=== PATIENT | male | born 1970 | race Caucasian/White ===

== ENCOUNTER 2016-08-02 11:28 | Emergency (ER) | payer BC ==
--- NOTE | 2016-08-02 15:34 | ED ---
Alcohol HPI - General Chief Complaint: Alcohol Stated Complaint: ETOH Time Seen by Provider: 08/02/16 12:30 Source: EMS Mode of arrival: EMS Limitations: altered mental status - History of Present Illness Initial Comments: This 46-year-old white male presents with a complaint of having a problem with alcoholism. He states that he would like to stop drinking. He barely drinks a fifth of alcohol per day. He states that he drank a fifth of bourbon today. He denies any injuries. He denies any medical complaints whatsoever. There is no suicidal ideations. He seems somewhat anxious at times. - Related Data Home Medications Medication Instructions Recorded Confirmed No Known Home Medications [No 08/02/16 08/02/16 Known Home Medications] Allergies Allergy/AdvReac Type Severity Reaction Status Date / Time No Known Allergies Allergy Verified 08/02/16 13:19 Review of Systems ROS Statement: Those systems with pertinent positive or pertinent negative responses have been documented in the HPI. ROS Other: All systems not noted in ROS Statement are negative. Past Medical History Past Medical History: No Reported History Additional Past Medical History / Comment(s): ETOH abuse History of Any Multi-Drug Resistant Organisms: None Reported Past Surgical History: Unable to Obtain Additional Past Surgical History / Comment(s): skin graft on Left AC. Broken clavical Past Anesthesia/Blood Transfusion Reactions: No Reported Reaction Past Psychological History: Anxiety Smoking Status: Current every day smoker Past Alcohol Use History: Daily, Heavy Past Drug Use History: None Reported Additional Drug Use History / Comment(s): Drinks 2 5ths per week General Exam - General Exam Comments Initial Comments: GENERAL: The patient is well nourished and well hydrated. VITAL SIGNS: Heart rate, blood pressure, respiratory rate reviewed as recorded in nurse's notes. EYES: Pupils are round and reactive. Extraocular movements are intact. No conjunctival / lid redness or swelling. ENT: No external evidence of injury, swelling, or ecchymosis. Airway is patent. Throat is clear. NECK: Nontender. No swelling or evidence of injury. No subcutaneous emphysema. Trachea is midline. No thyroid mass. HEART: Regular rate and rhythm. Good peripheral pulses. LUNGS/CHEST: Breath sounds clear and equal bilaterally. No rales, rhonchi, or wheezes. No ecchymosis, subcutaneous emphysema, or tenderness. ABDOMEN: Abdomen soft without tenderness. No palpable masses or organomegaly. No peritoneal signs. No abdominal wall swelling or ecchymosis. EXTREMITIES: No extremity tenderness. Normal muscle tone and function. No thoracolumbar tenderness. NEUROLOGIC: Sensation is grossly intact. Cranial nerve exam reveals face is symmetrical, tongue is midline, speech is clear. SKIN: No abrasions or ecchymosis is noted. No induration or masses noted. PSYCHIATRIC: Alert and oriented. Patient is quite verbose and mildly agitated initially. Limitations: altered mental status Course Vital Signs 08/02/16 08/02/16 08/02/16 12:03 14:55 16:44 Temperature 96.5 F L 97.2 F L Pulse Rate 121 H 101 H 122 H Respiratory 15 14 20 Rate Blood Pressure 129/87 113/75 124/80 O2 Sat by Pulse 96 96 97 Oximetry 08/02/16 18:50 Temperature 98.6 F Pulse Rate 106 H Respiratory 16 Rate Blood Pressure 129/79 O2 Sat by Pulse 98 Oximetry Medical Decision Making - Medical Decision Making The patient was seen and examined. His alcohol was drawn and found to be 253. It is felt as though he would require further sobering. He was watched here for many hours. On reexamination, he appears sober. It is felt as though he would require help call rehabilitation and he states that he is scheduled for this on August 11. He was quite anxious at one point in his stay and receives 2 mg of Ativan orally. He is sleeping on recheck. It is felt as though he is stable for discharge. He was counseled regarding alcohol abuse and leaves in no identifiable distress. No signs of depression or suicidal ideations are noted. The patient does not appear to be going through any significant withdrawals at this time. - Lab Data Lab Results 08/02/16 Range/Units 14:45 Serum Alcohol 253 mg/dL Disposition Clinical Impression: Alcoholic intoxication, Alcohol abuse Disposition: HOME SELF-CARE Condition: Fair Instructions: Alcohol Intoxication (ED), Abuse of Alcohol (ED) Additional Instructions: Please follow-up with the alcohol rehabilitation has planned. Referrals: Gertrudis Howe MD [Primary Care Provider] - 1-2 days Time of Disposition: 20:33
[2016-08-02] MEDS ORDERED: LORazepam 1 MG TAB PO STA (16:52)
[2016-08-02 18:52] VITALS: TEMP 98.6
[2016-08-02 20:42] VITALS: BP 143/66; PULSE 102; RESP 20
== END 2016-08-02 20:41 | disposition home or self-care (01) ==
LOC: EC 11:28
DX: F10.129 Alcohol abuse with intoxication, unspecified (principal); F17.200 Nicotine dependence, unspecified, uncomplicated
CPT/HCPCS: 36415; 80320; 99284

== ENCOUNTER → 2017-08-23 | Outpatient (CLI) | payer BC ==
--- NOTE | 2017-08-23 13:31 | XR ---
Right shoulder HISTORY: Right shoulder pain 3 views of the right shoulder Comparison plain film 11/09/2015 There is no interval change. Bone mineralization, joint spaces and alignment are stable. Apical pleur al thickening at the right lung apex is stable. Hypertrophic change again noted at the acromioclavicu lar joint. IMPRESSION: Correlate for impingement, shoulder MRI may be of benefit.
== END | disposition home or self-care (01) ==
LOC: RADXRYALE 10:01
PROVIDERS: ATTEND Physician Assistant Medical
DX: M25.511 Pain in right shoulder (principal)

== ENCOUNTER → 2017-10-16 | Outpatient (CLI) | payer BC ==
--- NOTE | 2017-10-16 22:55 | MR ---
EXAMINATION TYPE: MR shoulder RT wo con DATE OF EXAM: 10/16/2017 COMPARISON: Radiographs 08/23/2017 HISTORY: 47-year-old male with right shoulder pain/limited ROM x 2 years, no trauma TECHNIQUE: Multiplanar, multisequence imaging of the right shoulder is performed without contrast. FINDINGS: Unable to clearly visualize the intracapsular portion of the long head biceps tendon which may be tor n. Moderate degenerative joint space narrowing and marginal spurring at the acromioclavicular joint. Pro minent inferior spurring encroaches on the subacromial space. There is a massive rotator cuff tear involving the entire supraspinatus and infraspinatus tendon and the majority of the subscapularis tendon. The tendon stump is retracted back to the glenoid biopsy 6.0 to 6.5 cm. There is superior subluxation of the humeral head compatible with subsequent instability. There is moderate atrophy of the subscapularis, supraspinatus, and infraspinatus muscle bellies. Evaluation of the glenohumeral joint shows marginal spurring and moderate irregular cartilage loss al tonny the inferior femoral head. There is a tear of the superior labrum extending back to the superior aspect of the posterior labrum. No significant glenohumeral joint effusion. No Hill-Sachs deformity or os acromiale. Mild patchy red marrow hyperplasia is present. IMPRESSION: 1. Massive rotator cuff tear involving the entire supraspinatus and infraspinatus tendons. The majori ty of the subscapularis tendon is also torn. Stump retracted to the glenoid by 6.0 to 6.5 cm. 2. Moderate fatty atrophy of all 3 of these muscle bellies. 3. Secondary glenohumeral joint instability and early rotator cuff arthropathy. 4. Moderate AC joint OA with a large inferior spur encroaching on the subacromial space. 5. Unable to clearly visualize the intracapsular long head biceps tendon which may be torn. 6. SLAP tear.
== END | disposition home or self-care (01) ==
LOC: RADMRIMAIN 17:08
PROVIDERS: ATTEND Physician Assistant Medical
DX: M75.101 Unspecified rotator cuff tear or rupture of right shoulder, not specified as traumatic (principal); M62.511 Muscle wasting and atrophy, not elsewhere classified, right shoulder; M19.011 Primary osteoarthritis, right shoulder; S43.491A Other sprain of right shoulder joint, initial encounter; M67.813 Other specified disorders of tendon, right shoulder

== ENCOUNTER 2019-05-03 22:35 | Inpatient (IN) | payer BC, OTHER ==
[~2019-05-03 22:35] MED LIST: THIAMINE 100 MG TAB PO SCH
[2019-05-03] MEDS ORDERED: MIDAZOLAM 1 MG/ML 5 ML VIAL IM STA (23:02)
--- NOTE | 2019-05-03 23:07 | ED ---
General Adult HPI - General Chief complaint: Psychiatric Symptoms Stated complaint: petition Time Seen by Provider: 05/03/19 22:44 Source: patient, family, police Mode of arrival: ambulatory Limitations: no limitations - History of Present Illness Initial comments: Dictation was produced using [employer] dictation software. please excuse any grammatical, word or spelling errors. Chief Complaint: 48-year-old male presents with suicidal ideation. History of Present Illness: 48-year-old male he is brought in by law enforcemen bogdan. Patient was allegedly on the phone with 911 when he told the dispatcher that he was acutely suicidal. He admitted to the dispatch individual saying that he wanted to hang himself. Enforcement was called to the scene. Patient also endorse that he was feeling suicidal. Patient unable to provide history at this time. He was jerking alcohol today. Patient is a daily EtOH drinker. Patient is uncooperative and unwilling to provide a history. Patient is petitioned by law enforcement. Patient endorses no complaint at this time. The ROS documented in this emergency department record has been reviewed and confirmed by me. Those systems with pertinent positive or negative responses have been documented in the HPI. All other systems are other negative and/or noncontributory. PHYSICAL EXAM: General Impression: Alert and oriented x3, not in acute distress, smells of EtOH HEENT: Normocephalic atraumatic, extra-ocular movements intact, pupils equal and reactive to light bilaterally, mucous membranes moist. Cardiovascular: Heart regular rate and rhythm, S1&S2 audible, no murmurs, rubs or gallops Chest: Lungs clear to auscultation bilaterally, no rhonchi, no wheeze, no rales Abdomen: Bowel sounds present, abdomen soft, non-tender, non-distended, no organomegaly Musculoskeletal: Pulses present and equal in all extremities, no peripheral edema Motor: no focal deficits noted Neurological: CN II-XII grossly intact, no focal motor or sensory deficits noted Skin: Intact with no visualized rashes Psych: Normal affect and mood ED course: 48-year-old uncooperative male presents for suicidal ideation. Patient clinically intoxicated. As upon arrival are within acceptable limits. Attempt was made for verbal de-escalation however he was continued to be uncooperative. Patient given IM Versed and placed in 4 point restraints. Patient was petitioned by law enforcement.Laboratory evaluation obtained. CBC unremarkable. Metabolic panel shows anion gap acidosis. Serum alcohol level is 328. Patient's acidosis likely secondary to alcoholic ketoacidosis. Patient given intravenous fluids. Patient resting comfortably at bedside after Versed administration. Pending urine studies. EKGs benign. Given patient's degree of alcohol intoxication with metabolic acidosis we will admit patient for clinical sobriety. Psychiatric staff is on consult for suicidal ideation. EKG interpretation: Ventricular rate 90, normal sinus rhythm, MS interval 190, QS 134, QTC 499. No MS prolongation, no QTC prolongation, no ST or T-wave changes noted. EKG compared to 04/11/2014 showing no changes. Overall, this EKG is unremarkable - Related Data Home Medications Medication Instructions Recorded Confirmed Disulfiram [Antabuse] 250 mg PO DAILY 05/03/19 05/03/19 QUEtiapine [SEROquel] 25 mg PO HS 05/03/19 05/03/19 Allergies Allergy/AdvReac Type Severity Reaction Status Date / Time No Known Allergies Allergy Verified 05/03/19 23:20 Review of Systems ROS Statement: Those systems with pertinent positive or pertinent negative responses have been documented in the HPI. ROS Other: All systems not noted in ROS Statement are negative. Past Medical History Past Medical History: No Reported History Additional Past Medical History / Comment(s): ETOH abuse History of Any Multi-Drug Resistant Organisms: None Reported Past Surgical History: Unable to Obtain Additional Past Surgical History / Comment(s): skin graft on Left AC. Broken clavical Past Anesthesia/Blood Transfusion Reactions: No Reported Reaction Past Psychological History: Anxiety, Depression Smoking Status: Current every day smoker Past Alcohol Use History: Abuse, Daily, Heavy Past Drug Use History: Marijuana General Exam Limitations: no limitations Course Vital Signs 05/03/19 22:36 Temperature 96 F L Pulse Rate 54 L Respiratory 20 Rate Blood Pressure 155/75 O2 Sat by Pulse 97 Oximetry Medical Decision Making - Lab Data Result diagrams: 05/03/19 23:23 05/03/19 23:23 Lab Results 05/03/19 05/03/19 Range/Units 23:23 23:23 WBC 9.4 (3.8-10.6) k/uL RBC 5.49 (4.30-5.90) m/uL Hgb 17.0 (13.0-17.5) gm/dL Hct 50.4 (39.0-53.0) % MCV 91.8 (80.0-100.0) fL MCH 31.0 (25.0-35.0) pg MCHC 33.8 (31.0-37.0) g/dL RDW 14.2 (11.5-15.5) % Plt Count 416 (150-450) k/uL Neutrophils % 50 % Lymphocytes % 37 % Monocytes % 7 % Eosinophils % 2 % Basophils % 1 % Neutrophils # 4.6 (1.3-7.7) k/uL Lymphocytes # 3.5 (1.0-4.8) k/uL Monocytes # 0.6 (0-1.0) k/uL Eosinophils # 0.2 (0-0.7) k/uL Basophils # 0.1 (0-0.2) k/uL Sodium 147 H (137-145) mmol/L Potassium 4.0 (3.5-5.1) mmol/L Chloride 109 H (98-107) mmol/L Carbon Dioxide 21 L (22-30) mmol/L Anion Gap 17 mmol/L BUN 10 (9-20) mg/dL Creatinine 0.79 (0.66-1.25) mg/dL Est GFR (CKD-EPI)AfAm >90 (>60 ml/min/1.73 sqM) Est GFR (CKD-EPI)NonAf >90 (>60 ml/min/1.73 sqM) Glucose 97 (74-99) mg/dL Calcium 9.7 (8.4-10.2) mg/dL Magnesium 2.0 (1.6-2.3) mg/dL Serum Alcohol 328 H* mg/dL Disposition Clinical Impression: Suicidal ideation, Alcohol intoxication, Alcoholic ketoacidosis Disposition: ADMITTED IP TO THIS HOSP Condition: Fair Referrals: None,Stated [Primary Care Provider] - 1-2 days Decision Time: 00:26
[2019-05-03 23:29] LABS: Basophils # (A) 0.1 k/uL (0-0.2); Basophils % (A) 1 %; Eosinophils # (A) 0.2 k/uL (0-0.7); Eosinophils % (A) 2 %; HCT 50.4 % (39.0-53.0); Lymphocytes # (A) 3.5 k/uL (1.0-4.8); Lymphocytes % (A) 37 %; MCHC 33.8 g/dL (31.0-37.0); MCV 91.8 fL (80.0-100.0); Mean Platelet Volume 5.6; Monocytes # (A) 0.6 k/uL (0-1.0); Monocytes % (A) 7 %; Neutrophils # (A) 4.6 k/uL (1.3-7.7); Neutrophils % (A) 50 %; Platelet Count 416 k/uL (150-450); RBC 5.49 m/uL (4.30-5.90); RDW 14.2 % (11.5-15.5); WBC 9.4 k/uL (3.8-10.6)
[2019-05-03 23:39] LABS: African American GFR (CKD) >90 (>60 ml/min/1.73 sqM); Anion Gap 17 mmol/L; Blood Urea Nitrogen 10 mg/dL (9-20); Calcium 9.7 mg/dL (8.4-10.2); Carbon Dioxide 21 mmol/L (22-30); Chloride 109 mmol/L (98-107); Glucose 97 mg/dL (74-99); Non-African American GFR(CKD) >90 (>60 ml/min/1.73 sqM); Sodium 147 mmol/L (137-145)
[2019-05-03 23:50] LABS: Alcohol 328 mg/dL
[2019-05-03] MEDS ORDERED: SODIUM CHLORIDE 0.9% 1,000 ML IV STA (23:53)
[2019-05-03] MEDS ORDERED: THIAMINE 100 MG/ML 2 ML VIAL IM STA (23:57)
[2019-05-04] MEDS ORDERED: NALOXONE 0.4 MG/ML 1 ML VIAL IV PRN (00:27)
[2019-05-04 02:02] LABS: Appearance,Urine Clear (Clear); Bilirubin,Urine Negative (Negative); Blood,Urine Trace (Negative); Color,Urine Yellow; Glucose,Urine (UA) Negative (Negative); Ketones,Urine Negative (Negative); Leukocyte Esterase,Urine Negative (Negative); Mucus,Urine Rare /hpf; Nitrite,Urine Negative (Negative); PH, Urine 5.5 (5.0-8.0); Protein,Urine 1+ (Negative); RBC,Urine <1 /hpf (0-5); Specific Gravity,Urine 1.016 (1.001-1.035); Urobilinogen,Urine <2.0 mg/dL (<2.0); WBC,Urine 1 /hpf (0-5)
[2019-05-04 02:03] LABS: Amphetamine Screen,Urine Not Detected (NotDetected); Barbiturate Screen,Urine Not Detected (NotDetected); Benzodiazepines Screen,Urine Not Detected (NotDetected); Cocaine Screen,Urine Not Detected (NotDetected); Methadone Screen, Urine Not Detected (NotDetected); Opiate Screen,Urine Not Detected (NotDetected); Oxycodone Screen, Urine Not Detected (NotDetected); Phencyclidine Screen,Urine Not Detected (NotDetected); Tricyclic Antidepressant,Urine Not Detected (NotDetected); Urn Cannabinoid Scrn Not Detected (NotDetected)
[2019-05-04] MEDS: LORazepam 2 MG/ML INJ IV PRN ×7 (02:28→21:16)
[2019-05-04] MEDS: SODIUM CHLORIDE 0.9% 1,000 ML IV SCH ×3 (03:13→16:36)
[2019-05-04] MEDS: THIAMINE 100 MG TAB PO SCH ×2 (07:51→17:02)
[2019-05-04 10:04] VITALS: BMI 24.4
[2019-05-04 11:52] LABS: Glucose,Whole Blood 81 mg/dL (75-99)
[2019-05-05] MEDS: HEPARIN SODIUM,PORCINE 5,000 UNIT/ML 1 ML VIAL SQ SCH ×3 (01:14→15:24)
[2019-05-05] MEDS: LORazepam 2 MG/ML INJ IV PRN ×8 (01:14→20:03)
[2019-05-05] MEDS: SODIUM CHLORIDE 0.9% 1,000 ML IV SCH ×3 (02:31→18:34)
[2019-05-05 07:15] LABS: Basophils % (A) 0 %; Eosinophils # (A) 0.2 k/uL (0-0.7); Eosinophils % (A) 3 %; HCT 46.7 % (39.0-53.0); HGB 15.6 gm/dL (13.0-17.5); Lymphocytes # (A) 1.5 k/uL (1.0-4.8); Lymphocytes % (A) 23 %; MCH 30.6 pg (25.0-35.0); MCHC 33.4 g/dL (31.0-37.0); MCV 91.8 fL (80.0-100.0); Mean Platelet Volume 5.7; Monocytes # (A) 0.4 k/uL (0-1.0); Monocytes % (A) 6 %; Neutrophils # (A) 4.4 k/uL (1.3-7.7); Neutrophils % (A) 67 %; Platelet Count 294 k/uL (150-450); RBC 5.09 m/uL (4.30-5.90); WBC 6.6 k/uL (3.8-10.6)
[2019-05-05 07:31] LABS: African American GFR (CKD) >90 (>60 ml/min/1.73 sqM); Anion Gap 8 mmol/L; Blood Urea Nitrogen 17 mg/dL (9-20); Calcium 9.6 mg/dL (8.4-10.2); Carbon Dioxide 27 mmol/L (22-30); Chloride 103 mmol/L (98-107); Glucose 83 mg/dL (74-99); Non-African American GFR(CKD) >90 (>60 ml/min/1.73 sqM); Potassium 4.1 mmol/L (3.5-5.1); Sodium 138 mmol/L (137-145)
[2019-05-05] MEDS: THIAMINE 100 MG TAB PO SCH ×2 (09:16→16:49)
--- NOTE | 2019-05-05 11:25 | P.HPIM ---
History of Present Illness H&P Date: 05/04/19 Chief Complaint: Acute alcohol intoxication Patient is a 48-year-old male with a known history of anxiety/depression, nicotine addiction, heavy alcohol abuse was brought to to the hospital by police. Aberrantly patient called 911 and told the dispatcher that he was acutely suicidal. He has been drinking a lot recently. He admitted to the dispatch individual saying that he wanted to hang himself. Enforcement was called to the scene. Patient also endorse that he was feeling suicidal. Patient unable to provide history at this time. Patient is a daily EtOH drinker. Patient is uncooperative and unwilling to provide a history. Patient is petitioned by law enforcement. Patient endorses no complaint at this time. UDS negative. Serum alcohol level 328 Sodium 147 EKG showed normal sinus rhythm. Review of Systems Constitutional: Patient denies any fever or chills . Abdomen: Patient denied nausea vomiting and diarrhea and abdominal pain. Cardiovascular: Patient denies any chest pain or short of breath no palpitat ions. Respiratory: patient denied any cough is from production. No shortness of breath Neurologic: Patient denied any numbness or tingling headache. Complete review of systems could not be obtained from the patient. Past Medical History Past Medical History: No Reported History Additional Past Medical History / Comment(s): ETOH abuse History of Any Multi-Drug Resistant Organisms: None Reported Past Surgical History: Unable to Obtain Additional Past Surgical History / Comment(s): skin graft on Left AC. Broken clavical Past Anesthesia/Blood Transfusion Reactions: No Reported Reaction Past Psychological History: Anxiety, Depression Smoking Status: Current every day smoker Past Alcohol Use History: Abuse, Daily, Heavy Past Drug Use History: Marijuana Additional Drug Use History / Comment(s): Drinks 2 5ths per week Medications and Allergies Home Medications Medication Instructions Recorded Confirmed Type Disulfiram [Antabuse] 250 mg PO DAILY 05/03/19 05/03/19 History QUEtiapine [SEROquel] 25 mg PO HS 05/03/19 05/03/19 History Allergies Allergy/AdvReac Type Severity Reaction Status Date / Time No Known Allergies Allergy Verified 05/03/19 23:20 Physical Exam Vitals: Vital Signs Temp Pulse Pulse Resp BP BP Pulse Ox 05/04/19 20:00 18 05/04/19 19:52 97.8 F 101 H 19 138/77 100 05/04/19 14:34 98.5 F 99 16 125/80 100 05/04/19 08:00 16 05/04/19 07:00 97.9 F 90 16 124/78 97 05/04/19 04:32 16 05/04/19 02:02 98.1 F 104 H 19 136/87 96 05/04/19 01:20 90 20 110/74 97 05/04/19 01:00 87 18 111/74 97 05/04/19 00:50 86 22 104/72 97 05/04/19 00:40 87 21 103/72 96 05/04/19 00:30 88 22 102/66 95 05/04/19 00:26 87 25 H 102/66 96 05/04/19 00:20 89 23 105/74 95 05/04/19 00:04 91 24 102/71 91 L Intake and Output 05/04/19 05/04/19 05/05/19 14:59 22:59 06:59 Intake Total 920 Balance 920 Intake: Oral 920 Other: Voiding Method Toilet Toilet # Voids 0 2 PHYSICAL EXAMINATION: Patient is lying in the bed comfortably, no acute distress, awake alert but confused and lethargic.. HEENT: Normocephalic. Neck is supple. Pupils reactive. Nostrils clear. Oral cavity is moist. Ears reveal no drainage. Neck reveals no JVD, carotid bruits, or thyromegaly. CHEST EXAMINATION: Trachea is central. Symmetrical expansion. Bibasilar diminished air entry. Lung ortez clear to auscultation and percussion. CARDIAC: Normal S1, S2 with no gallops. No murmurs ABDOMEN: Soft. Bowel sounds normal. No organomegaly. No abdominal bruits. Extremities: reveal no edema. No clubbing or cyanosis Neurologically awake, alert, oriented x3 with well-coordinated movements. No focal deficits noted Skin: No rash or skin lesions. Psychiatric: Coperative. Would not bases a completely Musculoskeletal: No joint swelling or deformity. Normal range of motion. Results CBC & Chem 7: 05/05/19 06:43 05/05/19 06:43 Labs: Abnormal Lab Results - Last 24 Hours (Table) 05/03/19 05/04/19 Range/Units 23:23 01:39 Sodium 147 H (137-145) mmol/L Chloride 109 H (98-107) mmol/L Carbon Dioxide 21 L (22-30) mmol/L Urine Protein 1+ H (Negative) Urine Blood Trace H (Negative) Urine Mucus Rare H (None) /hpf Serum Alcohol 328 H* mg/dL Thrombosis Risk Factor Assmnt - DVT/VTE Prophylaxis DVT/VTE Prophylaxis: Pharmacologic Prophylaxis ordered Assessment and Plan Assessment: Acute suicidal ideation with a plan. Acute alcohol INTOXICATION Severe alcohol abuse Ongoing nicotine addiction and marijuana use DVT prophylaxis Anxiety/depression history Plan: Patient will be continued on IV hydration. Continue with thiamine and multivitamins. Monitor for withdrawal symptoms and suicide precautions. Psychiatry was consulted for evaluation. Continue to follow closely and further recommendations based on the clinical course. Time with Patient: Greater than 30
[2019-05-05 12:31] LABS: Glucose,Whole Blood 95 mg/dL (75-99)
--- NOTE | 2019-05-05 16:06 | P.CN ---
Psychiatric Consult - . 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 HISTORY OF PRESENT ILLNESS: The patient he was brought to the hospital by police after patient called 911 claiming that he was actively suicidal with plan to hang himself. Patient also presented with a blood alcohol level of 328 and was admitted for alcohol detox. Psychiatry was consulted for suicidal ideations with a plan. Patient claims that he feels "embarrassed" that is not hospital and was rather guarded/evasive about the events that took place. Patient was very vague about the details and claimed that he had a verbal argument with his and also kids too. He states that the arguments have mainly been related to the [employer] layoff and how it is affecting the company that he works for an affecting his job. He also spoke was stressors of paying for the bills. He states that he called several people than 9 and even called the fire department before calling 911. When asked what he asked the fire department, patient replied "I asked him how to stop drinking". Patient states that he has long history of drinking alcohol for over 30 years has been to rehab twice and AA meetings once. He states that he does not know how to quit alcohol and claims that he was being prescribed Antabuse however was not taking it. Patient also talked about feeling depressed and suicidal. He denied any anxiety at this time. He states that his sleep has been poor and appetite poor. At this time patient denies any suicidal or homical ideations, intent or plan. Patient denies any auditory, visual hallucinations and denies any paranoia or delusions. Patient denied using any other recreational drugs however did show to have a positive UDS for cannabis. Patient admitted to smoking cigarettes daily. PAST PSYCHIATRIC HISTORY: Patient claims that been diagnosed with depression. Patient does not have any outpatient follow-up. He denies any previous admissions to mental health units. Patient denies any previous suicide attempts. PAST MEDICAL HISTORY: denies. ALLERGIES: as per EMR. CHEMICAL DEPENDENCY HISTORY: as per HPI. FAMILY PSYCHIATRIC/SUBSTANCE USE HISTORY: denies SOCIAL HISTORY: He states that he is born and raised in [place]. He claims that he completed up until the 10th grade. He states that he is has 3 step kids lives in a house. 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 MENTAL STATUS EXAM: General Appearance: Patient appears to be older than stated age is alert, directable, however is guarded/evasive patient has poor eye contact and poor hygiene and grooming. Behavior: Patient is calmly lying in bed without any agitated behavior. Speech: Patient's speech is fluent and nonpressured. Soft tone Mood/Affect: Patient reports their mood is "fine", affect is incongruent Suicidality/Homicidality: Patient denies having any suicidal or homicidal ideation intent or plan. Perceptions: Patient denies any auditory or visual hallucinations. Though content/process: There is no evidence of any delusional thought content and thought process is linear and goal-directed. Patient is preoccupied with discharge and minimizing his problemzs. Memory and concentration: AOX3, grossly intact for the purposes of this session. Can spell "WORLD" backwards Judgment and insight: Poor/superficial. IMPRESSIONS: Depressive disorder unspecified Alcohol use disorder, moderate-severe, currently in withdrawal. PLAN: -At this time patient does meet criteria for inpatient psychiatric admission. Patient has poor insight into his condition and is guarded/evasive. Patient cannot care for himself was suicidal prior to coming into the hospital with a plan to hang himself. -Would recommend the following medication changes/additions: Patient is agreeable to start Lexapro 5 mg daily for moodanxiety with 1 dose now. We'll hold off on restarting Seroquel at this time. -Thiamine, folate, multivitamin for supplementation. -1:1 sitter for safety until patient is transferred to the psych unit. -Patient is currently undergoing alcohol withdrawal, continue CIWA with Ativan when necessary and monitoring vitals. -Cannot leave AMA at this time. Patient will need a petition and certification if attempting to leave AMA. -When medically stable, patient is eligible for transfer to a psych bed when available. -Psychiatry will sign off at this point
[2019-05-05 16:41] LABS: Glucose,Whole Blood 107 mg/dL (75-99)
[2019-05-05] MEDS: ESCITALOPRAM 5 MG TAB PO SCH (16:49)
[2019-05-06 00:35] LABS: Glucose,Whole Blood 92 mg/dL (75-99)
[2019-05-06] MEDS: HEPARIN SODIUM,PORCINE 5,000 UNIT/ML 1 ML VIAL SQ SCH ×4 (00:45→22:56)
[2019-05-06] MEDS: SODIUM CHLORIDE 0.9% 1,000 ML IV SCH ×2 (02:28→22:58)
[2019-05-06 06:34] LABS: Glucose,Whole Blood 99 mg/dL (75-99)
[2019-05-06 07:38] LABS: Glucose,Whole Blood 87 mg/dL (75-99)
[2019-05-06] MEDS: THIAMINE 100 MG TAB PO SCH ×2 (08:51→17:44)
[2019-05-06] MEDS: ESCITALOPRAM 5 MG TAB PO SCH (08:51)
--- NOTE | 2019-05-06 11:20 | P.PN ---
Subjective Progress Note Date: 05/05/19 Principal diagnosis: Acute Alcohol withdrawal symptoms Suicidal ideation with a plan Patient is a 48-year-old male with a known history of anxiety/depression, nicotine addiction, heavy alcohol abuse was brought to to the hospital by police. Aberrantly patient called 911 and told the dispatcher that he was acutely suicidal. He has been drinking a lot recently. He admitted to the dispatch individual saying that he wanted to hang himself. Enforcement was called to the scene. Patient also endorse that he was feeling suicidal. Patient unable to provide history at this time. Patient is a daily EtOH drinker. Patient is uncooperative and unwilling to provide a history. Patient is petitioned by law enforcement. Patient endorses no complaint at this time. UDS negative. Serum alcohol level 328 Sodium 147 EKG showed normal sinus rhythm. 05/05/2019 Patient is currently able to sit on the bed. Still very shaky and disoriented. No complains of chest pain or shortness of breath. No fever no chills. No nausea vomiting or abdominal pain. Tolerating oral diet. Patient will be seen by psychiatriy Currently being continued on alcohol withdrawal protocol. Current medications reviewed. Objective - Vital Signs Vital signs: Vital Signs Temp 97.7 F 05/05/19 19:49 Pulse 93 05/05/19 19:49 Resp 16 05/05/19 19:49 BP 133/90 05/05/19 19:49 Pulse Ox 100 05/05/19 19:49 Intake & Output 05/05/19 05/05/19 05/06/19 06:59 18:59 06:59 Intake Total 660 Balance 660 Intake: Oral 660 Other: Voiding Method Toilet # Voids 0 1 - Exam PHYSICAL EXAMINATION: Patient is lying in the bed comfortably, no acute distress, awake alert and oriented perfusion and shaky.. HEENT: Normocephalic. Neck is supple. Pupils reactive. Nostrils clear. Oral cavity is moist. Ears reveal no drainage. Neck reveals no JVD, carotid bruits, or thyromegaly. CHEST EXAMINATION: Trachea is central. Symmetrical expansion. Lung ortez clear to auscultation and percussion. CARDIAC: Normal S1, S2 with no gallops. No murmurs ABDOMEN: Soft. Bowel sounds normal. No organomegaly. No abdominal bruits. Extremities: reveal no edema. No clubbing or cyanosis Neurologically awake, alert, oriented x3 with well-coordinated movements. No f ocal deficits noted Skin: No rash or skin lesions. Psychiatric: Coperative. Denied any suicidal ideation currently Musculoskeletal: No joint swelling or deformity. Normal range of motion. - Labs CBC & Chem 7: 05/05/19 06:43 05/05/19 06:43 Labs: Abnormal Lab Results - Last 24 Hours (Table) 05/05/19 Range/Units 16:40 POC Glucose (mg/dL) 107 H (75-99) mg/dL Assessment and Plan Assessment: Acute suicidal ideation with a plan. Acute alcohol INTOXICATION Severe alcohol abuse Ongoing nicotine addiction and marijuana use DVT prophylaxis Anxiety/depression history Plan: Patient will be continued on IV hydration. Continue with thiamine and multivitamins. Continue with alcohol withdrawal symptoms protocol. suicide precautions. Psychiatry was consulted for evaluation. Continue to follow closely and further recommendations based on the clinical course. Time with Patient: Greater than 30
[2019-05-06 12:22] LABS: Glucose,Whole Blood 90 mg/dL (75-99)
[2019-05-06 17:02] LABS: Glucose,Whole Blood 111 mg/dL (75-99)
[2019-05-06] MEDS: LORazepam 2 MG/ML INJ IV PRN (17:52)
[2019-05-07 07:18] LABS: Glucose,Whole Blood 89 mg/dL (75-99)
[2019-05-07] MEDS: THIAMINE 100 MG TAB PO SCH ×2 (09:27→15:55)
[2019-05-07] MEDS: HEPARIN SODIUM,PORCINE 5,000 UNIT/ML 1 ML VIAL SQ SCH ×2 (09:27→15:54)
[2019-05-07] MEDS: ESCITALOPRAM 5 MG TAB PO SCH (12:18)
[2019-05-07] MEDS: SODIUM CHLORIDE 0.9% 1,000 ML IV SCH ×3 (12:19→22:11)
[2019-05-07] MEDS: LORazepam 1 MG TAB PO PRN (13:31)
[2019-05-07] MEDS: NICOTINE 14MG/24HR PATCH TRANSDERM SCH (15:55)
--- NOTE | 2019-05-07 16:11 | P.PN ---
Subjective Progress Note Date: 05/06/19 Principal diagnosis: Acute Alcohol withdrawal symptoms Suicidal ideation with a plan Patient is a 48-year-old male with a known history of anxiety/depression, nicotine addiction, heavy alcohol abuse was brought to to the hospital by police. Aberrantly patient called 911 and told the dispatcher that he was acutely suicidal. He has been drinking a lot recently. He admitted to the dispatch individual saying that he wanted to hang himself. Enforcement was called to the scene. Patient also endorse that he was feeling suicidal. Patient unable to provide history at this time. Patient is a daily EtOH drinker. Patient is uncooperative and unwilling to provide a history. Patient is petitioned by law enforcement. Patient endorses no complaint at this time. UDS negative. Serum alcohol level 328 Sodium 147 EKG showed normal sinus rhythm. 05/05/2019 Patient is currently able to sit on the bed. Still very shaky and disoriented. No complains of chest pain or shortness of breath. No fever no chills. No nausea vomiting or abdominal pain. Tolerating oral diet. Patient will be seen by psychiatriy Currently being continued on alcohol withdrawal protocol. 05/06/2019 Patient is currently sitting in the bed comfortably. Still requiring Librium by mouth for withdrawal symptoms. Psychiatry recommends inpatient psychiatric unit transfer. Patient wants to be discharged home and seems lacks insight. No complaint of chest pain or shortness of breath. No nausea vomiting or abdominal pain. No headache or dizziness or lightheadedness. Patient is medically stable to be discharged to psychiatric unit. Current medications reviewed. Objective - Vital Signs Vital signs: Vital Signs Temp 98.0 F 05/06/19 07:07 Pulse 69 05/06/19 07:07 Resp 16 05/06/19 07:07 BP 125/75 05/06/19 07:07 Pulse Ox 97 05/06/19 07:07 Intake & Output 05/05/19 05/06/19 05/06/19 18:59 06:59 18:59 Intake Total 660 660 180 Balance 660 660 180 Intake: Oral 660 660 180 Other: # Voids 1 1 - Exam PHYSICAL EXAMINATION: Patient is lying in the bed comfortably, no acute distress, awake alert and oriented. confused and shaky.. HEENT: Normocephalic. Neck is supple. Pupils reactive. Nostrils clear. Oral cavity is moist. Ears reveal no drainage. Neck reveals no JVD, carotid bruits, or thyromegaly. CHEST EXAMINATION: Trachea is central. Symmetrical expansion. Lung ortez clear to auscultation and percussion. CARDIAC: Normal S1, S2 with no gallops. No murmurs ABDOMEN: Soft. Bowel sounds normal. No organomegaly. No abdominal bruits. Extremities: reveal no edema. No clubbing or cyanosis Neurologically awake, alert, oriented x3 with well-coordinated movements. No focal deficits noted Skin: No rash or skin lesions. Psychiatric: Coperative. Denied any suicidal ideation currently Musculoskeletal: No joint swelling or deformity. Normal range of motion. - Labs CBC & Chem 7: 05/05/19 06:43 05/05/19 06:43 Labs: Abnormal Lab Results - Last 24 Hours (Table) 05/05/19 Range/Units 16:40 POC Glucose (mg/dL) 107 H (75-99) mg/dL Assessment and Plan Assessment: Acute suicidal ideation with a plan. Acute alcohol INTOXICATION Severe alcohol abuse Ongoing nicotine addiction and marijuana use DVT prophylaxis Anxiety/depression history Plan: Patient will be continued on IV hydration. Continue with thiamine and multivitamins. Continue with alcohol withdrawal symptoms protocol. suicide precautions. Psychiatry was consulted for evaluation. Recommends inpatient psych transfer. Continue to follow closely and further recommendations based on the clinical course. Time with Patient: Greater than 30
--- NOTE | 2019-05-07 22:06 | P.PN ---
Subjective Progress Note Date: 05/07/19 Principal diagnosis: Acute Alcohol withdrawal symptoms Suicidal ideation with a plan Patient is a 48-year-old male with a known history of anxiety/depression, nicotine addiction, heavy alcohol abuse was brought to to the hospital by police. Aberrantly patient called 911 and told the dispatcher that he was acutely suicidal. He has been drinking a lot recently. He admitted to the dispatch individual saying that he wanted to hang himself. Enforcement was called to the scene. Patient also endorse that he was feeling suicidal. Patient unable to provide history at this time. Patient is a daily EtOH drinker. Patient is uncooperative and unwilling to provide a history. Patient is petitioned by law enforcement. Patient endorses no complaint at this time. UDS negative. Serum alcohol level 328 Sodium 147 EKG showed normal sinus rhythm. 05/05/2019 Patient is currently able to sit on the bed. Still very shaky and disoriented. No complains of chest pain or shortness of breath. No fever no chills. No nausea vomiting or abdominal pain. Tolerating oral diet. Patient will be seen by psychiatriy Currently being continued on alcohol withdrawal protocol. 05/06/2019 Patient is currently sitting in the bed comfortably. Still requiring Librium by mouth for withdrawal symptoms. Psychiatry recommends inpatient psychiatric unit transfer. Patient wants to be discharged home and seems lacks insight. No complaint of chest pain or shortness of breath. No nausea vomiting or abdominal pain. No headache or dizziness or lightheadedness. Patient is medically stable to be discharged to psychiatric unit. 05 07 2019 Patient denied any complaints of chest pain or shortness of breath. Patient is anxious and still requiring Librium by mouth. Psychiatric recommends inpatient transfer for further management. Awaiting bed availability at this time. Patient has been afebrile. No nausea vomiting or diarrhea. Patient is medically stable to be discharged to inpatient psychiatric unit. Current medications reviewed. Objective - Vital Signs Vital signs: Vital Signs Temp 98.4 F 05/07/19 18:57 Pulse 97 05/07/19 18:57 Resp 18 05/07/19 18:57 BP 111/74 05/07/19 18:57 Pulse Ox 96 05/07/19 18:57 Intake & Output 05/07/19 05/07/19 05/08/19 06:59 18:59 06:59 Intake Total 240 Balance 240 Intake: Oral 240 Other: Voiding Method Toilet # Voids 0 2 - Exam PHYSICAL EXAMINATION: Patient is lying in the bed comfortably, no acute distress, awake alert and oriented. confused and shaky.. HEENT: Normocephalic. Neck is supple. Pupils reactive. Nostrils clear. Oral cavity is moist. Ears reveal no drainage. Neck reveals no JVD, carotid bruits, or thyromegaly. CHEST EXAMINATION: Trachea is central. Symmetrical expansion. Lung ortez clear to auscultation and percussion. CARDIAC: Normal S1, S2 with no gallops. No murmurs ABDOMEN: Soft. Bowel sounds normal. No organomegaly. No abdominal bruits. Extremities: reveal no edema. No clubbing or cyanosis Neurologically awake, alert, oriented x3 with well-coordinated movements. No focal deficits noted Skin: No rash or skin lesions. Psychiatric: Coperative. Denied any suicidal ideation currently Musculoskeletal: No joint swelling or deformity. Normal range of motion. - Labs CBC & Chem 7: 05/05/19 06:43 05/05/19 06:43 Assessment and Plan Assessment: Acute suicidal ideation with a plan. Acute alcohol INTOXICATION Severe alcohol abuse Ongoing nicotine addiction and marijuana use DVT prophylaxis Anxiety/depression history Plan: Patient will be continued on IV hydration. Continue with thiamine and multivitamins. Continue with alcohol withdrawal symptoms protocol. suicide precautions. Psychiatry recommends inpatient psych transfer. Continue to follow closely and further recommendations based on the clinical course. Time with Patient: Greater than 30
[2019-05-08] MEDS: LORazepam 1 MG TAB PO PRN (00:18)
[2019-05-08] MEDS: HEPARIN SODIUM,PORCINE 5,000 UNIT/ML 1 ML VIAL SQ SCH ×2 (00:18→07:32)
[2019-05-08] MEDS: SODIUM CHLORIDE 0.9% 1,000 ML IV SCH ×2 (06:11→07:32)
[2019-05-08] MEDS: NICOTINE 14MG/24HR PATCH TRANSDERM SCH (07:30)
[2019-05-08] MEDS: THIAMINE 100 MG TAB PO SCH (07:30)
[2019-05-08] MEDS: ESCITALOPRAM 5 MG TAB PO SCH (07:31)
[2019-05-08 07:37] VITALS: BP 127/80; PULSE 81; RESP 16; TEMP 97.8
--- NOTE | 2019-05-19 00:58 | P.DS ---
Providers Date of admission: 05/04/19 11:31 Expected date of discharge: 05/08/19 Attending physician: Toni Wolf Consults: 05/03/19 23:58 Consult Physician Routine Consulting Provider: Teo Cortez Consult Reason/Comments: suicidal ideation Do you want consulting provider notified?: Already Contacted Primary care physician: Stated None Hospital Course: Discharge diagnosis Acute suicidal ideation with a plan. Acute alcohol INTOXICATION Acute alcohol withdrawal symptoms Severe alcohol abuse Ongoing nicotine addiction and marijuana use DVT prophylaxis Anxiety/depression history Hospital course Patient is a 48-year-old male with a known history of anxiety/depression, nicotine addiction, heavy alcohol abuse was brought to to the hospital by police. Aberrantly patient called 911 and told the dispatcher that he was acutely suicidal. He has been drinking a lot recently. He admitted to the dispatch individual saying that he wanted to hang himself. Enforcement was ca lled to the scene. Patient also endorse that he was feeling suicidal. Patient unable to provide history at this time. Patient is a daily EtOH drinker. Patient is uncooperative and unwilling to provide a history. Patient is petitioned by law enforcement. Patient endorses no complaint at this time. UDS negative. Serum alcohol level 328 Sodium 147 EKG showed normal sinus rhythm. 05/05/2019 Patient is currently able to sit on the bed. Still very shaky and disoriented. No complains of chest pain or shortness of breath. No fever no chills. No nausea vomiting or abdominal pain. Tolerating oral diet. Patient will be seen by psychiatriy Currently being continued on alcohol withdrawal protocol. 05/06/2019 Patient is currently sitting in the bed comfortably. Still requiring Librium by mouth for withdrawal symptoms. Psychiatry recommends inpatient psychiatric unit transfer. Patient wants to be discharged home and seems lacks insight. No complaint of chest pain or shortness of breath. No nausea vomiting or abdominal pain. No headache or dizziness or lightheadedness. Patient is medically stable to be discharged to psychiatric unit. 05 07 2019 Patient denied any complaints of chest pain or shortness of breath. Patient is anxious and still requiring Librium by mouth. Psychiatric recommends inpatient transfer for further management. Awaiting bed availability at this time. Patient has been afebrile. No nausea vomiting or diarrhea. Patient is medically stable to be discharged to inpatient psychiatric unit. 05/08/2019 Patient is more awake and oriented. Still requiring Librium. Patient was transferred to inpatient psychiatric unit for further management. Patient is medically stable otherwise. PHYSICAL EXAMINATION: Patient is lying in the bed comfortably, no acute distress, awake alert and oriented.. HEENT: Normocephalic. Neck is supple. Pupils reactive. Nostrils clear. Oral cavity is moist. Ears reveal no drainage. Neck reveals no JVD, carotid bruits, or thyromegaly. CHEST EXAMINATION: Trachea is central. Symmetrical expansion. Lung ortez clear to auscultation and percussion. CARDIAC: Normal S1, S2 with no gallops. No murmurs ABDOMEN: Soft. Bowel sounds normal. No organomegaly. No abdominal bruits. Extremities: reveal no edema. No clubbing or cyanosis Neurologically awake, alert, oriented x3 with well-coordinated movements. No focal deficits noted Skin: No rash or skin lesions. Psychiatric: Coperative. Nonsuicidal Musculoskeletal: No joint swelling or deformity. Normal range of motion. Discharge vitals reviewed. Patient Condition at Discharge: Fair Plan - Discharge Summary Discharge Rx Participant: Yes New Discharge Prescriptions: No Action Folic Acid 1 mg PO DAILY tab Nicotine 21Mg/24Hr Patch [Habitrol] 1 patch TRANSDERM DAILY 14 Days patch Escitalopram [Lexapro] 10 mg PO DAILY 28 Days tab Melatonin 5 mg PO HS tablet Multivitamins, Thera [Multivitamin (formulary)] 1 each PO DAILY tab Naltrexone HCl [Revia] 50 mg PO DAILY 28 Days tab Thiamine [Vitamin B-1] 100 mg PO BID-W/MEALS tab Discharge Medication List Escitalopram [Lexapro] 10 mg PO DAILY 28 Days tab 05/12/19 [Rx] Folic Acid 1 mg PO DAILY tab 05/12/19 [Rx] Melatonin 5 mg PO HS tablet 05/12/19 [Rx] Multivitamins, Thera [Multivitamin (formulary)] 1 each PO DAILY tab 05/12/19 [Rx] Naltrexone HCl [Revia] 50 mg PO DAILY 28 Days tab 05/12/19 [Rx] Nicotine 21Mg/24Hr Patch [Habitrol] 1 patch TRANSDERM DAILY 14 Days patch 05/12/19 [Rx] Thiamine [Vitamin B-1] 100 mg PO BID-W/MEALS tab 05/12/19 [Rx] Follow up Appointment(s)/Referral(s): None,Stated [Primary Care Provider] - 1-2 days Activity/Diet/Wound Care/Special Instructions: Will need indigent funds if any new prescriptions. [facility] #[phone] Discharge Disposition: TRANSFER TO PSYCH HOSP/UNIT
== END 2019-05-08 12:04 | DRG 897 ==
LOC: EC 22:35 → 4SSUR 05-04 00:27 → OBSVTOIN 05-04 11:31
PROVIDERS: ADMIT Hospitalist; ATTEND Hospitalist
DX: F10.229 Alcohol dependence with intoxication, unspecified (principal); E87.2 Acidosis; R45.851 Suicidal ideations; F10.239 Alcohol dependence with withdrawal, unspecified; Z78.1 Physical restraint status; F12.90 Cannabis use, unspecified, uncomplicated; Y90.8 Blood alcohol level of 240 mg/100 ml or more; F32.9 Major depressive disorder, single episode, unspecified; F41.9 Anxiety disorder, unspecified; F17.210 Nicotine dependence, cigarettes, uncomplicated; Z79.899 Other long term (current) drug therapy; Z75.1 Person awaiting admission to adequate facility elsewhere; Z87.81 Personal history of (healed) traumatic fracture; Z94.5 Skin transplant status
CPT/HCPCS: 36415; 80048; 80306; 80320; 81001; 82075; 83735; 85025; 93005; 96360; 96372; 99285

== ENCOUNTER 2019-05-08 12:10 | Inpatient (IN) | payer MEDICAID, OTHER ==
[2019-05-08] MEDS ORDERED: MAGNESIUM HYDROXIDE 2,400 MG/10 ML CUP PO PRN (12:47)
[2019-05-08] MEDS ORDERED: ACETAMINOPHEN TAB 325 MG TAB PO PRN (12:47)
[2019-05-08] MEDS ORDERED: ZIPRASIDONE 20 MG VIAL IM PRN (12:47)
[2019-05-08 13:05] VITALS: BMI 22.2
[2019-05-08] MEDS: LORazepam 1 MG TAB PO PRN ×2 (15:04→21:58)
[2019-05-08] MEDS: THIAMINE 100 MG TAB PO SCH (18:34)
[2019-05-09] MEDS ORDERED: ESCITALOPRAM 5 MG TAB PO SCH (09:00)
[2019-05-09] MEDS: NICOTINE 21MG/24HR PATCH TRANSDERM SCH (09:23)
[2019-05-09] MEDS: THIAMINE 100 MG TAB PO SCH ×2 (09:24→17:08)
[2019-05-09] MEDS: ESCITALOPRAM 10 MG TAB PO SCH (09:26)
[2019-05-09 11:26] LABS: ALT 40 U/L (21-72); AST 46 U/L (17-59); African American GFR (CKD) >90 (>60 ml/min/1.73 sqM); Albumin 4.4 g/dL (3.5-5.0); Alkaline Phosphatase 61 U/L (38-126); Anion Gap 8 mmol/L; Blood Urea Nitrogen 20 mg/dL (9-20); Calcium 9.8 mg/dL (8.4-10.2); Carbon Dioxide 29 mmol/L (22-30); Chloride 100 mmol/L (98-107); Glucose 58 mg/dL (74-99); Potassium 4.7 mmol/L (3.5-5.1); Sodium 137 mmol/L (137-145); Total Bilirubin 0.6 mg/dL (0.2-1.3); Total Protein 7.7 g/dL (6.3-8.2)
--- NOTE | 2019-05-09 11:56 | P.HP ---
Psychiatric H&P - . H&P Date: 05/09/19 History & Physical: Allergies Allergy/AdvReac Type Severity Reaction Status Date / Time No Known Allergies Allergy Verified 05/08/19 13:59 Vital Signs Temp 97.7 F 05/09/19 06:03 Pulse 80 05/09/19 06:03 Resp 14 05/09/19 06:03 BP 105/68 05/09/19 06:03 Pulse Ox Intake & Output 05/08/19 05/09/19 05/09/19 18:59 06:59 18:59 Weight 72.348 kg Laboratory Last Values Sodium 137 mmol/L (137-145) 05/09/19 10:24 Potassium 4.7 mmol/L (3.5-5.1) 05/09/19 10:24 Chloride 100 mmol/L (98-107) 05/09/19 10:24 Carbon Dioxide 29 mmol/L (22-30) 05/09/19 10:24 Anion Gap 8 mmol/L 05/09/19 10:24 BUN 20 mg/dL (9-20) 05/09/19 10:24 Creatinine 0.92 mg/dL (0.66-1.25) 05/09/19 10:24 Est GFR (CKD-EPI)AfAm >90 (>60 ml/min/1.73 sqM) 05/09/19 10:24 Est GFR (CKD-EPI)NonAf >90 (>60 ml/min/1.73 sqM) 05/09/19 10:24 Glucose 58 mg/dL (74-99) L 05/09/19 10:24 Calcium 9.8 mg/dL (8.4-10.2) 05/09/19 10:24 Total Bilirubin 0.6 mg/dL (0.2-1.3) 05/09/19 10:24 AST 46 U/L (17-59) 05/09/19 10:24 ALT 40 U/L (21-72) 05/09/19 10:24 Alkaline Phosphatase 61 U/L (38-126) 05/09/19 10:24 Total Protein 7.7 g/dL (6.3-8.2) 05/09/19 10:24 Albumin 4.4 g/dL (3.5-5.0) 05/09/19 10:24 05/09/19 11:55 IDENTIFYING DATA: Mr. 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 HISTORY OF PRESENT ILLNESS: Patient was initially brought to the hospital by police after patient called 911 claiming that he was actively suicidal with plan to hang himself. Patient also presented with a blood alcohol level of 328 and was admitted for alcohol detox. Psychiatry consult liaison was consulted for suicidal ideations with a plan. Patient at that time claimed that he feels "embarrassed" that is not hospital and was rather guarded/evasive about the events that took place. Patient was very vague about the details and claimed that he had a verbal argument with his and also kids too. He states that the arguments have mainly been related to the [employer] layoff and how it is affecting the company that he works for an affecting his job. He also spoke was stressors of paying for the bills. He stated that he called several people and even called the fire department before calling 911. Patient told pelletizer operator that he wanted to hang himself and was tearful and crying over the phone. Patient states that he has long history of drinking alcohol for over 30 years has been to rehab twice and AA meetings once. He stated that he does not know how to quit alcohol and claims that he was being prescribed Antabuse however was not taking it. Patient also spoke about feeling depressed and suicidal. He denied any anxiety. He states that his sleep has been poor and appetite poor. Patient claims that he's been taking the Lexapro 5 mg since being on the medical floors and claims that his mood has been gradually improving and also claims that he is "finished with the withdrawals". Patient at this time claimed that he is optimistic about the future and wants to stay sober so he can help pay for his bills and work and care for his family. At this time patient denies any suicidal or homical ideations, intent or plan. Patient denies any auditory, visual hallucinations and denies any paranoia or delusions. Patient denied using any other recreational drugs however did show to have a positive UDS for cannabis. Patient admitted to smoking cigarettes daily. PAST PSYCHIATRIC HISTORY: Patient claims that been diagnosed with depression. Patient does not have any outpatient follow-up. He denies any previous admissions to mental health units. Patient denies any previous suicide attempts. PAST MEDICAL HISTORY: denies. ALLERGIES: as per EMR. CHEMICAL DEPENDENCY HISTORY: as per HPI. FAMILY PSYCHIATRIC/SUBSTANCE USE HISTORY: denies SOCIAL HISTORY: He states that he is born and raised in [place]. He claims that he completed up until the 10th grade. He states that he is has 3 step kids lives in a house. 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 MENTAL STATUS EXAM: General Appearance: Patient appears to be older than stated age is alert, directable, has poor eye contact and poor hygiene and grooming. Behavior: Patient is calmly sitting in chair without any agitated behavior. Speech: Patient's speech is fluent and nonpressured. Soft tone Mood/Affect: Patient reports their mood is "a bit better", affect is congruent and constricted. Suicidality/Homicidality: Patient denies having any suicidal or homicidal ideation intent or plan. Perceptions: Patient denies any auditory or visual hallucinations. Though content/process: There is no evidence of any delusional thought content and thought process is linear and goal-directed. Memory and concentration: AOX3, grossly intact for the purposes of this session. Can spell "WORLD" backwards Judgment and insight: Poor/superficial, improving mildly. Strengths/weaknesses: Patient's strength is that he has good family support, weakness is that patient has long history of alcohol use and depression. Intellect: Average IMPRESSIONS: Major depressive disorder, moderate-severe without psychotic features. Alcohol use disorder, moderate-severe PLAN: -Patient is admitted under voluntary status to MHU for stabilization of psychiatric symptoms and safety. Patient signed adult voluntary form and medication consent and is placed in patient's chart. -Medications : Will start patient on 10 mg Lexapro daily for mood with plan to titrate up as tolerated. Will also start melatonin daily at bedtime for sleep. -Patient was agreeable to potentially start naltrexone by mouth after liver functions come back. -Ativan PRN for agitation/aggression -Started thiamine, MVM for etoh use -Patient was counselled on substance abuse and desired to cut back on use -Patient was informed of the risks, benefits and side effects of the medication and patient verbally consented to taking the medications. Patient signed med consent form and was placed in chart. -NRT - nicotine patch -SW on board for discharge planning
[2019-05-09] MEDS: LORazepam 1 MG TAB PO PRN ×2 (13:18→21:43)
--- NOTE | 2019-05-09 15:47 | P.CONS ---
History of Present Illness - Reason for Consult Consult date: 05/09/19 Medical management - Chief Complaint Suicidal ideation - History of Present Illness Patient was initially brought to the hospital by police after patient called 911 claiming that he was actively suicidal with plan to hang himself. Patient also presented with a blood alcohol level of 328 and was admitted for alcohol detox. At the time of my exam patient reports that he is somewhat ashamed and impair is started due to putting his family through AND putting extra burden for his Review of Systems Constitutional: Denies chills, Denies fever Eyes: denies blurred vision Ears, nose, mouth and throat: Denies headache Cardiovascular: Denies chest pain Respiratory: Denies cough with sputum Gastrointestinal: Denies nausea, Denies vomiting Genitourinary: Denies dysuria, Denies hematuria Integumentary: Denies change in hair/nails, Denies darkening of skin Neurological: Denies ataxia, Denies confusion Psychiatric: Reports depression, Reports suicidal ideation Endocrine: Denies cold intolerance, Denies heat intolerance Past Medical History Past Medical History: Musculoskeletal Disorder Additional Past Medical History / Comment(s): ETOH abuse History of Any Multi-Drug Resistant Organisms: None Reported Past Surgical History: Orthopedic Surgery Additional Past Surgical History / Comment(s): skin graft on Left AC. Broken clavical Past Anesthesia/Blood Transfusion Reactions: No Reported Reaction Smoking Status: Current every day smoker - Past Family History Father History Unknown: Yes Family Medical History: Unable to Obtain Mother History Unknown: Yes Family Medical History: Unable to Obtain Medications and Allergies Home Medications Medication Instructions Recorded Confirmed Type QUEtiapine [SEROquel] 25 mg PO HS 05/03/19 05/08/19 History Allergies Allergy/AdvReac Type Severity Reaction Status Date / Time No Known Allergies Allergy Verified 05/08/19 13:59 Physical Exam Vitals: Vital Signs Temp Pulse Resp BP 05/09/19 06:03 97.7 F 80 14 105/68 - Constitutional General appearance: Present: average body habitus, cooperative, no acute distress - EENT Eyes: Present: anicteric sclerae, EOMI, PERRLA, normal appearance ENT: Present: hearing grossly normal, normal oropharynx Ears: bilateral: normal - Neck Neck: Present: normal ROM. Absent: lymphadenopathy, rigidity, thyromegaly Carotids: negative: bruit present Thyroid: bilateral: normal size, negative: enlarged, nodule - Respiratory Respiratory: bilateral: CTA, negative: rales, rhonchi, wheezing - Cardiovascular Rhythm: regular Heart sounds: normal: S1, S2 Abnormal Heart Sounds: Absent: systolic murmur, diastolic murmur - Gastrointestinal General gastrointestinal: Present: normal bowel sounds, soft. Absent: distended, organomegaly, tenderness - Genitourinary Genitourinary Comment(s): deferred - Integumentary Integumentary: Present: normal turgor. Absent: jaundiced, rash, ulcer - Neurologic Neurologic: Present: CNII-XII intact. Absent: focal deficits - Musculoskeletal Musculoskeletal: Present: gait normal, strength equal bilaterally - Psychiatric Psychiatric: Present: A&O x's 3, appropriate affect, intact judgment & insight Results CBC & Chem 7: 05/09/19 10:24 Labs: Abnormal Lab Results - Last 24 Hours (Table) 05/09/19 Range/Units 10:24 Glucose 58 L (74-99) mg/dL Assessment and Plan Assessment: 1. Suicidal ideation 2. Major depression 3. EtOH intoxication/withdrawal 4. Chronic alcohol use 5. Chronic tobacco use 6. DVT prophylaxis; early ambulation CODE STATUS; full code Plan; Patient is voluntarily admitted to mental health unit; remains on Lexapro 10 mg daily along with Ativan when necessary for agitation and aggression; patient is started on thiamine and multivitamins for chronic EtOH use; counseling done on substance abuse Time with Patient: Greater than 30
[2019-05-09] MEDS: MELATONIN 5 MG TABLET PO SCH (21:43)
[2019-05-09] MEDS: MAG HYDROX/AL HYDROX/SIMETH 30 ML CUP PO PRN (22:31)
[2019-05-10] MEDS: NICOTINE 21MG/24HR PATCH TRANSDERM SCH (08:45)
[2019-05-10] MEDS: MULTIVITAMINS, THERA 1 EACH TAB PO SCH (08:45)
[2019-05-10] MEDS: THIAMINE 100 MG TAB PO SCH ×2 (08:45→16:54)
[2019-05-10] MEDS: FOLIC ACID 1 MG TAB PO SCH (08:45)
[2019-05-10] MEDS: ESCITALOPRAM 10 MG TAB PO SCH (08:45)
[2019-05-10] MEDS: LORazepam 1 MG TAB PO PRN ×2 (08:46→21:02)
--- NOTE | 2019-05-10 11:38 | P.PN ---
Progress Note - Text Progress Note Date: 05/10/19 Interval History: Patient was seen wandering the hallways and was agreeable to be brighter. Mayuri sousa claims that he is feeling much better today and states that his anxiety and mood are improving. He states that he has been going to groups and attend and participate. He states that the medication dose of Lexapro and also melatonin has been helping him. He states that he likes the natural effect of melatonin for sleep and was able to sleep tonight. Patient continues to be cooperative and has improving insight towards his substance use/alcohol use. Patient is agreeable to start naltrexone today. He claims good appetite and good energy. At this time patient denies any suicidal or homical ideations, intent or plan. Patient denies any auditory, visual hallucinations and denies any paranoia or delusions. Patient denies any side effects from the medications and has been compliant with meds. Mental Status Exam: General Appearance: Patient appears to be stated age is alert, pleasant, and cooperative. Patient appears to have improved hygiene and grooming. Behavior: Patient is calmly seated without any agitated behavior. Speech: Patient's speech is fluent and nonpressured. Soft tone. Mood/Affect: Mood is improving, affect is congruent Suicidality/Homicidality: Patient denies having any suicidal or homicidal ideation intent or plan. Perceptions: Patient denies any auditory or visual hallucinations. Though content/process: There is no evidence of any delusional thought content and thought process is linear and goal-directed. Patient is optimistic and positive about the future and quitting alcohol use. Memory and concentration: AOX3, grossly intact for the purposes of this session Judgment and insight: fair, improving. Assessment Major depressive disorder, moderate-severe without psychotic features. Alcohol use disorder, moderate-severe Plan: -Patient continues to meet criteria for inpatient psychiatric admission for symptom stabilization and safety. Patient has signed adult voluntary form and medication consent and was placed in patient's chart. -Medications: We'll continue Lexapro 10 mg daily for mood/anxiety. We'll also continue melatonin nightly for sleep. We'll start naltrexone today 50 mg by mouth daily for alcohol cravings. -Ativan PRN for agitation/aggression -thiamine, MVM for etoh use -When necessary Ativan for agitation/aggression. -NRT - nicotine patch -SW on board for discharge planning. Patient is looking forward to AA meetings and outpatient rehab upon discharge. Discharge likely Sunday.
[2019-05-10] MEDS: NALTREXONE HCL 50 MG TAB PO SCH (11:49)
[2019-05-10] MEDS: MELATONIN 5 MG TABLET PO SCH (21:02)
[2019-05-10] MEDS: MAG HYDROX/AL HYDROX/SIMETH 30 ML CUP PO PRN (23:02)
[2019-05-11 06:48] VITALS: RESP 16; TEMP 97.9
[2019-05-11] MEDS: NICOTINE 21MG/24HR PATCH TRANSDERM SCH (07:57)
[2019-05-11] MEDS: FOLIC ACID 1 MG TAB PO SCH (07:58)
[2019-05-11] MEDS: ESCITALOPRAM 10 MG TAB PO SCH (07:58)
[2019-05-11] MEDS: MULTIVITAMINS, THERA 1 EACH TAB PO SCH (07:58)
[2019-05-11] MEDS: THIAMINE 100 MG TAB PO SCH ×2 (07:58→14:57)
[2019-05-11] MEDS: NALTREXONE HCL 50 MG TAB PO SCH (07:58)
[2019-05-11] MEDS: LORazepam 1 MG TAB PO PRN (07:59)
--- NOTE | 2019-05-11 12:14 | P.PN ---
Progress Note - Text Progress Note Date: 05/11/19 Interval History: Patient was seen wandering the hallways and was agreeable to be brighter after attending group. Patient states that he is getting a lot from his time on the unit and being able to interact with others and share his story. He states that his girlfriend will be ready to pick him up tomorrow and he is anxious about going home. Patient claims that he is committed to staying sober and staying on the medications to help him stay away from alcohol and with his cravings. Patient claims that he is feeling much better today and states that his anxiety and mood are improving. He states that the medication dose of Lexapro and also melatonin has been helping him. He states that he likes the natural effect of melatonin for sleep and was able to sleep tonight. At this time patient denies any suicidal or homical ideations, intent or plan. Patient denies any auditory, visual hallucinations and denies any paranoia or delusions. Patient denies any side effects from the medications and has been compliant with meds. Mental Status Exam: General Appearance: Patient appears to be stated age is alert, pleasant, and cooperative. Patient appears to have improved hygiene and grooming. Behavior: Patient is calmly seated without any agitated behavior. Speech: Patient's speech is fluent and nonpressured. Mood/Affect: Mood is improving, affect is congruent Suicidality/Homicidality: Patient denies having any suicidal or homicidal ideation intent or plan. Perceptions: Patient denies any auditory or visual hallucinations. Though content/process: There is no evidence of any delusional thought content and thought process is linear and goal-directed. Patient is optimistic and positive about the future and quitting alcohol use. Memory and concentration: AOX3, grossly intact for the purposes of this session Judgment and insight: fair, improving. Assessment Major depressive disorder, moderate-severe without psychotic features. Alcohol use disorder, moderate-severe Plan: -Patient continues to meet criteria for inpatient psychiatric admission for symptom stabilization and safety. Patient has signed adult voluntary form and medication consent and was placed in patient's chart. -Medications: We'll continue Lexapro 10 mg daily for mood/anxiety. We'll also continue melatonin nightly for sleep. We'll continue with naltrexone today 50 mg by mouth daily for alcohol cravings. -Ativan PRN for agitation/aggression -thiamine, MVM for etoh use -When necessary Ativan for agitation/aggression. -NRT - nicotine patch -SW on board for discharge planning. Patient is looking forward to AA meetings and outpatient rehab upon discharge. Discharge likely Sunday.
[2019-05-11] MEDS: LORazepam 0.5 MG TAB PO PRN ×2 (14:56→23:05)
[2019-05-11] MEDS: MELATONIN 5 MG TABLET PO SCH (21:59)
[2019-05-12 06:45] VITALS: BP 115/73; PULSE 84
--- NOTE | 2019-05-12 08:01 | P.DS ---
Providers Date of admission: 05/08/19 12:10 Expected date of discharge: 05/12/19 Attending physician: Teo Cortez MD Consults: 05/08/19 12:47 Consult Physician Routine Consulting Provider: Toni Wolf Consult Reason/Comments: history and physical Do you want consulting provider notified?: Yes Primary care physician: Stated None - Discharge Diagnosis(es) (1) Major depressive disorder without psychotic features Current Visit: Yes Status: Acute Priority: High (2) Alcohol use disorder, severe, dependence Current Visit: Yes Status: Acute Priority: Medium Hospital Course: Admission HPI: Mr. 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 Patient was initially brought to the hospital by police after patient called 911 claiming that he was actively suicidal with plan to hang himself. Patient also presented with a blood alcohol level of 328 and was admitted for alcohol detox. Psychiatry consult liaison was consulted for suicidal ideations with a plan. Patient at that time claimed that he feels "embarrassed" that is not hospital and was rather guarded/evasive about the events that took place. Patient was very vague about the details and claimed that he had a verbal argument with his and also kids too. He states that the arguments have mainly been related to the [employer] layoff and how it is affecting the company that he works for an affecting his job. He also spoke was stressors of paying for the bills. He stated that he called several people and even called the fire department before calling 911. Patient told fire engine operator that he wanted to hang himself and was tearful and crying over the phone. Patient states that he has long history of drinking alcohol for over 30 years has been to rehab twice and AA meetings once. He stated that he does not know how to quit alcohol and claims that he was being prescribed Antabuse however was not taking it. Patient also spoke about feeling depressed and suicidal. He denied any anxiety. He states that his sleep has been poor and appetite poor. Patient claims that he's been taking the Lexapro 5 mg since being on the medical floors and claims that his mood has been gradually improving and also claims that he is "finished with the withdrawals". Patient at this time claimed that he is optimistic about the future and wants to stay sober so he can help pay for his bills and work and care for his family. At this time patient denies any suicidal or homical ideations, intent or plan. Patient denies any auditory, visual hallucinations and denies any paranoia or delusions. Patient denied using any other recreational drugs however did show to have a positive UDS for cannabis. Patient admitted to smoking cigarettes daily. Hospital course: Upon admission to the unit patient was initially depressed, anxious and isolative. Patient was however directable and agreeable to commence treatment. Patient got along well with other patients on the unit and followed unit protocol. Patient was compliant with the medications and denied any side effects throughout hospital course. Patient was started on Lexapro and titrated up to 10 mg daily for mood/anxiety. Patient was also started on naltrexone 50 mg daily for alcohol cravings. Patient was also started on melatonin 5 mg daily at bedtime for sleep. Patient spoke of his stressors and engaged in therapy both group and individual. Patient was also seen by medical team for history and physical exam. Throughout the course of the hospitalization patient gradually improved with regards to mood, anxiety, sleep and became future oriented with improved insight and judgment. On the day of discharge patient denied any suic idal or homicidal ideations intent or plan denied any auditory or visual hallucinations. Patient endorsed wanting to live for his health and family. The patient denied any access to guns or weapons. Patient denied any paranoia and did not endorse any delusions. Patient does have a significant history of substance abuse and was counseled on abstaining from all substances including alcohol and marijuana. Patient elected not to go to rehab and wanted to do outpatient substance use treatment along with medication treatment for his alcohol use. Patient was also counseled on the medications and need for regular compliance and was encouraged to follow-up with their outpatient appointment for mental health and also for primary care. Prior to discharge a family meeting will be arranged by social science analyst to answer any questions and ensure safety upon discharge. Mental status exam: General Appearance: Patient appears to be stated age is alert, pleasant, and cooperative. Patient is in no acute distress and has fair hygiene and grooming Behavior: Patient is calmly seated without any agitated behavior. Speech: Patient's speech is fluent and nonpressured. Mood/Affect: Patient reports their mood is "better", affect is congruent and euthymic. Suicidality/Homicidality: Patient denies having any suicidal or homicidal ideation intent or plan. Perceptions: Patient denies any auditory or visual hallucinations. Though content/process: There is no evidence of any delusional thought content and thought process is linear and goal-directed. Memory and concentration: AOX3, grossly intact for the purposes of this session. Can spell "WORLD" backwards correctly. Judgment and insight: fair, improved Impression: Major depressive disorder, without psychotic features Alcohol use disorder, severe dependence Plan: -Continue with discharge today as patient has improved and stabilized psychiatrically and is not currently an imminent threat to himself and/or others. -Continue medications: Can continue Lexapro 10 mg daily for mood/anxiety, melatonin 5 mg daily at bedtime for sleep, naltrexone 50 mg daily for alcohol cravings. -Patient was counseled on the need for medication compliance and appropriate follow-up at mental health and also primary care for medical issues. Patient verbalized understanding and agreed. -Social work to arrange for and conduct family meeting to ensure safety upon discharge and answer any questions/concerns. Social work also to arrange for patients follow up appointments with [facility] along with follow up with primary care provider. -Patient counseled on abstaining from recreational drugs and marijuana and alcohol. Was informed/educated on the adverse effects on their physical and mental health. Patient elected not to go to rehab and wanted to do outpatient substance use treatment along with medication treatment for his alcohol use. -Patient was instructed to return to the hospital or seek immediate medical care if their psychiatric or medical systems do worsen or reoccur. Allergies Allergy/AdvReac Type Severity Reaction Status Date / Time No Known Allergies Allergy Verified 05/08/19 13:59 Laboratory Results Sodium 137 mmol/L (137-145) 05/09/19 10:24 Potassium 4.7 mmol/L (3.5-5.1) 05/09/19 10:24 Chloride 100 mmol/L (98-107) 05/09/19 10:24 Carbon Dioxide 29 mmol/L (22-30) 05/09/19 10:24 Anion Gap 8 mmol/L 05/09/19 10:24 BUN 20 mg/dL (9-20) 05/09/19 10:24 Creatinine 0.92 mg/dL (0.66-1.25) 05/09/19 10:24 Est GFR (CKD-EPI)AfAm >90 (>60 ml/min/1.73 sqM) 05/09/19 10:24 Est GFR (CKD-EPI)NonAf >90 (>60 ml/min/1.73 sqM) 05/09/19 10:24 Glucose 58 mg/dL (74-99) L 05/09/19 10:24 Calcium 9.8 mg/dL (8.4-10.2) 05/09/19 10:24 Total Bilirubin 0.6 mg/dL (0.2-1.3) 05/09/19 10:24 AST 46 U/L (17-59) 05/09/19 10:24 ALT 40 U/L (21-72) 05/09/19 10:24 Alkaline Phosphatase 61 U/L (38-126) 05/09/19 10:24 Total Protein 7.7 g/dL (6.3-8.2) 05/09/19 10:24 Albumin 4.4 g/dL (3.5-5.0) 05/09/19 10:24 Vital Signs Temp 97.9 F 05/12/19 06:41 Pulse 84 05/12/19 06:41 Resp 16 05/12/19 06:41 BP 115/73 05/12/19 06:41 Pulse Ox Intake & Output 05/11/19 05/12/19 05/12/19 18:59 06:59 18:59 Weight 73.9 kg Patient Condition at Discharge: Stable Plan - Discharge Summary New Discharge Prescriptions: New Folic Acid 1 mg PO DAILY tab Nicotine 21Mg/24Hr Patch [Habitrol] 1 patch TRANSDERM DAILY 14 Days patch Escitalopram [Lexapro] 10 mg PO DAILY 28 Days tab Melatonin 5 mg PO HS tablet Multivitamins, Thera [Multivitamin (formulary)] 1 each PO DAILY tab Naltrexone HCl [Revia] 50 mg PO DAILY 28 Days tab Thiamine [Vitamin B-1] 100 mg PO BID-W/MEALS tab Discontinued QUEtiapine [SEROquel] 25 mg PO HS Discharge Medication List Escitalopram [Lexapro] 10 mg PO DAILY 28 Days tab 05/12/19 [Rx] Folic Acid 1 mg PO DAILY tab 05/12/19 [Rx] Melatonin 5 mg PO HS tablet 05/12/19 [Rx] Multivitamins, Thera [Multivitamin (formulary)] 1 each PO DAILY tab 05/12/19 [Rx] Naltrexone HCl [Revia] 50 mg PO DAILY 28 Days tab 05/12/19 [Rx] Nicotine 21Mg/24Hr Patch [Habitrol] 1 patch TRANSDERM DAILY 14 Days patch 05/12/19 [Rx] Thiamine [Vitamin B-1] 100 mg PO BID-W/MEALS tab 05/12/19 [Rx] Discharge Disposition: HOME SELF-CARE
[2019-05-12] MEDS: NICOTINE 21MG/24HR PATCH TRANSDERM SCH (08:43)
[2019-05-12] MEDS: MULTIVITAMINS, THERA 1 EACH TAB PO SCH (08:44)
[2019-05-12] MEDS: FOLIC ACID 1 MG TAB PO SCH (08:44)
[2019-05-12] MEDS: NALTREXONE HCL 50 MG TAB PO SCH (08:44)
[2019-05-12] MEDS: THIAMINE 100 MG TAB PO SCH (08:44)
[2019-05-12] MEDS: ESCITALOPRAM 10 MG TAB PO SCH (08:44)
[2019-05-12] MEDS: LORazepam 0.5 MG TAB PO PRN (08:45)
== END 2019-05-12 09:23 | disposition home or self-care (01) | DRG 885 ==
LOC: 3MHU 12:10
PROVIDERS: ADMIT Psychiatry & Neurology Psychiatry; ATTEND Psychiatry & Neurology Psychiatry
PROC: HZ2ZZZZ Detoxification Services for Substance Abuse Treatment (ICD-10-PCS; principal; 2019-05-08)
DX: F32.1 Major depressive disorder, single episode, moderate (principal); R45.851 Suicidal ideations; F17.210 Nicotine dependence, cigarettes, uncomplicated; F41.9 Anxiety disorder, unspecified; F10.20 Alcohol dependence, uncomplicated; Z79.899 Other long term (current) drug therapy; Z71.41 Alcohol abuse counseling and surveillance of alcoholic; Z71.6 Tobacco abuse counseling
CPT/HCPCS: 80053

== ENCOUNTER 2019-07-17 17:08 | Emergency (ER) | payer OTHER ==
--- NOTE | 2019-07-17 17:22 | ED ---
Psych HPI - General Source: RN notes reviewed, old records reviewed Limitations: no limitations - History of Present Illness MD Complaint: suicidal ideation, feels depressed, other (patient is intoxicatted) -: unknown Associated Psychiatric Symptoms: depression, suicidal ideation History of same: Yes Quality: intermittent, getting worse Improves With: none Worsens With: alcohol Context: recent alcohol abuse Associated Symptoms: denies other symptoms Treatments Prior to Arrival: placed on mental health hold If Self Harm: admits thoughts of self harm <Paco Elias - Last Filed: 07/17/19 21:05> <Azra Robertson - Last Filed: 07/18/19 04:00> - General Stated Complaint: Mental health Time Seen by Provider: 07/17/19 17:11 - History of Present Illness Initial Comments: This is a 49-year-old male here for evaluation patient yesterday for evaluation regards to psychiatric no suicidal patient. Patient has no established or sick contacts. Patient is psychiatric, suicidal. Patient is a motel contacts initially states he wants to hang himself. Patient is very belligerent participating history taking (Paco Elias) - Related Data Previous Rx's Medication Instructions Recorded Escitalopram [Lexapro] 10 mg PO DAILY 28 Days tab 05/12/19 Folic Acid 1 mg PO DAILY tab 05/12/19 Melatonin 5 mg PO HS tablet 05/12/19 Multivitamins, Thera [Multivitamin 1 each PO DAILY tab 05/12/19 (formulary)] Naltrexone HCl [Revia] 50 mg PO DAILY 28 Days tab 05/12/19 Nicotine 21Mg/24Hr Patch [Habitrol] 1 patch TRANSDERM DAILY 14 Days 05/12/19 patch Thiamine [Vitamin B-1] 100 mg PO BID-W/MEALS tab 05/12/19 Allergies Allergy/AdvReac Type Severity Reaction Status Date / Time No Known Allergies Allergy Verified 05/08/19 13:59 Review of Systems ROS Other: All systems not noted in ROS Statement are negative. <Paco Elias - Last Filed: 07/17/19 21:05> ROS Other: All systems not noted in ROS Statement are negative. <Azra Robertson - Last Filed: 07/18/19 04:00> ROS Statement: Those systems with pertinent positive or pertinent negative responses have been documented in the HPI. Past Medical History Past Medical History: Musculoskeletal Disorder Additional Past Medical History / Comment(s): ETOH abuse History of Any Multi-Drug Resistant Organisms: None Reported Past Surgical History: Orthopedic Surgery Additional Past Surgical History / Comment(s): skin graft on Left AC. Broken clavical Past Anesthesia/Blood Transfusion Reactions: No Reported Reaction Smoking Status: Current every day smoker - Past Family History Father History Unknown: Yes Family Medical History: Unable to Obtain Mother History Unknown: Yes Family Medical History: Unable to Obtain <Paco Elias - Last Filed: 07/17/19 21:05> General Exam General appearance: alert, in no apparent distress, anxious Head exam: Present: atraumatic, normocephalic, normal inspection Eye exam: Present: normal appearance, PERRL, EOMI. Absent: scleral icterus, conjunctival injection, periorbital swelling ENT exam: Present: normal exam, mucous membranes moist Neck exam: Present: normal inspection. Absent: tenderness, meningismus, lymphad enopathy Respiratory exam: Present: normal lung sounds bilaterally. Absent: respiratory distress, wheezes, rales, rhonchi, stridor Cardiovascular Exam: Present: regular rate, normal rhythm, normal heart sounds. Absent: systolic murmur, diastolic murmur, rubs, gallop, clicks GI/Abdominal exam: Present: soft, normal bowel sounds. Absent: distended, tenderness, guarding, rebound, rigid Extremities exam: Present: normal inspection, full ROM, normal capillary refill. Absent: tenderness, pedal edema, joint swelling, calf tenderness Back exam: Present: normal inspection Neurological exam: Present: alert, oriented X3, CN II-XII intact Psychiatric exam: Present: normal affect, normal mood Skin exam: Present: warm, dry, intact, normal color. Absent: rash <Paco Elias - Last Filed: 07/17/19 21:05> Course <Paco Elias - Last Filed: 07/17/19 21:05> Vital Signs 07/18/19 00:13 Pulse Rate 68 Respiratory 16 Rate Blood Pressure 113/64 O2 Sat by Pulse 97 Oximetry - Reevaluation(s) Reevaluation #1: 07/17/19 21:05 Record is reviewed (Paco Elias) Reevaluation #2: 07/17/19 21:05 pt is medically clear for psychiatric evaluation 0200 (Paco Elias) Medical Decision Making - Lab Data Result diagrams: 07/17/19 20:15 07/17/19 20:15 <Paco Elias - Last Filed: 07/17/19 21:05> - Lab Data Result diagrams: 07/17/19 20:15 07/17/19 20:15 <Azra Robertson - Last Filed: 07/18/19 04:00> - Medical Decision Making She was signed out to me at shift change. Upon sobriety patient was evaluated by EPS. Patient was very apologetic [place] tearful stating that he is not suicidal does not want hurt himself. Patient states he wants to go home to be with his . willing to come pick him up. Patient contracted for safety area and patient comfortable plan for discharge home. (Azra Robertson) - Lab Data Lab Results 07/17/19 07/17/19 Range/Units 20:15 20:15 WBC 10.1 (3.8-10.6) k/uL RBC 4.86 (4.30-5.90) m/uL Hgb 15.2 (13.0-17.5) gm/dL Hct 43.7 (39.0-53.0) % MCV 90.0 (80.0-100.0) fL MCH 31.3 (25.0-35.0) pg MCHC 34.7 (31.0-37.0) g/dL RDW 14.7 (11.5-15.5) % Plt Count 229 (150-450) k/uL Neutrophils % 61 % Lymphocytes % 31 % Monocytes % 3 % Eosinophils % 3 % Basophils % 1 % Neutrophils # 6.1 (1.3-7.7) k/uL Lymphocytes # 3.1 (1.0-4.8) k/uL Monocytes # 0.3 (0-1.0) k/uL Eosinophils # 0.3 (0-0.7) k/uL Basophils # 0.1 (0-0.2) k/uL Sodium 143 (137-145) mmol/L Potassium 4.3 (3.5-5.1) mmol/L Chloride 111 H (98-107) mmol/L Carbon Dioxide 23 (22-30) mmol/L Anion Gap 9 mmol/L BUN 8 L (9-20) mg/dL Creatinine 0.72 (0.66-1.25) mg/dL Est GFR (CKD-EPI)AfAm >90 (>60 ml/min/1.73 sqM) Est GFR (CKD-EPI)NonAf >90 (>60 ml/min/1.73 sqM) Glucose 112 H (74-99) mg/dL Calcium 9.0 (8.4-10.2) mg/dL Phosphorus 3.9 (2.5-4.5) mg/dL Magnesium 2.0 (1.6-2.3) mg/dL Total Bilirubin 0.4 (0.2-1.3) mg/dL AST 36 (17-59) U/L ALT 21 (4-49) U/L Alkaline Phosphatase 80 (38-126) U/L Total Protein 6.8 (6.3-8.2) g/dL Albumin 3.9 (3.5-5.0) g/dL Lipase 50 (23-300) U/L Serum Alcohol 190 mg/dL Disposition <Paco Elias B - Last Filed: 07/17/19 21:05> Is patient prescribed a controlled substance at d/c from ED?: No <Azra Robertson P - Last Filed: 07/18/19 04:00> Clinical Impression: Alcoholic intoxication Disposition: HOME SELF-CARE Condition: Stable Instructions (If sedation given, give patient instructions): Alcohol Intoxication (ED) Referrals: None,Stated [Primary Care Provider] - 1-2 days
[2019-07-17] MEDS ORDERED: SODIUM CHLORIDE 0.9% 1,000 ML IV STA (18:46)
[2019-07-17] MEDS ORDERED: diphenhydrAMINE 50 MG/ML 1 ML VIAL IM STA (18:46)
[2019-07-17] MEDS ORDERED: LORazepam 2 MG/ML INJ IM STA (18:46)
--- NOTE | 2019-07-17 19:11 | XR ---
EXAMINATION TYPE: XR chest 2V DATE OF EXAM: 07/17/2019 COMPARISON: NONE HISTORY: Rib pain TECHNIQUE: 2 views FINDINGS: Heart is normal. Lungs are clear of infiltrate. There is no pleural effusion. Bony thorax i s intact. IMPRESSION: No active cardiopulmonary disease. Normal heart.
[2019-07-17 20:27] LABS: Basophils # (A) 0.1 k/uL (0-0.2); Basophils % (A) 1 %; Eosinophils # (A) 0.3 k/uL (0-0.7); Eosinophils % (A) 3 %; HCT 43.7 % (39.0-53.0); HGB 15.2 gm/dL (13.0-17.5); Lymphocytes # (A) 3.1 k/uL (1.0-4.8); Lymphocytes % (A) 31 %; MCH 31.3 pg (25.0-35.0); MCHC 34.7 g/dL (31.0-37.0); Mean Platelet Volume 7.1; Monocytes # (A) 0.3 k/uL (0-1.0); Monocytes % (A) 3 %; Neutrophils # (A) 6.1 k/uL (1.3-7.7); Neutrophils % (A) 61 %; Platelet Count 229 k/uL (150-450); RBC 4.86 m/uL (4.30-5.90); RDW 14.7 % (11.5-15.5); WBC 10.1 k/uL (3.8-10.6)
[2019-07-17 20:37] LABS: ALT 21 U/L (4-49); AST 36 U/L (17-59); African American GFR (CKD) >90 (>60 ml/min/1.73 sqM); Albumin 3.9 g/dL (3.5-5.0); Alkaline Phosphatase 80 U/L (38-126); Anion Gap 9 mmol/L; Blood Urea Nitrogen 8 mg/dL (9-20); Carbon Dioxide 23 mmol/L (22-30); Chloride 111 mmol/L (98-107); Glucose 112 mg/dL (74-99); Non-African American GFR(CKD) >90 (>60 ml/min/1.73 sqM); Phosphorus 3.9 mg/dL (2.5-4.5); Potassium 4.3 mmol/L (3.5-5.1); Sodium 143 mmol/L (137-145); Total Bilirubin 0.4 mg/dL (0.2-1.3); Total Protein 6.8 g/dL (6.3-8.2)
[2019-07-17 20:46] LABS: Alcohol 190 mg/dL
[2019-07-18 04:21] VITALS: BP 161/72; PULSE 94; RESP 18
== END 2019-07-18 04:19 | disposition home or self-care (01) ==
LOC: EC 17:08
DX: F10.129 Alcohol abuse with intoxication, unspecified (principal); R45.83 Excessive crying of child, adolescent or adult; F32.9 Major depressive disorder, single episode, unspecified; F17.200 Nicotine dependence, unspecified, uncomplicated; Y90.6 Blood alcohol level of 120-199 mg/100 ml
CPT/HCPCS: 36415; 80053; 83690; 83735; 84100; 85025; 71046; 99285; 96360; 96361 ×2; 96372 ×2; G0480; J2060; J1200; 80320

== ENCOUNTER 2019-10-04 15:26 | Inpatient (IN) | payer OTHER ==
--- NOTE | 2019-10-04 15:49 | ED ---
General Adult HPI - General Stated complaint: Mental Health Time Seen by Provider: 10/04/19 15:26 Source: RN notes reviewed, old records reviewed - History of Present Illness Initial comments: This is a 49-year-old male who presents emergency Department complaining of wanting to kill self. Patient states he tried to hang himself and then when I asked him a question again later on he said he is going to jump off of a silo. Patient was extremely uncooperative and combative patient would not get into a gown patient was calling staff names. Patient was eventually restrained and needed to be put in leather restraints. Patient at that point would not cooperate at all and would not answer any questions about alcohol or drugs. - Related Data Previous Rx's Medication Instructions Recorded Escitalopram [Lexapro] 10 mg PO DAILY 28 Days tab 05/12/19 Folic Acid 1 mg PO DAILY tab 05/12/19 Melatonin 5 mg PO HS tablet 05/12/19 Multivitamins, Thera [Multivitamin 1 each PO DAILY tab 05/12/19 (formulary)] Naltrexone HCl [Revia] 50 mg PO DAILY 28 Days tab 05/12/19 Thiamine [Vitamin B-1] 100 mg PO BID-W/MEALS tab 05/12/19 Allergies Allergy/AdvReac Type Severity Reaction Status Date / Time No Known Allergies Allergy Verified 10/04/19 16:31 Review of Systems ROS Statement: Those systems with pertinent positive or pertinent negative responses have been documented in the HPI. ROS Other: All systems not noted in ROS Statement are negative. Past Medical History Past Medical History: Musculoskeletal Disorder Additional Past Medical History / Comment(s): ETOH abuse History of Any Multi-Drug Resistant Organisms: None Reported Past Surgical History: Orthopedic Surgery Additional Past Surgical History / Comment(s): skin graft on Left AC. Broken clavical Past Anesthesia/Blood Transfusion Reactions: No Reported Reaction Smoking Status: Current every day smoker - Past Family History Father History Unknown: Yes Family Medical History: Unable to Obtain Mother History Unknown: Yes Family Medical History: Unable to Obtain General Exam - General Exam Comments Initial Comments: GENERAL: Patient is well-developed and well-nourished. Patient is nontoxic and well- hydrated and is in distress. ENT: Neck is soft and supple. No significant lymphadenopathy is noted. Oropharynx is clear. Moist mucous membranes. Neck has full range of motion without eliciting any pain. EYES: The sclera were anicteric and conjunctiva were pink and moist. Extraocular move ments were intact and pupils were equal round and reactive to light. Eyelids were unremarkable. PULMONARY: Unlabored respirations. Good breath sounds bilaterally. No audible rales rhonchi or wheezing was noted. CARDIOVASCULAR: There is a regular rate and rhythm without any murmurs gallops or rubs. ABDOMEN: Soft and nontender with normal bowel sounds. No palpable organomegaly was noted. There is no palpable pulsatile mass. SKIN: Skin is clear with no lesions or rashes and otherwise unremarkable. NEUROLOGIC: Patient is alert and oriented x3. Cranial nerves II through XII are grossly intact. Motor and sensory are also intact. Normal speech, volume and content. Symmetrical smile. MUSCULOSKELETAL: Normal extremities with adequate strength and full range of motion. LYMPHATICS: No significant lymphadenopathy is noted PSYCHIATRIC: Patient is very combative and did state he was trying to kill himself initially by hanging and then later he said by jumping off of a silo Course Vital Signs 10/04/19 15:30 Temperature 98.4 F Pulse Rate 104 H Respiratory 16 Rate Blood Pressure 138/89 O2 Sat by Pulse 97 Oximetry Procedures - Restraint - Face to Face Restraint Occurrence 1 Patient's Immediate Situation: Endangers self safety, Endangers others' safety Patient's Reaction to the Intervention: Uncooperative, Hostile, Belligerent, Aggressive, Combative Patient's Medical & Behavioral Condition: Awake, Alert Need to Continue or Terminate Restraint or Seclusion: Continue Face to Face Eval of Restraint Date: 10/04/19 Face to Face Eval of Restraint Time: 15:31 Medical Decision Making - Lab Data Lab Results 10/04/19 Range/Units 15:47 Serum Alcohol 267 H* mg/dL Disposition Clinical Impression: Alcoholic intoxication, Suicidal ideation Disposition: ADMITTED IP TO THIS HOSP Referrals: None,Stated [Primary Care Provider] - 1-2 days Time of Disposition: 16:40
[2019-10-04] MEDS ORDERED: LORazepam 2 MG/ML INJ IV PRN (16:40)
[2019-10-04] MEDS ORDERED: THIAMINE 100 MG/ML 2 ML VIAL IM STA (16:40)
[2019-10-04] MEDS ORDERED: SODIUM CHLORIDE 0.9% 1,000 ML IV ONE (16:43)
[2019-10-04] MEDS: SODIUM CHLORIDE 0.9% 1,000 ML IV ONE ×2 (17:02→18:21)
[2019-10-04] MEDS ORDERED: LORazepam 2 MG/ML INJ IV STA (17:04)
[2019-10-04] MEDS ORDERED: HALOPERIDOL LACTATE 5 MG/ML 1 ML VIAL IM PRN (18:07)
[2019-10-04] MEDS ORDERED: HALOPERIDOL LACTATE 5 MG/ML 1 ML VIAL IM ONE (18:08)
[2019-10-04] MEDS: LORazepam 2 MG/ML INJ IV PRN ×2 (18:15→21:27)
[2019-10-04 18:20] LABS: Basophils # (A) 0.1 k/uL (0-0.2); Basophils % (A) 1 %; Eosinophils # (A) 0.2 k/uL (0-0.7); Eosinophils % (A) 2 %; HCT 52.3 % (39.0-53.0); HGB 17.2 gm/dL (13.0-17.5); Lymphocytes # (A) 4.2 k/uL (1.0-4.8); Lymphocytes % (A) 42 %; MCH 30.7 pg (25.0-35.0); Mean Platelet Volume 7.4; Monocytes # (A) 0.5 k/uL (0-1.0); Monocytes % (A) 5 %; Neutrophils # (A) 4.7 k/uL (1.3-7.7); Neutrophils % (A) 47 %; Platelet Count 331 k/uL (150-450); RBC 5.63 m/uL (4.30-5.90); RDW 15.2 % (11.5-15.5); WBC 9.8 k/uL (3.8-10.6)
[2019-10-04] MEDS ORDERED: HYDROcodone/APAP 5-325MG 1 EACH TAB PO PRN (18:27)
[2019-10-04] MEDS ORDERED: TEMAZEPAM 15 MG CAP PO PRN (18:27)
[2019-10-04] MEDS ORDERED: cloNIDine HCL 0.1 MG TAB PO PRN (18:27)
[2019-10-04] MEDS ORDERED: ACETAMINOPHEN TAB 500 MG TAB PO PRN (18:27)
[2019-10-04 18:28] LABS: ALT 28 U/L (4-49); AST 50 U/L (17-59); African American GFR (CKD) >90 (>60 ml/min/1.73 sqM); Albumin 4.6 g/dL (3.5-5.0); Alkaline Phosphatase 91 U/L (38-126); Anion Gap 14 mmol/L; Blood Urea Nitrogen 12 mg/dL (9-20); Calcium 9.6 mg/dL (8.4-10.2); Carbon Dioxide 22 mmol/L (22-30); Chloride 107 mmol/L (98-107); Glucose 90 mg/dL (74-99); Non-African American GFR(CKD) >90 (>60 ml/min/1.73 sqM); Potassium 4.4 mmol/L (3.5-5.1); Sodium 143 mmol/L (137-145); Total Bilirubin 0.2 mg/dL (0.2-1.3); Total Protein 7.8 g/dL (6.3-8.2)
--- NOTE | 2019-10-04 19:16 | XR ---
EXAMINATION TYPE: XR chest 1V portable DATE OF EXAM: 10/04/2019 COMPARISON: 11/15/2018 HISTORY: Cough TECHNIQUE: Single frontal view of the chest is obtained. FINDINGS: Chronic interstitial prominence. New left perihilar peribronchial cuffing. There is no foc al air space opacity, pleural effusion, or pneumothorax seen. The cardiac silhouette size is within normal limits. The osseous structures are intact. IMPRESSION: New left perihilar peribronchial cuffing. Correlate for bronchitis.
[2019-10-04] MEDS: cloNIDine HCL 0.1 MG TAB PO SCH ×2 (19:33→21:23)
[2019-10-04] MEDS: MELATONIN 5 MG TABLET PO SCH (21:23)
[2019-10-04] MEDS: HEPARIN SODIUM,PORCINE 5,000 UNIT/ML 1 ML VIAL SQ SCH (21:24)
--- NOTE | 2019-10-04 21:46 | HP ---
HISTORY AND PHYSICAL CHIEF COMPLAINT: Alcohol intoxication and suicidal ideations. HISTORY OF PRESENT ILLNESS: This 49-year-old gentleman with a past medical history of ETOH abuse, history of DJD, anxiety, depression, not being followed by any primary physician in the outpatient setting, apparently came to the emergency room after drinking a pint of alcohol this morning. The patient also had some suicidal ideations. The patient apparently had wanted to kill himself and the patient will jump off silo. The patient was combative and restless. The patient was restrained in the ER. The patient was sent to [facility], floor subsequent. Alcohol level was found to be 267. Currently the patient is slightly more cooperative. There is no history of fever, rigors. No history of headache, loss of consciousness. The patient is complaining of significant tremors and early delirium tremens and withdrawal symptoms. PAST MEDICAL HISTORY: History of ETOH, history of DJD, anxiety, depression, nicotine dependence. MEDICATIONS: 1. Vitamin B1 (thiamine) 100 mg p.o. b.i.d. 2. Naltrexone 50 mg p.o. daily. 3. Multivitamins 1 p.o. daily. 4. Melatonin 5 mg q.h.s. 5. Folic acid 1 mg. 6. Lexapro 10 mg daily. ALLERGIES: None. FAMILY HISTORY: No history of heart disease or strokes in the family. SOCIAL HISTORY: History of smoking. History of alcohol. REVIEW OF SYSTEMS: ENT: No diminished vision. No diminished hearing. Cardiovascular system: No angina or palpitations. Respiration as mentioned earlier. GI no nausea or vomiting. no dysuria or hematuria. Nervous system: No numbness or weakness. Allergy/Immunology: No asthma or hayfever. Musculoskeletal as mentioned earlier. HEMATOLOGY/Oncology: No history of anemia. Endocrine no history of diabetes or hypothyroidism. CONSTITUTIONAL: As mentioned earlier. DERMATOLOGY: Negative. RHEUMATOLOGY: Negative. PSYCHIATRIC: As mentioned earlier. PHYSICAL EXAMINATION: Alert and oriented x2. Pulse 104, blood pressure 130/88. Respiratory rate 16, temperature 98.4, pulse ox 97 percent on room air. HEENT: Conjunctivae normal. NECK: No JVD. CARDIOVASCULAR: S1, S2 muffled. RESPIRATORY SYSTEM: Breath sounds diminished at the bases. No rhonchi. No crackles. ABDOMEN: Soft, nontender. No mass palpable. LEGS are no edema. No swelling. CENTRAL NERVOUS SYSTEM: Higher functions as mentioned earlier. Otherwise moves all 4 limbs. Diffuse tremors present. No weakness. No focal weakness. LYMPHATICS: No lymph nodes palpable in the neck, axillae or groin. SKIN: No ulcers. No rashes and no bleeding. JOINTS: No active deforming arthropathy. LABS: Alcohol 206. Other labs are noted. ASSESSMENT: 1. Acute alcohol intoxication as well as change in mental status, metabolic encephalopathy secondary to alcohol. 2. Acute delirium tremens. 3. Depression with suicidal ideations. 4. History of anxiety. 5. History of nicotine dependence. 6. History of degenerative joint disease. RECOMMENDATIONS AND DISCUSSION: In this 49-year-old gentleman who presented with multiple complex medical issues, we will monitor the patient closely, continue the current medications, management and symptomatic treatment. Recommend CIWA protocol. Vanessa p.r.n. Psychiatric evaluations. Suicidal precaution, one-to-one watch and DVT prophylaxis. Otherwise, resume the home medications. Vitamin supplementation. Prognosis guarded because of multiple complex medical issues. Further recommendations to follow. MMODL / IJN: [id number] / MTDD
[2019-10-05] MEDS: LORazepam 2 MG/ML INJ IV PRN ×4 (02:43→12:33)
[2019-10-05 05:06] LABS: Amphetamine Screen,Urine Not Detected (NotDetected); Barbiturate Screen,Urine Not Detected (NotDetected); Benzodiazepines Screen,Urine Detected (NotDetected); Cocaine Screen,Urine Not Detected (NotDetected); Methadone Screen, Urine Not Detected (NotDetected); Opiate Screen,Urine Not Detected (NotDetected); Oxycodone Screen, Urine Not Detected (NotDetected); Phencyclidine Screen,Urine Not Detected (NotDetected); Tricyclic Antidepressant,Urine Not Detected (NotDetected); Urn Cannabinoid Scrn Not Detected (NotDetected)
[2019-10-05 07:18] LABS: African American GFR (CKD) >90 (>60 ml/min/1.73 sqM); Anion Gap 6 mmol/L; Blood Urea Nitrogen 14 mg/dL (9-20); Calcium 8.6 mg/dL (8.4-10.2); Carbon Dioxide 22 mmol/L (22-30); Chloride 110 mmol/L (98-107); Glucose 78 mg/dL (74-99); Non-African American GFR(CKD) >90 (>60 ml/min/1.73 sqM); Potassium 4.2 mmol/L (3.5-5.1); Sodium 138 mmol/L (137-145)
[2019-10-05 08:05] LABS: Basophils % (A) 0 %; Eosinophils % (A) 1 %; HCT 45.9 % (39.0-53.0); HGB 15.1 gm/dL (13.0-17.5); Lymphocytes % (A) 19 %; MCH 30.3 pg (25.0-35.0); MCHC 32.8 g/dL (31.0-37.0); MCV 92.4 fL (80.0-100.0); Mean Platelet Volume 7.3; Monocytes % (A) 5 %; Neutrophils % (A) 73 %; Platelet Count 263 k/uL (150-450); RBC 4.97 m/uL (4.30-5.90); RDW 15.2 % (11.5-15.5); WBC 10.3 k/uL (3.8-10.6)
[2019-10-05 08:06] LABS: Eosinophils # (A) 0.1 k/uL (0-0.7); Lymphocytes # (A) 1.9 k/uL (1.0-4.8); Monocytes # (A) 0.5 k/uL (0-1.0); Neutrophils # (A) 7.5 k/uL (1.3-7.7)
[2019-10-05] MEDS: THIAMINE 100 MG TAB PO SCH ×2 (08:08→16:40)
[2019-10-05] MEDS: cloNIDine HCL 0.1 MG TAB PO SCH ×3 (08:08→21:10)
[2019-10-05] MEDS: HEPARIN SODIUM,PORCINE 5,000 UNIT/ML 1 ML VIAL SQ SCH ×2 (08:09→21:11)
[2019-10-05] MEDS: FOLIC ACID 1 MG TAB PO SCH (08:09)
[2019-10-05] MEDS: PANTOPRAZOLE 40 MG TABLET PO SCH (08:09)
[2019-10-05] MEDS: MULTIVITAMINS, THERA 1 EACH TAB PO SCH (08:09)
[2019-10-05] MEDS: NICOTINE 14MG/24HR PATCH TRANSDERM SCH (08:09)
[2019-10-05] MEDS ORDERED: THIAMINE 100 MG TAB PO SCH (12:00)
--- NOTE | 2019-10-05 12:44 | P.CN ---
Psychiatric Consult - . 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 HISTORY OF PRESENT ILLNESS: The patient he was brought to the hospital by police after patient's called EMS due to patient's intoxication. Patient in the ER was mentioning that he wanted to kill himself and mentioned that he would either hang himself or jump off a silo. Patient was uncooperative and combative and calling staff names in the ER and needed restraints. Patient's blood alcohol level was 267 on admission. Patient was admitted to the medical floor on hobs. Psychiatry is consulted for depression. Patient was seen at the bedside and states that he was apologetic for the behaviors that occurred and states that he was "really drunk". Patient was calmer and cooperative are soft tone and endorse guilt. He states that he has been increasing his drinking in the past few weeks. He states that he isn't drinking approximately 2-3 drinks of whiskey per night. He states that his called EMS and brought him in the hospital. He claims that his last drink was yesterday. He states that he has gone through withdrawals in the past and at this time admits to some trembling in his arms. He states that he's had struck several stressors at home including work and bills. He states that he ran out of his medications several weeks ago and has been having anger issues and depression at home. He denied any anxiety at this time. He states that his sleep has been poor and appetite poor. At this time patient denies any suicidal or homical ideations, intent or plan. Patient denies any auditory, visual hallucinations and denies any paranoia or delusions. Patient denied using any other recreational drugs however did show to have a positive UDS for benzodiazepines. Patient admitted to smoking cigarettes daily. PAST PSYCHIATRIC HISTORY: Patient claims that been diagnosed with depression and alcohol abuse. Patient does not have any outpatient follow-up. He had one previous admissions to mental health units in 04/2019. Patient denies any previous suicide attempts. Patient was previously on Lexapro 10 mg daily and also naltrexone 50 mg daily. PAST MEDICAL HISTORY: denies. ALLERGIES: as per EMR. CHEMICAL DEPENDENCY HISTORY: as per HPI. FAMILY PSYCHIATRIC/SUBSTANCE USE HISTORY: denies SOCIAL HISTORY: He states that he is born and raised in [place]. He claims that he completed up until the 10th grade. He states that he is has 3 step kids lives in a house. 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 MENTAL STATUS EXAM: General Appearance: Patient appears to be older than stated age is alert, directable, however is guarded/evasive patient has fair eye contact and poor hygiene and grooming. Behavior: Patient is calmly lying in bed without any agitated behavior. Speech: Patient's speech is fluent and nonpressured. Soft tone Mood/Affect: Patient reports their mood is "depressed", affect is congruent and constricted Suicidality/Homicidality: Patient denies having any suicidal or homicidal ideation intent or plan. Perceptions: Patient denies any auditory or visual hallucinations. Though content/process: There is no evidence of any delusional thought content and thought process is linear and goal-directed. Patient is preoccupied with discharge and minimizing his stressors. Memory and concentration: AOX3, grossly intact for the purposes of this session. Can spell "WORLD" backwards Judgment and insight: Poor/superficial. IMPRESSIONS: Major depressive disorder, without psychotic features Alcohol use disorder, moderate-severe, currently in withdrawal. Nicotine dependence PLAN: -Would recommend the following medication changes/additions: Patient is agreeable to restart Lexapro 5 mg daily for moodanxiety with 1 dose now. We'll also start naltrexone 50 mg daily for alcohol cravings. -Thiamine, folate, multivitamin for supplementation. -1:1 sitter for safety -Patient is currently undergoing alcohol withdrawal, continue CIWA with Ativan when necessary and monitoring vitals. -Cannot leave AMA at this time. Patient will need a petition and certification if attempting to leave AMA. -When medically stable and patient has stable vital signs and has not received Ativan for 24 hours as patient has a history of alcohol withdrawals, patient can be transferred to the mental health unit for further treatment of his depression and substance abuse. -Psychiatry will sign off at this point. 10/05/19 12:37
[2019-10-05] MEDS: ESCITALOPRAM 5 MG TAB PO SCH (16:40)
[2019-10-05] MEDS: NALTREXONE HCL 50 MG TAB PO SCH (16:40)
--- NOTE | 2019-10-05 19:03 | PN ---
PROGRESS NOTE DATE OF SERVICE: 10/05/2019 This 49-year-old gentleman who was admitted with acute alcohol intoxication, change in mental status, acute metabolic encephalopathy. The patient being closely monitored. The patient also had features of tremors and acute delirium tremens also. No chest pain. No palpitations. No fever. PHYSICAL EXAMINATION: Alert and oriented x2. Pulse 91, blood pressure 130/73, respirations 20, temperature 98 degrees, pulse ox 98% on room air. HEENT: Conjunctivae normal. NECK: No JVD. CARDIOVASCULAR: S1, S2 muffled. RESPIRATIONS: Breath sounds diminished in the bases. Scattered rhonchi. No crackles. ABDOMEN soft, nontender. LEGS are no edema. No swelling. CENTRAL NERVOUS SYSTEM: No focal deficits. LABORATORY DATA: CBC, BMP noted. The drug screen is positive for benzodiazepines. Serum alcohol is 267. ASSESSMENT: 1. Acute alcohol intoxication as well as change in mental status acute metabolic encephalopathy present on admission secondary to alcohol. 2. Acute delirium tremens. 3. Depression with suicidal ideations. 4. History of anxiety. 5. History of nicotine dependence. 6. History of degenerative joint disease. RECOMMENDATIONS AND DISCUSSION: I recommend to continue current medications, management and CIWA protocol. Continue symptomatic treatment. Psychiatric consultations and possible transfer to inpatient psych once the patient is stabilized. Further recommendations to follow. MMODL / IJN: [id number] /
[2019-10-05] MEDS: MELATONIN 5 MG TABLET PO SCH (21:10)
[2019-10-06] MEDS: LORazepam 2 MG/ML INJ IV PRN ×5 (07:28→21:24)
[2019-10-06] MEDS: cloNIDine HCL 0.1 MG TAB PO SCH ×3 (07:28→21:19)
[2019-10-06] MEDS: THIAMINE 100 MG TAB PO SCH ×2 (07:28→16:44)
[2019-10-06] MEDS: PANTOPRAZOLE 40 MG TABLET PO SCH (07:28)
[2019-10-06] MEDS: ESCITALOPRAM 5 MG TAB PO SCH (07:29)
[2019-10-06] MEDS: NALTREXONE HCL 50 MG TAB PO SCH (07:29)
[2019-10-06] MEDS: FOLIC ACID 1 MG TAB PO SCH (07:29)
[2019-10-06] MEDS: MULTIVITAMINS, THERA 1 EACH TAB PO SCH (07:29)
[2019-10-06] MEDS: NICOTINE 14MG/24HR PATCH TRANSDERM SCH (07:29)
[2019-10-06] MEDS: HEPARIN SODIUM,PORCINE 5,000 UNIT/ML 1 ML VIAL SQ SCH ×2 (07:30→20:46)
[2019-10-06 09:00] LABS: Basophils % (A) 0 %; Eosinophils # (A) 0.1 k/uL (0-0.7); Eosinophils % (A) 1 %; HCT 45.8 % (39.0-53.0); Lymphocytes # (A) 1.2 k/uL (1.0-4.8); Lymphocytes % (A) 14 %; MCH 30.8 pg (25.0-35.0); MCHC 32.8 g/dL (31.0-37.0); MCV 93.9 fL (80.0-100.0); Mean Platelet Volume 7.1; Monocytes # (A) 0.5 k/uL (0-1.0); Monocytes % (A) 5 %; Neutrophils # (A) 6.9 k/uL (1.3-7.7); Neutrophils % (A) 78 %; Platelet Count 224 k/uL (150-450); RBC 4.88 m/uL (4.30-5.90); RDW 14.9 % (11.5-15.5); WBC 8.9 k/uL (3.8-10.6)
[2019-10-06 09:12] LABS: African American GFR (CKD) >90 (>60 ml/min/1.73 sqM); Anion Gap 6 mmol/L; Blood Urea Nitrogen 13 mg/dL (9-20); Calcium 8.5 mg/dL (8.4-10.2); Carbon Dioxide 22 mmol/L (22-30); Chloride 107 mmol/L (98-107); Glucose 75 mg/dL (74-99); Non-African American GFR(CKD) >90 (>60 ml/min/1.73 sqM); Potassium 4.2 mmol/L (3.5-5.1); Sodium 135 mmol/L (137-145)
--- NOTE | 2019-10-06 18:34 | PN ---
PROGRESS NOTE DATE OF SERVICE: 10/06/2019 This 49-year-old gentleman admitted with acute alcohol intoxication also had features of delirium tremens. Patient had tremors. Patient is on Ativan. Psychiatry was originally thinking of transferring the patient to Psychiatry. No chest pain. No palpitations. No fever. PHYSICAL EXAMINATION: Alert and oriented x3. Pulse 73, blood pressure 117/76, respirations 16, temperature 97.9, pulse ox 98% on room air. HEENT: Conjunctivae normal. NECK: No jugular venous distention. CARDIOVASCULAR SYSTEM: S1, S2 muffled. RESPIRATORY SYSTEM: Breath sounds diminished at the bases. No rhonchi. No crackles. ABDOMEN: Soft, non-tender. LEGS: No edema. No swelling. NERVOUS SYSTEM: Diffusely weak with tremors. LABS: WBC 8.9. Sodium 135. ASSESSMENT: 1. Acute alcohol intoxication as well as change in mental status with acute metabolic encephalopathy, present on admission secondary to alcohol. 2. Acute delirium tremens. 3. Depression with possible suicidal ideations. 4. History of anxiety. 5. Mild hyponatremia. 6. History of nicotine dependence. 7. History of degenerative joint disease. RECOMMENDATIONS AND DISCUSSION: I recommend to continue current medications, continue with symptomatic treatment. Continue with Ativan, CIWA protocol. Closely follow with Psychiatry. Continue with one- to-one precautions and suicide precautions. Further recommendations to follow. MMODL / IJN: [id number] /
[2019-10-06] MEDS: MELATONIN 5 MG TABLET PO SCH (20:46)
[2019-10-07] MEDS: LORazepam 2 MG/ML INJ IV PRN (03:47)
[2019-10-07 08:36] LABS: Basophils % (A) 0 %; Eosinophils # (A) 0.3 k/uL (0-0.7); Eosinophils % (A) 3 %; HCT 47.8 % (39.0-53.0); HGB 15.9 gm/dL (13.0-17.5); Lymphocytes # (A) 1.8 k/uL (1.0-4.8); Lymphocytes % (A) 22 %; MCH 30.8 pg (25.0-35.0); MCHC 33.3 g/dL (31.0-37.0); MCV 92.7 fL (80.0-100.0); Mean Platelet Volume 7.1; Monocytes # (A) 0.4 k/uL (0-1.0); Monocytes % (A) 5 %; Neutrophils # (A) 5.5 k/uL (1.3-7.7); Neutrophils % (A) 68 %; Platelet Count 244 k/uL (150-450); RBC 5.16 m/uL (4.30-5.90); RDW 14.8 % (11.5-15.5); WBC 8.2 k/uL (3.8-10.6)
[2019-10-07 08:53] LABS: African American GFR (CKD) >90 (>60 ml/min/1.73 sqM); Anion Gap 6 mmol/L; Blood Urea Nitrogen 7 mg/dL (9-20); Calcium 9.1 mg/dL (8.4-10.2); Carbon Dioxide 25 mmol/L (22-30); Chloride 106 mmol/L (98-107); Glucose 72 mg/dL (74-99); Non-African American GFR(CKD) >90 (>60 ml/min/1.73 sqM); Potassium 4.3 mmol/L (3.5-5.1); Sodium 137 mmol/L (137-145)
[2019-10-07] MEDS: NICOTINE 14MG/24HR PATCH TRANSDERM SCH (09:05)
[2019-10-07] MEDS: THIAMINE 100 MG TAB PO SCH ×2 (09:06→09:07)
[2019-10-07] MEDS: ESCITALOPRAM 5 MG TAB PO SCH (09:06)
[2019-10-07] MEDS: PANTOPRAZOLE 40 MG TABLET PO SCH (09:06)
[2019-10-07] MEDS: FOLIC ACID 1 MG TAB PO SCH (09:06)
[2019-10-07] MEDS: HEPARIN SODIUM,PORCINE 5,000 UNIT/ML 1 ML VIAL SQ SCH (09:06)
[2019-10-07] MEDS: cloNIDine HCL 0.1 MG TAB PO SCH ×2 (09:06→15:40)
[2019-10-07] MEDS: NALTREXONE HCL 50 MG TAB PO SCH (09:07)
[2019-10-07] MEDS: MULTIVITAMINS, THERA 1 EACH TAB PO SCH (09:07)
--- NOTE | 2019-10-07 13:31 | P.DS ---
Providers Date of admission: 10/06/19 15:07 Expected date of discharge: 10/07/19 Attending physician: Vasyl Fuentes Consults: 10/04/19 16:41 Consult Physician Urgent Consulting Provider: Teo Cortez Consult Reason/Comments: Suicidal ideations Do you want consulting provider notified?: Yes Primary care physician: Stated None Hospital Course: Final diagnosis Acute alcohol intoxication as well as change in mental status with acute metabolic encephalopathy, present on admission, secondary to alcohol Acute delirium tremens depression with possible suicidal ideations history of anxiety Mild hyponatremia History of nicotine dependence History of degenerative joint disease Discharge disposition Patient is being discharged in a stable condition with guarded prognosis to inpatient psych. Patient is medically cleared at this time and will be transferred to the inpatient psychiatric unit once a bed becomes available. Total time taken is 35 minutes. History of present illness This is an 49-year-old male who was recently admitted with acute alcohol intoxication also had features of delirium tremens and was being closely monitored. Psychiatry was following. Patient was maintained on CIWA protocol along with suicide precautions for suicidal ideations. During hospitalization patient had some tremors that is gotten slightly better. Continue with Ativan 1 mg 3 times a day as needed and will be available by psychiatry for possible medication adjustments. Currently no reports of chest pain, shortness of breath, or palpitations. Patient is afebrile. No reports of nausea or vomiting and patient is tolerating diet. Patient will be transferred to the inpatient psychiatric unit here at [facility] once a bed becomes available. On exam vital signs are stable. Temp is 97.7 F, pulse is 73, respirations are 18, blood pressure is 112/67, oxygen saturation is 98% on room air. Cardio S1, S2 are muffled. Respiratory system shows diminished breath sounds at the bases with no wheezing or rhonchi noted. Soft and nontender. Nervous system shows no focal deficits. Please refer to medication reconciliation sheet for a list of medications. Patient Condition at Discharge: Stable Plan - Discharge Summary Discharge Rx Participant: No New Discharge Prescriptions: New LORazepam [Ativan] 1 mg PO TID PRN #12 tab PRN Reason: Anxiety cloNIDine HCL [Catapres] 0.1 mg PO TID tab cloNIDine HCL [Catapres] 0.1 mg PO Q4HR PRN tab PRN Reason: Hypertension Nicotine 14Mg/24Hr Patch [Habitrol] 1 patch TRANSDERM DAILY patch Escitalopram [Lexapro] 5 mg PO DAILY tab Pantoprazole [Protonix] 40 mg PO AC-BRKFST tablet. Acetaminophen Tab [Tylenol] 500 mg PO Q6HR PRN tab PRN Reason: Fever and/ or Mild Pain Continue Folic Acid 1 mg PO DAILY tab Melatonin 5 mg PO HS tablet Multivitamins, Thera [Multivitamin (formulary)] 1 each PO DAILY tab Naltrexone HCl [Revia] 50 mg PO DAILY 28 Days tab Thiamine [Vitamin B-1] 100 mg PO BID-W/MEALS tab Discontinued Escitalopram [Lexapro] 10 mg PO DAILY 28 Days tab Discharge Medication List Folic Acid 1 mg PO DAILY tab 05/12/19 [Rx] Melatonin 5 mg PO HS tablet 05/12/19 [Rx] Multivitamins, Thera [Multivitamin (formulary)] 1 each PO DAILY tab 05/12/19 [Rx] Naltrexone HCl [Revia] 50 mg PO DAILY 28 Days tab 05/12/19 [Rx] Thiamine [Vitamin B-1] 100 mg PO BID-W/MEALS tab 05/12/19 [Rx] Acetaminophen Tab [Tylenol] 500 mg PO Q6HR PRN tab 10/07/19 [Rx] Escitalopram [Lexapro] 5 mg PO DAILY tab 10/07/19 [Rx] LORazepam [Ativan] 1 mg PO TID PRN #12 tab 10/07/19 [Rx] Nicotine 14Mg/24Hr Patch [Habitrol] 1 patch TRANSDERM DAILY patch 10/07/19 [Rx] Pantoprazole [Protonix] 40 mg PO AC-BRKFST tablet. 10/07/19 [Rx] cloNIDine HCL [Catapres] 0.1 mg PO Q4HR PRN tab 10/07/19 [Rx] cloNIDine HCL [Catapres] 0.1 mg PO TID tab 10/07/19 [Rx] Follow up Appointment(s)/Referral(s): None,Stated [Primary Care Provider] - 1-2 days Patient Instructions/Handouts: Lorazepam (By mouth), Suicide Prevention (DC) Activity/Diet/Wound Care/Special Instructions: Patient has been medically cleared and will be going to inpatient psych Continue current diet Activity as tolerated Discharge Disposition: TRANSFER TO PSYCH HOSP/UNIT
[2019-10-07 13:40] VITALS: RESP 18
[2019-10-07] MEDS: LORazepam 1 MG TAB PO PRN ×2 (14:10→15:40)
[2019-10-07 17:38] VITALS: BP 120/67; PULSE 70; TEMP 97.9
== END 2019-10-07 20:54 | DRG 896 ==
LOC: EC 15:26 → 5NMEDONC 16:41 → OBSVTOIN 10-06 15:07
PROVIDERS: ADMIT Internal Medicine; ATTEND Internal Medicine
DX: F10.231 Alcohol dependence with withdrawal delirium (principal); G93.41 Metabolic encephalopathy; E87.1 Hypo-osmolality and hyponatremia; F17.200 Nicotine dependence, unspecified, uncomplicated; F32.9 Major depressive disorder, single episode, unspecified; F41.9 Anxiety disorder, unspecified; Y90.8 Blood alcohol level of 240 mg/100 ml or more; M19.90 Unspecified osteoarthritis, unspecified site; Z79.899 Other long term (current) drug therapy; Z98.890 Other specified postprocedural states
CPT/HCPCS: 36415; 71045; 80048; 80053; 80306; 80320; 85025; 93005; 96372; 96374; 99285

== ENCOUNTER 2019-10-07 20:26 | Inpatient (IN) | payer OTHER, MEDICAID ==
[2019-10-07] MEDS ORDERED: ACETAMINOPHEN TAB 500 MG TAB PO PRN (21:23)
[2019-10-07] MEDS ORDERED: cloNIDine HCL 0.1 MG TAB PO PRN (21:23)
[2019-10-07] MEDS ORDERED: MAG HYDROX/AL HYDROX/SIMETH 30 ML CUP PO PRN (21:24)
[2019-10-07] MEDS ORDERED: MAGNESIUM HYDROXIDE 2,400 MG/10 ML CUP PO PRN (21:24)
[2019-10-07] MEDS ORDERED: LORazepam 2 MG/ML INJ IM PRN (21:26)
[2019-10-07] MEDS: cloNIDine HCL 0.1 MG TAB PO SCH (22:26)
[2019-10-08] MEDS ORDERED: ESCITALOPRAM 5 MG TAB PO SCH (09:00)
[2019-10-08] MEDS: PANTOPRAZOLE 40 MG TABLET PO SCH (09:02)
[2019-10-08] MEDS: cloNIDine HCL 0.1 MG TAB PO SCH ×3 (09:02→21:05)
[2019-10-08] MEDS: THIAMINE 100 MG TAB PO SCH ×2 (09:02→16:42)
[2019-10-08] MEDS: FOLIC ACID 1 MG TAB PO SCH (09:03)
[2019-10-08] MEDS: MULTIVITAMINS, THERA 1 EACH TAB PO SCH (09:03)
[2019-10-08] MEDS: NICOTINE 14MG/24HR PATCH TRANSDERM SCH (09:03)
[2019-10-08] MEDS: NALTREXONE HCL 50 MG TAB PO SCH (09:03)
[2019-10-08] MEDS: LORazepam 1 MG TAB PO PRN (15:15)
[2019-10-08] MEDS: MELATONIN 5 MG TABLET PO SCH ×2 (16:00→20:56)
--- NOTE | 2019-10-08 16:01 | HP ---
HISTORY AND PHYSICAL DATE OF SERVICE/DICTATION: 10/08/2019 IDENTIFYING DATA: This patient is a 49-year-old single male who was admitted to the mental health unit from the medical floor with concern he was having suicidal ideation. HISTORY OF PRESENT ILLNESS: The patient was seen by Dr. Cortez as part of a psychiatric consultation. Please refer to his consult from yesterday. The patient is known to this service, as he was here in April. The patient was intoxicated with alcohol. When he presented to the hospital his alcohol level was approximately 267. He made statements about feeling suicidal and specifically reported a plan of hanging himself. He states that this is him "spouting off" and he would never harm himself because he does not want to . He states that he will do this at times to convey how he feels and to get his significant other's attention. He does indicate that he has struggled with major depressive episodes in the past. He admits that after his last admission he did not stay on the medication for more than 1 to 2 weeks and he did not follow up with outpatient mental health services that were arranged. He indicates he attended two [employer] groups and then discontinued that activity. He is very much focused on being discharged so that he does not lose his job. He states he has already received 4 points for missing work. He describes depressive episodes as including symptoms of depressed mood, tearfulness, low energy, decreased appetite and sleep. He endorses no significant anxiety symptoms, no strong history of panic attacks or generalized anxiety. He endorses no hypomanic or manic episodes. He is reporting no auditory or visual hallucinations or any specific delusions. At this time he denies having any acute suicidal ideation, intent or plan. He states he is currently not hopeless. He resides with his significant other and has been with her for 15 years. He states that they do have a 22-caliber rifle in their home. PAST PSYCHIATRIC HISTORY: This is his second inpatient psychiatric hospitalization. The last one was back in April under the care of Dr. Cortez. At that time he was treated with Lexapro. Dr. Cortez placed him on Lexapro again as part of the psychiatric consultation and also initiated naltrexone 50 mg daily. The patient indicates that he has been on no other psychotropic medication. He reports no history of any suicide attempts. PAST MEDICAL HISTORY: None reported. ALLERGIES: NO KNOWN DRUG ALLERGIES. CHEMICAL DEPENDENCY HISTORY: He reports that he has been drinking a pint every other day. Prior to that he was excessively using alcohol on a daily basis. He has been to rehab 3 times. The last one was at [facility] within the year. His longest sobriety is 2 years and that ended 12 years ago. He reports infrequent use of marijuana. He denies using any illicit drugs. FAMILY PSYCHIATRIC HISTORY: None reported. No history of suicides in the family reported. FAMILY CHEMICAL DEPENDENCY HISTORY: He had a paternal uncle known to have an alcohol use disorder. SOCIAL HISTORY: The patient is 49 years old. He has been with his girlfriend for 15 years. He refers to her as his . He states that this is a good relationship. He has one biological daughter back in [place]. He has 3 stepchildren. 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 He has a 10th grade education. No history of service. He has two brothers, one sister. He is originally from [place] and moved to [place] approximately 15 years ago. LEGAL HISTORY: Legal includes conviction for trespassing. He reports no abuse history. MENTAL STATUS EXAMINATION: The patient is a thin male appearing older than his stated age. He has a disheveled appearance. He is dressed in his own clothing. He has numerous tattoos visible on his upper extremities. He describes a depressed and anxious mood today. He states he feels safe and has no hopeless thinking or any suicidal ideation, intent or plan. He states that he would never kill himself. He reports no homicidal ideation, intent or plan. He endorses no auditory or visual hallucinations or any specific delusions. There is no observed evidence of psychosis. He demonstrates no tangential thinking, loose associations or flight of ideas. He does not appear hypomanic or manic. He is pleasant and cooperative throughout the session. He demonstrates no verbal or physical aggressiveness. He demonstrates no involuntary or repetitive movements. Insight and judgment limited. He is oriented to person, place and date. He is able to name the days of the week backwards. Strengths: Housing, employment, supportive relationship. Weaknesses: Noncompliance with outpatient mental health care and alcohol use. Intellect: Average. IMPRESSIONS: 1. Major depressive disorder, recurrent, severe, without psychosis. 2. Alcohol use disorder, severe. PLAN: The patient has been admitted to the mental health unit voluntarily. We reviewed his presenting symptoms and treatment options. He has been started on Lexapro again. We will titrate this to 10 mg daily. We will continue the naltrexone 50 mg daily. He was encouraged to consider inpatient chemical dependency treatment again, but he states that is not a viable option, as he needs to work. He will be seen by Internal Medicine for a routine history and physical exam. Social Work will meet with the patient to complete a psychosocial assessment and for discharge planning purposes. We will involve his significant other in treatment and discharge planning as he will allow. He is encouraged to fully participate in the milieu. We will monitor him for safety. MMODL / IJN: [id number] /
[2019-10-08 17:20] LABS: Hemoglobin A1C 5.1 % (4.0-6.0)
[2019-10-08] MEDS ORDERED: MELATONIN 5 MG TABLET PO SCH (21:00)
--- NOTE | 2019-10-08 23:56 | P.MDCNMH ---
History of Present Illness H&P Date: 10/08/19 Chief Complaint: Alcohol abuse Patient is a 49-year-old male with a known history of alcohol abuse, anxiety/depression and currently today smoker was admitted to the hospital with alcohol intoxication, diabetes and suicidal ideations. Patient was maintained on CIWA protocol along with suicide precautions for suicidal ideations. During hospitalization patient had some tremors that is gotten better. Currently no reports of chest pain, shortness of breath, or palpitations. Patient is afebrile. No reports of nausea or vomiting and patient is tolerating diet. Patient was transferred to the inpatient psychiatric unit here at [facility] once a bed becomes available. And has been afebrile. Awake alert oriented 3. Tolerating oral diet. Patient is currently being continued on antidepressants. Review of Systems Constitutional: Patient denies any fever or chills . No generalized weakness or weight loss. Abdomen: Patient denied nausea vomiting and diarrhea and abdominal pain. Cardiovascular: Patient denies any chest pain or short of breath no palpitations. Respiratory: patient denied any cough is from production. No shortness of breath Neurologic: Patient denied any numbness or tingling headache. Musculoskeletal: Patient denies any complaints of joint swelling or deformity. Skin: Negative Psychiatric: Negative Endocrine: No heat or cold intolerance. No recent weight gain. Genitourinary: No dysuria or hematuria. All other 14 point ROS negative except the above Past Medical History Past Medical History: Musculoskeletal Disorder Additional Past Medical History / Comment(s): ETOH abuse History of Any Multi-Drug Resistant Organisms: None Reported Past Surgical History: Orthopedic Surgery Additional Past Surgical History / Comment(s): skin graft on Left AC. Broken clavical Past Anesthesia/Blood Transfusion Reactions: No Reported Reaction Past Psychological History: Anxiety, Depression Smoking Status: Current every day smoker Past Alcohol Use History: Heavy Additional Past Alcohol Use History / Comment(s): Drinks 1/5 daily Past Drug Use History: None Reported Additional Drug Use History / Comment(s): Drinks 2 5ths per week - Past Family History Father History Unknown: Yes Family Medical History: Unable to Obtain Mother History Unknown: Yes Family Medical History: Unable to Obtain Medications and Allergies Home Medications Medication Instructions Recorded Confirmed Type Folic Acid 1 mg PO DAILY tab 05/12/19 10/07/19 Rx Melatonin 5 mg PO HS tablet 05/12/19 10/07/19 Rx Naltrexone HCl [Revia] 50 mg PO DAILY 28 Days tab 05/12/19 10/07/19 Rx Thiamine [Vitamin B-1] 100 mg PO BID-W/MEALS tab 05/12/19 10/07/19 Rx Acetaminophen Tab [Tylenol] 500 mg PO Q6HR PRN tab 10/07/19 10/07/19 Rx Escitalopram [Lexapro] 5 mg PO DAILY tab 10/07/19 10/07/19 Rx LORazepam [Ativan] 1 mg PO TID PRN #12 tab 10/07/19 10/07/19 Rx Multivitamins, Thera [Multivitamin 1 tab PO DAILY 10/07/19 10/07/19 History (formulary)] Nicotine 14Mg/24Hr Patch [Habitrol] 1 patch TRANSDERM DAILY patch 10/07/19 10/07/19 Rx Pantoprazole [Protonix] 40 mg PO AC-BRKFST tablet. 10/07/19 10/07/19 Rx cloNIDine HCL [Catapres] 0.1 mg PO Q4HR PRN tab 10/07/19 10/07/19 Rx cloNIDine HCL [Catapres] 0.1 mg PO TID tab 10/07/19 10/07/19 Rx Allergies Allergy/AdvReac Type Severity Reaction Status Date / Time No Known Allergies Allergy Verified 10/07/19 21:17 Physical Exam Vitals: Vital Signs Temp Pulse Pulse Resp BP BP Pulse Ox 10/08/19 09:08 86 116/74 10/08/19 03:56 98.0 F 101 H 15 114/68 10/07/19 22:25 83 18 98/66 10/07/19 22:20 97.1 F L 76 16 113/70 98 Intake and Output 10/07/19 10/08/19 10/08/19 22:59 06:59 14:59 Other: Weight 73.3 kg PHYSICAL EXAMINATION: Patient is lying in the bed comfortably, no acute distress, awake alert and oriented.. HEENT: Normocephalic. Neck is supple. Pupils reactive. Nostrils clear. Oral cavity is moist. Ears reveal no drainage. Neck reveals no JVD, carotid bruits, or thyromegaly. CHEST EXAMINATION: Trachea is central. Symmetrical expansion. Lung ortez clear to auscultation and percussion. CARDIAC: Normal S1, S2 with no gallops. No murmurs ABDOMEN: Soft. Bowel sounds normal. No organomegaly. No abdominal bruits. Extremities: reveal no edema. No clubbing or cyanosis Neurologically awake, alert, oriented x3 with well-coordinated movements. No focal deficits noted Skin: No rash or skin lesions. Psychiatric: Coperative. Nonsuicidal Musculoskeletal: No joint swelling or deformity. Normal range of motion. Cranial Nerve Examination - Cranial Nerves Cranial Nerve I- Olfactory: Intact Cranial Nerve II- Optic: Intact Cranial Nerve III- Oculomotor: Intact Cranial Nerve IV- Trochlear: Intact Cranial Nerve V- Trigeminal: Intact Cranial Nerve - Abducens: Intact Cranial Nerve VII- Facial: Intact Cranial Nerve VIII- Auditory: Intact Cranial Nerve IX- Glossopharyngeal: Intact Cranial Nerve X- Vagus: Intact Cranial Nerve XI- Accessory: Intact Cranial Nerve XII- Hypoglossal: Intact Results Labs: Abnormal Lab Results - Last 24 Hours (Table) 10/08/19 Range/Units 07:21 Triglycerides 151 H (<150) mg/dL Cholesterol 280 H (<200) mg/dL LDL Cholesterol, Calc 215 H (0-99) mg/dL HDL Cholesterol 35 L (40-60) mg/dL Assessment and Plan Assessment: Acute alcohol intoxication as well as change in mental status with acute metabolic encephalopathy, present on admission, secondary to alcohol. Improved now. Acute delirium tremens. Improved. depression with suicidal ideations Hyperlipidemia with LDL 215 history of anxiety Mild hyponatremia History of nicotine dependence History of degenerative joint disease DVT prophylaxis. Patient is currently ambulating. Plan: Patient will be continued on current psychiatric medications. Continue with multivitamins, thiamine and PPI. We will follow with you and further recommendations based on the clinical course. Thank you for your consult. Time with Patient: Greater than 30
[2019-10-09] MEDS: FOLIC ACID 1 MG TAB PO SCH (08:36)
[2019-10-09] MEDS: MULTIVITAMINS, THERA 1 EACH TAB PO SCH (08:36)
[2019-10-09] MEDS: THIAMINE 100 MG TAB PO SCH ×2 (08:36→18:08)
[2019-10-09] MEDS: PANTOPRAZOLE 40 MG TABLET PO SCH (08:36)
[2019-10-09] MEDS: ESCITALOPRAM 10 MG TAB PO SCH (08:36)
[2019-10-09] MEDS: cloNIDine HCL 0.1 MG TAB PO SCH ×3 (08:36→21:07)
[2019-10-09] MEDS: NICOTINE 14MG/24HR PATCH TRANSDERM SCH (08:36)
[2019-10-09] MEDS: LORazepam 1 MG TAB PO PRN (08:37)
[2019-10-09] MEDS: NALTREXONE HCL 50 MG TAB PO SCH (08:37)
[2019-10-09] MEDS ORDERED: traZODone HCL 50 MG TAB PO PRN (11:21)
--- NOTE | 2019-10-09 11:21 | P.PN ---
Progress Note - Text Interval history: The patient's found in group he follows me to an interview room. He describes his mood is anxious. We reviewed his psychotropic medication including the Lexapro and the naltrexone. He states that he has also been drinking at home due to symptoms of insomnia. He has been prescribed melatonin but he finds it ineffective. We discussed trialing trazodone and he is agreeable. He does express concern about possibly losing his job if he continues to miss days of work. Social work will reach out to his significant o ther for collateral information. Mental status exam: The patient is a male appearing older than his stated age. He is dressed in his own clothing he is mildly disheveled hygiene is adequate. Eye contact is appropriate speech is fluent spontaneous nonpressured. He indicates his mood is anxious. Affect is congruent to his reported mood. He indicates he feels safe in the hospital he has no thoughts of harming others. He is reporting no auditory or visual hallucinations or any specific delusions. There is no observed evidence of psychosis hypomania or violetta. He is oriented to person place and date. He is demonstrating no physical signs of withdrawal from alcohol. Plan: The patient will continue on his current medication we will add trazodone at bedtime for sleep as needed. Social work will reach out to his significant other for collateral information and for discharge planning purposes. He continues to refuse inpatient chemical dependency treatment. He is instructed to attend groups. We will continue to monitor his CIWA scores.
[2019-10-10] MEDS: NALTREXONE HCL 50 MG TAB PO SCH (08:48)
[2019-10-10] MEDS: THIAMINE 100 MG TAB PO SCH (08:48)
[2019-10-10] MEDS: MULTIVITAMINS, THERA 1 EACH TAB PO SCH (08:48)
[2019-10-10] MEDS: ESCITALOPRAM 10 MG TAB PO SCH (08:48)
[2019-10-10] MEDS: FOLIC ACID 1 MG TAB PO SCH (08:48)
[2019-10-10] MEDS: PANTOPRAZOLE 40 MG TABLET PO SCH (08:48)
[2019-10-10] MEDS: cloNIDine HCL 0.1 MG TAB PO SCH (08:48)
[2019-10-10] MEDS: LORazepam 1 MG TAB PO PRN (08:49)
[2019-10-10 08:54] VITALS: BP 111/70; PULSE 70; RESP 16; TEMP 97.7
[2019-10-10] MEDS: NICOTINE 14MG/24HR PATCH TRANSDERM SCH (09:06)
--- NOTE | 2019-10-10 10:49 | P.DS ---
Providers Date of admission: 10/07/19 20:54 Expected date of discharge: 10/10/19 Attending physician: Isaac Holly Consults: 10/07/19 21:24 Consult Physician Routine Consulting Provider: Toni Wolf Consult Reason/Comments: H&P and medical Do you want consulting provider notified?: Yes Primary care physician: Stated None - Discharge Diagnosis(es) (1) Major depressive disorder, recurrent severe without psychotic features Current Visit: Yes Status: Acute Priority: High (2) Alcohol use disorder, severe, dependence Current Visit: Yes Status: Acute (3) Alcohol use disorder, severe, dependence Current Visit: No Status: Acute Priority: High Hospital Course: Brief summary of admission note: This patient is a 49-year-old single male who was admitted to the mental health unit through the emergency room from the medical floor with a concern that he was having suicidal ideation. The patient was seen by Dr. Cortez as part of a psychiatric consultation. The patient presented to the hospital grossly intoxicated with alcohol and made statements that he wanted to hang himself. He states that he has been struggling with use of alcohol and when he is intoxicated that is the only time that he will make statements like that. He does convey a history of major depressive disorder. After his last admission back in April he did not comply with outpatient treatments for medication management. For full details please refer to the psychiatric evaluation dictated on 10/08/2019. Summary of hospital course: The patient was admitted to the mental health unit voluntarily. We reviewed his presenting symptoms and treatment options. We decided to restart the Lexapro for treatment of depression. The dose was titrated to [address] Cortez had [place] placed him on naltrexone 50 mg daily to reduce cravings for alcohol. He also describes symptoms of insomnia during his hospitalization and trazodone 50 mg at bedtime was started. The patient was pleasant and cooperative throughout his stay. He attended all groups. He reported a progressive improvement of symptoms while here. He demonstrates future oriented thinking. He is concerned about getting back to work. Social work has been able to reach his significant other for collateral information and for discharge planning purposes. The patient was seen by internal medicine for routine history and physical exam. The patient is verbalize no suicidal ideation intent or plan while on the mental health unit including today. Mental status exam: The patient is alert he is a thin male appearing older than his stated age. He has adequate hygiene and fair grooming eye contact is appropriate. Speech is fluent spontaneous nonpressured. He reports that his mood is much better. Affect is euthymic and congruent to reported mood. He is reporting no hopelessness thinking he reports no suicidal ideation intent or plan. He is reporting no homicidal ideation intent or plan. He reports no auditory or visual hallucinations or any specific delusions. There is no observed evidence of psychosis. He demonstrates no tangential thinking loose associations or flight of ideas. He does not appear hypomanic or manic. He demonstrates no verbal or physical aggressiveness. He remains oriented to person place and date. Again he is able to describe several examples of future oriented thinking. He plans on returning to work attending AA meetings etc. Impressions 1. Major depressive disorder recurrent severe without psychosis, alcohol use disorder severe. Plan: The patient will be discharged mental health unit today he will return home with his significant other. Social work will arrange his outpatient mental health follow-up. He will continue on Lexapro 10 mg daily, naltrexone 50 mg daily, trazodone 50 mg at bedtime as needed for sleep. He is instructed to abstain from any use of alcohol marijuana or illicit drugs. He was not willing to attend inpatient chemical dependency treatment for his alcohol use disorder. He is demonstrating no objective evidence of alcohol withdrawal at this time. At this time there is no imminent safety risk he is appropriate for transition to outpatient care. He is instructed to return to the hospital with any acute safety concerns. Patient Condition at Discharge: Stable Plan - Discharge Summary New Discharge Prescriptions: New traZODone HCL [Desyrel] 50 mg PO HS PRN #30 tab PRN Reason: Insomnia Escitalopram [Lexapro] 10 mg PO DAILY #30 tab Continue cloNIDine HCL [Catapres] 0.1 mg PO TID tab Pantoprazole [Protonix] 40 mg PO AC-BRKFST tablet. Multivitamins Thera [Multivitamin (formulary)] 1 tab PO DAILY Nicotine 14Mg/24Hr Patch [Habitrol] 1 patch TRANSDERM DAILY #14 patch Naltrexone HCl [Revia] 50 mg PO DAILY 28 Days #30 tab Discontinued Folic Acid 1 mg PO DAILY tab Melatonin 5 mg PO HS tablet Thiamine [Vitamin B-1] 100 mg PO BID-W/MEALS tab LORazepam [Ativan] 1 mg PO TID PRN #12 tab PRN Reason: Anxiety cloNIDine HCL [Catapres] 0.1 mg PO Q4HR PRN tab PRN Reason: Hypertension Escitalopram [Lexapro] 5 mg PO DAILY tab Acetaminophen Tab [Tylenol] 500 mg PO Q6HR PRN tab PRN Reason: Fever and/ or Mild Pain Discharge Medication List Multivitamins, Thera [Multivitamin (formulary)] 1 tab PO DAILY 10/07/19 [History] Pantoprazole [Protonix] 40 mg PO AC-BRKFST tablet. 10/07/19 [Rx] cloNIDine HCL [Catapres] 0.1 mg PO TID tab 10/07/19 [Rx] Escitalopram [Lexapro] 10 mg PO DAILY #30 tab 10/10/19 [Rx] Naltrexone HCl [Revia] 50 mg PO DAILY 28 Days #30 tab 10/10/19 [Rx] Nicotine 14Mg/24Hr Patch [Habitrol] 1 patch TRANSDERM DAILY #14 patch 10/10/19 [Rx] traZODone HCL [Desyrel] 50 mg PO HS PRN #30 tab 10/10/19 [Rx]
== END 2019-10-10 13:30 | disposition home or self-care (01) | DRG 885 ==
LOC: 3MHU 20:54
PROVIDERS: ADMIT Psychiatry & Neurology Psychiatry; ATTEND Psychiatry & Neurology Psychiatry
DX: F33.2 Major depressive disorder, recurrent severe without psychotic features (principal); G92 Toxic encephalopathy; R45.851 Suicidal ideations; F10.229 Alcohol dependence with intoxication, unspecified; F12.90 Cannabis use, unspecified, uncomplicated; Z79.899 Other long term (current) drug therapy
CPT/HCPCS: 80061; 83036; 84443

== ENCOUNTER → 2021-03-16 | Outpatient (CLI) | payer OTHER ==
--- NOTE | 2021-03-16 12:14 | XR ---
EXAMINATION TYPE: XR lumbar spine 2 or 3V DATE OF EXAM: 03/16/2021 Comparison: 11/09/2015 Clinical History: 50-year-old male S39.012A Findings: 5 lumbar type vertebral bodies. Mild to moderate degenerative disc disease greatest in the lower lumb ar spine with disc space narrowing and endplate fibrosis/sclerosis. Facet arthropathy mid to lower elena mbar spine. There is grade 1 retrolisthesis at L3-L4. Vertebral body heights are preserved and alignm ent is maintained. Impression: 1. [id number] degenerative disc disease, greatest in the lower lumbar spine. Findings progresse d from 2016. 2. Facet arthropathy mid to lower lumbar spine. 3. Degenerative grade 1 retrolisthesis at L3-L4. 4. No vertebral compression collapse.
== END | disposition home or self-care (01) ==
LOC: RADXRMAIN 11:46
PROVIDERS: ATTEND Emergency Medicine
DX: M43.16 Spondylolisthesis, lumbar region (principal); M51.36 Other intervertebral disc degeneration, lumbar region
CPT/HCPCS: 72100

== ENCOUNTER 2021-03-20 20:10 | Emergency (ER) | payer OTHER ==
[2021-03-20 20:21] VITALS: TEMP 97.4
[2021-03-20] MEDS ORDERED: LORazepam 2 MG/ML INJ IM STA (20:28)
[2021-03-20] MEDS ORDERED: ZIPRASIDONE 20 MG VIAL IM STA (20:28)
--- NOTE | 2021-03-20 21:45 | ED ---
General Adult HPI - General Chief complaint: Alcohol Stated complaint: ETOH Time Seen by Provider: 03/20/21 20:27 Source: EMS Mode of arrival: EMS Limitations: altered mental status, physical limitation - History of Present Illness Initial comments: 50 year-old male patient presents to the emergency department for evaluation for alcohol intoxication. Patient was found lying in a cemetary. Patient does admit to drinking alcohol. Denies any current injuries, pain, or illness. Patient is currently going through a separation from his . She is refusing to pick him up. Patient denies any recent rash, fever, chills, cough, shortness of breath, chest pain, abdominal pain, nausea, vomiting, diarrhea, constipation, back pain, numbness, tingling, dizziness, weakness, hematuria, dysuria, urinary urgency, urinary frequency, headache, visual changes, or any other complaints. - Related Data Home Medications Medication Instructions Recorded Confirmed ALPRAZolam [Xanax] 1 mg PO DAILY PRN 03/20/21 03/20/21 Cyclobenzaprine [Flexeril] 5 mg PO DAILY PRN 03/20/21 03/20/21 FLUoxetine HCL [PROzac] 20 mg PO DAILY 03/20/21 03/20/21 Allergies Allergy/AdvReac Type Severity Reaction Status Date / Time No Known Allergies Allergy Verified 03/20/21 22:27 Review of Systems ROS Statement: Those systems with pertinent positive or pertinent negative responses have been documented in the HPI. ROS Other: All systems not noted in ROS Statement are negative. Past Medical History Past Medical History: Musculoskeletal Disorder Additional Past Medical History / Comment(s): ETOH abuse History of Any Multi-Drug Resistant Organisms: None Reported Past Surgical History: Orthopedic Surgery Additional Past Surgical History / Comment(s): skin graft on Left AC. Broken clavical Past Anesthesia/Blood Transfusion Reactions: No Reported Reaction Past Psychological History: Anxiety, Depression Smoking Status: Current every day smoker Past Alcohol Use History: Heavy Past Drug Use History: None Reported - Past Family History Father History Unknown: Yes Family Medical History: Unable to Obtain Mother History Unknown: Yes Family Medical History: Unable to Obtain General Exam Limitations: altered mental status, physical limitation General appearance: alert, in no apparent distress, appears intoxicated, other (Physical well-developed, well-nourished adult male patient in no acute distress. Vital signs upon presentation are temperature 97.4F, pulse 99, respirations 20, blood pressure 134/94, pulse ox 99% on room air.) Eye exam: Present: normal appearance, PERRL, EOMI. Absent: scleral icterus, conjunctival injection, periorbital swelling ENT exam: Present: normal exam, normal oropharynx, mucous membranes moist Respiratory exam: Present: normal lung sounds bilaterally. Absent: respiratory distress, wheezes, rales, rhonchi, stridor Cardiovascular Exam: Present: regular rate, normal rhythm, normal heart sounds. Absent: systolic murmur, diastolic murmur, rubs, gallop, clicks GI/Abdominal exam: Present: soft, normal bowel sounds. Absent: distended, tenderness, guarding, rebound, rigid Neurological exam: Present: alert, CN II-XII intact. Absent: oriented X3 (Oriented 2) Psychiatric exam: Present: agitated. Absent: homicidal ideation, suicidal ideation Skin exam: Present: warm, dry, intact, normal color. Absent: rash Course Vital Signs 03/20/21 03/21/21 03/21/21 20:17 00:30 01:31 Temperature 97.4 F L Pulse Rate 99 78 Respiratory 20 18 18 Rate Blood Pressure 134/94 113/68 O2 Sat by Pulse 99 97 Oximetry Medical Decision Making - Medical Decision Making 50 year-old male patient was found intoxicated in a cemetary. Brought to the emergency department by police. No suicidal ideation. He did not have anyone to pick him up. He will be monitored until sober and then discharged. Care is handed off to my attending Dr. Ospina at 0300. Disposition Clinical Impression: Alcohol intoxication Disposition: HOME SELF-CARE Condition: Good Instructions (If sedation given, give patient instructions): Alcohol Intoxication (ED) Is patient prescribed a controlled substance at d/c from ED?: No Referrals: None,Stated [Primary Care Provider] - 1-2 days
[2021-03-20] MEDS ORDERED: NICOTINE 21MG/24HR PATCH TRANSDERM STA (22:10)
[2021-03-21 00:31] VITALS: RESP 18
[2021-03-21 06:47] VITALS: BP 109/78; PULSE 83
== END 2021-03-21 06:47 | disposition home or self-care (01) ==
LOC: EC 20:10
DX: F10.129 Alcohol abuse with intoxication, unspecified (principal); F41.9 Anxiety disorder, unspecified; F32.9 Major depressive disorder, single episode, unspecified; F17.200 Nicotine dependence, unspecified, uncomplicated; Y90.9 Presence of alcohol in blood, level not specified
CPT/HCPCS: 99284; 96372; S4990; J2060

== ENCOUNTER 2021-04-19 13:04 | Emergency (ER) | payer OTHER ==
[2021-04-19 13:15] VITALS: TEMP 98.5
[2021-04-19] MEDS ORDERED: KETOROLAC 15 MG/ML 1 ML VIAL IM STA (13:40)
--- NOTE | 2021-04-19 14:10 | ED ---
General Adult HPI - General Chief complaint: Psychiatric Symptoms Stated complaint: Suicidal Time Seen by Provider: 04/19/21 13:10 Source: patient, EMS, RN notes reviewed, old records reviewed Mode of arrival: EMS Limitations: no limitations - History of Present Illness Initial comments: This a 50-year-old male who presents emergency Department stating that he might kill himself because of the shoulder pain. Patient states his been hurting for 2 years since she's had surgery. Patient states she hasn't followed up a long time. Patient states she's feeling not suicidal but he made those statements to 911 because his shoulder hurt so bad. Patient denies any recent injury. Patient denies any redness or swelling. Patient states he just got chronic pain 3 drinks heavily to get over the pain. Patient has no complaints currently other than shoulder pain. Patient adamantly denies he is not suicidal or homicidal. - Related Data Previous Rx's Medication Instructions Recorded Ketorolac [Toradol] 10 mg PO Q6HR #15 tab 04/19/21 Allergies Allergy/AdvReac Type Severity Reaction Status Date / Time No Known Allergies Allergy Verified 04/19/21 13:15 Review of Systems ROS Statement: Those systems with pertinent positive or pertinent negative responses have been documented in the HPI. ROS Other: All systems not noted in ROS Statement are negative. Past Medical History Past Medical History: Musculoskeletal Disorder Additional Past Medical History / Comment(s): ETOH abuse History of Any Multi-Drug Resistant Organisms: None Reported Past Surgical History: Orthopedic Surgery Additional Past Surgical History / Comment(s): skin graft on Left AC. Broken clavical Past Anesthesia/Blood Transfusion Reactions: No Reported Reaction Past Psychological History: Anxiety, Depression Smoking Status: Current every day smoker Past Alcohol Use History: Heavy Past Drug Use History: None Reported - Past Family History Father History Unknown: Yes Family Medical History: Unable to Obtain Mother History Unknown: Yes Family Medical History: Unable to Obtain General Exam - General Exam Comments Initial Comments: GENERAL: Patient is well-developed and well-nourished. Patient is nontoxic and well- hydrated and is in no acute distress. ENT: Neck is soft and supple. No significant lymphadenopathy is noted. Oropharynx is clear. Moist mucous membranes. Neck has full range of motion without eliciting any pain. EYES: The sclera were anicteric and conjunctiva were pink and moist. Extraocular movements were intact and pupils were equal round and reactive to light. Eyelids were unremarkable. PULMONARY: Unlabored respirations. Good breath sounds bilaterally. No audible rales rhonchi or wheezing was noted. CARDIOVASCULAR: There is a regular rate and rhythm without any murmurs gallops or rubs. ABDOMEN: Soft and nontender with normal bowel sounds. SKIN: Skin is clear with no lesions or rashes and otherwise unremarkable. NEUROLOGIC: Patient is alert and oriented x3. Cranial nerves II through XII are grossly intact. Motor and sensory are also intact. Normal speech, volume and content. Symmetrical smile. MUSCULOSKELETAL: Normal extremities with adequate strength and full range of motion. Patient does have some anterior right shoulder pain no swelling to the area no redness to the area. Patient has full range of motion but he states it does hurt when he tries to lift his arm above his head. LYMPHATICS: No significant lymphadenopathy is noted PSYCHIATRIC: Normal psychiatric evaluation. Patient denies suicidal or homicidal. Limitations: no limitations Course Vital Signs 04/19/21 04/19/21 04/19/21 13:09 14:14 15:00 Temperature 98.5 F Pulse Rate 112 H Respiratory 20 18 18 Rate Blood Pressure 143/96 O2 Sat by Pulse 99 Oximetry 04/19/21 04/19/21 04/19/21 16:00 17:00 18:00 Temperature Pulse Rate Respiratory 18 18 18 Rate Blood Pressure O2 Sat by Pulse Oximetry 04/19/21 18:37 Temperature Pulse Rate 90 Respiratory 18 Rate Blood Pressure O2 Sat by Pulse 99 Oximetry Medical Decision Making - Medical Decision Making EPS evaluated the patient and determined the patient could go home safely patient was in agreement. - Lab Data Lab Results 04/19/21 Range/Units 14:04 Urine Opiates Screen Not Detected (NotDetected) Ur Oxycodone Screen Not Detected (NotDetected) Urine Methadone Screen Not Detected (NotDetected) Ur Propoxyphene Screen Not Detected (NotDetected) Ur Barbiturates Screen Not Detected (NotDetected) U Tricyclic Antidepress Not Detected (NotDetected) Ur Phencyclidine Scrn Not Detected (NotDetected) Ur Amphetamines Screen Not Detected (NotDetected) U Methamphetamines Scrn Not Detected (NotDetected) U Benzodiazepines Scrn Not Detected (NotDetected) Urine Cocaine Screen Not Detected (NotDetected) U Marijuana (THC) Screen Not Detected (NotDetected) Disposition Clinical Impression: Alcohol abuse, Chronic shoulder pain Disposition: HOME SELF-CARE Instructions (If sedation given, give patient instructions): Abuse of Alcohol (ED), Shoulder Pain (ED) Prescriptions: Ketorolac [Toradol] 10 mg PO Q6HR #15 tab Is patient prescribed a controlled substance at d/c from ED?: No Referrals: None,Stated [Primary Care Provider] - 1-2 days Time of Disposition: 18:55
[2021-04-19 15:04] LABS: Amphetamine Screen,Urine Not Detected (NotDetected); Barbiturate Screen,Urine Not Detected (NotDetected); Benzodiazepines Screen,Urine Not Detected (NotDetected); Cocaine Screen,Urine Not Detected (NotDetected); Methadone Screen, Urine Not Detected (NotDetected); Opiate Screen,Urine Not Detected (NotDetected); Oxycodone Screen, Urine Not Detected (NotDetected); Phencyclidine Screen,Urine Not Detected (NotDetected); Tricyclic Antidepressant,Urine Not Detected (NotDetected); Urn Cannabinoid Scrn Not Detected (NotDetected)
[2021-04-19 15:08] VITALS: RESP 18
[2021-04-19 19:16] VITALS: BP 132/77; PULSE 109
== END 2021-04-19 19:15 | disposition home or self-care (01) ==
LOC: EC 13:04
DX: M25.511 Pain in right shoulder (principal); F10.10 Alcohol abuse, uncomplicated; F41.9 Anxiety disorder, unspecified; F32.9 Major depressive disorder, single episode, unspecified; F17.200 Nicotine dependence, unspecified, uncomplicated; Y90.9 Presence of alcohol in blood, level not specified
CPT/HCPCS: 99284; 96372; 82075; 80306; J1885

== ENCOUNTER 2021-04-23 13:40 | Emergency (ER) | payer OTHER ==
[2021-04-23 14:16] VITALS: BP 128/78; PULSE 61; RESP 16; TEMP 98.4
[2021-04-23] MEDS ORDERED: LORazepam 2 MG/ML INJ IM STA (14:45)
--- NOTE | 2021-04-23 14:47 | ED ---
General Adult HPI - General Chief complaint: Alcohol Stated complaint: needs detox Time Seen by Provider: 04/23/21 14:19 Source: patient, family Mode of arrival: ambulatory Limitations: no limitations - History of Present Illness Initial comments: 50 year-old male patient is brought in by step-daughter for alcohol detox. He went to [facility] to be admitted for [facility]. They stated he was too intoxicated to take him in at that time. Patient denies any current physical symptoms or concerns. Denies suicidal or homicidal ideation. Stepdaughter states he is not suicidal. Patient denies any current injuries or recent falls. States he drinks on a daily basis. Did have a pint of liquor today. - Related Data Home Medications Medication Instructions Recorded Confirmed No Known Home Medications 04/23/21 04/23/21 Allergies Allergy/AdvReac Type Severity Reaction Status Date / Time No Known Allergies Allergy Verified 04/23/21 16:11 Review of Systems ROS Statement: Those systems with pertinent positive or pertinent negative responses have been documented in the HPI. ROS Other: All systems not noted in ROS Statement are negative. Past Medical History Past Medical History: Musculoskeletal Disorder Additional Past Medical History / Comment(s): ETOH abuse History of Any Multi-Drug Resistant Organisms: None Reported Past Surgical History: Orthopedic Surgery Additional Past Surgical History / Comment(s): skin graft on Left AC. Broken clavical Past Anesthesia/Blood Transfusion Reactions: No Reported Reaction Past Psychological History: Anxiety, Depression Smoking Status: Current every day smoker Past Alcohol Use History: Abuse, Daily, Heavy Past Drug Use History: None Reported - Past Family History Father History Unknown: Yes Family Medical History: Unable to Obtain Mother History Unknown: Yes Family Medical History: Unable to Obtain General Exam Limitations: no limitations General appearance: alert, in no apparent distress, appears intoxicated, other (This is a well-developed, well-nourished adult male patient who is obviously intoxicated. Vital signs upon presentation are temperature 98.4F, pulse 61, respirations 16, blood pressure 128/78, pulse ox 98% on room air.) Eye exam: Present: normal appearance, PERRL, EOMI. Absent: scleral icterus, conjunctival injection, periorbital swelling ENT exam: Present: normal exam, normal oropharynx, mucous membranes moist Respiratory exam: Present: normal lung sounds bilaterally. Absent: respiratory distress, wheezes, rales, rhonchi, stridor Cardiovascular Exam: Present: regular rate, normal rhythm, normal heart sounds. Absent: systolic murmur, diastolic murmur, rubs, gallop, clicks GI/Abdominal exam: Present: soft, normal bowel sounds. Absent: distended, tenderness, guarding, rebound, rigid Neurological exam: Present: alert, oriented X3, CN II-XII intact Psychiatric exam: Present: normal affect, normal mood Skin exam: Present: warm, dry, intact, normal color. Absent: rash Course Vital Signs 04/23/21 14:05 Temperature 98.4 F Pulse Rate 61 Respiratory 16 Rate Blood Pressure 128/78 O2 Sat by Pulse 98 Oximetry Medical Decision Making - Medical Decision Making 50 year-old male patient presents to the emergency department for alcohol detox. Upon arrival patient obviously intoxicated. Family left and would not take him home. He was relatively cooperative throughout stay. Was sober at 2030. He was comfortable being discharged. Did urge him to go to rehab as he had planned. Return parameters were discussed in detail. He verbalizes understanding and agrees with this plan. My attending is Dr. Correia. Disposition Clinical Impression: Alcohol intoxication Disposition: HOME SELF-CARE Condition: Good Instructions (If sedation given, give patient instructions): Alcohol Intoxication (ED) Additional Instructions: Follow-up with the primary care physician for recheck in one to days. Strongly consider going to rehab now the you are sober and able to accept you. Return for any new, worsening, or concerning symptoms. Is patient prescribed a controlled substance at d/c from ED?: No Referrals: None,Stated [Primary Care Provider] - 1-2 days Time of Disposition: 19:41
== END 2021-04-23 20:59 | disposition home or self-care (01) ==
LOC: EC 13:40
DX: F10.129 Alcohol abuse with intoxication, unspecified (principal); F41.9 Anxiety disorder, unspecified; F32.9 Major depressive disorder, single episode, unspecified; F17.200 Nicotine dependence, unspecified, uncomplicated; Y90.9 Presence of alcohol in blood, level not specified
CPT/HCPCS: 99283; 96372; 82075; J2060

== ENCOUNTER 2021-12-11 16:10 | Emergency (ER) | payer OTHER ==
[2021-12-11] MEDS ORDERED: ONDANSETRON 4 MG/2 ML VIAL IVP STA (16:48)
[2021-12-11] MEDS ORDERED: SODIUM CHLORIDE 0.9% 1,000 ML IV STA (16:48)
[2021-12-11] MEDS ORDERED: HYDROmorphone 1 MG/ML 1 ML SYRINGE IVP STA (16:48)
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
[2021-12-11 17:13] LABS: Appearance,Urine Clear (Clear); Basophils # (A) 0.1 k/uL (0-0.2); Basophils % (A) 0 %; Bilirubin,Urine Negative (Negative); Blood,Urine Negative (Negative); Color,Urine Yellow; Eosinophils # (A) 0.5 k/uL (0-0.7); Eosinophils % (A) 4 %; Glucose,Urine (UA) Negative (Negative); HCT 50.4 % (39.0-53.0); HGB 17.1 gm/dL (13.0-17.5); Ketones,Urine Negative (Negative); Leukocyte Esterase,Urine Negative (Negative); Lymphocytes # (A) 2.5 k/uL (1.0-4.8); Lymphocytes % (A) 18 %; MCH 32.4 pg (25.0-35.0); MCHC 33.9 g/dL (31.0-37.0); MCV 95.3 fL (80.0-100.0); Mean Platelet Volume 7.1; Monocytes # (A) 0.5 k/uL (0-1.0); Monocytes % (A) 4 %; Neutrophils # (A) 10.4 k/uL (1.3-7.7); Neutrophils % (A) 74 %; Nitrite,Urine Negative (Negative); Platelet Count 294 k/uL (150-450); Protein,Urine Negative (Negative); RBC 5.28 m/uL (4.30-5.90); RDW 14.3 % (11.5-15.5); Urobilinogen,Urine <2.0 mg/dL (<2.0); WBC 14.2 k/uL (3.8-10.6)
[2021-12-11 17:23] LABS: ALT 17 U/L (4-49); AST 36 U/L (17-59); African American GFR (CKD) >90 (>60 ml/min/1.73 sqM); Albumin 4.2 g/dL (3.5-5.0); Alkaline Phosphatase 72 U/L (38-126); Anion Gap 10 mmol/L; Blood Urea Nitrogen 15 mg/dL (9-20); Calcium 9.5 mg/dL (8.4-10.2); Carbon Dioxide 22 mmol/L (22-30); Chloride 104 mmol/L (98-107); Glucose 81 mg/dL (74-99); Non-African American GFR(CKD) >90 (>60 ml/min/1.73 sqM); Potassium 4.3 mmol/L (3.5-5.1); Sodium 136 mmol/L (137-145); Total Bilirubin 0.5 mg/dL (0.2-1.3); Total Protein 7.4 g/dL (6.3-8.2)
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
[2021-12-11] MEDS ORDERED: HYDROmorphone 0.5 MG/0.5 ML SYRINGE IVP STA (18:06)
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
[2021-12-11 20:01] VITALS: BP 110/90; PULSE 100; RESP 20; TEMP 98.4
[2021-12-11] MEDS ORDERED: LIDOCAINE 5% PATCH TOPICAL STA (20:05)
[2021-12-11] MEDS ORDERED: ACET/COD 300 MG/30 MG STARTER PACK 6 TAB BTL PO STA (20:05)
== END 2021-12-11 20:26 | disposition home or self-care (01) ==
LOC: EC 16:10
DX: S22.41XA Multiple fractures of ribs, right side, initial encounter for closed fracture (principal); F17.200 Nicotine dependence, unspecified, uncomplicated; V49.9XXA Car occupant (driver) (passenger) injured in unspecified traffic accident, initial encounter
CPT/HCPCS: 36415; 86900; 86901; 80053; 85025; 86850; 81003; 71101; 71260; 74177; 99284; 96374; 96375; 96376; 96361; J2405; J1170 ×2; Q9967

== ENCOUNTER 2022-01-12 19:50 | Inpatient (IN) | payer OTHER, MEDICAID ==
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
[2022-01-12 21:21] LABS: Basophils # (A) 0.1 k/uL (0-0.2); Basophils % (A) 1 %; Eosinophils # (A) 0.3 k/uL (0-0.7); Eosinophils % (A) 4 %; HCT 45.3 % (39.0-53.0); HGB 15.1 gm/dL (13.0-17.5); Lymphocytes # (A) 2.3 k/uL (1.0-4.8); Lymphocytes % (A) 34 %; MCHC 33.4 g/dL (31.0-37.0); MCV 98.9 fL (80.0-100.0); Mean Platelet Volume 7.4; Monocytes # (A) 0.5 k/uL (0-1.0); Monocytes % (A) 7 %; Neutrophils # (A) 3.5 k/uL (1.3-7.7); Neutrophils % (A) 51 %; Platelet Count 255 k/uL (150-450); RBC 4.58 m/uL (4.30-5.90); RDW 13.9 % (11.5-15.5); WBC 6.8 k/uL (3.8-10.6)
[2022-01-12 21:26] LABS: Prothrombin Time 10.5 sec (9.0-12.0)
[2022-01-12 21:38] LABS: ALT 18 U/L (4-49); AST 42 U/L (17-59); African American GFR (CKD) >90 (>60 ml/min/1.73 sqM); Albumin 4.2 g/dL (3.5-5.0); Alkaline Phosphatase 71 U/L (38-126); Anion Gap 11 mmol/L; Blood Urea Nitrogen 9 mg/dL (9-20); Calcium 8.9 mg/dL (8.4-10.2); Carbon Dioxide 22 mmol/L (22-30); Chloride 109 mmol/L (98-107); Glucose 92 mg/dL (74-99); Lipase 50 U/L (23-300); Non-African American GFR(CKD) >90 (>60 ml/min/1.73 sqM); Potassium 4.2 mmol/L (3.5-5.1); Sodium 142 mmol/L (137-145); Total Bilirubin 0.3 mg/dL (0.2-1.3); Total Protein 7.3 g/dL (6.3-8.2)
[2022-01-12 22:26] LABS: Alcohol 236 mg/dL
[2022-01-13] MEDS ORDERED: ACETAMINOPHEN TAB 325 MG TAB PO STA (03:37)
[2022-01-13] MEDS ORDERED: IBUPROFEN 600 MG TAB PO STA (03:37)
[2022-01-13 03:57] LABS: Appearance,Urine Cloudy (Clear); Bilirubin,Urine Negative (Negative); Blood,Urine Negative (Negative); Calcium Oxalate Crystals,Urine Rare /hpf; Color,Urine Yellow; Glucose,Urine (UA) Negative (Negative); Ketones,Urine Negative (Negative); Leukocyte Esterase,Urine Negative (Negative); Mucus,Urine Many /hpf; Nitrite,Urine Negative (Negative); Protein,Urine Trace (Negative); RBC,Urine <1 /hpf (0-5); Specific Gravity,Urine 1.025 (1.001-1.035); WBC,Urine 2 /hpf (0-5)
[2022-01-13] MEDS ORDERED: LORazepam 2 MG/ML INJ IV PRN ×2 (04:02)
[2022-01-13] MEDS: LORazepam 2 MG/ML INJ IV PRN ×2 (04:09→11:42)
[2022-01-13] MEDS ORDERED: chlordiazePOXIDE 25 MG CAP PO PRN ×8 (09:39→14:03)
[2022-01-13] MEDS ORDERED: MAGNESIUM HYDROXIDE 2,400 MG/10 ML CUP PO PRN (13:33)
[2022-01-13] MEDS ORDERED: LORazepam 1 MG TAB PO PRN ×2 (13:33)
[2022-01-13] MEDS ORDERED: ACETAMINOPHEN TAB 325 MG TAB PO PRN (13:33)
[2022-01-13] MEDS ORDERED: HALOPERIDOL LACTATE 5 MG/ML 1 ML VIAL IM PRN (13:33)
[2022-01-13] MEDS ORDERED: LORazepam 2 MG/ML INJ IM PRN (13:37)
[2022-01-13] MEDS ORDERED: haloperidoL 5 MG TAB PO PRN (13:38)
[2022-01-13] MEDS: diazePAM 5 MG TAB PO SCH ×2 (15:30→20:58)
[2022-01-13] MEDS: NICOTINE 14MG/24HR PATCH TRANSDERM SCH (15:43)
[2022-01-13] MEDS ORDERED: chlordiazePOXIDE 25 MG CAP PO SCH (16:00)
[2022-01-13] MEDS ORDERED: THIAMINE 100 MG TAB PO SCH (17:30)
[2022-01-13] MEDS ORDERED: IBUPROFEN 400 MG TAB PO PRN (18:17)
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
[2022-01-13] MEDS: busPIRone HCl 5 MG TAB PO SCH (20:58)
[2022-01-13] MEDS: LIDOCAINE 5% PATCH TOPICAL SCH (21:07)
[2022-01-14 07:46] LABS: Basophils # (A) 0.1 k/uL (0-0.2); Basophils % (A) 2 %; Eosinophils # (A) 0.2 k/uL (0-0.7); Eosinophils % (A) 4 %; HCT 47.1 % (39.0-53.0); HGB 15.6 gm/dL (13.0-17.5); Lymphocytes # (A) 1.4 k/uL (1.0-4.8); Lymphocytes % (A) 26 %; MCH 32.6 pg (25.0-35.0); MCHC 33.1 g/dL (31.0-37.0); MCV 98.4 fL (80.0-100.0); Mean Platelet Volume 7.2; Monocytes # (A) 0.4 k/uL (0-1.0); Monocytes % (A) 7 %; Neutrophils # (A) 3.1 k/uL (1.3-7.7); Neutrophils % (A) 60 %; Platelet Count 244 k/uL (150-450); RBC 4.79 m/uL (4.30-5.90); RDW 13.8 % (11.5-15.5); WBC 5.2 k/uL (3.8-10.6)
[2022-01-14 07:52] LABS: ALT 16 U/L (4-49); AST 36 U/L (17-59); African American GFR (CKD) >90 (>60 ml/min/1.73 sqM); Albumin 3.9 g/dL (3.5-5.0); Alkaline Phosphatase 73 U/L (38-126); Anion Gap 7 mmol/L; Blood Urea Nitrogen 16 mg/dL (9-20); Carbon Dioxide 24 mmol/L (22-30); Chloride 106 mmol/L (98-107); Glucose 86 mg/dL (74-99); Non-African American GFR(CKD) >90 (>60 ml/min/1.73 sqM); Potassium 4.4 mmol/L (3.5-5.1); Sodium 137 mmol/L (137-145); Total Bilirubin 0.7 mg/dL (0.2-1.3); Total Protein 6.7 g/dL (6.3-8.2)
[2022-01-14] MEDS: NICOTINE 14MG/24HR PATCH TRANSDERM SCH ×2 (08:36→20:29)
[2022-01-14] MEDS: THIAMINE 100 MG TAB PO SCH (08:36)
[2022-01-14] MEDS: MULTIVITAMINS, THERA 1 EACH TAB PO SCH (08:36)
[2022-01-14] MEDS: FOLIC ACID 1 MG TAB PO SCH (08:36)
[2022-01-14] MEDS: busPIRone HCl 5 MG TAB PO SCH ×2 (08:36→20:25)
[2022-01-14] MEDS: diazePAM 5 MG TAB PO SCH ×3 (08:36→20:25)
[2022-01-14] MEDS ORDERED: NICOTINE 14MG/24HR PATCH TRANSDERM SCH (09:00)
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
[2022-01-14] MEDS: SERTRALINE 25 MG TAB PO SCH (15:22)
[2022-01-14] MEDS: LIDOCAINE 5% PATCH TOPICAL SCH (20:24)
[2022-01-15] MEDS: NICOTINE 14MG/24HR PATCH TRANSDERM SCH (08:18)
[2022-01-15] MEDS: busPIRone HCl 5 MG TAB PO SCH ×2 (08:18→20:40)
[2022-01-15] MEDS: SERTRALINE 25 MG TAB PO SCH (08:18)
[2022-01-15] MEDS: diazePAM 5 MG TAB PO SCH ×3 (08:18→20:43)
[2022-01-15] MEDS: MULTIVITAMINS, THERA 1 EACH TAB PO SCH (08:18)
[2022-01-15] MEDS: THIAMINE 100 MG TAB PO SCH (08:18)
[2022-01-15] MEDS: FOLIC ACID 1 MG TAB PO SCH (08:19)
[2022-01-15 09:41] LABS: Chol/HDL Ratio 6.99 Ratio; LDL Cholesterol,Calculated 155.9 mg/dL (0.0-131.0)
[2022-01-15 11:54] LABS: Urine Alcohol Negative (Negative); Urine Barbiturate Negative (Negative); Urine Cocaine Negative (Negative); Urine Methadone Negative (Negative); Urine Opiates Negative (Negative); Urine Phencyclidine Negative (Negative)
--- NOTE | 2022-01-15 15:05 | P.PN ---
Progress Note - Text Progress Note Date: 01/15/22 Subjective: Patient was seen today as a cross coverage for Dr. Cortez. The patient was evaluated, chart reviewed, case discussed with the treatment team. Patient reports better sleep last night, and appetite was reported as " fair". Patient has been going to groups and other unit activities. The patient is compliant with his medications and denies any adverse reactions. Patient reports feeling much better today regarding his mood and he denies any suicidal thoughts. He denies feeling hopeless, and no reports of mood swings, irritability, or agitation. Patient denies any hallucinations, paranoid ideation, delusions, or manic symptoms. He denies any withdrawal symptoms today including shakiness, sweating, or stomach upset. Objective: Vitals has been reviewed. MENTAL STATUS EVALUATION: Appearance: Appears older than stated age, fairly groomed, below average body bu ilt, and no specific features. Gait/ posture: Steady gait, normal arm swinging, no abnormal movements, with relaxed posture. Attitude and Behavior: guarded, superficially related to the interviewer in socially accepted manner, intermittent eye contact during course of interview. Motor Activity: decreased psychomotor activity. Speech: spontaneous, slow rate, rhythm, and articulation. soft volume. not pressured. Language: Articulating, naming objects and repeat phrases. Mood: depressed Affect: increased intensity. Thought process: linear but poverty of thoughts. Association: intact. not tangential, not circumstantial. Thought content: no delusions, denies current suicidal thoughts, denies homicidal thoughts, denies intentions, or plans. Perception: Denies current A/V hallucinations Alertness: No impairment. Concentration: impaired Orientation: oriented to time, person, place and situation Insight regarding psychiatric condition: fair Judgment regarding daily activities and social situation: fair Impulse control: fair Assessment: Major depressive disorder, recurrent, severe without psychotic features. Alcohol use disorder, severe Alcohol withdrawal Plan: Continue inpatient level of care due to patient needs further monitoring and stabilization of his psychiatric symptoms Precautions: Continue 15 minutes check for safety. Consider medical consultation if any acute medical issues arise. Provide the patient individual, group therapy, substance use disorder counseling to give better insight and learn coping skills. Medications: Zoloft for depression and anxiety. 25 mg and gradually increase the dose. Buspar 7.5 mg twice daily for anxiety which is a continuation of prior to admission medication. Continue monitoring alcohol withdrawal with CIWA protocol, and PRN Librium for based on CIWA score. Valium taper for severe alcohol withdrawal. Started naltrexone for alcohol cravings. UDS completed yesterday and was negat keshia for opiates. Continue as needed medications for psychiatric emergencies including psychosis, agitation and anxiety. Continue non-psychiatric medications for medical conditions as recommended by the medical team. Labs: Urine drug screen obtained yesterday and was negative for opiates Discharge patient to OUTPATIENT services upon a stabilization
[2022-01-15] MEDS: MAG HYDROX/AL HYDROX/SIMETH 30 ML CUP PO PRN (15:10)
[2022-01-15] MEDS: LIDOCAINE 5% PATCH TOPICAL SCH (17:34)
[2022-01-16] MEDS: NICOTINE 14MG/24HR PATCH TRANSDERM SCH (08:31)
[2022-01-16] MEDS: busPIRone HCl 5 MG TAB PO SCH ×2 (08:33→20:03)
[2022-01-16] MEDS: FOLIC ACID 1 MG TAB PO SCH (08:34)
[2022-01-16] MEDS: SERTRALINE 25 MG TAB PO SCH (08:34)
[2022-01-16] MEDS: MULTIVITAMINS, THERA 1 EACH TAB PO SCH (08:34)
[2022-01-16] MEDS: THIAMINE 100 MG TAB PO SCH (08:34)
[2022-01-16] MEDS: diazePAM 5 MG TAB PO SCH ×2 (08:34→20:03)
[2022-01-16] MEDS: NALTREXONE HCL 50 MG TAB PO SCH (08:34)
[2022-01-16] MEDS ORDERED: SERTRALINE 25 MG TAB PO ONE (10:30)
--- NOTE | 2022-01-16 11:30 | P.PN ---
Progress Note - Text Progress Note Date: 01/16/22 Interval History: Patient was seen wandering the hallways and was directable and agreeable to arcenio aceves with functional tester typewriters in the office. Patient appears to be fairly soft spoken, and was minimizing his need for hospitalization. He states that she "checked myself in" and mainly spoke about his drinking of alcohol. He claims that he asked "erratically" when he does drink alcohol and mentioned to his that he was feeling suicidal. He states that he feels frustrated and irritable at times. He claims that he is doing better on the medications and wants to remain on the craving medication for alcohol use. He claims that he is sleeping fairly at nighttime. He states his anxiety is elevated and continuing to go through alcohol withdrawals, mild tremors at this time no palpitations no diaphoresis. At this time patient denies any suicidal or homical ideations, intent or plan. Patient denies any auditory, visual hallucinations and denies any paranoia or delusions. Patient denies any side effects from the medications and has been compliant with meds. Mental Status Exam: General Appearance: Patient appears to be thin, stated age is alert, directable, and cooperative. Behavior: Patient is calmly seated without any agitated behavior. Timid. Speech: Patient's speech is fluent and nonpressured. Soft spoken Mood/Affect: Mood is depressed and anxious improving mildly, affect is congruent and constricted. Suicidality/Homicidality: Patient denies having any suicidal or homicidal ideat ion intent or plan. Perceptions: Patient denies any visual hallucinations and denies any auditory hallucinations Though content/process: There is no evidence of any delusional thought content and thought process is linear and goal-directed. Focused on discharge. Minimizing his need for help. Memory and concentration: AOX3, grossly intact for the purposes of this session Judgment and insight: Poor Assessment Major depressive disorder, recurrent, severe without psychotic features. Alcohol use disorder, severe Plan: -Patient continues to meet criteria for inpatient psychiatric admission for symptom stabilization and safety. Patient has signed adult voluntary form and medication consent and was placed in patient's chart. -Medications: Increase BuSpar to 15 mg twice a day for anxiety, Zoloft increased to 50 mg daily for anxiety/mood. Trazodone 50 mg daily at bedtime for insomnia/mood. Continue decreasing Valium 5 mg twice a day for alcohol withdrawal. -CIWA protocol with when necessary Ativan. Continue to monitor vital signs. -When necessary Ativan and Haldol for agitation/aggression. -NRT - nicotine patch -SW on board for discharge planning. Encouraged the patient to participate in milieu. Likely discharge in 1-2 days.
[2022-01-16] MEDS: LORazepam 1 MG TAB PO PRN ×2 (11:46→16:55)
[2022-01-16] MEDS: MAG HYDROX/AL HYDROX/SIMETH 30 ML CUP PO PRN ×2 (11:47→16:55)
[2022-01-16] MEDS: LIDOCAINE 5% PATCH TOPICAL SCH (20:03)
[2022-01-16] MEDS ORDERED: traZODone HCL 50 MG TAB PO SCH (21:00)
[2022-01-17] MEDS ORDERED: diazePAM 2 MG TAB PO SCH (08:00)
[2022-01-17] MEDS: NICOTINE 14MG/24HR PATCH TRANSDERM SCH (08:01)
[2022-01-17] MEDS: THIAMINE 100 MG TAB PO SCH (08:01)
[2022-01-17] MEDS: MULTIVITAMINS, THERA 1 EACH TAB PO SCH (08:01)
[2022-01-17] MEDS: NALTREXONE HCL 50 MG TAB PO SCH (08:01)
[2022-01-17] MEDS: FOLIC ACID 1 MG TAB PO SCH (08:02)
[2022-01-17] MEDS: diazePAM 5 MG TAB PO SCH (08:02)
[2022-01-17] MEDS: busPIRone HCl 5 MG TAB PO SCH ×2 (08:02→21:35)
[2022-01-17] MEDS: SERTRALINE 50 MG TAB PO SCH (08:02)
--- NOTE | 2022-01-17 10:37 | P.PN ---
Progress Note - Text Progress Note Date: 01/17/22 Interval History: Patient was seen wandering the hallways and was directable and agreeable to arcenio aceves with typewriter ribbon winder in the office. Patient appears to be fairly soft spoken. Patient was fairly goal oriented and logical today. He continues to perseverate on wanting to quit alcohol use. He states that he believes the craving medication well completely stop his cravings and stop him from using alcohol. He was fairly unrealistic in his plan for staying sober. Patient was directable during conversation and remains to be polite. He at this time is claiming that his mood is gradually improving along with his anxiety. He states that he did not sleep well last night and was agreeable to have his trazodone increased. He claims that he did have some minor withdrawal symptoms yesterday from the alcohol use however is agreeable to have his Valium adjusted.. He claims that he has fair appetite. He we spoke about rehab and other options and patient states that he wants to go home for a while before he goes to rehab. At this time patient denies any suicidal or homical ideations, intent or plan. Patient denies any auditory, visual hallucinations and denies any paranoia or delusions. Patient denies any side effects from the medications and has been compliant with meds. Mental Status Exam: General Appearance: Patient appears to be thin, stated age is alert, directable, and cooperative. Behavior: Patient is calmly seated without any agitated behavior. More cooperative today Speech: Patient's speech is fluent and nonpressured. Soft spoken Mood/Affect: Mood is depressed and anxious improving mildly, affect is congruent and constricted. Suicidality/Homicidality: Patient denies having any suicidal or homicidal ideation intent or plan. Perceptions: Patient denies any visual hallucinations and denies any auditory hallucinations Though content/process: There is no evidence of any delusional thought content and thought process is linear and goal-directed. Focused on discharge. Memory and concentration: AOX3, grossly intact for the purposes of this session Judgment and insight: Improving mildly Assessment Major depressive disorder, recurrent, severe without psychotic features. Alcohol use disorder, severe Plan: -Patient continues to meet criteria for inpatient psychiatric admission for symptom stabilization and safety. Patient has signed adult voluntary form and medication consent and was placed in patient's chart. -Medications: BuSpar 15 mg twice a day for anxiety, Zoloft 50 mg daily for anxiety/mood. increase Trazodone 100 mg daily at bedtime for insomnia/mood. decrease Valium 2 mg three times a day for alcohol withdrawal. -CIWA protocol with when necessary Ativan. Continue to monitor vital signs. -When necessary Ativan and Haldol for agitation/aggression. -NRT - nicotine patch -SW on board for discharge planning. Encouraged the patient to participate in milieu. Likely discharge back home tomorrow. SW to give patient number for access line for rehab.
[2022-01-17] MEDS: LORazepam 1 MG TAB PO PRN (13:38)
[2022-01-17] MEDS: diazePAM 2 MG TAB PO SCH ×2 (15:43→21:42)
[2022-01-17] MEDS ORDERED: traZODone HCL 100 MG TAB PO SCH (21:00)
[2022-01-17] MEDS: LIDOCAINE 5% PATCH TOPICAL SCH (21:36)
[2022-01-18 06:34] VITALS: RESP 18; TEMP 97.1
[2022-01-18 08:30] VITALS: BP 121/70; PULSE 112
[2022-01-18] MEDS: FOLIC ACID 1 MG TAB PO SCH (08:30)
[2022-01-18] MEDS: MULTIVITAMINS, THERA 1 EACH TAB PO SCH (08:30)
[2022-01-18] MEDS: SERTRALINE 50 MG TAB PO SCH (08:30)
[2022-01-18] MEDS: NICOTINE 14MG/24HR PATCH TRANSDERM SCH (08:30)
[2022-01-18] MEDS: THIAMINE 100 MG TAB PO SCH (08:30)
[2022-01-18] MEDS: busPIRone HCl 5 MG TAB PO SCH (08:31)
[2022-01-18] MEDS: NALTREXONE HCL 50 MG TAB PO SCH (08:31)
[2022-01-18] MEDS: diazePAM 2 MG TAB PO SCH (08:32)
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
== END 2022-01-18 16:20 | disposition home or self-care (01) | DRG 885 ==
LOC: EC 19:50 → 3MHU 01-13 13:12
PROVIDERS: ADMIT Psychiatry & Neurology Psychiatry; ATTEND Psychiatry & Neurology Psychiatry
DX: F33.2 Major depressive disorder, recurrent severe without psychotic features (principal); R45.851 Suicidal ideations; F10.231 Alcohol dependence with withdrawal delirium; F10.280 Alcohol dependence with alcohol-induced anxiety disorder; F10.229 Alcohol dependence with intoxication, unspecified; F17.210 Nicotine dependence, cigarettes, uncomplicated; R45.87 Impulsiveness; F41.0 Panic disorder [episodic paroxysmal anxiety]; G47.00 Insomnia, unspecified; Y90.7 Blood alcohol level of 200-239 mg/100 ml; Z20.822 Contact with and (suspected) exposure to COVID-19; Z79.899 Other long term (current) drug therapy; V48 Car occupant injured in noncollision transport accident; V49.9XXS Car occupant (driver) (passenger) injured in unspecified traffic accident, sequela; S22.41XD Multiple fractures of ribs, right side, subsequent encounter for fracture with routine healing
CPT/HCPCS: 36415; 80053; 80061; 80306; 80320; 81001; 83036; 83690; 84443; 85025; 85610; 87635; 96374; 96376; 99285

== ENCOUNTER 2022-02-07 21:19 | Inpatient (IN) | payer MEDICAID, OTHER ==
[2022-02-07] MEDS ORDERED: DIPH,PERTUS(ACELL)TETVAC-LF 0.5 ML VIAL IM ONE (21:25)
[2022-02-07] MEDS ORDERED: ONDANSETRON 4 MG/2 ML VIAL IVP STA (21:25)
[2022-02-07] MEDS ORDERED: HYDROmorphone 1 MG/ML 1 ML SYRINGE IVP STA ×2 (21:25→22:27)
[2022-02-07] MEDS ORDERED: SODIUM CHLORIDE 0.9% 1,000 ML IV STA (21:25)
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
[2022-02-07 21:48] LABS: Basophils # (A) 0.1 k/uL (0-0.2); Basophils % (A) 1 %; Eosinophils # (A) 0.3 k/uL (0-0.7); Eosinophils % (A) 3 %; HCT 42.1 % (39.0-53.0); HGB 13.8 gm/dL (13.0-17.5); Lymphocytes # (A) 2.3 k/uL (1.0-4.8); Lymphocytes % (A) 21 %; MCH 32.1 pg (25.0-35.0); MCHC 32.8 g/dL (31.0-37.0); MCV 97.9 fL (80.0-100.0); Mean Platelet Volume 7.7; Monocytes # (A) 0.4 k/uL (0-1.0); Monocytes % (A) 4 %; Neutrophils # (A) 7.8 k/uL (1.3-7.7); Neutrophils % (A) 71 %; Platelet Count 245 k/uL (150-450); RDW 13.7 % (11.5-15.5); WBC 10.9 k/uL (3.8-10.6)
[2022-02-07 22:00] LABS: Albumin 3.7 g/dL (3.5-5.0); Calcium 8.4 mg/dL (8.4-10.2); Potassium 3.4 mmol/L (3.5-5.1); Total Bilirubin 0.3 mg/dL (0.2-1.3); Total Protein 6.3 g/dL (6.3-8.2)
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
[2022-02-07 22:07] LABS: Prothrombin Time 10.4 sec (9.0-12.0)
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
[2022-02-07 22:26] LABS: Partial Thromboplastin Time 20.4 sec (22.0-30.0)
[2022-02-07] MEDS ORDERED: POTASSIUM BICARBONATE/CIT AC 20 MEQ TABLET.EFF PO ONE (22:28)
--- NOTE | 2022-02-07 23:40 | XR ---
EXAMINATION TYPE: XR shoulder limited RT DATE OF EXAM: 02/07/2022 COMPARISON: 11/09/2015 HISTORY: Pain TECHNIQUE: 2 views FINDINGS: There is severe narrowing of the subacromial joint space. I see no fracture nor dislocation . There is possible soft tissue air lateral to the humeral head. The scapula is intact. IMPRESSION: Possible soft tissue air. Severe subacromial joint space narrowing. There is significant progression of the abnormality compare d to old exam. Soft tissue air should be correlated with the physical exam. No fracture seen.
[2022-02-08] MEDS ORDERED: LORazepam 2 MG/ML INJ IV STA (01:18)
[2022-02-08] MEDS: HYDROmorphone 1 MG/ML 1 ML SYRINGE IVP PRN ×3 (01:25→10:41)
[2022-02-08 04:28] LABS: Appearance,Urine Clear (Clear); Bilirubin,Urine Negative (Negative); Blood,Urine Negative (Negative); Color,Urine Yellow; Glucose,Urine (UA) Negative (Negative); Ketones,Urine Trace (Negative); Leukocyte Esterase,Urine Negative (Negative); Nitrite,Urine Negative (Negative); PH, Urine 5.5 (5.0-8.0); Protein,Urine Negative (Negative); Urobilinogen,Urine <2.0 mg/dL (<2.0)
[2022-02-08 04:30] LABS: Amphetamine Screen,Urine Not Detected (NotDetected); Barbiturate Screen,Urine Not Detected (NotDetected); Benzodiazepines Screen,Urine Detected (NotDetected); Cocaine Screen,Urine Not Detected (NotDetected); Methadone Screen, Urine Not Detected (NotDetected); Opiate Screen,Urine Detected (NotDetected); Oxycodone Screen, Urine Not Detected (NotDetected); Phencyclidine Screen,Urine Not Detected (NotDetected); Tricyclic Antidepressant,Urine Not Detected (NotDetected); Urn Cannabinoid Scrn Not Detected (NotDetected)
[2022-02-08] MEDS ORDERED: HYDROmorphone 1 MG/ML 1 ML SYRINGE IVP STA ×2 (04:38→07:44)
[2022-02-08] MEDS ORDERED: MAGNESIUM HYDROXIDE 2,400 MG/10 ML CUP PO PRN (11:36)
[2022-02-08] MEDS ORDERED: HALOPERIDOL LACTATE 5 MG/ML 1 ML VIAL IM PRN (11:36)
[2022-02-08] MEDS ORDERED: LORazepam 1 MG/0.5 ML VIAL IM PRN (11:49)
[2022-02-08] MEDS ORDERED: haloperidoL 5 MG TAB PO PRN (11:49)
[2022-02-08] MEDS: LORazepam 1 MG TAB PO PRN (12:12)
[2022-02-08] MEDS: NICOTINE 14MG/24HR PATCH TRANSDERM SCH (12:18)
[2022-02-08] MEDS: HYDROcodone/APAP 5-325MG 1 EACH TAB PO PRN ×2 (15:41→21:18)
[2022-02-08] MEDS: ACETAMINOPHEN TAB 325 MG TAB PO PRN ×2 (15:43→21:19)
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
[2022-02-08] MEDS: chlordiazePOXIDE 25 MG CAP PO SCH ×2 (16:23→21:16)
[2022-02-08] MEDS: MAG HYDROX/AL HYDROX/SIMETH 30 ML CUP PO PRN (16:31)
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
[2022-02-08] MEDS: traZODone HCL 100 MG TAB PO SCH (21:16)
[2022-02-08] MEDS: busPIRone HCl 5 MG TAB PO SCH (21:16)
[2022-02-08] MEDS: CEPHALEXIN 500 MG CAP PO SCH (22:44)
[2022-02-09] MEDS: busPIRone HCl 5 MG TAB PO SCH ×2 (08:31→21:39)
[2022-02-09] MEDS: CEPHALEXIN 500 MG CAP PO SCH ×4 (08:31→21:39)
[2022-02-09] MEDS: chlordiazePOXIDE 25 MG CAP PO SCH ×3 (08:31→21:58)
[2022-02-09] MEDS: LIDOCAINE 5% PATCH TOPICAL SCH (08:32)
[2022-02-09] MEDS: FOLIC ACID 1 MG TAB PO SCH (08:32)
[2022-02-09] MEDS: MULTIVITAMINS, THERA 1 EACH TAB PO SCH (08:33)
[2022-02-09] MEDS: THIAMINE 100 MG TAB PO SCH (08:33)
[2022-02-09] MEDS: NICOTINE 14MG/24HR PATCH TRANSDERM SCH (08:33)
[2022-02-09] MEDS: SERTRALINE 50 MG TAB PO SCH (08:33)
[2022-02-09] MEDS: HYDROcodone/APAP 5-325MG 1 EACH TAB PO PRN ×3 (08:37→21:40)
[2022-02-09] MEDS ORDERED: NICOTINE 14MG/24HR PATCH TRANSDERM SCH (09:00)
[2022-02-09] MEDS ORDERED: NALTREXONE HCL 50 MG TAB PO SCH (09:00)
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
[2022-02-09 10:49] LABS: ALT 13 U/L (4-49); AST 29 U/L (17-59); Albumin 3.9 g/dL (3.5-5.0); Alkaline Phosphatase 71 U/L (38-126); Bilirubin, Delta 0.3 mg/dL (0.0-0.2); Bilirubin,Unconjugated 0.6 mg/dL (0.0-1.1); Total Bilirubin 0.9 mg/dL (0.2-1.3); Total Protein 6.8 g/dL (6.3-8.2)
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
[2022-02-09 14:26] LABS: Chol/HDL Ratio 5.22 Ratio; LDL Cholesterol,Calculated 136.7 mg/dL (0.0-131.0)
[2022-02-09] MEDS: ACETAMINOPHEN TAB 325 MG TAB PO PRN ×2 (15:48→21:40)
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
[2022-02-09] MEDS: traZODone HCL 100 MG TAB PO SCH (21:39)
[2022-02-09] MEDS: MAG HYDROX/AL HYDROX/SIMETH 30 ML CUP PO PRN (21:43)
[2022-02-10] MEDS: LIDOCAINE 5% PATCH TOPICAL SCH (08:39)
[2022-02-10] MEDS: FOLIC ACID 1 MG TAB PO SCH (08:40)
[2022-02-10] MEDS: busPIRone HCl 5 MG TAB PO SCH ×2 (08:40→21:35)
[2022-02-10] MEDS: THIAMINE 100 MG TAB PO SCH (08:40)
[2022-02-10] MEDS: chlordiazePOXIDE 25 MG CAP PO SCH ×4 (08:40→21:35)
[2022-02-10] MEDS: NICOTINE 14MG/24HR PATCH TRANSDERM SCH (08:40)
[2022-02-10] MEDS: SERTRALINE 50 MG TAB PO SCH (08:41)
[2022-02-10] MEDS: CEPHALEXIN 500 MG CAP PO SCH ×4 (08:41→21:35)
[2022-02-10] MEDS: MULTIVITAMINS, THERA 1 EACH TAB PO SCH (08:41)
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
[2022-02-10] MEDS: HYDROcodone/APAP 5-325MG 1 EACH TAB PO PRN ×2 (12:31→21:36)
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
[2022-02-10] MEDS: traZODone HCL 100 MG TAB PO SCH (21:35)
[2022-02-10] MEDS: ACETAMINOPHEN TAB 325 MG TAB PO PRN (21:35)
[2022-02-10] MEDS: MAG HYDROX/AL HYDROX/SIMETH 30 ML CUP PO PRN (21:41)
[2022-02-11] MEDS: NICOTINE 14MG/24HR PATCH TRANSDERM SCH (08:49)
[2022-02-11] MEDS: FOLIC ACID 1 MG TAB PO SCH (08:49)
[2022-02-11] MEDS: busPIRone HCl 5 MG TAB PO SCH ×2 (08:49→21:03)
[2022-02-11] MEDS: LIDOCAINE 5% PATCH TOPICAL SCH (08:49)
[2022-02-11] MEDS: chlordiazePOXIDE 25 MG CAP PO SCH ×4 (08:49→21:03)
[2022-02-11] MEDS: SERTRALINE 100 MG TAB PO SCH (08:52)
[2022-02-11] MEDS: MULTIVITAMINS, THERA 1 EACH TAB PO SCH (08:52)
[2022-02-11] MEDS: THIAMINE 100 MG TAB PO SCH (08:52)
[2022-02-11] MEDS: HYDROcodone/APAP 5-325MG 1 EACH TAB PO PRN (08:53)
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
[2022-02-11] MEDS: HYDROcodone/APAP 7.5-325MG 1 EACH TAB PO PRN ×2 (14:37→22:22)
[2022-02-11] MEDS: traZODone HCL 100 MG TAB PO SCH (21:03)
[2022-02-12] MEDS: MULTIVITAMINS, THERA 1 EACH TAB PO SCH (08:39)
[2022-02-12] MEDS: NICOTINE 14MG/24HR PATCH TRANSDERM SCH (08:39)
[2022-02-12] MEDS: THIAMINE 100 MG TAB PO SCH (08:39)
[2022-02-12] MEDS: LIDOCAINE 5% PATCH TOPICAL SCH (08:40)
[2022-02-12] MEDS: chlordiazePOXIDE 25 MG CAP PO SCH ×4 (08:40→20:41)
[2022-02-12] MEDS: busPIRone HCl 5 MG TAB PO SCH ×2 (08:40→20:40)
[2022-02-12] MEDS: SERTRALINE 100 MG TAB PO SCH (08:40)
[2022-02-12] MEDS: FOLIC ACID 1 MG TAB PO SCH (08:40)
[2022-02-12] MEDS: HYDROcodone/APAP 7.5-325MG 1 EACH TAB PO PRN ×2 (08:45→20:40)
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
[2022-02-12] MEDS: MAG HYDROX/AL HYDROX/SIMETH 30 ML CUP PO PRN (16:31)
[2022-02-12] MEDS: traZODone HCL 100 MG TAB PO SCH (20:40)
[2022-02-12] MEDS: LORazepam 1 MG TAB PO PRN (22:12)
[2022-02-13] MEDS: NICOTINE 14MG/24HR PATCH TRANSDERM SCH (08:47)
[2022-02-13] MEDS: SERTRALINE 100 MG TAB PO SCH (08:48)
[2022-02-13] MEDS: chlordiazePOXIDE 25 MG CAP PO SCH (08:48)
[2022-02-13] MEDS: MULTIVITAMINS, THERA 1 EACH TAB PO SCH (08:48)
[2022-02-13] MEDS: THIAMINE 100 MG TAB PO SCH (08:48)
[2022-02-13] MEDS: busPIRone HCl 5 MG TAB PO SCH ×2 (08:48→21:33)
[2022-02-13] MEDS: FOLIC ACID 1 MG TAB PO SCH (08:48)
[2022-02-13] MEDS: HYDROcodone/APAP 7.5-325MG 1 EACH TAB PO PRN ×2 (08:50→21:34)
--- NOTE | 2022-02-13 11:47 | P.PN ---
Progress Note - Text Progress Note Date: 02/13/22 Interval History: Patient was seen participating in group this morning and was directable and ag reeable to speak with typewriter assembly and parts inspector in the office. Patient appears to be improving in terms of his affect however continues to feel regretful for what he has done. He states that he wants to live for his family and also claims that he is fighting a sheets to get worker's compensation. He states that he is also worried about his upcoming legal problems and court dates. He states that he is still motivated to get help and go to rehab and has not heard if a intake date at this time. He claims that his sleep was poor last night and was agreeable out of his trazodone increase. He also states that he is feeling somewhat depressed and anxious. Continues to claim that he is having pain in his shoulder and trying to move it as best as he can during the day. Withdrawal symptoms of an improving. At this time patient denies any suicidal or homical ideations, intent or plan. Patient denies any auditory, visual hallucinations and denies any paranoia or delusions. Patient denies any side effects from the medications and has been compliant with meds. Mental Status Exam: General Appearance: Patient appears to be wearing street clothing, appears to be in distress, stated age is alert, directable, and attempts to cooperate. Patient appears to have improving hygiene and grooming. Behavior: Patient is seated without any agitated behavior. attempts to cooperate. Speech: Patient's speech is fluent and nonpressured. Mood/Affect: Patient reports their mood is depressed and anxious, improving, affect is congruent Suicidality/Homicidality: Patient denies having any homicidal ideation intent or plan. Denies any suicidal ideations intent or plan Perceptions: Patient denies any visual hallucinations and denies any auditory hallucinations Though content/process: There is no evidence of any delusional thought content and thought process is linear and goal-directed. Focus on his stressors and getting help. Memory and concentration: AOX3, grossly intact for the purposes of this session Judgment and insight: poor/impulsive, improving mildly IMPRESSIONS: Major depressive disorder, recurrent, severe without psychotic features. Alcohol use disorder, severe Plan: -Patient continues to meet criteria for inpatient psychiatric admission for symptom stabilization and safety. Patient has not signed adult voluntary form and medication consent and was placed in patient's chart. -Medications: increase Zoloft 150 mg daily for mood/anxiety, increase trazodone 150 mg daily at bedtime for insomnia/mood, BuSpar 15 mg twice a day for anxiety. decrease librium to 20 mg tid for etoh withdrawal. added campral 333 mg tid for etoh cravings. -When necessary Ativan and Haldol for agitation/aggression. -thiamine, MVM for etoh use -CIWA protocol with Ativan PRN for ETOH withdrawal -NRT -none needed as patient does not smoke. -SW on board for discharge planning. Encouraged the patient to participate in milieu. patient signed deferral with his commercial litigation attorney. currently awaiting [facility] intake date and patient will need to be a direct transfer to for rehab as he is currently homeless and is high risk for relapse and suicide attempt.
[2022-02-13] MEDS: MAG HYDROX/AL HYDROX/SIMETH 30 ML CUP PO PRN ×2 (12:31→17:43)
[2022-02-13] MEDS: LIDOCAINE 5% PATCH TOPICAL SCH (12:35)
[2022-02-13] MEDS: ACAMPROSATE CALCIUM 333 MG TABLET.DR PO SCH ×3 (12:35→21:33)
[2022-02-13] MEDS ORDERED: LORazepam 2 MG/ML INJ IM PRN (18:35)
[2022-02-13] MEDS: traZODone HCL 50 MG TAB PO SCH (21:33)
[2022-02-14] MEDS: NICOTINE 14MG/24HR PATCH TRANSDERM SCH (08:42)
[2022-02-14] MEDS: LIDOCAINE 5% PATCH TOPICAL SCH (08:43)
[2022-02-14] MEDS: ACAMPROSATE CALCIUM 333 MG TABLET.DR PO SCH ×3 (08:44→21:13)
[2022-02-14] MEDS: FOLIC ACID 1 MG TAB PO SCH (08:44)
[2022-02-14] MEDS: THIAMINE 100 MG TAB PO SCH (08:44)
[2022-02-14] MEDS: MULTIVITAMINS, THERA 1 EACH TAB PO SCH (08:44)
[2022-02-14] MEDS: SERTRALINE 100 MG TAB PO SCH (08:44)
[2022-02-14] MEDS: busPIRone HCl 5 MG TAB PO SCH ×2 (08:45→21:13)
[2022-02-14] MEDS: HYDROcodone/APAP 7.5-325MG 1 EACH TAB PO PRN ×2 (08:47→21:14)
--- NOTE | 2022-02-14 10:05 | P.PN ---
Progress Note - Text Progress Note Date: 02/14/22 Interval History: Patient was seen participating in group this morning and was directable and ag reeable to speak with senior grant writer in the office. Patient appears to be improving in terms of his affect. He claims he still feels ashamed for what he is on. He claims that he has been speaking with his however states that his at this time wants a "break from me" and claims that he will not likely return back home once he is done rehab. He states that he is positive about going to rehab and quitting drinking. He asked if he could get a picture taken with his ID to send to the insurance [employer]. He claims that he is worried about possibly being homeless after discharge. He states that he has not heard back from [facility] about an intake date. He claims that his mood and anxiety of an improving. Continues to have pain in the shoulder. States that he was able to sleep about 4-5 hours last night which is an improvement. Fair appetite. Withdrawal symptoms of an improving. At this time patient denies any suicidal or homical ideations, intent or plan. Patient denies any auditory, visual hallucinations and denies any paranoia or delusions. Patient denies any side effects from the medications and has been compliant with meds. Mental Status Exam: General Appearance: Patient appears to be wearing street clothing, appears to be in distress, stated age is alert, directable, and attempts to cooperate. Patient appears to have improving hygiene and grooming. Behavior: Patient is seated without any agitated behavior. attempts to cooperate. Speech: Patient's speech is fluent and nonpressured. Mood/Affect: Patient reports their mood is depressed and anxious, improving, affect is congruent Suicidality/Homicidality: Patient denies having any homicidal ideation intent or plan. Denies any suicidal ideations intent or plan Perceptions: Patient denies any visual hallucinations and denies any auditory hallucinations Though content/process: There is no evidence of any delusional thought content and thought process is linear and goal-directed. Focus on his stressors and getting help. Memory and concentration: AOX3, grossly intact for the purposes of this session Judgment and insight: improving mildly IMPRESSIONS: Major depressive disorder, recurrent, severe without psychotic features. Alcohol use disorder, severe Plan: -Patient continues to meet criteria for inpatient psychiatric admission for symptom stabilization and safety. Patient has not signed adult voluntary form and medication consent and was placed in patient's chart. -Medications: Zoloft 150 mg daily for mood/anxiety, trazodone 150 mg daily at bedtime for insomnia/mood, BuSpar 15 mg twice a day for anxiety. decrease librium to 10 mg four times a day for etoh withdrawal. increase campral 666 mg tid for etoh cravings. -When necessary Ativan and Haldol for agitation/aggression. -thiamine, MVM for etoh use -CIWA protocol with Ativan PRN for ETOH withdrawal -NRT -none needed as patient does not smoke. -SW on board for discharge planning. Encouraged the patient to participate in milieu. patient signed deferral with his state's attorney. currently awaiting [facility] intake date and patient will need to be a direct transfer to for rehab as he is currently homeless and is high risk for relapse and suicide attempt.
[2022-02-14] MEDS: traZODone HCL 50 MG TAB PO SCH (21:13)
[2022-02-15] MEDS: NICOTINE 14MG/24HR PATCH TRANSDERM SCH (08:46)
[2022-02-15] MEDS: SERTRALINE 100 MG TAB PO SCH (08:47)
[2022-02-15] MEDS: LIDOCAINE 5% PATCH TOPICAL SCH (08:47)
[2022-02-15] MEDS: FOLIC ACID 1 MG TAB PO SCH (08:47)
[2022-02-15] MEDS: busPIRone HCl 5 MG TAB PO SCH ×2 (08:47→21:01)
[2022-02-15] MEDS: ACAMPROSATE CALCIUM 333 MG TABLET.DR PO SCH ×3 (08:47→21:01)
[2022-02-15] MEDS: MULTIVITAMINS, THERA 1 EACH TAB PO SCH (08:47)
[2022-02-15] MEDS: THIAMINE 100 MG TAB PO SCH (08:48)
[2022-02-15] MEDS: HYDROcodone/APAP 7.5-325MG 1 EACH TAB PO PRN ×2 (08:48→21:04)
--- NOTE | 2022-02-15 12:01 | P.PN ---
Progress Note - Text Progress Note Date: 02/15/22 Interval History: Patient was seen participating in group this morning and was directable and ag reeable to speak with sba underwriter in the office. Patient appears to be improving in terms of his affect and continues to be very polite with sba underwriter and staff. He states that he is feeling more positive about his future and continues to speak about going into rehab. He claims that he was able to take care of the insurance pictures that he needed to some med yesterday with the social media content specialist and was thankful for that. He states that he is going to groups and speaking with other patients on the unit. He claims that he has not heard back from when he can go to rehab. He states that his mood and anxiety of an improving. Continues to have pain in his shoulder however this is improving.. States that he was able to sleep about 4-5 hours last night which is an improvement and was agreeable to have his trazodone increased.. Fair appetite. Withdrawal symptoms of an improving. At this time patient denies any suicidal or homical ideations, intent or plan. Patient denies any auditory, visual hallucinations and denies any paranoia or delusions. Patient denies any side effects from the medications and has been compliant with meds. Mental Status Exam: General Appearance: Patient appears to be wearing street clothing, appears to be in distress, stated age is alert, directable, and attempts to cooperate. Patient appears to have improving hygiene and grooming. Behavior: Patient is seated without any agitated behavior. attempts to cooperate. Speech: Patient's speech is fluent and nonpressured. Mood/Affect: Patient reports their mood is improving, affect is congruent Suicidality/Homicidality: Patient denies having any homicidal ideation intent or plan. Denies any suicidal ideations intent or plan Perceptions: Patient denies any visual hallucinations and denies any auditory hallucinations Though content/process: There is no evidence of any delusional thought content and thought process is linear and goal-directed. more future oriented. Memory and concentration: AOX3, grossly intact for the purposes of this session Judgment and insight: improving mildly IMPRESSIONS: Major depressive disorder, recurrent, severe without psychotic features Alcohol use disorder, severe Plan: -Patient continues to meet criteria for inpatient psychiatric admission for symptom stabilization and safety. Patient has not signed adult voluntary form and medication consent and was placed in patient's chart. -Medications: Zoloft 150 mg daily for mood/anxiety, increase trazodone 200 mg daily at bedtime for insomnia/mood, BuSpar 15 mg twice a day for anxiety. decrease librium to 10 mg BID for etoh withdrawal. campral 666 mg tid for etoh cravings. -When necessary Ativan and Haldol for agitation/aggression. -thiamine, MVM for etoh use -CIWA protocol with Ativan PRN for ETOH withdrawal -NRT -none needed as patient does not smoke. -SW on board for discharge planning. Encouraged the patient to participate in milieu. patient signed deferral with his contracts attorney. currently awaiting [facility] intake date and patient will need to be a direct transfer to for rehab as he is currently homeless and is high risk for relapse and suicide attempt.
[2022-02-15] MEDS: LORazepam 1 MG TAB PO PRN ×2 (12:55→22:30)
[2022-02-15] MEDS: MAG HYDROX/AL HYDROX/SIMETH 30 ML CUP PO PRN (12:55)
[2022-02-15] MEDS: traZODone HCL 100 MG TAB PO SCH (21:01)
[2022-02-16] MEDS: NICOTINE 14MG/24HR PATCH TRANSDERM SCH (08:41)
[2022-02-16] MEDS: MULTIVITAMINS, THERA 1 EACH TAB PO SCH (08:42)
[2022-02-16] MEDS: SERTRALINE 100 MG TAB PO SCH (08:42)
[2022-02-16] MEDS: THIAMINE 100 MG TAB PO SCH (08:42)
[2022-02-16] MEDS: busPIRone HCl 5 MG TAB PO SCH ×2 (08:42→21:21)
[2022-02-16] MEDS: ACAMPROSATE CALCIUM 333 MG TABLET.DR PO SCH ×3 (08:42→21:21)
[2022-02-16] MEDS: FOLIC ACID 1 MG TAB PO SCH (08:42)
[2022-02-16] MEDS: LIDOCAINE 5% PATCH TOPICAL SCH (08:43)
[2022-02-16] MEDS: HYDROcodone/APAP 7.5-325MG 1 EACH TAB PO PRN ×2 (08:44→21:21)
[2022-02-16] MEDS ORDERED: IBUPROFEN 600 MG TAB PO PRN (08:54)
--- NOTE | 2022-02-16 09:00 | P.PN ---
Progress Note - Text Progress Note Date: 02/16/22 Interval History: Patient was seen participating in group this morning taking his medications and was directable and agreeable to speak with commercial lines underwriter in the office. Patient states that his pain has been gradually improving with the [place]. He states that she would really like to see his grandson before going to [place] tomorrow. He does state that he has an appointment for intake tomorrow at [place] at 11 AM. He states that his mood has been gradually improving and he feels more optimistic. He was agreeable to stay 1 more day due to the high risk of relapse and potential harm to him. She states that she was able to sleep fairly last night about 6 hours and has been eating fairly well. Withdrawal symptoms of an improving. At this time patient denies any suicidal or homical ideations, intent or plan. Patient denies any auditory, visual hallucinations and denies any paranoia or delusions. Patient denies any side effects from the medications and has been compliant with meds. Mental Status Exam: General Appearance: Patient appears to be wearing street clothing, appears to be in distress, stated age is alert, directable, and attempts to cooperate. Patient appears to have improving hygiene and grooming. Behavior: Patient is seated without any agitated behavior. attempts to cooperate. Speech: Patient's speech is fluent and nonpressured. Mood/Affect: Patient reports their mood is improving, affect is congruent Suicidality/Homicidality: Patient denies having any homicidal ideation intent or plan. Denies any suicidal ideations intent or plan Perceptions: Patient denies any visual hallucinations and denies any auditory hallucinations Though content/process: There is no evidence of any delusional thought content and thought process is linear and goal-directed. more future oriented. Memory and concentration: AOX3, grossly intact for the purposes of this session Judgment and insight: improving mildly IMPRESSIONS: Major depressive disorder, recurrent, severe without psychotic features Alcohol use disorder, severe Plan: -Patient continues to meet criteria for inpatient psychiatric admission for symptom stabilization and safety. Patient has not signed adult voluntary form and medication consent and was placed in patient's chart. -Medications: Zoloft 150 mg daily for mood/anxiety, trazodone 200 mg daily at bedtime for insomnia/mood, BuSpar 15 mg twice a day for anxiety. last dose of librium 10 mg tonight for etoh withdrawal. campral 666 mg tid for etoh cravings. -When necessary Ativan and Haldol for agitation/aggression. -thiamine, MVM for etoh use -CIWA protocol with Ativan PRN for ETOH withdrawal -NRT -none needed as patient does not smoke. -SW on board for discharge planning. Encouraged the patient to participate in milieu. patient signed deferral with his state attorney. currently awaiting [facility] intake date tomorrow at 11am and patient will need to be a direct transfer to for rehab as he is currently homeless and is high risk for relapse and suicide attempt.
[2022-02-16] MEDS: LORazepam 1 MG TAB PO PRN (15:21)
[2022-02-16] MEDS: traZODone HCL 100 MG TAB PO SCH (21:21)
[2022-02-17 07:09] VITALS: PULSE 71; RESP 16; TEMP 97.4
[2022-02-17] MEDS: SERTRALINE 100 MG TAB PO SCH (08:40)
[2022-02-17] MEDS: MULTIVITAMINS, THERA 1 EACH TAB PO SCH (08:40)
[2022-02-17] MEDS: busPIRone HCl 5 MG TAB PO SCH (08:40)
[2022-02-17] MEDS: FOLIC ACID 1 MG TAB PO SCH (08:40)
[2022-02-17] MEDS: THIAMINE 100 MG TAB PO SCH (08:40)
[2022-02-17] MEDS: LIDOCAINE 5% PATCH TOPICAL SCH (08:41)
[2022-02-17] MEDS: ACAMPROSATE CALCIUM 333 MG TABLET.DR PO SCH (08:42)
[2022-02-17] MEDS: NICOTINE 14MG/24HR PATCH TRANSDERM SCH (08:42)
[2022-02-17] MEDS: HYDROcodone/APAP 7.5-325MG 1 EACH TAB PO PRN (08:44)
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
[2022-02-17 09:22] VITALS: BP 103/66
== END 2022-02-17 10:33 | disposition other institution (70) | DRG 885 ==
LOC: EC 21:19 → 3MHU 02-08 11:31
PROVIDERS: ADMIT Psychiatry & Neurology Psychiatry; ATTEND Psychiatry & Neurology Psychiatry
DX: F33.2 Major depressive disorder, recurrent severe without psychotic features (principal); F10.239 Alcohol dependence with withdrawal, unspecified; F10.229 Alcohol dependence with intoxication, unspecified; S41.031A Puncture wound without foreign body of right shoulder, initial encounter; R00.0 Tachycardia, unspecified; F41.9 Anxiety disorder, unspecified; Y90.6 Blood alcohol level of 120-199 mg/100 ml; F17.210 Nicotine dependence, cigarettes, uncomplicated; K21.9 Gastro-esophageal reflux disease without esophagitis; G47.00 Insomnia, unspecified; G62.9 Polyneuropathy, unspecified; M19.011 Primary osteoarthritis, right shoulder; R45.87 Impulsiveness; Z91.14 Patient's other noncompliance with medication regimen; Y92.71 Barn as the place of occurrence of the external cause; Z79.899 Other long term (current) drug therapy; Z87.81 Personal history of (healed) traumatic fracture; Z94.5 Skin transplant status; Z56.0 Unemployment, unspecified; Z65.3 Problems related to other legal circumstances; Z63.0 Problems in relationship with spouse or partner; Z59.89 Other problems related to housing and economic circumstances
CPT/HCPCS: 36415; 71045; 72170; 80053; 80061; 80076; 80306; 80320; 81003; 82075; 83036; 83605; 84443; 84484; 85025; 85610; 85730; 86850; 86900; 86901; 87635; 93005; 96365; 96366; 96375; 96376; 99285

== ENCOUNTER 2022-02-27 19:55 | Inpatient (IN) | payer OTHER ==
[2022-02-27] MEDS ORDERED: ACETAMINOPHEN TAB 500 MG TAB PO STA (20:12)
[2022-02-27] MEDS ORDERED: IBUPROFEN 600 MG TAB PO STA (20:12)
[2022-02-27 20:40] LABS: Basophils % (A) 1 %; Eosinophils # (A) 0.2 k/uL (0-0.7); Eosinophils % (A) 3 %; HCT 39.2 % (39.0-53.0); Lymphocytes # (A) 0.3 k/uL (1.0-4.8); Lymphocytes % (A) 6 %; MCHC 33.2 g/dL (31.0-37.0); MCV 96.6 fL (80.0-100.0); Mean Platelet Volume 7.6; Monocytes # (A) 0.2 k/uL (0-1.0); Monocytes % (A) 4 %; Neutrophils # (A) 4.8 k/uL (1.3-7.7); Neutrophils % (A) 86 %; Platelet Count 261 k/uL (150-450); RBC 4.06 m/uL (4.30-5.90); WBC 5.6 k/uL (3.8-10.6)
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
[2022-02-27 20:51] LABS: Partial Thromboplastin Time 23.9 sec (22.0-30.0); Prothrombin Time 10.6 sec (9.0-12.0)
[2022-02-27 20:55] LABS: ALT 17 U/L (4-49); African American GFR (CKD) >90 (>60 ml/min/1.73 sqM); Albumin 4.2 g/dL (3.5-5.0); Anion Gap 7 mmol/L; Blood Urea Nitrogen 20 mg/dL (9-20); Calcium 9.2 mg/dL (8.4-10.2); Carbon Dioxide 21 mmol/L (22-30); Chloride 105 mmol/L (98-107); Glucose 77 mg/dL (74-99); Non-African American GFR(CKD) >90 (>60 ml/min/1.73 sqM); Sodium 133 mmol/L (137-145); Total Bilirubin 0.4 mg/dL (0.2-1.3); Total Protein 7.1 g/dL (6.3-8.2)
[2022-02-27 21:01] LABS: AST 32 U/L (17-59); Alkaline Phosphatase 68 U/L (38-126); Magnesium 1.7 mg/dL (1.6-2.3); Potassium 4.6 mmol/L (3.5-5.1)
[2022-02-27] MEDS: SODIUM CHLORIDE 0.9% 500 ML 500 ML IV SCH ×2 (21:23→22:36)
--- NOTE | 2022-02-27 21:23 | XR ---
EXAMINATION TYPE: XR chest 2V DATE OF EXAM: 02/27/2022 9:02 PM COMPARISON: Chest radiographs from 02/07/2022 TECHNIQUE: XR chest 2V Frontal and lateral views of the chest. CLINICAL INDICATION:Male, 51 years old with history of Fever; FINDINGS: Lungs/Pleura: There is no evidence of pleural effusion, focal consolidation, or pneumothorax. Pulmonary vascularity: Unremarkable. Heart/mediastinum: Cardiomediastinal silhouette is unremarkable. Musculoskeletal: No acute osseous pathology. IMPRESSION: No acute cardiopulmonary disease/process.
[2022-02-27] MEDS ORDERED: LORazepam 2 MG/ML INJ IV PRN ×3 (22:03)
[2022-02-27] MEDS ORDERED: MORPHINE SULFATE 4 MG/ML SYRINGE IV PRN (22:03)
[2022-02-27] MEDS ORDERED: ONDANSETRON 4 MG/2 ML VIAL IVP PRN (22:03)
[2022-02-27] MEDS ORDERED: NALOXONE 0.4 MG/ML 1 ML VIAL IV PRN (22:03)
[2022-02-27] MEDS ORDERED: THIAMINE 100 MG/ML 2 ML VIAL IM STA (22:03)
[2022-02-28] MEDS: THIAMINE 100 MG TAB PO SCH ×3 (00:58→19:28)
[2022-02-28] MEDS: SODIUM CHLORIDE 0.9% 500 ML 500 ML IV SCH (06:41)
[2022-02-28] MEDS: SODIUM CHLORIDE 0.9% 1,000 ML IV SCH ×4 (06:49→21:43)
[2022-02-28 06:58] LABS: Basophils % (A) 0 %; Eosinophils % (A) 1 %; HCT 38.2 % (39.0-53.0); HGB 12.4 gm/dL (13.0-17.5); Lymphocytes # (A) 0.4 k/uL (1.0-4.8); Lymphocytes % (A) 10 %; MCH 31.2 pg (25.0-35.0); MCHC 32.4 g/dL (31.0-37.0); MCV 96.5 fL (80.0-100.0); Mean Platelet Volume 7.6; Monocytes # (A) 0.3 k/uL (0-1.0); Monocytes % (A) 8 %; Neutrophils % (A) 79 %; Platelet Count 216 k/uL (150-450); RBC 3.96 m/uL (4.30-5.90); RDW 13.6 % (11.5-15.5); WBC 3.7 k/uL (3.8-10.6)
[2022-02-28 07:44] LABS: ALT 15 U/L (4-49); AST 31 U/L (17-59); African American GFR (CKD) >90 (>60 ml/min/1.73 sqM); Albumin 3.3 g/dL (3.5-5.0); Alkaline Phosphatase 62 U/L (38-126); Anion Gap 6 mmol/L; Blood Urea Nitrogen 19 mg/dL (9-20); Calcium 8.2 mg/dL (8.4-10.2); Carbon Dioxide 19 mmol/L (22-30); Chloride 111 mmol/L (98-107); Glucose 74 mg/dL (74-99); Magnesium 1.7 mg/dL (1.6-2.3); Non-African American GFR(CKD) >90 (>60 ml/min/1.73 sqM); Phosphorus 4.4 mg/dL (2.5-4.5); Potassium 4.1 mmol/L (3.5-5.1); Sodium 136 mmol/L (137-145); Total Bilirubin 0.3 mg/dL (0.2-1.3); Total Protein 5.9 g/dL (6.3-8.2)
[2022-02-28] MEDS ORDERED: THIAMINE 100 MG TAB PO SCH (09:00)
[2022-02-28] MEDS: PHENobarbitaL 16.2 MG TAB PO SCH ×2 (09:03→21:06)
[2022-02-28] MEDS: FAMOTIDINE 20 MG TAB PO SCH ×2 (09:06→21:06)
[2022-02-28] MEDS: NICOTINE 14MG/24HR PATCH TRANSDERM SCH (09:06)
[2022-02-28] MEDS: FOLIC ACID 1 MG TAB PO SCH (09:06)
[2022-02-28] MEDS: busPIRone HCl 5 MG TAB PO SCH ×2 (09:06→21:07)
[2022-02-28] MEDS: SERTRALINE 50 MG TAB PO SCH (09:06)
[2022-02-28] MEDS: MULTIVITAMINS, THERA 1 EACH TAB PO SCH (09:06)
[2022-02-28] MEDS: LIDOCAINE 5% PATCH TOPICAL SCH (09:07)
[2022-02-28] MEDS: ENOXAPARIN 40 MG/0.4 ML SYRINGE SQ SCH (09:07)
[2022-02-28] MEDS: diazePAM 2 MG TAB PO SCH ×3 (09:08→23:24)
[2022-02-28] MEDS ORDERED: LACTULOSE 20 GM/30 ML CUP PO PRN (10:11)
[2022-02-28] MEDS ORDERED: CALCIUM CARBONATE 500 MG CHEWABLE PO PRN (10:11)
[2022-02-28] MEDS ORDERED: NAPROXEN 250 MG TAB PO PRN (10:11)
--- NOTE | 2022-02-28 10:13 | P.HPIM ---
History of Present Illness H&P Date: 02/28/22 Chief Complaint: Tremors This is a 51-year-old patient who follows with Dr. Diamond. Patient's currently at [facility] for detox last 90s. Alcohol. Presently that he was drinking at least 1/3 gallon of Boeglin. Also smokes a pack and a half a day of cigarettes. Patient was switched over from Ativan to BuSpar. Yesterday patient noticed this started having tremors. Had a slight headache. Some body ache. Appetite is fair. some tremors. Admitted for. Alcohol withdrawal. Patient also tested possible for COVID. Pulse ox on room air was 98%. No shortness of breath. Some cough. Review of systems: GEN.: Tired body aches EYES: None HEENT: None NECK: None RESPIRATORY: Some cough CARDIOVASCULAR: None GASTROINTESTINAL: None GENITOURINARY: None MUSCULOSKELETAL: None LYMPHATICS: None HEMATOLOGICAL: None PSYCHIATRY: Anxious NEUROLOGICAL: Tremors Past medical history to include: Alcohol use disorder, anxiety, smoking Social history: Patient smokes pack and half cigarettes a day. Was drinking 1/3 gallon of bourbon a day. Lives with his girlfriend Franca Family history: Reviewed, noncontributory to presentation Physical examination: VITAL SIGNS: 98.6, 70, 22, 103/68, 99% room air] GENERAL: BMI 23, sitting up bed, awake, but anxious. EYES: Pupils equal. Conjunctiva normal. HEENT: External appearance of nose and ears normal, oral cavity grossly normal. NECK: JVD not raised; masses not palpable. HEART: First and second heart sounds are normal; no edema. LUNGS: Respiratory rate normal; decreased breath sounds. ABDOMEN: Soft, nontender, liver spleen not palpable, no masses palpable. PSYCH: Alert and oriented x3; mood and affect anxiousl. MUSCULOSKELETAL:No Clubbing/cyanosis;muscles-grossly intact NEUROLOGICAL: Cranial nerves grossly intact; no facial asymmetry, power and sensation grossly intact. Some tremors LYMPHATICS: No lymph nodes palpable in the axilla and neck INVESTIGATIONS, reviewed in the clinical context: White count 3.7 hemoglobin 12.4 platelets 216 sodium 136 potassium 4.1 creatinine 0.83 COVID 19 PCR: Positive EKG tracing personally reviewed by me-normal sinus rhythm, first-degree AV block, right bundle-branch block Chest x-ray film personally reviewed by me-no obvious abnormality Assessment and plan: -Alcohol withdrawal syndrome manifesting as tremors and anxiety. Last drink was 9 years ago. Valium 2 mg every 8. CIWA scale. -COVID 19. Pulse ox 100%. We'll give supplemental vitamin C vitamin D. No indication for steroids. -Chronic nicotine dependence, cigarette smoker Nicotine patch -Anxiety and depression BuSpar, Zoloft -Alcohol use disorder Patient is at [facility] for this. Thiamine. Past Medical History Past Medical History: No Reported History, Musculoskeletal Disorder Additional Past Medical History / Comment(s): ETOH abuse History of Any Multi-Drug Resistant Organisms: None Reported Past Surgical History: Orthopedic Surgery Additional Past Surgical History / Comment(s): skin graft on Left AC. Broken clavical Past Anesthesia/Blood Transfusion Reactions: No Reported Reaction Past Psychological History: Anxiety, Depression Smoking Status: Current every day smoker Past Alcohol Use History: Abuse, Daily, Heavy Past Drug Use History: None Reported - Past Family History Father History Unknown: Yes Family Medical History: Unable to Obtain Mother History Unknown: Yes Family Medical History: Unable to Obtain Medications and Allergies Home Medications Medication Instructions Recorded Confirmed Type Acetaminophen [Tylenol] 650 mg PO Q6H PRN 30 Days tab 02/16/22 02/27/22 Rx Folic Acid 1 mg PO DAILY 30 Days tab 02/16/22 02/27/22 Rx Ibuprofen [Motrin] 600 mg PO Q8H PRN 30 Days tab 02/16/22 02/27/22 Rx Lidocaine 5% Patch [Lidoderm 5% 1 patch TOPICAL DAILY #30 patch 02/16/22 02/27/22 Rx Patch] Nicotine 14Mg/24Hr Patch [Habitrol] 1 patch TRANSDERM DAILY 14 Days 02/16/22 02/27/22 Rx patch Sertraline [Zoloft] 150 mg PO DAILY 30 Days tab 02/16/22 02/27/22 Rx Thiamine [Vitamin B-1] 100 mg PO DAILY 30 Days tab 02/16/22 02/27/22 Rx busPIRone HCl [Buspar] 15 mg PO BID 30 Days tab 02/16/22 02/27/22 Rx traZODone HCL [Desyrel] 200 mg PO HS 30 Days tab 02/16/22 02/27/22 Rx Calcium/Magnesium/Zinc/Leslie D 1 tab PO TID PRN 02/27/22 02/27/22 History Chlorpheniramine Maleate 4 mg PO Q4H PRN 02/27/22 02/27/22 History [Chlor-Trimeton] Mag Hydrox/Aluminum Hyd/Simeth 30 ml PO Q4H PRN 02/27/22 02/27/22 History [Mylanta Maximum Strength Liq] Multivitamins, Thera [Multivitamin 1 tab PO DAILY 02/27/22 02/27/22 History (formulary)] PHENobarbitaL [Luminal] 16.2 mg PO BID 02/27/22 02/27/22 History cloNIDine HCL [Catapres] 0.1 - 0.3 mg PO Q4H PRN 02/27/22 02/27/22 History ondansetron HCL [Ondansetron HCl] 8 mg PO Q6H PRN 02/27/22 02/27/22 History Allergies Allergy/AdvReac Type Severity Reaction Status Date / Time No Known Allergies Allergy Verified 02/27/22 22:18 Physical Exam Vitals: Vital Signs Temp Pulse Resp BP Pulse Ox 02/28/22 07:29 98.6 F 70 22 103/68 99 02/28/22 03:38 98.1 F 76 18 101/55 100 02/27/22 19:59 99.2 F 84 24 111/75 98 Intake and Output 02/27/22 02/28/22 02/28/22 22:59 06:59 14:59 Other: Weight 74.843 kg Results CBC & Chem 7: 02/28/22 06:22 02/28/22 06:22 Labs: Abnormal Lab Results - Last 24 Hours (Table) 02/27/22 02/27/22 02/27/22 Range/Units 20:29 20:29 20:33 WBC (3.8-10.6) k/uL RBC 4.06 L (4.30-5.90) m/uL Hgb (13.0-17.5) gm/dL Hct (39.0-53.0) % Lymphocytes # 0.3 L (1.0-4.8) k/uL Sodium 133 L (137-145) mmol/L Chloride (98-107) mmol/L Carbon Dioxide 21 L (22-30) mmol/L Calcium (8.4-10.2) mg/dL Total Protein (6.3-8.2) g/dL Albumin (3.5-5.0) g/dL Coronavirus (PCR) Detected A (Not Detectd) 02/28/22 02/28/22 Range/Units 06:22 06:22 WBC 3.7 L (3.8-10.6) k/uL RBC 3.96 L (4.30-5.90) m/uL Hgb 12.4 L (13.0-17.5) gm/dL Hct 38.2 L (39.0-53.0) % Lymphocytes # 0.4 L (1.0-4.8) k/uL Sodium 136 L (137-145) mmol/L Chloride 111 H (98-107) mmol/L Carbon Dioxide 19 L (22-30) mmol/L Calcium 8.2 L (8.4-10.2) mg/dL Total Protein 5.9 L (6.3-8.2) g/dL Albumin 3.3 L (3.5-5.0) g/dL Coronavirus (PCR) (Not Detectd)
[2022-02-28] MEDS ORDERED: traZODone HCL 100 MG TAB PO SCH (21:00)
[2022-02-28] MEDS: ACETAMINOPHEN TAB 500 MG TAB PO PRN (21:42)
[2022-03-01 00:08] LABS: Appearance,Urine Clear (Clear); Bilirubin,Urine Negative (Negative); Blood,Urine Negative (Negative); Color,Urine Light Yellow; Glucose,Urine (UA) Negative (Negative); Ketones,Urine Trace (Negative); Leukocyte Esterase,Urine Negative (Negative); Nitrite,Urine Negative (Negative); Protein,Urine Negative (Negative); Specific Gravity,Urine 1.012 (1.001-1.035); Urobilinogen,Urine <2.0 mg/dL (<2.0)
[2022-03-01] MEDS ORDERED: LORazepam 1 MG/0.5 ML VIAL IV PRN ×3 (03:30→03:33)
[2022-03-01] MEDS: SODIUM CHLORIDE 0.9% 1,000 ML IV SCH ×2 (07:21→11:59)
[2022-03-01] MEDS: FAMOTIDINE 20 MG TAB PO SCH (09:21)
[2022-03-01] MEDS: MULTIVITAMINS, THERA 1 EACH TAB PO SCH (09:21)
[2022-03-01] MEDS: FOLIC ACID 1 MG TAB PO SCH (09:21)
[2022-03-01] MEDS: ENOXAPARIN 40 MG/0.4 ML SYRINGE SQ SCH (09:21)
[2022-03-01] MEDS: THIAMINE 100 MG TAB PO SCH ×2 (09:21→15:57)
[2022-03-01] MEDS: SERTRALINE 50 MG TAB PO SCH (09:21)
[2022-03-01] MEDS: PHENobarbitaL 16.2 MG TAB PO SCH (09:21)
[2022-03-01] MEDS: busPIRone HCl 5 MG TAB PO SCH (09:21)
[2022-03-01] MEDS: NICOTINE 14MG/24HR PATCH TRANSDERM SCH (09:21)
[2022-03-01] MEDS: diazePAM 2 MG TAB PO SCH (09:22)
[2022-03-01] MEDS: LIDOCAINE 5% PATCH TOPICAL SCH (09:25)
[2022-03-01] MEDS: ACETAMINOPHEN TAB 500 MG TAB PO PRN (10:53)
[2022-03-01 10:56] VITALS: BP 132/73; PULSE 71; RESP 17; TEMP 98.8
--- NOTE | 2022-03-01 14:34 | P.PN ---
Progress Note - Text Progress Note Date: 03/01/22 Chief Complaint: Tremors This is a 51-year-old patient who follows with Dr. Diamond. Patient's currently at [facility] for detox last 90s. Alcohol. Presently that he was drinking at least 1/3 gallon of Boeglin. Also smokes a pack and a half a day of cigarettes. Patient was switched over from Ativan to BuSpar. Yesterday patient noticed this started having tremors. Had a slight headache. Some body ache. Appetite is fair. some tremors. Admitted for. Alcohol withdrawal. Patient also tested possible for COVID. Pulse ox on room air was 98%. No shortness of breath. Some cough. March 01: Tremors a bit better. Slight cough. Pulse ox 97% room air. Low- grade fever 100.1. Eating fair. Decrease Valium to 1 mg every 8. Add Lopressor 12.5 thrice day follow cutting back sympathetic drive Active Medications Acetaminophen (Acetaminophen Tab 500 Mg Tab) 500 mg PO Q4HR PRN PRN Reason: Fever and/ or Pain Last Admin: 03/01/22 10:53 Dose: 500 mg Buspirone HCl (Buspirone Hcl 5 Mg Tab) 15 mg PO BID [facility] Last Admin: 03/01/22 09:21 Dose: 15 mg Calcium Carbonate/Glycine (Calcium Carbonate 500 Mg Chewable) 1,000 mg PO Q4HR PRN PRN Reason: Dyspepsia Diazepam (Diazepam 2 Mg Tab) 2 mg PO Q8H [facility] Enoxaparin Sodium (Enoxaparin 40 Mg/0.4 Ml Syringe) 40 mg SQ DAILY [facility] Last Admin: 03/01/22 09:21 Dose: 40 mg Famotidine (Famotidine 20 Mg Tab) 20 mg PO BID [facility] Last Admin: 03/01/22 09:21 Dose: 20 mg Folic Acid (Folic Acid 1 Mg Tab) 1 mg PO DAILY [facility] Last Admin: 03/01/22 09:21 Dose: 1 mg Lactulose (Lactulose 20 Gm/30 Ml Cup) 20 gm PO DAILY PRN PRN Reason: Constipation Lidocaine (Lidocaine 5% Patch) 1 patch TOPICAL DAILY [facility]; Protocol Last Admin: 03/01/22 09:25 Dose: Not Given Lorazepam (Lorazepam 1 Mg/0.5 Ml Vial) 1 mg IV Q2HR PRN PRN Reason: CIWA 8 or 9 Lorazepam (Lorazepam 1 Mg/0.5 Ml Vial) 1 mg IV Q1HR PRN PRN Reason: CIWA 10 to 15 Last Admin: 03/01/22 04:55 Dose: 1 mg Lorazepam (Lorazepam 1 Mg/0.5 Ml Vial) 2 mg IV Q10M PRN PRN Reason: CIWA 16 or higher Stop: 03/01/22 22:03 Multivitamins (Multivitamins, Thera 1 Each Tab) 1 each PO DAILY [facility] Last Admin: 03/01/22 09:21 Dose: 1 each Naloxone HCl (Naloxone 0.4 Mg/Ml 1 Ml Vial) 0.2 mg IV Q2M PRN PRN Reason: Opioid Reversal Naproxen (Naproxen 250 Mg Tab) 250 mg PO Q8H PRN PRN Reason: Moderate Pain Nicotine (Nicotine 14mg/24hr Patch) 1 patch TRANSDERM DAILY [facility] Last Admin: 03/01/22 09:21 Dose: 1 patch Ondansetron HCl (Ondansetron 4 Mg/2 Ml Vial) 4 mg IVP Q8HR PRN PRN Reason: Nausea And Vomiting Phenobarbital (Phenobarbital 16.2 Mg Tab) 16.2 mg PO BID [facility] Last Admin: 03/01/22 09:21 Dose: 16.2 mg Sertraline HCl (Sertraline 50 Mg Tab) 150 mg PO DAILY [facility] Last Admin: 03/01/22 09:21 Dose: 150 mg Thiamine HCl (Thiamine 100 Mg Tab) 100 mg PO BID-W/MEALS [facility] Last Admin: 03/01/22 09:21 Dose: 100 mg Trazodone HCl (Trazodone Hcl 100 Mg Tab) 200 mg PO HS [facility] Last Admin: 02/28/22 21:07 Dose: 200 mg Past medical history to include: Alcohol use disorder, anxiety, smoking Social history: Patient smokes pack and half cigarettes a day. Was drinking 1/3 gallon of bourbon a day. Lives with his girlfriend Franca Family history: Reviewed, noncontributory to presentation Physical examination: VITAL SIGNS: 98.8, 71, 17, 132.73, 97% room air GENERAL: Sitting in the side of the bed slightly anxious PSYCH: Alert and oriented x3; mood and affect anxiousl. NEUROLOGICAL: Mild tremors Rest of the exam per nursing INVESTIGATIONS, reviewed in the clinical context: White count 3.7 hemoglobin 12.4 platelets 216 sodium 136 potassium 4.1 creatinine 0.83 COVID 19 PCR: Positive EKG tracing personally reviewed by me-normal sinus rhythm, first-degree AV block, right bundle-branch block Chest x-ray film personally reviewed by me-no obvious abnormality Assessment and plan: -Alcohol withdrawal syndrome manifesting as tremors and anxiety. Last drink was 9 days prior to admission. Decrease Valium 1 mg every 8. Add Lopressor 12.5 mg by mouth 3 times a day CIWA scale. -COVID 19. supplemental vitamin C vitamin D. No indication for steroids. -Chronic nicotine dependence, cigarette smoker Nicotine patch -Anxiety and depression Jeb Doe -Alcohol use disorder Patient is at [facility] for this. Thiamine. Cutback Valium 21 mg every 8. Add Lopressor 12.5 by mouth 3 times a day. Continue current medications.
[2022-03-01] MEDS ORDERED: METOPROLOL TARTRATE 12.5 MG TAB PO SCH (15:00)
[2022-03-01] MEDS ORDERED: diazePAM 2 MG TAB PO SCH (17:00)
--- NOTE | 2022-03-02 20:56 | P.DS ---
Providers Date of admission: 02/27/22 22:04 Expected date of discharge: 03/01/22 Attending physician: Ramu Archibald Primary care physician: Frank Whitlock [facility] Course: Chief Complaint: Tremors This is a 51-year-old patient who follows with Dr. Diamond. Patient's currently at [facility] for detox last 90s. Alcohol. Presently that he was drinking at least 1/3 gallon of Boeglin. Also smokes a pack and a half a day of cigarettes. Patient was switched over from Ativan to BuSpar. Yesterday patient noticed this started having tremors. Had a slight headache. Some body ache. Appetite is fair. some tremors. Admitted for. Alcohol withdrawal. Patient also tested possible for COVID. Pulse ox on room air was 98%. No shortness of breath. Some cough. March 01: Tremors a bit better. Slight cough. Pulse ox 97% room air. Low- grade fever 100.1. Eating fair. Decrease Valium to 1 mg every 8. Add Lopressor 12.5 thrice day follow cutting back sympathetic drive. Patient is doing well. Later discharged. Past medical history to include: Alcohol use disorder, anxiety, smoking Social history: Patient smokes pack and half cigarettes a day. Was drinking 1/3 gallon of bourbon a day. Lives with his girlfriend Franca Family history: Reviewed, noncontributory to presentation Physical examination: VITAL SIGNS: 98.8, 71, 17, 132.73, 97% room air GENERAL: Sitting in the side of the bed slightly anxious PSYCH: Alert and oriented x3; mood and affect anxiousl. NEUROLOGICAL: Mild tremors Rest of the exam per nursing INVESTIGATIONS, reviewed in the clinical context: White count 3.7 hemoglobin 12.4 platelets 216 sodium 136 potassium 4.1 creatinine 0.83 COVID 19 PCR: Positive EKG tracing personally reviewed by me-normal sinus rhythm, first-degree AV block, right bundle-branch block Chest x-ray film personally reviewed by me-no obvious abnormality Assessment and plan: -Alcohol withdrawal syndrome manifesting as tremors and anxiety. Last drink was 9 days prior to admission. Decrease Valium 1 mg every 8. Add Lopressor 12.5 mg by mouth 3 times a day CIWA scale. -COVID 19. supplemental vitamin C vitamin D. No indication for steroids. -Chronic nicotine dependence, cigarette smoker Nicotine patch -Anxiety and depression BuSpar, Zoloft -Alcohol use disorder Patient is at [facility] for this. Thiamine. Disposition: DC to [facility] Plan - Discharge Summary Discharge Rx Participant: Yes New Discharge Prescriptions: No Action traZODone HCL [Desyrel] 200 mg PO HS 30 Days tab Sertraline [Zoloft] 150 mg PO DAILY 30 Days tab Acetaminophen [Tylenol] 650 mg PO Q6H PRN 30 Days tab PRN Reason: Pain PHENobarbitaL [Luminal] 16.2 mg PO BID ondansetron HCL [Ondansetron HCl] 8 mg PO Q6H PRN PRN Reason: Nausea Chlorpheniramine Maleate [Chlor-Trimeton] 4 mg PO Q4H PRN PRN Reason: Allergy Symptoms Calcium/Magnesium/Zinc/Leslie D 1 tab PO TID PRN PRN Reason: SUPPLEMENT Nicotine 14Mg/24Hr Patch [Habitrol] 1 patch TRANSDERM DAILY 14 Days patch Ibuprofen [Motrin] 600 mg PO Q8H PRN 30 Days tab PRN Reason: Moderate To Severe Pain busPIRone HCl [Buspar] 15 mg PO BID 30 Days tab Folic Acid 1 mg PO DAILY 30 Days tab Lidocaine 5% Patch [Lidoderm 5% Patch] 1 patch TOPICAL DAILY #30 patch Thiamine [Vitamin B-1] 100 mg PO DAILY 30 Days tab cloNIDine HCL [Catapres] 0.1 - 0.3 mg PO Q4H PRN PRN Reason: BP>160/100 Mag Hydrox/Aluminum Hyd/Simeth [Mylanta Maximum Strength Liq] 30 ml PO Q4H PRN PRN Reason: Gi Upset Multivitamins, Thera [Multivitamin (formulary)] 1 tab PO DAILY Discharge Medication List Acetaminophen [Tylenol] 650 mg PO Q6H PRN 30 Days tab 02/16/22 [Rx] Folic Acid 1 mg PO DAILY 30 Days tab 02/16/22 [Rx] Ibuprofen [Motrin] 600 mg PO Q8H PRN 30 Days tab 02/16/22 [Rx] Lidocaine 5% Patch [Lidoderm 5% Patch] 1 patch TOPICAL DAILY #30 patch 02/16/22 [Rx] Nicotine 14Mg/24Hr Patch [Habitrol] 1 patch TRANSDERM DAILY 14 Days patch 02/16/22 [Rx] Sertraline [Zoloft] 150 mg PO DAILY 30 Days tab 02/16/22 [Rx] Thiamine [Vitamin B-1] 100 mg PO DAILY 30 Days tab 02/16/22 [Rx] busPIRone HCl [Buspar] 15 mg PO BID 30 Days tab 02/16/22 [Rx] traZODone HCL [Desyrel] 200 mg PO HS 30 Days tab 02/16/22 [Rx] Calcium/Magnesium/Zinc/Leslie D 1 tab PO TID PRN 02/27/22 [History] Chlorpheniramine Maleate [Chlor-Trimeton] 4 mg PO Q4H PRN 02/27/22 [History] Mag Hydrox/Aluminum Hyd/Simeth [Mylanta Maximum Strength Liq] 30 ml PO Q4H PRN 02/27/22 [History] Multivitamins, Thera [Multivitamin (formulary)] 1 tab PO DAILY 02/27/22 [History] PHENobarbitaL [Luminal] 16.2 mg PO BID 02/27/22 [History] cloNIDine HCL [Catapres] 0.1 - 0.3 mg PO Q4H PRN 02/27/22 [History] ondansetron HCL [Ondansetron HCl] 8 mg PO Q6H PRN 02/27/22 [History] Follow up Appointment(s)/Referral(s): Frank Whitlock DO [Primary Care Provider] - 1-2 days Patient Instructions/Handouts: COVID-19 (Coronavirus Disease 2019) (DC), Face Coverings (Masks) and COVID-19 (DC) Discharge Disposition: HOME SELF-CARE
== END 2022-03-01 18:22 | disposition home or self-care (01) | DRG 896 ==
LOC: EC 19:55 → 4SSUR 22:04
PROVIDERS: ADMIT Hospitalist; ATTEND Hospitalist
DX: F10.239 Alcohol dependence with withdrawal, unspecified (principal); U07.1 COVID-19; F17.210 Nicotine dependence, cigarettes, uncomplicated; F32.A Depression, unspecified; F41.9 Anxiety disorder, unspecified; K59.00 Constipation, unspecified; Z79.899 Other long term (current) drug therapy; Z28.310 Unvaccinated for COVID-19
CPT/HCPCS: 36415; 71046; 80053; 81003; 83605; 83735; 84100; 85025; 85610; 85730; 87040; 87635; 93005; 96361; 96372; 96374; 96376; 99285

== ENCOUNTER 2022-03-20 17:33 | Observation (INO) | payer OTHER ==
--- NOTE | 2022-03-20 17:57 | ED ---
Alcohol HPI - General Chief Complaint: Alcohol Stated Complaint: etoh,mental health Time Seen by Provider: 03/20/22 17:48 Source: patient, EMS Mode of arrival: EMS Limitations: altered mental status - History of Present Illness Initial Comments: This 51-year-old male presents via EMS with suspected alcohol intoxication. He apparently was found at a hotel room. He has a long history of alcohol abuse. The patient is unable to give any history himself and only says "hey". There is no reported trauma. Old records relate that he is here earlier this month for alcohol related problems. No other known history per EMS her nursing staff. Patient will not answer questions. - Related Data Home Medications Medication Instructions Recorded Confirmed Multivitamins, Thera [Multivitamin 1 tab PO DAILY 02/27/22 03/20/22 (formulary)] Acamprosate Calcium [Campral] 666 mg PO TID 03/20/22 03/20/22 Naltrexone HCl [Revia] 50 mg PO DAILY 03/20/22 03/20/22 Sertraline HCl [Zoloft] 150 mg PO DAILY 03/20/22 03/20/22 busPIRone HCL 15 mg PO BID 03/20/22 03/20/22 traZODone HCL [Desyrel] 100 mg PO HS 03/20/22 03/20/22 Previous Rx's Medication Instructions Recorded Acetaminophen [Tylenol] 650 mg PO Q6H PRN 30 Days tab 02/16/22 Folic Acid 1 mg PO DAILY 30 Days tab 02/16/22 Ibuprofen [Motrin] 600 mg PO Q8H PRN 30 Days tab 02/16/22 Lidocaine 5% Patch [Lidoderm 5% 1 patch TOPICAL DAILY #30 patch 02/16/22 Patch] Nicotine 14Mg/24Hr Patch [Habitrol] 1 patch TRANSDERM DAILY 14 Days 02/16/22 patch Thiamine [Vitamin B-1] 100 mg PO DAILY 30 Days tab 02/16/22 Allergies Allergy/AdvReac Type Severity Reaction Status Date / Time No Known Allergies Allergy Verified 03/20/22 18:46 Review of Systems ROS Statement: Those systems with pertinent positive or pertinent negative responses have been documented in the HPI. ROS Other: All systems not noted in ROS Statement are negative. Past Medical History Past Medical History: No Reported History, Musculoskeletal Disorder, Osteoarthritis (OA) Additional Past Medical History / Comment(s): ETOH abuse, suicide attempt History of Any Multi-Drug Resistant Organisms: None Reported Past Surgical History: Orthopedic Surgery Additional Past Surgical History / Comment(s): skin graft on Left AC. Broken clavical Past Anesthesia/Blood Transfusion Reactions: No Reported Reaction Past Psychological History: Anxiety, Depression Smoking Status: Current every day smoker Past Alcohol Use History: Abuse, Daily, Heavy Past Drug Use History: None Reported - Past Family History Father History Unknown: Yes Family Medical History: Unable to Obtain Mother History Unknown: Yes Family Medical History: Unable to Obtain General Exam - General Exam Comments Initial Comments: GENERAL: The patient is well nourished and well hydrated. No evidence of traum a. VITAL SIGNS: Heart rate, blood pressure, respiratory rate reviewed as recorded in nurse's notes. EYES: Pupils are round and reactive. Extraocular movements are intact. No conjunctival / lid redness or swelling. ENT: No external evidence of injury, swelling, or ecchymosis. Airway is patent. Throat is clear. NECK: Nontender. No swelling or evidence of injury. No subcutaneous emphysema. Trachea is midline. No thyroid mass. HEART: Regular rate and rhythm. Good peripheral pulses. LUNGS/CHEST: Breath sounds clear and equal bilaterally. No rales, rhonchi, or wheezes. No ecchymosis, subcutaneous emphysema, or tenderness. ABDOMEN: Abdomen soft without tenderness. No palpable masses or organomegaly. No peritoneal signs. No abdominal wall swelling or ecchymosis. EXTREMITIES: No extremity tenderness. Normal muscle tone and function. No thoracolumbar tenderness. NEUROLOGIC: No gross sensory or motor deficits noted. SKIN: No abrasions or ecchymosis is noted. No induration or masses noted. PSYCHIATRIC: Alert but not orientated. Appears intoxicated. Limitations: altered mental status Course Vital Signs 03/20/22 03/20/22 17:43 19:34 Temperature 98.3 F Pulse Rate 103 H Respiratory 18 Rate Blood Pressure 139/80 O2 Sat by Pulse 98 Oximetry Medical Decision Making - Medical Decision Making The patient was seen and examined. All diagnostics are reviewed. Old records are also reviewed showing that he was just here a couple weeks ago for alcohol related issues. He was admitted to the hospital at that time for impending alcohol withdrawal. Laboratory shows the CO2 is slightly low and patient is given IV fluids. His alcohol came back elevated at 441. He has episodes of trying to crawl out of his bed and agitation and he is given 2 mg of Ativan intravenously and this seems to help with his agitation. Due to his significant level of intoxication, it is felt as though he would benefit from admission to the hospital. Case is discussed with internal medicine and they're agreeable with admission. - Lab Data Result diagrams: 03/20/22 17:44 03/20/22 17:44 Lab Results 03/20/22 03/20/22 Range/Units 17:44 17:44 WBC 10.6 (3.8-10.6) k/uL RBC 4.99 (4.30-5.90) m/uL Hgb 14.9 (13.0-17.5) gm/dL Hct 46.8 (39.0-53.0) % MCV 93.9 (80.0-100.0) fL MCH 29.9 (25.0-35.0) pg MCHC 31.8 (31.0-37.0) g/dL RDW 14.9 (11.5-15.5) % Plt Count 542 H D (150-450) k/uL MPV 6.8 Neutrophils % 69 % Lymphocytes % 23 % Monocytes % 4 % Eosinophils % 2 % Basophils % 1 % Neutrophils # 7.3 (1.3-7.7) k/uL Lymphocytes # 2.4 (1.0-4.8) k/uL Monocytes # 0.4 (0-1.0) k/uL Eosinophils # 0.2 (0-0.7) k/uL Basophils # 0.1 (0-0.2) k/uL Sodium 146 H (137-145) mmol/L Potassium 4.5 (3.5-5.1) mmol/L Chloride 108 H (98-107) mmol/L Carbon Dioxide 17 L (22-30) mmol/L Anion Gap 21 mmol/L BUN 14 (9-20) mg/dL Creatinine 0.59 L (0.66-1.25) mg/dL Est GFR (CKD-EPI)AfAm >90 (>60 ml/min/1.73 sqM) Est GFR (CKD-EPI)NonAf >90 (>60 ml/min/1.73 sqM) Glucose 88 (74-99) mg/dL Calcium 8.6 (8.4-10.2) mg/dL Phosphorus 2.9 (2.5-4.5) mg/dL Magnesium 1.8 (1.6-2.3) mg/dL Total Bilirubin 0.2 (0.2-1.3) mg/dL AST 28 (17-59) U/L ALT 10 (4-49) U/L Alkaline Phosphatase 125 (38-126) U/L Total Protein 7.0 (6.3-8.2) g/dL Albumin 3.9 (3.5-5.0) g/dL Lipase 37 (23-300) U/L Serum Alcohol 441 H* mg/dL Disposition Clinical Impression: Alcoholic intoxication Disposition: ADMITTED IP TO THIS HOSP Condition: Fair Is patient prescribed a controlled substance at d/c from ED?: No Time of Disposition: 20:50 Decision Date: 03/20/22 Decision Time: 20:50
[2022-03-20 17:59] LABS: Basophils # (A) 0.1 k/uL (0-0.2); Basophils % (A) 1 %; Eosinophils # (A) 0.2 k/uL (0-0.7); Eosinophils % (A) 2 %; HCT 46.8 % (39.0-53.0); HGB 14.9 gm/dL (13.0-17.5); Lymphocytes # (A) 2.4 k/uL (1.0-4.8); Lymphocytes % (A) 23 %; MCH 29.9 pg (25.0-35.0); MCHC 31.8 g/dL (31.0-37.0); MCV 93.9 fL (80.0-100.0); Mean Platelet Volume 6.8; Monocytes # (A) 0.4 k/uL (0-1.0); Monocytes % (A) 4 %; Neutrophils # (A) 7.3 k/uL (1.3-7.7); Neutrophils % (A) 69 %; RBC 4.99 m/uL (4.30-5.90); RDW 14.9 % (11.5-15.5); WBC 10.6 k/uL (3.8-10.6)
[2022-03-20 18:04] LABS: Platelet Count 542 k/uL (150-450)
[2022-03-20 18:11] LABS: ALT 10 U/L (4-49); AST 28 U/L (17-59); African American GFR (CKD) >90 (>60 ml/min/1.73 sqM); Albumin 3.9 g/dL (3.5-5.0); Alkaline Phosphatase 125 U/L (38-126); Anion Gap 21 mmol/L; Blood Urea Nitrogen 14 mg/dL (9-20); Calcium 8.6 mg/dL (8.4-10.2); Carbon Dioxide 17 mmol/L (22-30); Chloride 108 mmol/L (98-107); Glucose 88 mg/dL (74-99); Lipase 37 U/L (23-300); Magnesium 1.8 mg/dL (1.6-2.3); Non-African American GFR(CKD) >90 (>60 ml/min/1.73 sqM); Phosphorus 2.9 mg/dL (2.5-4.5); Potassium 4.5 mmol/L (3.5-5.1); Sodium 146 mmol/L (137-145); Total Bilirubin 0.2 mg/dL (0.2-1.3)
[2022-03-20 18:25] LABS: Alcohol 441 mg/dL
[2022-03-20] MEDS ORDERED: SODIUM CHLORIDE 0.9% 1,000 ML IV STA ×2 (18:41)
[2022-03-20] MEDS ORDERED: LORazepam 2 MG/ML INJ IV STA (19:23)
[2022-03-20] MEDS ORDERED: ONDANSETRON 4 MG/2 ML VIAL IVP PRN (20:53)
[2022-03-20] MEDS: busPIRone HCl 5 MG TAB PO SCH (21:21)
[2022-03-20] MEDS: traZODone HCL 100 MG TAB PO SCH (21:21)
[2022-03-20] MEDS: PANTOPRAZOLE 40 MG/10 ML VIAL IV SCH (21:49)
[2022-03-20] MEDS: ACAMPROSATE CALCIUM 333 MG TABLET.DR PO SCH (21:58)
[2022-03-20] MEDS: LORazepam 2 MG/ML INJ IV PRN ×2 (22:36→23:08)
[2022-03-20 22:54] LABS: Amphetamine Screen,Urine Not Detected (NotDetected); Barbiturate Screen,Urine Not Detected (NotDetected); Benzodiazepines Screen,Urine Detected (NotDetected); Cocaine Screen,Urine Not Detected (NotDetected); Methadone Screen, Urine Not Detected (NotDetected); Opiate Screen,Urine Not Detected (NotDetected); Oxycodone Screen, Urine Not Detected (NotDetected); Phencyclidine Screen,Urine Not Detected (NotDetected); Tricyclic Antidepressant,Urine Not Detected (NotDetected); Urn Cannabinoid Scrn Not Detected (NotDetected)
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
[2022-03-20] MEDS: IBUPROFEN 600 MG TAB PO PRN (23:54)
[2022-03-21] MEDS: LORazepam 2 MG/ML INJ IV PRN ×6 (03:59→23:57)
[2022-03-21 09:09] LABS: African American GFR (CKD) 131.4 (60.0-200.0); Anion Gap 15.6 mmol/L (10.00-18.00); BUN/Creat Ratio 22.49 Ratio (12.00-20.00); Blood Urea Nitrogen 13.9 mg/dL (9.0-27.0); Carbon Dioxide 19.4 mmol/L (20.0-27.5); Non-African American GFR(CKD) 113.4 (60.0-200.0); Potassium 4.3 mmol/L (3.5-5.5)
[2022-03-21] MEDS: FOLIC ACID 1 MG TAB PO SCH (09:22)
[2022-03-21] MEDS: THIAMINE 100 MG TAB PO SCH (09:22)
[2022-03-21] MEDS: NALTREXONE HCL 50 MG TAB PO SCH (09:23)
[2022-03-21] MEDS: busPIRone HCl 5 MG TAB PO SCH ×2 (09:23→19:41)
[2022-03-21] MEDS: ENOXAPARIN 40 MG/0.4 ML SYRINGE SQ SCH (09:23)
[2022-03-21] MEDS: NICOTINE 14MG/24HR PATCH TRANSDERM SCH (09:23)
[2022-03-21] MEDS: PANTOPRAZOLE 40 MG/10 ML VIAL IV SCH (09:23)
[2022-03-21] MEDS: MULTIVITAMINS, THERA 1 EACH TAB PO SCH (09:23)
[2022-03-21] MEDS: SERTRALINE 50 MG TAB PO SCH (09:23)
[2022-03-21] MEDS: ACAMPROSATE CALCIUM 333 MG TABLET.DR PO SCH ×3 (11:10→19:42)
--- NOTE | 2022-03-21 11:45 | P.PN ---
Subjective Progress Note Date: 03/21/22 Principal diagnosis: Suicide ideation alcohol intoxication Patient seen and examined. He is resting comfortably at this time he does not remember the events that led up to the hospital. Denies any chest pain or shortness breath no nausea vomiting fever or chills he does not voice any current suicidal ideations Objective - Vital Signs Vital signs: Vital Signs Temp 98.0 F 03/21/22 07:00 Pulse 112 H 03/21/22 07:00 Resp 18 03/21/22 07:00 BP 151/87 03/21/22 07:00 Pulse Ox 96 03/21/22 07:00 FiO2 Intake & Output 03/20/22 03/21/22 03/21/22 18:59 06:59 18:59 Weight 77.111 kg - Exam General: non toxic, no distress, appears at stated age, normal weight Derm: no unusual rashes/lesions, warm Head: atraumatic, normocephalic, symmetric Eyes: EOMI, no lid lag, anicteric sclera, pupils equal round reactive to light ENT: Nose and ears atraumatic Neck: No cervical lymphadenopathy, trachea midline, supple Mouth: no lip lesion, mucus membranes moist Cardiovascular: S1S2 reg, no murmur, positive dorsalis pedis pulse bilateral, no edema Lungs: CTA bilateral, no rhonchi, no rales, no accessory muscle use Abdominal: soft, nontender to palpation, no guarding Ext: muscle strength 4 out of 5 in all 4 extremities grossly, no gross muscle atrophy, no contractures, Neuro: CN II-XI grossly intact, no gross focal neuro deficits, mild outstret ched hand tremor Psych: Alert, oriented, appropriate affect - Labs CBC & Chem 7: 03/20/22 17:44 03/21/22 04:51 Labs: Abnormal Lab Results - Last 24 Hours (Table) 03/20/22 03/20/22 03/20/22 Range/Units 17:44 17:44 22:40 Plt Count 542 H D (150-450) k/uL Sodium 146 H (137-145) mmol/L Chloride 108 H (98-107) mmol/L Carbon Dioxide 17 L (22-30) mmol/L Creatinine 0.59 L (0.66-1.25) mg/dL BUN/Creatinine Ratio (12.00-20.00) Ratio Glucose (70-110) mg/dL Calcium (8.7-10.3) mg/dL U Benzodiazepines Scrn Detected H (NotDetected) Serum Alcohol 441 H* mg/dL 03/21/22 Range/Units 04:51 Plt Count (150-450) k/uL Sodium (137-145) mmol/L Chloride (98-107) mmol/L Carbon Dioxide 19.4 L (22-30) mmol/L Creatinine (0.66-1.25) mg/dL BUN/Creatinine Ratio 22.49 H (12.00-20.00) Ratio Glucose 56 L (70-110) mg/dL Calcium 8.0 L (8.7-10.3) mg/dL U Benzodiazepines Scrn (NotDetected) Serum Alcohol mg/dL Assessment and Plan Assessment: Alcohol intoxication an active alcoholic -[facility] Protocol -Thiamine, multivitamin -IV fluids -Fall, aspiration precautions Depression with suicidal ideation -Psychiatry consult -Suicide precautions Metabolic acidosis -Patient's bicarb present on admission was 17 which has now started to improve -Continue with IV fluids Hypernatremia -Improved DVT prophylaxis -Lovenox subq The patient is admitted with an anticipated less than 2 midnight stay for evaluation of EtOH intoxication CODE STATUS: Full Code Disposition: Await psychiatric recommendations continue with alcohol withdrawal treatment (1) Alcoholic intoxication Current Visit: Yes Status: Acute Code(s): F10.129 - ALCOHOL ABUSE WITH INTOXICATION, UNSPECIFIED SNOMED Code(s): 26252190
[2022-03-21] MEDS: chlordiazePOXIDE 25 MG CAP PO SCH ×3 (13:34→23:25)
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
[2022-03-21] MEDS: IBUPROFEN 600 MG TAB PO PRN (16:19)
[2022-03-21] MEDS: traZODone HCL 100 MG TAB PO SCH (19:41)
[2022-03-22] MEDS: NICOTINE 14MG/24HR PATCH TRANSDERM SCH (08:14)
[2022-03-22] MEDS: SERTRALINE 50 MG TAB PO SCH (08:14)
[2022-03-22] MEDS: PANTOPRAZOLE 40 MG TABLET PO SCH (08:14)
[2022-03-22] MEDS: chlordiazePOXIDE 25 MG CAP PO SCH ×3 (08:14→19:57)
[2022-03-22] MEDS: THIAMINE 100 MG TAB PO SCH (08:14)
[2022-03-22] MEDS: ACAMPROSATE CALCIUM 333 MG TABLET.DR PO SCH ×3 (08:14→19:57)
[2022-03-22] MEDS: MULTIVITAMINS, THERA 1 EACH TAB PO SCH (08:14)
[2022-03-22] MEDS: NALTREXONE HCL 50 MG TAB PO SCH (08:14)
[2022-03-22] MEDS: busPIRone HCl 5 MG TAB PO SCH ×2 (08:14→19:56)
[2022-03-22] MEDS: FOLIC ACID 1 MG TAB PO SCH (08:15)
[2022-03-22] MEDS: ENOXAPARIN 40 MG/0.4 ML SYRINGE SQ SCH (08:19)
[2022-03-22] MEDS: LORazepam 2 MG/ML INJ IV PRN (10:37)
[2022-03-22 12:51] VITALS: BMI 23.0
--- NOTE | 2022-03-22 16:48 | P.PN ---
Subjective Progress Note Date: 03/22/22 Principal diagnosis: Suicide ideation alcohol intoxication Patient seen and examined. He is currently complaining of tremors and all call withdrawal symptoms denies any nausea or vomiting no fevers or chills. Objective - Vital Signs Vital signs: Vital Signs Temp 98.5 F 03/22/22 14:50 Pulse 84 03/22/22 14:50 Resp 16 03/22/22 14:50 BP 126/81 03/22/22 14:50 Pulse Ox 98 03/22/22 14:50 FiO2 Intake & Output 03/21/22 03/22/22 03/22/22 18:59 06:59 18:59 Intake Total 480 Balance 480 Weight 77.111 kg 77.111 kg Intake: Oral 480 Other: # Voids 3 2 2 - Exam General: non toxic, no distress, appears at stated age, normal weight Derm: no unusual rashes/lesions, warm Head: atraumatic, normocephalic, symmetric Eyes: EOMI, no lid lag, anicteric sclera, pupils equal round reactive to light ENT: Nose and ears atraumatic Neck: No cervical lymphadenopathy, trachea midline, supple Mouth: no lip lesion, mucus membranes moist Cardiovascular: S1S2 reg, no murmur, positive dorsalis pedis pulse bilateral, no edema Lungs: CTA bilateral, no rhonchi, no rales, no accessory muscle use Abdominal: soft, nontender to palpation, no guarding Ext: muscle strength 4 out of 5 in all 4 extremities grossly, no gross muscle atrophy, no contractures, Neuro: CN II-XI grossly intact, no gross focal neuro deficits, mild outstretch ed hand tremor Psych: Alert, oriented, appropriate affect - Labs CBC & Chem 7: 03/20/22 17:44 03/21/22 04:51 Assessment and Plan Assessment: Alcohol intoxication an active alcoholic -[facility] Protocol -Thiamine, multivitamin -IV fluids -Fall, aspiration precautions -Increase Librium to 50 mg Depression with suicidal ideation -Psychiatry team following. Patient will need inpatient psychiatric admission when he is medically stable from withdrawals -Suicide precautions Metabolic acidosis -Patient's bicarb was low on admission currently improved. We will continue to monitor BMP Hypernatremia -Improved DVT prophylaxis -Lovenox subq The patient is admitted with an anticipated less than 2 midnight stay for ev aluation of EtOH intoxication CODE STATUS: Full Code Disposition: Patient will need psychiatric inpatient admission 1 medically stable from withdrawals. (1) Alcoholic intoxication Current Visit: Yes Status: Acute Code(s): F10.129 - ALCOHOL ABUSE WITH INTOXICATION, UNSPECIFIED SNOMED Code(s): 00551288
[2022-03-22] MEDS ORDERED: LORazepam 1 MG/0.5 ML VIAL IV PRN ×2 (17:12)
[2022-03-22] MEDS: traZODone HCL 100 MG TAB PO SCH (19:57)
[2022-03-23 08:01] LABS: African American GFR (CKD) >90 (>60 ml/min/1.73 sqM); Anion Gap 9 mmol/L; Blood Urea Nitrogen 9 mg/dL (9-20); Calcium 8.3 mg/dL (8.4-10.2); Carbon Dioxide 24 mmol/L (22-30); Chloride 104 mmol/L (98-107); Glucose 72 mg/dL (74-99); Non-African American GFR(CKD) >90 (>60 ml/min/1.73 sqM); Potassium 3.8 mmol/L (3.5-5.1); Sodium 137 mmol/L (137-145)
[2022-03-23] MEDS: FOLIC ACID 1 MG TAB PO SCH (09:36)
[2022-03-23] MEDS: THIAMINE 100 MG TAB PO SCH (09:36)
[2022-03-23] MEDS: chlordiazePOXIDE 25 MG CAP PO SCH ×2 (09:36→15:21)
[2022-03-23] MEDS: busPIRone HCl 5 MG TAB PO SCH (09:36)
[2022-03-23] MEDS: NICOTINE 14MG/24HR PATCH TRANSDERM SCH (09:36)
[2022-03-23] MEDS: MULTIVITAMINS, THERA 1 EACH TAB PO SCH (09:36)
[2022-03-23] MEDS: SERTRALINE 50 MG TAB PO SCH (09:36)
[2022-03-23] MEDS: PANTOPRAZOLE 40 MG TABLET PO SCH (09:36)
[2022-03-23] MEDS: ENOXAPARIN 40 MG/0.4 ML SYRINGE SQ SCH (09:36)
[2022-03-23] MEDS: NALTREXONE HCL 50 MG TAB PO SCH (09:36)
[2022-03-23] MEDS: ACAMPROSATE CALCIUM 333 MG TABLET.DR PO SCH ×2 (09:37→15:21)
--- NOTE | 2022-03-23 12:18 | P.DS ---
Providers Date of admission: 03/20/22 20:53 Attending physician: Abigail Styles MD Consults: 03/20/22 23:42 Consult Physician Urgent Consulting Provider: Psychiatry - [facility] Psychiatry Consult Reason/Comments: Suicidal ideation Do you want consulting provider notified?: Yes Primary care physician: Teo Whitlock - Discharge Diagnosis(es) (1) Alcoholic intoxication Current Visit: Yes Status: Acute Hospital Course: The patient is a 51-year-old male with a PMH of EtOH abuse who presents to the emergency room with alcohol intoxication. The patient reports that he has been attempting to "drink myself to "and reports drinking 2 fifths of vodka daily for the past several years. Patient was admitted to the hospital with INTOXICATION AND ALCOHOL WITHDRAWAL SYMPTOMS. HE WAS TREATED WITH CIWA PROTOCOL IV ATIVAN. HE WAS TRANSITIONED TO ORAL LIBRIUM ON DISCHARGE. HE WAS EVALUATED BY psychiatry team and he was discharged to inpatient psych treatment facility Assessment/plan Alcohol intoxication an active alcoholic -[facility] Protocol -Thiamine, multivitamin -IV fluids -Fall, aspiration precautions Depression with suicidal ideation -Psychiatry consult -Suicide precautions DVT prophylaxis -Lovenox subq Patient Condition at Discharge: Fair Plan - Discharge Summary Discharge Rx Participant: No New Discharge Prescriptions: New chlordiazePOXIDE HCl [Librium] 50 mg PO TID #10 cap Continue Acetaminophen [Tylenol] 650 mg PO Q6H PRN 30 Days tab PRN Reason: Pain Naltrexone HCl [Revia] 50 mg PO DAILY traZODone HCL [Desyrel] 100 mg PO HS Sertraline HCl [Zoloft] 150 mg PO DAILY Acamprosate Calcium [Campral] 666 mg PO TID Nicotine 14Mg/24Hr Patch [Habitrol] 1 patch TRANSDERM DAILY 14 Days patch Ibuprofen [Motrin] 600 mg PO Q8H PRN 30 Days tab PRN Reason: Moderate To Severe Pain Folic Acid 1 mg PO DAILY 30 Days tab Lidocaine 5% Patch [Lidoderm 5% Patch] 1 patch TOPICAL DAILY #30 patch Thiamine [Vitamin B-1] 100 mg PO DAILY 30 Days tab Multivitamins, Thera [Multivitamin (formulary)] 1 tab PO DAILY busPIRone HCL 15 mg PO BID Discharge Medication List Acetaminophen [Tylenol] 650 mg PO Q6H PRN 30 Days tab 02/16/22 [Rx] Folic Acid 1 mg PO DAILY 30 Days tab 02/16/22 [Rx] Ibuprofen [Motrin] 600 mg PO Q8H PRN 30 Days tab 02/16/22 [Rx] Lidocaine 5% Patch [Lidoderm 5% Patch] 1 patch TOPICAL DAILY #30 patch 02/16/22 [Rx] Nicotine 14Mg/24Hr Patch [Habitrol] 1 patch TRANSDERM DAILY 14 Days patch 02/16/22 [Rx] Thiamine [Vitamin B-1] 100 mg PO DAILY 30 Days tab 02/16/22 [Rx] Multivitamins, Thera [Multivitamin (formulary)] 1 tab PO DAILY 02/27/22 [History] Acamprosate Calcium [Campral] 666 mg PO TID 03/20/22 [History] Naltrexone HCl [Revia] 50 mg PO DAILY 03/20/22 [History] Sertraline HCl [Zoloft] 150 mg PO DAILY 03/20/22 [History] busPIRone HCL 15 mg PO BID 03/20/22 [History] traZODone HCL [Desyrel] 100 mg PO HS 03/20/22 [History] chlordiazePOXIDE HCl [Librium] 50 mg PO TID #10 cap 03/23/22 [Rx] Discharge Disposition: TRANSFER TO PSYCH HOSP/UNIT
[2022-03-23 14:27] VITALS: BP 138/77; PULSE 74; RESP 17; TEMP 98.1
== END 2022-03-23 16:21 ==
LOC: EC 17:33 → 6NMEDSUR 20:53 → 4SSUR 03-21 03:13
PROVIDERS: ADMIT Internal Medicine; ATTEND Internal Medicine
DX: F10.229 Alcohol dependence with intoxication, unspecified (principal); R45.851 Suicidal ideations; E87.2 Acidosis; F33.2 Major depressive disorder, recurrent severe without psychotic features; E87.0 Hyperosmolality and hypernatremia; F41.9 Anxiety disorder, unspecified; F17.200 Nicotine dependence, unspecified, uncomplicated; Z79.899 Other long term (current) drug therapy; Z91.51 Personal history of suicidal behavior; Z56.0 Unemployment, unspecified; Z20.822 Contact with and (suspected) exposure to COVID-19; Y90.8 Blood alcohol level of 240 mg/100 ml or more
CPT/HCPCS: 96376 ×3; 96361 ×3; 96372 ×2; 96374; 96375; 99284; 36415; 80053; 80048 ×2; 83690; 83735; 84100; 85025; 80306; 87635; G0378 ×5; G0480; S4990 ×3; J2060 ×3; J1650 ×2; C9113 ×2; 80320

== ENCOUNTER 2022-03-23 17:46 | Inpatient (IN) | payer MEDICAID ==
[2022-03-23] MEDS ORDERED: ACETAMINOPHEN TAB 325 MG TAB PO PRN (18:01)
[2022-03-23] MEDS ORDERED: MAGNESIUM HYDROXIDE 2,400 MG/10 ML CUP PO PRN (18:01)
[2022-03-23] MEDS ORDERED: IBUPROFEN 600 MG TAB PO PRN (18:10)
[2022-03-23] MEDS ORDERED: LORazepam 2 MG/ML INJ IM PRN (18:32)
[2022-03-23] MEDS ORDERED: haloperidoL 5 MG TAB PO PRN (18:33)
[2022-03-23] MEDS ORDERED: HALOPERIDOL LACTATE 5 MG/ML 1 ML VIAL IM PRN (18:33)
[2022-03-23] MEDS: LORazepam 1 MG TAB PO PRN (18:37)
[2022-03-23 18:53] LABS: Glucose,Whole Blood 108 mg/dL (70-110)
[2022-03-23] MEDS: ACAMPROSATE CALCIUM 333 MG TABLET.DR PO SCH (19:48)
[2022-03-23] MEDS: busPIRone HCl 5 MG TAB PO SCH (19:48)
[2022-03-23] MEDS: chlordiazePOXIDE 25 MG CAP PO SCH (19:49)
[2022-03-23] MEDS ORDERED: traZODone HCL 100 MG TAB PO SCH (21:00)
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
[2022-03-24] MEDS: busPIRone HCl 5 MG TAB PO SCH ×2 (07:52→20:11)
[2022-03-24] MEDS: ACAMPROSATE CALCIUM 333 MG TABLET.DR PO SCH ×3 (07:52→20:12)
[2022-03-24] MEDS: MULTIVITAMINS, THERA 1 EACH TAB PO SCH (07:52)
[2022-03-24] MEDS: FOLIC ACID 1 MG TAB PO SCH (07:53)
[2022-03-24] MEDS: NALTREXONE HCL 50 MG TAB PO SCH (07:53)
[2022-03-24] MEDS: THIAMINE 100 MG TAB PO SCH (07:53)
[2022-03-24] MEDS: NICOTINE 14MG/24HR PATCH TRANSDERM SCH (07:53)
[2022-03-24] MEDS: chlordiazePOXIDE 25 MG CAP PO SCH ×4 (07:53→20:12)
[2022-03-24] MEDS ORDERED: SERTRALINE 50 MG TAB PO SCH (09:00)
[2022-03-24] MEDS: LORazepam 1 MG TAB PO PRN ×2 (09:14→21:16)
[2022-03-24 09:44] LABS: Basophils % (A) 0 %; Eosinophils # (A) 0.2 k/uL (0-0.7); Eosinophils % (A) 3 %; HGB 14.3 gm/dL (13.0-17.5); Lymphocytes # (A) 1.5 k/uL (1.0-4.8); Lymphocytes % (A) 21 %; MCH 30.7 pg (25.0-35.0); MCHC 31.8 g/dL (31.0-37.0); MCV 96.4 fL (80.0-100.0); Mean Platelet Volume 7.4; Monocytes # (A) 0.3 k/uL (0-1.0); Monocytes % (A) 4 %; Neutrophils % (A) 71 %; Platelet Count 269 k/uL (150-450); RBC 4.66 m/uL (4.30-5.90); RDW 15.3 % (11.5-15.5)
[2022-03-24 10:00] LABS: ALT 10 U/L (4-49); AST 22 U/L (17-59); African American GFR (CKD) >90 (>60 ml/min/1.73 sqM); Albumin 3.7 g/dL (3.5-5.0); Alkaline Phosphatase 101 U/L (38-126); Anion Gap 10 mmol/L; Bilirubin, Delta 0.1 mg/dL (0.0-0.2); Bilirubin,Unconjugated 0.4 mg/dL (0.0-1.1); Blood Urea Nitrogen 11 mg/dL (9-20); Calcium 8.9 mg/dL (8.4-10.2); Carbon Dioxide 27 mmol/L (22-30); Chloride 102 mmol/L (98-107); Glucose 97 mg/dL (74-99); Non-African American GFR(CKD) >90 (>60 ml/min/1.73 sqM); Potassium 3.8 mmol/L (3.5-5.1); Sodium 139 mmol/L (137-145); Total Bilirubin 0.5 mg/dL (0.2-1.3); Total Protein 6.8 g/dL (6.3-8.2)
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
[2022-03-24 15:50] LABS: Chol/HDL Ratio 6.45 Ratio; LDL Cholesterol,Calculated 156.5 mg/dL (0.0-131.0)
[2022-03-24] MEDS: traZODone HCL 50 MG TAB PO SCH (20:11)
[2022-03-25] MEDS: NICOTINE 14MG/24HR PATCH TRANSDERM SCH (09:00)
[2022-03-25] MEDS: MULTIVITAMINS, THERA 1 EACH TAB PO SCH (09:01)
[2022-03-25] MEDS: THIAMINE 100 MG TAB PO SCH (09:01)
[2022-03-25] MEDS: SERTRALINE 100 MG TAB PO SCH (09:01)
[2022-03-25] MEDS: ACAMPROSATE CALCIUM 333 MG TABLET.DR PO SCH ×3 (09:01→21:02)
[2022-03-25] MEDS: busPIRone HCl 5 MG TAB PO SCH ×2 (09:01→21:02)
[2022-03-25] MEDS: FOLIC ACID 1 MG TAB PO SCH (09:01)
[2022-03-25] MEDS: NALTREXONE HCL 50 MG TAB PO SCH (09:01)
[2022-03-25] MEDS: chlordiazePOXIDE 25 MG CAP PO SCH ×4 (09:02→21:02)
--- NOTE | 2022-03-25 16:40 | P.PN ---
Progress Note - Text Progress Note Date: 03/25/22 Interval history: Patient was seen resting in bed and was directable and agreeable to speak with functional tester typewriters. He denies active alcohol withdrawal symptoms currently. At this time patient denies any suicidal or homicidal ideations, intent or plan. He denies any auditory or visual hallucinations. Patient denies any side effects from the medications and has been compliant with meds. He denies feeling lightheaded or dizzy. Vital signs reviewed and heart rate was elevated this morning but is normal on repeat vitals this afternoon. Mental status exam: General Appearance: Patient appears to be stated age, is laying in bed with covers on, adequate hygiene. Behavior: No agitated behavior. Patient is calm and directable. Speech: Patient's speech is fluent and non-pressured. Mood/Affect: Mood is improving mildly, affect is congruent and constricted. Suicidality/Homicidality: Patient denies having any suicidal or homicidal ideation intent or plan. Perceptions: Patient denies any auditory or visual hallucinations. Though content/process: There is no evidence of any delusional thought content and thought process is linear and goal-directed. Memory and concentration: AOX3, grossly intact for the purposes of this session Judgment and insight: Improving mildly Vital Signs - 24 hr 03/24/22 03/25/22 03/25/22 17:33 08:59 16:17 Temperature 96.7 F L 97.8 F Pulse Rate [ 92 113 H 72 Pulse Oximetery ] Respiratory 16 20 Rate Blood Pressure 114/78 109/70 116/57 [Left Arm] Assessment/Plan: Continue with current diagnosis. Patient continues to meet criteria for inpatient psychiatric admission for symptom stabilization and safety. Patient will be maintained on current psychotropic medication regimen. Monitor for medication compliance and for any psychotropic medication side effects. Will continue to monitor ongoing response to treatment. Encouraged participation in milieu.
[2022-03-25] MEDS: traZODone HCL 50 MG TAB PO SCH (21:02)
[2022-03-25] MEDS: LORazepam 1 MG TAB PO PRN (21:04)
[2022-03-26] MEDS: ACAMPROSATE CALCIUM 333 MG TABLET.DR PO SCH ×3 (08:57→21:49)
[2022-03-26] MEDS: NICOTINE 14MG/24HR PATCH TRANSDERM SCH (08:57)
[2022-03-26] MEDS: MULTIVITAMINS, THERA 1 EACH TAB PO SCH (08:58)
[2022-03-26] MEDS: FOLIC ACID 1 MG TAB PO SCH (08:58)
[2022-03-26] MEDS: busPIRone HCl 5 MG TAB PO SCH ×2 (08:58→21:49)
[2022-03-26] MEDS: SERTRALINE 100 MG TAB PO SCH (08:58)
[2022-03-26] MEDS: NALTREXONE HCL 50 MG TAB PO SCH (08:58)
[2022-03-26] MEDS: chlordiazePOXIDE 25 MG CAP PO SCH ×4 (08:58→21:50)
[2022-03-26] MEDS: THIAMINE 100 MG TAB PO SCH (08:58)
[2022-03-26] MEDS: LORazepam 1 MG TAB PO PRN ×2 (16:30→22:14)
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
[2022-03-26] MEDS: MAG HYDROX/AL HYDROX/SIMETH 30 ML CUP PO PRN (20:26)
[2022-03-26] MEDS: traZODone HCL 50 MG TAB PO SCH (21:49)
[2022-03-27] MEDS: MULTIVITAMINS, THERA 1 EACH TAB PO SCH (08:48)
[2022-03-27] MEDS: ACAMPROSATE CALCIUM 333 MG TABLET.DR PO SCH ×3 (08:48→20:49)
[2022-03-27] MEDS: NICOTINE 14MG/24HR PATCH TRANSDERM SCH (08:48)
[2022-03-27] MEDS: busPIRone HCl 5 MG TAB PO SCH (08:48)
[2022-03-27] MEDS: NALTREXONE HCL 50 MG TAB PO SCH (08:48)
[2022-03-27] MEDS: SERTRALINE 100 MG TAB PO SCH (08:48)
[2022-03-27] MEDS: THIAMINE 100 MG TAB PO SCH (08:48)
[2022-03-27] MEDS: FOLIC ACID 1 MG TAB PO SCH (08:48)
[2022-03-27] MEDS: chlordiazePOXIDE 25 MG CAP PO SCH ×3 (08:50→20:48)
--- NOTE | 2022-03-27 11:03 | P.PN ---
Progress Note - Text Progress Note Date: 03/27/22 Interval History: Patient was seen lying in his bed this morning and was directable and agreeable to speak with securities underwriter in the office. He appears to be somewhat tired however appears to have improvement in his affect. He states that he continues to reflect back on his drinking and states that his grandson is going to be his motivating factor to stop drinking. He states that his mood continues to be mildly depressed and anxious as well. He states that medications have been working. He claims that he slept better overnight however was requested out of his trazodone decreased once again. He states that his appetite is improving. He claims that his withdrawal symptoms are also improving. At this time patient denies any suicidal or homical ideations, intent or plan. Patient denies any auditory, visual hallucinations and denies any paranoia or delusions. Patient denies any side effects from the medications and has been compliant with meds. Mental Status Exam: General Appearance: Patient appears to be wearing street clothing, appears to be less tremulous, stated age is alert, directable, and attempts to cooperate. Patient appears to have improving hygiene and grooming Behavior: Patient is seated without any agitated behavior. Appears to be less anxious. Speech: Patient's speech is fluent and nonpressured. Hesitant. Mood/Affect: Patient reports their mood is improving mildly, affect is congruent Suicidality/Homicidality: Patient denies having any homicidal ideation intent or plan. Denies any suicidal ideations intent or plan Perceptions: Patient denies any visual hallucinations and denies any auditory hallucinations Though content/process: There is no evidence of any delusional thought content and thought process is linear and goal-directed. Focus on his stressors and obtaining treatment. Memory and concentration: AOX3, grossly intact for the purposes of this session Judgment and insight: poor/impulsive, improving mildly IMPRESSIONS: Major depressive disorder, recurrent, severe without psychotic features. Alcohol use disorder, severe Plan: -Patient continues to meet criteria for inpatient psychiatric admission for symptom stabilization and safety. Patient has signed adult voluntary form and medication consent and was placed in patient's chart. -Medications: increase Librium 25 mg three times a day for alcohol withdrawal, increase trazodone 200 mg daily at bedtime for insomnia/mood, Zoloft 200 mg daily for mood/anxiety and also naltrexone and acamprosate for alcohol cravings. buspar 20 mg bid for anxiety. -thiamine, MVM for etoh use -CIWA protocol with Ativan PRN for ETOH withdrawal -When necessary Ativan and Haldol for agitation/aggression. -NRT - nicotine patch -SW on board for discharge planning. Encouraged the patient to participate in milieu. Currently awaiting demand for hearing court date. patient is currently a retirement hold.
[2022-03-27] MEDS: MAG HYDROX/AL HYDROX/SIMETH 30 ML CUP PO PRN (11:55)
[2022-03-27] MEDS: LORazepam 1 MG TAB PO PRN (18:18)
[2022-03-27] MEDS: traZODone HCL 100 MG TAB PO SCH (20:48)
[2022-03-27] MEDS: busPIRone HCl 10 MG TAB PO SCH (20:49)
[2022-03-28] MEDS: MULTIVITAMINS, THERA 1 EACH TAB PO SCH (08:44)
[2022-03-28] MEDS: chlordiazePOXIDE 25 MG CAP PO SCH (08:44)
[2022-03-28] MEDS: THIAMINE 100 MG TAB PO SCH (08:44)
[2022-03-28] MEDS: SERTRALINE 100 MG TAB PO SCH (08:44)
[2022-03-28] MEDS: ACAMPROSATE CALCIUM 333 MG TABLET.DR PO SCH ×2 (08:44→21:11)
[2022-03-28] MEDS: busPIRone HCl 10 MG TAB PO SCH ×2 (08:44→21:10)
[2022-03-28] MEDS: NICOTINE 14MG/24HR PATCH TRANSDERM SCH (08:44)
[2022-03-28] MEDS: NALTREXONE HCL 50 MG TAB PO SCH (08:44)
[2022-03-28] MEDS: FOLIC ACID 1 MG TAB PO SCH (08:44)
--- NOTE | 2022-03-28 11:21 | P.PN ---
Progress Note - Text Progress Note Date: 03/28/22 Interval History: Patient was seen this morning and was directable and agreeable to speak with elan ortiz in the office. Patient claims that he feels a bit better today and has an improvement in his affect. He states that his mood and anxiety (improving. He claims that his withdrawal symptoms are also improving as well. He states that he was able to get better sleep last night with increase in his trazodone. He states that he wants to keep at 200 mg. He continues to state that he is inter ested in rehab and wants to stay somewhat close to his family and is ok with SH. He claims that he is going to groups and attempting to participate as best as he can. He continues to list off other motivating factors to help him stop drinking and mostly focuses on his grandson who wants to spend more time with. He claims that he is speaking with his however she continues to remain focused on him getting "help" and quitting drinking. He states that medications have been working. He states that his appetite is improving. He claims that his withdrawal symptoms are also improving. At this time patient denies any suicidal or homical ideations, intent or plan. Patient denies any auditory, visual hallucinations and denies any paranoia or delusions. Patient denies any side effects from the medications and has been compliant with meds. Mental Status Exam: General Appearance: Patient appears to be wearing street clothing, appears to be less tremulous, stated age is alert, directable, and attempts to cooperate. Patient appears to have improving hygiene and grooming Behavior: Patient is seated without any agitated behavior. Appears to be less anxious. More directable today. Speech: Patient's speech is fluent and nonpressured. Mood/Affect: Patient reports their mood is improving mildly, affect is congruent Suicidality/Homicidality: Patient denies having any homicidal ideation intent or plan. Denies any suicidal ideations intent or plan Perceptions: Patient denies any visual hallucinations and denies any auditory hallucinations Though content/process: There is no evidence of any delusional thought content and thought process is linear and goal-directed. Focus on obtaining treatment. Memory and concentration: AOX3, grossly intact for the purposes of this session Judgment and insight: poor/impulsive, improving mildly IMPRESSIONS: Major depressive disorder, recurrent, severe without psychotic features. Alcohol use disorder, severe Plan: -Patient continues to meet criteria for inpatient psychiatric admission for symptom stabilization and safety. Patient has signed adult voluntary form and medication consent and was placed in patient's chart. -Medications: decrease Librium 20 mg three times a day for alcohol withdrawal, trazodone 200 mg daily at bedtime for insomnia/mood, Zoloft 200 mg daily for mood/anxiety and also naltrexone and acamprosate for alcohol cravings. buspar 20 mg bid for anxiety. -thiamine, MVM for etoh use -CIWA protocol with Ativan PRN for ETOH withdrawal -When necessary Ativan and Haldol for agitation/aggression. -NRT - nicotine patch -SW on board for discharge planning. Encouraged the patient to participate in milieu. Currently awaiting demand for hearing court date. patient is currently a halfway hold. He is also interested in going to rehab.
[2022-03-28] MEDS: traZODone HCL 100 MG TAB PO SCH (21:10)
[2022-03-29] MEDS: ACAMPROSATE CALCIUM 333 MG TABLET.DR PO SCH ×4 (02:17→21:01)
[2022-03-29] MEDS: MULTIVITAMINS, THERA 1 EACH TAB PO SCH (08:44)
[2022-03-29] MEDS: THIAMINE 100 MG TAB PO SCH (08:45)
[2022-03-29] MEDS: SERTRALINE 100 MG TAB PO SCH (08:45)
[2022-03-29] MEDS: busPIRone HCl 10 MG TAB PO SCH ×2 (08:45→21:00)
[2022-03-29] MEDS: FOLIC ACID 1 MG TAB PO SCH (08:45)
[2022-03-29] MEDS: NICOTINE 14MG/24HR PATCH TRANSDERM SCH (08:46)
[2022-03-29] MEDS: NALTREXONE HCL 50 MG TAB PO SCH (08:46)
--- NOTE | 2022-03-29 10:08 | P.PN ---
Progress Note - Text Progress Note Date: 03/29/22 Interval History: Patient was seen this morning and was directable and agreeable to speak with elan ortiz in the office. Patient claims that he feels a better today however states that he is feeling mildly groggy. He claims that he woke up for breakfast eat and then went back to bed. States that he was able to sleep fairly throughout the night with the trazodone. He states that his mood and anxiety of being gradually improving. He continues to be focused on obtaining treatment in going to rehab. He states that he does go to some groups at times during the day. He states that his appetite is improving. He claims that his withdrawal symptoms are also improving. At this time patient denies any suicidal or homical ideations, intent or plan. Patient denies any auditory, visual hallucinations and denies any paranoia or delusions. Patient denies any side effects from the medications and has been compliant with meds. Mental Status Exam: General Appearance: Patient appears to be wearing street clothing, appears to be mildly groggy this morning, stated age is alert, directable, and attempts to cooperate. Patient appears to have improving hygiene and grooming Behavior: Patient is seated without any agitated behavior. Appears to be less anxious. More directable today. Speech: Patient's speech is fluent and nonpressured. Mood/Affect: Patient reports their mood is improving mildly, affect is congruent Suicidality/Homicidality: Patient denies having any homicidal ideation intent or plan. Denies any suicidal ideations intent or plan Perceptions: Patient denies any visual hallucinations and denies any auditory hallucinations Though content/process: There is no evidence of any delusional thought content and thought process is linear and goal-directed. Focus on obtaining treatment. Memory and concentration: AOX3, grossly intact for the purposes of this session Judgment and insight: poor/impulsive, improving mildly IMPRESSIONS: Major depressive disorder, recurrent, severe without psychotic features. Alcohol use disorder, severe Plan: -Patient continues to meet criteria for inpatient psychiatric admission for symptom stabilization and safety. Patient has signed adult voluntary form and medication consent and was placed in patient's chart. -Medications: decrease Librium 10 mg 4 times a day for alcohol withdrawal, trazodone 200 mg daily at bedtime for insomnia/mood, Zoloft 200 mg daily for mood/anxiety and also naltrexone and acamprosate for alcohol cravings. buspar 20 mg bid for anxiety. -thiamine, MVM for etoh use -CIWA protocol with Ativan PRN for ETOH withdrawal -When necessary Ativan and Haldol for agitation/aggression. -NRT - nicotine patch -SW on board for discharge planning. Encouraged the patient to participate in milieu. Currently awaiting demand for hearing court date. patient is currently a senior living hold. He is also interested in going to rehab.
[2022-03-29] MEDS: traZODone HCL 100 MG TAB PO SCH (21:01)
[2022-03-29] MEDS: LORazepam 1 MG TAB PO PRN (21:02)
[2022-03-29] MEDS: MAG HYDROX/AL HYDROX/SIMETH 30 ML CUP PO PRN (21:43)
[2022-03-30 07:00] VITALS: RESP 14; TEMP 97.9
[2022-03-30] MEDS: SERTRALINE 100 MG TAB PO SCH (08:47)
[2022-03-30] MEDS: NICOTINE 14MG/24HR PATCH TRANSDERM SCH (08:47)
[2022-03-30] MEDS: ACAMPROSATE CALCIUM 333 MG TABLET.DR PO SCH (08:48)
[2022-03-30] MEDS: THIAMINE 100 MG TAB PO SCH (08:48)
[2022-03-30] MEDS: busPIRone HCl 10 MG TAB PO SCH (08:48)
[2022-03-30] MEDS: FOLIC ACID 1 MG TAB PO SCH (08:49)
[2022-03-30] MEDS: MULTIVITAMINS, THERA 1 EACH TAB PO SCH (08:49)
[2022-03-30] MEDS: NALTREXONE HCL 50 MG TAB PO SCH (08:49)
[2022-03-30] MEDS: LORazepam 1 MG TAB PO PRN (08:50)
[2022-03-30 08:52] VITALS: BP 102/64; PULSE 98
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
== END 2022-03-30 12:40 | DRG 885 ==
LOC: 3MHU 18:32
PROVIDERS: ADMIT Psychiatry & Neurology Psychiatry; ATTEND Psychiatry & Neurology Psychiatry
DX: F33.2 Major depressive disorder, recurrent severe without psychotic features (principal); F10.239 Alcohol dependence with withdrawal, unspecified; R45.851 Suicidal ideations; F10.229 Alcohol dependence with intoxication, unspecified; Z91.14 Patient's other noncompliance with medication regimen; Y90.8 Blood alcohol level of 240 mg/100 ml or more; G47.00 Insomnia, unspecified; G56.91 Unspecified mononeuropathy of right upper limb; F41.9 Anxiety disorder, unspecified; G89.29 Other chronic pain; M25.512 Pain in left shoulder; M54.50 Low back pain, unspecified; M19.90 Unspecified osteoarthritis, unspecified site; T50.916A Underdosing of multiple unspecified drugs, medicaments and biological substances, initial encounter; F17.200 Nicotine dependence, unspecified, uncomplicated; Z71.6 Tobacco abuse counseling; Z79.899 Other long term (current) drug therapy; Z56.0 Unemployment, unspecified; Z86.16 Personal history of COVID-19; Z91.51 Personal history of suicidal behavior; Z71.41 Alcohol abuse counseling and surveillance of alcoholic
CPT/HCPCS: 80053; 80061; 82248; 83036; 84439; 84443; 85025

== ENCOUNTER 2022-05-04 08:57 | Emergency (ER) | payer OTHER ==
[2022-05-04 09:23] VITALS: PULSE 128; RESP 24; TEMP 97.8
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
== END 2022-05-04 11:37 | disposition left against medical advice (07) ==
LOC: EC 08:57
DX: F41.9 Anxiety disorder, unspecified (principal); F17.200 Nicotine dependence, unspecified, uncomplicated; Z86.16 Personal history of COVID-19; Z53.29 Procedure and treatment not carried out because of patient's decision for other reasons
CPT/HCPCS: 82075; 99283

== ENCOUNTER 2022-05-05 01:01 | Emergency (ER) | payer OTHER | END 2022-05-05 02:50 | disposition home or self-care (01) | LOC: EC 01:01 | DX: F10.120 Alcohol abuse with intoxication, uncomplicated (principal) | CPT/HCPCS: 99284 ==

== ENCOUNTER 2022-05-05 06:27 | Inpatient (IN) | payer OTHER ==
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
[2022-05-05] MEDS ORDERED: LORazepam 1 MG TAB PO STA (09:28)
[2022-05-05] MEDS ORDERED: SODIUM CHLORIDE 0.9% 1,000 ML IV STA (15:00)
[2022-05-05] MEDS ORDERED: LORazepam 2 MG/ML INJ IV STA (15:01)
[2022-05-05] MEDS ORDERED: ACETAMINOPHEN TAB 325 MG TAB PO PRN (15:05)
[2022-05-05] MEDS ORDERED: NALOXONE 0.4 MG/ML 1 ML VIAL IV PRN (15:05)
[2022-05-05] MEDS ORDERED: ONDANSETRON 4 MG/2 ML VIAL IVP PRN (15:05)
[2022-05-05] MEDS ORDERED: LORazepam 1 MG/0.5 ML VIAL IV PRN ×3 (15:09)
[2022-05-05] MEDS: SODIUM CHLORIDE 0.9% 1,000 ML IV SCH (15:39)
[2022-05-05 15:50] LABS: Basophils % (A) 0 %; Eosinophils # (A) 0.1 k/uL (0-0.7); Eosinophils % (A) 1 %; HCT 47.5 % (39.0-53.0); HGB 16.4 gm/dL (13.0-17.5); Lymphocytes # (A) 2.2 k/uL (1.0-4.8); Lymphocytes % (A) 25 %; MCH 29.9 pg (25.0-35.0); MCHC 34.5 g/dL (31.0-37.0); Mean Platelet Volume 7.1; Monocytes # (A) 0.4 k/uL (0-1.0); Monocytes % (A) 4 %; Neutrophils # (A) 6.2 k/uL (1.3-7.7); Neutrophils % (A) 68 %; Platelet Count 342 k/uL (150-450); RBC 5.47 m/uL (4.30-5.90); RDW 15.2 % (11.5-15.5); WBC 9.1 k/uL (3.8-10.6)
[2022-05-05 15:57] LABS: MCV 86.7 fL (80.0-100.0)
[2022-05-05 15:59] LABS: Sodium 137 mmol/L (137-145)
[2022-05-05 16:00] LABS: ALT 30 U/L (4-49); AST 62 U/L (17-59); African American GFR (CKD) >90 (>60 ml/min/1.73 sqM); Albumin 4.8 g/dL (3.5-5.0); Alkaline Phosphatase 126 U/L (38-126); Anion Gap 19 mmol/L; Blood Urea Nitrogen 23 mg/dL (9-20); Calcium 9.6 mg/dL (8.4-10.2); Carbon Dioxide 19 mmol/L (22-30); Chloride 99 mmol/L (98-107); Glucose 97 mg/dL (74-99); Non-African American GFR(CKD) >90 (>60 ml/min/1.73 sqM); Potassium 4.6 mmol/L (3.5-5.1); Total Bilirubin 0.7 mg/dL (0.2-1.3)
[2022-05-05] MEDS ORDERED: LORazepam 2 MG/ML INJ IV PRN ×3 (19:19)
[2022-05-05] MEDS ORDERED: busPIRone HCl 10 MG TAB PO SCH (21:00)
[2022-05-05] MEDS ORDERED: traZODone HCL 100 MG TAB PO SCH (21:00)
[2022-05-05] MEDS ORDERED: chlordiazePOXIDE 25 MG CAP PO SCH (22:00)
[2022-05-06] MEDS: SODIUM CHLORIDE 0.9% 1,000 ML IV SCH ×3 (00:03→14:43)
[2022-05-06] MEDS: ACAMPROSATE CALCIUM 333 MG TABLET.DR PO SCH ×4 (00:03→21:00)
[2022-05-06] MEDS: chlordiazePOXIDE 25 MG CAP PO SCH ×4 (00:03→21:00)
[2022-05-06] MEDS: traZODone HCL 100 MG TAB PO SCH ×2 (00:05→02:39)
[2022-05-06] MEDS: busPIRone HCl 10 MG TAB PO SCH ×2 (02:39→20:04)
[2022-05-06 08:31] LABS: Appearance,Urine Clear (Clear); Bilirubin,Urine Negative (Negative); Blood,Urine Negative (Negative); Color,Urine Yellow; Glucose,Urine (UA) Negative (Negative); Ketones,Urine 1+ (Negative); Leukocyte Esterase,Urine Negative (Negative); Nitrite,Urine Negative (Negative); PH, Urine 6.5 (5.0-8.0); Protein,Urine Trace (Negative); Specific Gravity,Urine 1.022 (1.001-1.035)
[2022-05-06] MEDS ORDERED: TEMAZEPAM 15 MG CAP PO PRN (08:35)
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
[2022-05-06 08:41] LABS: Amphetamine Screen,Urine Not Detected (NotDetected); Barbiturate Screen,Urine Not Detected (NotDetected); Benzodiazepines Screen,Urine Detected (NotDetected); Cocaine Screen,Urine Not Detected (NotDetected); Methadone Screen, Urine Not Detected (NotDetected); Opiate Screen,Urine Not Detected (NotDetected); Oxycodone Screen, Urine Not Detected (NotDetected); Phencyclidine Screen,Urine Not Detected (NotDetected); Tricyclic Antidepressant,Urine Not Detected (NotDetected); Urn Cannabinoid Scrn Not Detected (NotDetected)
[2022-05-06] MEDS ORDERED: MELATONIN 5 MG TABLET PO ONE (08:50)
[2022-05-06] MEDS: NALTREXONE HCL 50 MG TAB PO SCH (09:37)
[2022-05-06] MEDS: THIAMINE 100 MG TAB PO SCH (09:37)
[2022-05-06] MEDS: MULTIVITAMINS, THERA 1 EACH TAB PO SCH (09:37)
[2022-05-06] MEDS: PANTOPRAZOLE 40 MG/10 ML VIAL IV SCH (09:38)
[2022-05-06] MEDS: SERTRALINE 100 MG TAB PO SCH (09:38)
[2022-05-06] MEDS: FOLIC ACID 1 MG TAB PO SCH (09:39)
[2022-05-06] MEDS: NICOTINE 14MG/24HR PATCH TRANSDERM SCH (09:39)
[2022-05-06] MEDS: ENOXAPARIN 40 MG/0.4 ML SYRINGE SQ SCH (09:39)
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
[2022-05-06] MEDS: LORazepam 1 MG TAB PO SCH (20:04)
[2022-05-06] MEDS ORDERED: TEMAZEPAM 15 MG CAP PO SCH (21:00)
[2022-05-07] MEDS: SODIUM CHLORIDE 0.9% 1,000 ML IV SCH ×2 (04:15→08:58)
[2022-05-07] MEDS: NICOTINE 14MG/24HR PATCH TRANSDERM SCH (08:58)
[2022-05-07] MEDS: ACAMPROSATE CALCIUM 333 MG TABLET.DR PO SCH (08:59)
[2022-05-07] MEDS: LORazepam 1 MG TAB PO SCH (08:59)
[2022-05-07] MEDS: chlordiazePOXIDE 25 MG CAP PO SCH (09:00)
[2022-05-07] MEDS: SERTRALINE 100 MG TAB PO SCH (09:00)
[2022-05-07] MEDS: THIAMINE 100 MG TAB PO SCH (09:00)
[2022-05-07] MEDS: NALTREXONE HCL 50 MG TAB PO SCH (09:00)
[2022-05-07] MEDS: busPIRone HCl 10 MG TAB PO SCH (09:00)
[2022-05-07] MEDS: MULTIVITAMINS, THERA 1 EACH TAB PO SCH (09:00)
[2022-05-07] MEDS: FOLIC ACID 1 MG TAB PO SCH (09:01)
[2022-05-07] MEDS: ENOXAPARIN 40 MG/0.4 ML SYRINGE SQ SCH (09:01)
[2022-05-07 09:45] VITALS: RESP 17
[2022-05-07] MEDS: PANTOPRAZOLE 40 MG/10 ML VIAL IV SCH (10:26)
[2022-05-07] MEDS ORDERED: LORazepam 1 MG/0.5 ML VIAL IV PRN ×3 (11:16→11:17)
[2022-05-07 14:23] VITALS: BP 133/85; PULSE 102; TEMP 97.7
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
== END 2022-05-07 16:04 | disposition left against medical advice (07) | DRG 894 ==
LOC: EC 06:27 → 5NMEDONC 15:06 → 4SSUR 22:23 → 5NMEDONC 05-06 09:34 → 4SSUR 05-06 12:38
PROVIDERS: ADMIT Internal Medicine; ATTEND Internal Medicine
DX: F10.229 Alcohol dependence with intoxication, unspecified (principal); F10.239 Alcohol dependence with withdrawal, unspecified; D64.9 Anemia, unspecified; Z53.29 Procedure and treatment not carried out because of patient's decision for other reasons; Z20.822 Contact with and (suspected) exposure to COVID-19; F41.9 Anxiety disorder, unspecified; F22 Delusional disorders; F32.A Depression, unspecified; M19.90 Unspecified osteoarthritis, unspecified site; G47.00 Insomnia, unspecified; G62.9 Polyneuropathy, unspecified; G89.29 Other chronic pain; Z79.899 Other long term (current) drug therapy; Z91.199 Patient's noncompliance with other medical treatment and regimen due to unspecified reason; Z91.81 History of falling; Z71.41 Alcohol abuse counseling and surveillance of alcoholic
CPT/HCPCS: 36415; 80053; 80306; 81003; 82075; 85025; 87635; 96361; 96372; 96374; 96375; 96376; 99285

== ENCOUNTER 2022-05-08 12:53 | Observation (INO) | payer OTHER ==
[2022-05-08] MEDS ORDERED: SODIUM CHLORIDE 0.9% 1,000 ML IV ONE ×2 (13:16→14:37)
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
[2022-05-08 14:00] LABS: Basophils % (A) 1 %; Eosinophils # (A) 0.1 k/uL (0-0.7); Eosinophils % (A) 2 %; HCT 44.4 % (39.0-53.0); Lymphocytes # (A) 2.1 k/uL (1.0-4.8); Lymphocytes % (A) 37 %; MCH 30.2 pg (25.0-35.0); MCHC 33.8 g/dL (31.0-37.0); MCV 89.5 fL (80.0-100.0); Mean Platelet Volume 7.6; Monocytes # (A) 0.3 k/uL (0-1.0); Monocytes % (A) 4 %; Neutrophils # (A) 3.1 k/uL (1.3-7.7); Neutrophils % (A) 53 %; Platelet Count 198 k/uL (150-450); RBC 4.97 m/uL (4.30-5.90); RDW 15.4 % (11.5-15.5); WBC 5.8 k/uL (3.8-10.6)
[2022-05-08 14:01] LABS: ALT 25 U/L (4-49); AST 43 U/L (17-59); African American GFR (CKD) >90 (>60 ml/min/1.73 sqM); Albumin 4.1 g/dL (3.5-5.0); Alkaline Phosphatase 87 U/L (38-126); Anion Gap 12 mmol/L; Blood Urea Nitrogen 10 mg/dL (9-20); Calcium 8.6 mg/dL (8.4-10.2); Carbon Dioxide 26 mmol/L (22-30); Chloride 107 mmol/L (98-107); Glucose 80 mg/dL (74-99); Non-African American GFR(CKD) >90 (>60 ml/min/1.73 sqM); Potassium 4.1 mmol/L (3.5-5.1); Sodium 145 mmol/L (137-145); Total Bilirubin 0.4 mg/dL (0.2-1.3); Total Protein 6.9 g/dL (6.3-8.2)
[2022-05-08 14:11] LABS: Alcohol 349 mg/dL
[2022-05-08] MEDS ORDERED: THIAMINE 100 MG/ML 2 ML VIAL IM STA (14:38)
[2022-05-08] MEDS ORDERED: LORazepam 2 MG/ML INJ IV PRN (14:38)
[2022-05-08] MEDS ORDERED: NALOXONE 0.4 MG/ML 1 ML VIAL IV PRN (15:33)
[2022-05-08] MEDS ORDERED: ACETAMINOPHEN TAB 325 MG TAB PO PRN (15:33)
[2022-05-08] MEDS ORDERED: ONDANSETRON 4 MG/2 ML VIAL IVP PRN (15:33)
[2022-05-08] MEDS ORDERED: LORazepam 1 MG/0.5 ML VIAL IV PRN (15:34)
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
[2022-05-08] MEDS ORDERED: LORazepam 2 MG/ML INJ IV STA (16:09)
[2022-05-08] MEDS: NICOTINE 14MG/24HR PATCH TRANSDERM SCH (16:36)
[2022-05-08] MEDS: ACAMPROSATE CALCIUM 333 MG TABLET.DR PO SCH (16:40)
[2022-05-08] MEDS ORDERED: traZODone HCL 100 MG TAB PO SCH (21:00)
[2022-05-08] MEDS: busPIRone HCl 10 MG TAB PO SCH (22:22)
[2022-05-09] MEDS: HEPARIN SODIUM,PORCINE/PF 5,000 UNIT/0.5 ML SYRINGE SQ SCH ×2 (00:29→08:06)
[2022-05-09] MEDS: LORazepam 1 MG/0.5 ML VIAL IV PRN ×2 (00:29→07:17)
[2022-05-09] MEDS: ACAMPROSATE CALCIUM 333 MG TABLET.DR PO SCH ×2 (00:30→10:27)
[2022-05-09 06:42] VITALS: BP 126/79; RESP 19; TEMP 98
[2022-05-09] MEDS: NICOTINE 14MG/24HR PATCH TRANSDERM SCH (08:06)
[2022-05-09] MEDS: busPIRone HCl 10 MG TAB PO SCH (08:06)
[2022-05-09] MEDS ORDERED: FOLIC ACID 1 MG TAB PO SCH (09:00)
[2022-05-09] MEDS ORDERED: THIAMINE 100 MG TAB PO SCH ×2 (09:00)
[2022-05-09] MEDS ORDERED: NALTREXONE HCL 50 MG TAB PO SCH (09:00)
[2022-05-09] MEDS ORDERED: MULTIVITAMINS, THERA 1 EACH TAB PO SCH (09:00)
[2022-05-09] MEDS ORDERED: SERTRALINE 100 MG TAB PO SCH (09:00)
[2022-05-09 09:34] VITALS: PULSE 89
--- NOTE | 2022-05-09 10:07 | P.DS ---
Providers Date of admission: 05/08/22 14:37 Expected date of discharge: 05/09/22 Attending physician: Meenakshi Pendleton MD Primary care physician: Stated None Hospital Course: Discharge Diagnosis: Alcohol intoxication and an active alcoholic, patient monitored overnight and clinically sober at this time. He was encouraged to go to inpatient rehabilitation center but declined at this time. Patient strongly encouraged to avoid all alcohol use and was provided with information on local meetings, community resources, outpatient counseling services, and inpatient substance abuse facilities available to assist him. Depression, continue BuSpar, sertraline and trazodone Hospital Course: Patient is a 51-year-old male with a past medical history of alcohol abuse and depression. He presented to the emergency department on 05/09/22 with alcohol intoxication. Patient was found to have a serum alcohol level of 349 otherwise CBC and CMP were unremarkable. Patient denied having any suicidal or homicidal ideations or any other complaints during this stay. Patient underwent overnight monitoring with IV fluid hydration. He is clinically sober and reports that he is aware that he needs to stop drinking alcohol and was able to verbalize the risks of continued use up to and including . Patient reports he relapsed yesterday because he is worried about going to court tomorrow. Patient declined going to inpatient drug rehabilitation facility but was cooperative and requested outpatient resources available to him. Patient provided with these resources. Patient medically stable for discharge home at this time. Again patient strongly advise against any use of alcohol. Physical exam: Patient seen and examined at bedside. Vital signs reviewed and stable. General: Nontoxic, no distress and appears stated age. Derm: Skin warm and dry, normal coloration for ethnicity. Head: Atraumatic, normocephalic and symmetric. Eyes: EOMs intact, no lid lag, and anicteric sclera Mouth: no lip lesions, mucus membranes moist Cardiovascular: regular rate and rhythm with normal S1S2, no murmur, positive posterior tibial pulses bilaterally, and cap refill < 2 seconds. Lungs: Respirations even, regular, and unlabored on room air. Lungs CTA bilaterally, no rhonchi, no rales, no wheezing, and no accessory muscle usage. Abdominal: soft, nontender to palpation, no guarding, no appreciable organomegaly Ext: ROM intact. No gross muscle atrophy, no edema, no contractures Neuro: Speech clear, face symmetrical and CN II-XII grossly intact with no noted focal neuro deficits Psych: Alert and oriented to person, place, time, and situation. Appropriate and pleasant affect. A total of 35 minutes of time were spent preparing this complex discharge summary. Pt was discharged on 05/09/22 at 10:06 AM. Patient Condition at Discharge: Stable Plan - Discharge Summary Discharge Rx Participant: Yes New Discharge Prescriptions: Continue Folic Acid 1 mg PO DAILY 30 Days #30 tab Acamprosate Calcium [Campral] 666 mg PO TID 30 Days tab Ibuprofen [Motrin] 600 mg PO Q8H PRN 30 Days tab PRN Reason: Moderate To Severe Pain Nicotine 14Mg/24Hr Patch [Habitrol] 1 patch TRANSDERM DAILY 14 Days patch Multivitamins, Thera [Multivitamin (formulary)] 1 tab PO DAILY 30 Days tab Thiamine [Vitamin B-1] 100 mg PO DAILY 30 Days #30 tab busPIRone HCl [Buspar] 20 mg PO BID 30 Days tab traZODone HCL [Desyrel] 200 mg PO HS 30 Days tab Naltrexone HCl [Revia] 50 mg PO DAILY 30 Days tab Sertraline [Zoloft] 200 mg PO DAILY 30 Days tab Discharge Medication List Ibuprofen [Motrin] 600 mg PO Q8H PRN 30 Days tab 02/16/22 [Rx] Folic Acid 1 mg PO DAILY 30 Days #30 tab 03/30/22 [Rx] Multivitamins, Thera [Multivitamin (formulary)] 1 tab PO DAILY 30 Days tab 03/30/22 [Rx] Nicotine 14Mg/24Hr Patch [Habitrol] 1 patch TRANSDERM DAILY 14 Days patch 03/30/22 [Rx] Thiamine [Vitamin B-1] 100 mg PO DAILY 30 Days #30 tab 03/30/22 [Rx] Acamprosate Calcium [Campral] 666 mg PO TID 30 Days tab 05/02/22 [Rx] Naltrexone HCl [Revia] 50 mg PO DAILY 30 Days tab 05/02/22 [Rx] Sertraline [Zoloft] 200 mg PO DAILY 30 Days tab 05/02/22 [Rx] busPIRone HCl [Buspar] 20 mg PO BID 30 Days tab 05/02/22 [Rx] traZODone HCL [Desyrel] 200 mg PO HS 30 Days tab 05/02/22 [Rx] Follow up Appointment(s)/Referral(s): Lizandro Chaudhari MD [STAFF PHYSICIAN] - 05/18/22 11:15 am Patient Instructions/Handouts: Alcohol Intoxication (DC), Abuse of Alcohol (DC), Alcohol Withdrawal (DC) Discharge/Stand Alone Forms: AA Meetings [facility], Who Do I Call?, Community Resources, Outpatient Counseling, In Substance Abuse Facilities Discharge Disposition: HOME SELF-CARE
== END 2022-05-09 11:55 | disposition home or self-care (01) ==
LOC: EC 12:53 → INTOOBSV 14:37 → 5NMEDONC 14:37 → 4SSUR 17:11
PROVIDERS: ADMIT Family Medicine; ATTEND Family Medicine
DX: F10.129 Alcohol abuse with intoxication, unspecified (principal); R45.6 Violent behavior; R45.1 Restlessness and agitation; Z78.1 Physical restraint status; Y90.8 Blood alcohol level of 240 mg/100 ml or more; M19.90 Unspecified osteoarthritis, unspecified site; M47.819 Spondylosis without myelopathy or radiculopathy, site unspecified; G89.29 Other chronic pain; M54.50 Low back pain, unspecified; G62.9 Polyneuropathy, unspecified; F32.A Depression, unspecified; F41.9 Anxiety disorder, unspecified; F17.200 Nicotine dependence, unspecified, uncomplicated; Z79.899 Other long term (current) drug therapy; Z87.828 Personal history of other (healed) physical injury and trauma; Z86.16 Personal history of COVID-19; Z98.890 Other specified postprocedural states; Z82.0 Family history of epilepsy and other diseases of the nervous system; Z80.9 Family history of malignant neoplasm, unspecified
CPT/HCPCS: 96376; 96372; 96374; 99285; 36415; 80053; 83735 ×2; 85025; G0378 ×3; G0480; S4990 ×2; J2060 ×2; J1644; 80320

== ENCOUNTER 2022-05-10 09:37 | Inpatient (IN) | payer OTHER ==
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
[2022-05-10] MEDS ORDERED: THIAMINE 100 MG/ML 2 ML VIAL IM STA (19:43)
[2022-05-10] MEDS ORDERED: LORazepam 1 MG/0.5 ML VIAL IV PRN ×5 (19:43→23:03)
[2022-05-10] MEDS ORDERED: LORazepam 2 MG/ML INJ IV PRN ×3 (20:15→20:17)
[2022-05-10] MEDS ORDERED: NALOXONE 0.4 MG/ML 1 ML VIAL IV PRN (20:19)
[2022-05-10] MEDS ORDERED: ACETAMINOPHEN TAB 325 MG TAB PO PRN (20:19)
[2022-05-10] MEDS: chlordiazePOXIDE 25 MG CAP PO PRN (20:28)
[2022-05-10] MEDS: FAMOTIDINE 20 MG TAB PO SCH (23:17)
[2022-05-10] MEDS: SODIUM CHLORIDE 0.9% 1,000 ML IV SCH (23:18)
[2022-05-11] MEDS: LORazepam 1 MG/0.5 ML VIAL IV PRN ×3 (06:54→18:18)
[2022-05-11] MEDS: chlordiazePOXIDE 25 MG CAP PO PRN (08:59)
[2022-05-11] MEDS: FAMOTIDINE 20 MG TAB PO SCH ×2 (08:59→21:10)
[2022-05-11] MEDS: THIAMINE 100 MG TAB PO SCH ×2 (08:59→12:00)
[2022-05-11] MEDS ORDERED: NICOTINE 14MG/24HR PATCH TRANSDERM SCH (10:00)
[2022-05-11] MEDS ORDERED: LACTULOSE 20 GM/30 ML CUP PO PRN (10:41)
[2022-05-11] MEDS ORDERED: ONDANSETRON 4 MG/2 ML VIAL IVP PRN (10:41)
[2022-05-11] MEDS ORDERED: diazePAM 5 MG TAB PO SCH (10:45)
[2022-05-11 11:21] LABS: Amphetamine Screen,Urine Not Detected (NotDetected); Barbiturate Screen,Urine Not Detected (NotDetected); Benzodiazepines Screen,Urine Detected (NotDetected); Cocaine Screen,Urine Not Detected (NotDetected); Methadone Screen, Urine Not Detected (NotDetected); Opiate Screen,Urine Not Detected (NotDetected); Oxycodone Screen, Urine Not Detected (NotDetected); Phencyclidine Screen,Urine Not Detected (NotDetected); Tricyclic Antidepressant,Urine Not Detected (NotDetected); Urn Cannabinoid Scrn Not Detected (NotDetected)
[2022-05-11] MEDS: busPIRone HCl 10 MG TAB PO SCH ×2 (11:59→21:10)
[2022-05-11] MEDS: NICOTINE 21MG/24HR PATCH TRANSDERM SCH (11:59)
[2022-05-11] MEDS: FOLIC ACID 1 MG TAB PO SCH (11:59)
[2022-05-11] MEDS: ENOXAPARIN 40 MG/0.4 ML SYRINGE SQ SCH (11:59)
[2022-05-11] MEDS: PANTOPRAZOLE 40 MG TABLET PO SCH ×2 (11:59→18:18)
[2022-05-11] MEDS: METOPROLOL TARTRATE 12.5 MG TAB PO SCH ×3 (11:59→21:12)
[2022-05-11] MEDS: SERTRALINE 100 MG TAB PO SCH (12:00)
[2022-05-11] MEDS: CALCIUM CARBONATE LIQUID 500 MG/5 ML CUP PO SCH ×3 (12:00→21:13)
[2022-05-11] MEDS: MULTIVITAMINS, THERA 1 EACH TAB PO SCH (12:00)
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
[2022-05-11] MEDS: diazePAM 5 MG TAB PO SCH ×2 (18:18→21:10)
[2022-05-11] MEDS: traZODone HCL 100 MG TAB PO SCH (21:10)
[2022-05-11] MEDS: SODIUM CHLORIDE 0.9% 1,000 ML IV SCH (22:00)
[2022-05-12] MEDS: SODIUM CHLORIDE 0.9% 1,000 ML IV SCH ×2 (05:52→12:24)
[2022-05-12] MEDS: PANTOPRAZOLE 40 MG TABLET PO SCH ×2 (06:43→17:21)
[2022-05-12] MEDS: CALCIUM CARBONATE LIQUID 500 MG/5 ML CUP PO SCH ×4 (06:43→20:08)
[2022-05-12 07:59] LABS: Basophils % (A) 0 %; Eosinophils # (A) 0.2 k/uL (0-0.7); Eosinophils % (A) 3 %; HCT 40.4 % (39.0-53.0); HGB 13.5 gm/dL (13.0-17.5); Lymphocytes # (A) 1.7 k/uL (1.0-4.8); Lymphocytes % (A) 30 %; MCH 29.8 pg (25.0-35.0); MCHC 33.4 g/dL (31.0-37.0); MCV 89.3 fL (80.0-100.0); Mean Platelet Volume 8.5; Monocytes # (A) 0.3 k/uL (0-1.0); Monocytes % (A) 5 %; Neutrophils # (A) 3.3 k/uL (1.3-7.7); Neutrophils % (A) 60 %; Platelet Count 126 k/uL (150-450); RBC 4.52 m/uL (4.30-5.90); RDW 15.6 % (11.5-15.5); WBC 5.5 k/uL (3.8-10.6)
[2022-05-12 08:10] LABS: ALT 16 U/L (4-49); AST 23 U/L (17-59); African American GFR (CKD) >90 (>60 ml/min/1.73 sqM); Albumin 3.1 g/dL (3.5-5.0); Alkaline Phosphatase 84 U/L (38-126); Anion Gap 7 mmol/L; Blood Urea Nitrogen 13 mg/dL (9-20); Calcium 8.4 mg/dL (8.4-10.2); Carbon Dioxide 25 mmol/L (22-30); Chloride 107 mmol/L (98-107); Glucose 79 mg/dL (74-99); Non-African American GFR(CKD) >90 (>60 ml/min/1.73 sqM); Sodium 139 mmol/L (137-145); Total Bilirubin 0.6 mg/dL (0.2-1.3); Total Protein 5.4 g/dL (6.3-8.2)
[2022-05-12] MEDS: METOPROLOL TARTRATE 12.5 MG TAB PO SCH ×3 (08:55→20:09)
[2022-05-12] MEDS: FAMOTIDINE 20 MG TAB PO SCH ×2 (08:55→20:09)
[2022-05-12] MEDS: MULTIVITAMINS, THERA 1 EACH TAB PO SCH (08:55)
[2022-05-12] MEDS: busPIRone HCl 10 MG TAB PO SCH ×2 (08:55→20:09)
[2022-05-12] MEDS: NICOTINE 21MG/24HR PATCH TRANSDERM SCH (08:55)
[2022-05-12] MEDS: diazePAM 5 MG TAB PO SCH ×3 (08:55→20:09)
[2022-05-12] MEDS: ENOXAPARIN 40 MG/0.4 ML SYRINGE SQ SCH (08:55)
[2022-05-12] MEDS: FOLIC ACID 1 MG TAB PO SCH (08:55)
[2022-05-12] MEDS: THIAMINE 100 MG TAB PO SCH ×3 (08:55→10:52)
[2022-05-12] MEDS: SERTRALINE 100 MG TAB PO SCH (08:55)
[2022-05-12] MEDS: LORazepam 1 MG/0.5 ML VIAL IV PRN ×3 (09:04→22:05)
--- NOTE | 2022-05-12 17:12 | P.PN ---
Progress Note - Text Progress Note Date: 05/12/22 Chief Complaint: Alcohol problem This is a 51-year-old patient who follows with Dr. Whitlock. Long-standing problem with alcohol drinking. Has been to [facility]. Drinks [place].smokes a pack and a half a day of cigarettes. Patient has continued to drink. Drinking more and more. Currently stays in hotel rooms. Was asked to leave his girlfriend's place. Recently patient had several visits to ER. He also admitted twice. He presents to the ER needing psychiatry help. Is depressed. Having suicidal ideation. Continues to drink. Having tremors. Patient documented a pleasant had a petition. Has a sitter. Oral intake has been variable. Anxious. Admitted with acute alcohol withdrawals, major depression with suicidal ideation. Decreased appetite. 05/12/2022: Decreased appetite. Having significant tremors. Seen by psychiatry. Dose of Valium was increased by then. Discussed with patient. Encouraged to sit up in a chair. Has a sitter. Active Medications Acetaminophen (Acetaminophen Tab 325 Mg Tab) 650 mg PO Q6HR PRN PRN Reason: Mild Pain or Fever > 100.5 Buspirone HCl (Buspirone Hcl 10 Mg Tab) 20 mg PO BID [facility] Last Admin: 05/12/22 08:55 Dose: 20 mg Calcium Carbonate/Glycine (Calcium Carbonate Liquid 500 Mg/5 Ml Cup) 500 mg PO ACHS [facility] Last Admin: 05/12/22 15:32 Dose: 500 mg Diazepam (Diazepam 5 Mg Tab) 10 mg PO TID [facility] Last Admin: 05/12/22 15:32 Dose: 10 mg Enoxaparin Sodium (Enoxaparin 40 Mg/0.4 Ml Syringe) 40 mg SQ DAILY [facility] Last Admin: 05/12/22 08:55 Dose: 40 mg Famotidine (Famotidine 20 Mg Tab) 20 mg PO BID [facility] Last Admin: 05/12/22 08:55 Dose: 20 mg Folic Acid (Folic Acid 1 Mg Tab) 1 mg PO DAILY [facility] Last Admin: 05/12/22 08:55 Dose: 1 mg Sodium Chloride (Saline 0.9%) 1,000 mls @ 75 mls/hr IV .[id number] [facility] Last Admin: 05/12/22 12:24 Dose: Not Given Lactulose (Lactulose 20 Gm/30 Ml Cup) 20 gm PO DAILY PRN PRN Reason: Constipation Lorazepam (Lorazepam 1 Mg/0.5 Ml Vial) 1 mg IV Q2HR PRN PRN Reason: CIWA 8 or 9 Last Admin: 05/12/22 15:36 Dose: 1 mg Lorazepam (Lorazepam 1 Mg/0.5 Ml Vial) 1 mg IV Q1HR PRN PRN Reason: CIWA 10 to 15 Last Admin: 05/12/22 00:54 Dose: 1 mg Metoprolol Tartrate (Metoprolol Tartrate 12.5 Mg Tab) 12.5 mg PO TID [facility] Last Admin: 05/12/22 15:32 Dose: 12.5 mg Multivitamins (Multivitamins, Thera 1 Each Tab) 1 each PO DAILY [facility] Last Admin: 05/12/22 08:55 Dose: 1 each Naloxone HCl (Naloxone 0.4 Mg/Ml 1 Ml Vial) 0.2 mg IV Q2M PRN PRN Reason: Opioid Reversal Nicotine (Nicotine 21mg/24hr Patch) 1 patch TRANSDERM DAILY [facility] Last Admin: 05/12/22 08:55 Dose: 1 patch Ondansetron HCl (Ondansetron 4 Mg/2 Ml Vial) 4 mg IVP Q8HR PRN PRN Reason: Nausea And Vomiting Pantoprazole Sodium (Pantoprazole 40 Mg Tablet) 40 mg PO AC-BID [facility] Last Admin: 05/12/22 06:43 Dose: 40 mg Sertraline HCl (Sertraline 100 Mg Tab) 200 mg PO DAILY [facility] Last Admin: 05/12/22 08:55 Dose: 200 mg Thiamine HCl (Thiamine 100 Mg Tab) 100 mg PO DAILY [facility] Last Admin: 05/12/22 10:51 Dose: 100 mg Thiamine HCl (Thiamine 100 Mg Tab) 100 mg PO DAILY [facility] Last Admin: 05/12/22 10:52 Dose: 100 mg Trazodone HCl (Trazodone Hcl 100 Mg Tab) 200 mg PO HS [facility] Last Admin: 05/11/22 21:10 Dose: 200 mg Past medical history to include: Alcohol use disorder, anxiety, smoking Social history: smokes pack and half cigarettes a day. drinking bourbon a day. Lives with his girlfriend Franca Family history: Reviewed, noncontributory to presentation Physical examination: VITAL SIGNS: 98, 73, 16, 10 1 x 6 55, 97% room air GENERAL: laying in bed, remains anxious EYES: Pupils equal. Conjunctiva normal. HEENT: External appearance of nose and ears normal, oral cavity grossly normal. NECK: JVD not raised; masses not palpable. HEART: First and second heart sounds are normal; no edema. LUNGS: Respiratory rate normal; decreased breath sounds. ABDOMEN: Soft, nontender, liver spleen not palpable, no masses palpable. PSYCH: Alert and oriented x3; mood and affect very anxious MUSCULOSKELETAL:No Clubbing/cyanosis;muscles-grossly intact NEUROLOGICAL: Significant tremors INVESTIGATIONS, reviewed in the clinical context: May 12: No obesity 5.5 hemoglobin 13.5 platelets 126 potassium 4.0 creatinine 0.73 Urine culture positive for benzodiazepine. COVID 19: Not detected Assessment and plan: -Alcohol withdrawal syndrome manifesting as tremors and anxiety.: Slow to respond CIWA scale. Valium increased to 10 mg every 8. Lopressor -GERD Protonix -Acute on chronic gastritis from alcohol intake Tums, GERD -Chronic nicotine dependence, cigarette smoker Nicotine patch -Major depressive disorder without psychotic features. Accepted to inpatient psychiatry. Andrew Doe -Alcohol use disorder Has been a [facility] before. Consult. manager of housekeeping. -Suicidal ideation. Sitter. Patient been accepted to [facility] Patient dose of Valium increased. Other medications to continue. Encourage oral intake. Patient been accepted to [facility] Sitter to continue. We will watch for another 24 hours to make sure patient is stable to go to [facility].
[2022-05-12] MEDS: traZODone HCL 100 MG TAB PO SCH (20:09)
[2022-05-13] MEDS: SODIUM CHLORIDE 0.9% 1,000 ML IV SCH ×2 (02:35→11:37)
[2022-05-13] MEDS: CALCIUM CARBONATE LIQUID 500 MG/5 ML CUP PO SCH ×4 (06:31→20:43)
[2022-05-13] MEDS: PANTOPRAZOLE 40 MG TABLET PO SCH ×2 (06:31→16:40)
[2022-05-13] MEDS: diazePAM 5 MG TAB PO SCH ×3 (08:07→20:39)
[2022-05-13] MEDS: METOPROLOL TARTRATE 12.5 MG TAB PO SCH ×3 (08:07→20:43)
[2022-05-13] MEDS: ENOXAPARIN 40 MG/0.4 ML SYRINGE SQ SCH (08:07)
[2022-05-13] MEDS: busPIRone HCl 10 MG TAB PO SCH ×2 (08:07→20:43)
[2022-05-13] MEDS: FAMOTIDINE 20 MG TAB PO SCH ×2 (08:07→20:43)
[2022-05-13] MEDS: MULTIVITAMINS, THERA 1 EACH TAB PO SCH (08:07)
[2022-05-13] MEDS: FOLIC ACID 1 MG TAB PO SCH (08:07)
[2022-05-13] MEDS: NICOTINE 21MG/24HR PATCH TRANSDERM SCH (08:07)
[2022-05-13] MEDS: SERTRALINE 100 MG TAB PO SCH (08:07)
[2022-05-13] MEDS: THIAMINE 100 MG TAB PO SCH (08:07)
[2022-05-13] MEDS: LORazepam 1 MG/0.5 ML VIAL IV PRN ×3 (08:13→23:31)
--- NOTE | 2022-05-13 16:52 | P.PN ---
Subjective Progress Note Date: 05/13/22 This is a 51-year-old patient who follows with Dr. Whitlock. Long-standing problem with alcohol drinking. Has been to [place]. Drinks [place].smokes a pack and a half a day of cigarettes. Patient has continued to drink. Drinking more and more. Currently stays in hotel rooms. Was asked to leave his girlfriend's place. Recently patient had several visits to ER. He also admitted twice. He presents to the ER needing psychiatry help. Is depressed. Having suicidal ideation. Continues to drink. Having tremors. Patient documented a pleasant had a petition. Has a sitter. Oral intake has been variable. Anxious. Admitted with acute alcohol withdrawals, major depression with suicidal alyson ation. Decreased appetite. 05/12/2022: Decreased appetite. Having significant tremors. Seen by arminda haile. Dose of Valium was increased by then. Discussed with patient. Encouraged to sit up in a chair. Has a sitter. 05/13/2022 Patient is seen today on CIWA protocol for alcohol withdrawal and received ativan this am. Patient to be seen by psychiatry. Patient is reporting some increased shaking and uneasy feeling. Patient is afebrile and denies chest pain or shortness of breath. Suicide precautions. Physical examination: GENERAL: laying in bed, remains anxious EYES: Pupils equal. Conjunctiva normal. HEENT: External appearance of nose and ears normal, oral cavity grossly normal. NECK: JVD not raised; masses not palpable. HEART: S1, S2 muffled no edema. LUNGS: Respiratory rate normal; decreased breath sounds with some scattered rhonchi noted. ABDOMEN: Soft, nontender, liver spleen not palpable, no masses palpable. PSYCH: Alert and oriented x3; mood and affect- anxious MUSCULOSKELETAL:No Clubbing/cyanosis;muscles-grossly intact NEUROLOGICAL: Significant tremors Assessment: -Alcohol withdrawal syndrome manifesting as tremors and anxiety. -GERD -Acute on chronic gastritis from alcohol intake -Chronic nicotine dependence, cigarette smoker -Major depressive disorder without psychotic features. Accepted to inpatient psychiatry. -Alcohol use disorder -Suicidal ideation. Sitter. Patient been accepted to [facility]. Plan: Recommend to monitor for signs of withdrawal and continue CIAZ protocol Being followed by psychiatry and will go to [facility] once medically stable Encourage oral intake Encouraged increased activity as tolerated We will monitor for another 24 hours with possible transfer to [facility]. Prognosis is guarded. Continue sitter at bedside The impression and plan of care has been dictated as a scribe by Azra Haney, nurse practitioner as directed. Dr. Luciano MD I have performed a history and examination and MDM of this patient, discussed the same with the dictator, and has been documented as a scribe. Based on total visit time, I have performed more than 50% of the visit. Any additional findings or plans will be noted. Objective - Vital Signs Vital signs: Vital Signs Temp 97.9 F 05/13/22 08:00 Pulse 82 05/13/22 08:00 Resp 16 05/13/22 08:00 BP 111/72 05/13/22 08:00 Pulse Ox 97 05/13/22 08:00 FiO2 Intake & Output 05/12/22 05/13/22 05/13/22 18:59 06:59 18:59 Intake Total 240 325 Balance 240 325 Intake: Intake, IV Titration 75 Amount Sodium Chloride 0.9% 1, 75 000 ml @ 75 mls/hr IV . [id number] [facility]ADI Rx#:[id number] Oral 240 250 Other: # Voids 2 - Labs CBC & Chem 7: 05/12/22 07:30 05/12/22 07:30
[2022-05-13] MEDS: traZODone HCL 100 MG TAB PO SCH (20:43)
[2022-05-14] MEDS: SODIUM CHLORIDE 0.9% 1,000 ML IV SCH (05:16)
[2022-05-14] MEDS: PANTOPRAZOLE 40 MG TABLET PO SCH (06:16)
[2022-05-14] MEDS: CALCIUM CARBONATE LIQUID 500 MG/5 ML CUP PO SCH ×2 (06:16→11:29)
[2022-05-14] MEDS ORDERED: LORazepam 1 MG TAB PO PRN (07:26)
[2022-05-14] MEDS: diazePAM 5 MG TAB PO SCH ×2 (08:16→15:31)
[2022-05-14] MEDS: busPIRone HCl 10 MG TAB PO SCH (08:16)
[2022-05-14] MEDS: ENOXAPARIN 40 MG/0.4 ML SYRINGE SQ SCH (08:16)
[2022-05-14] MEDS: MULTIVITAMINS, THERA 1 EACH TAB PO SCH (08:16)
[2022-05-14] MEDS: FAMOTIDINE 20 MG TAB PO SCH (08:16)
[2022-05-14] MEDS: METOPROLOL TARTRATE 12.5 MG TAB PO SCH ×2 (08:17→15:31)
[2022-05-14] MEDS: NICOTINE 21MG/24HR PATCH TRANSDERM SCH (08:17)
[2022-05-14] MEDS: SERTRALINE 100 MG TAB PO SCH (08:17)
[2022-05-14] MEDS: THIAMINE 100 MG TAB PO SCH ×2 (08:17→09:42)
[2022-05-14] MEDS: FOLIC ACID 1 MG TAB PO SCH (08:17)
[2022-05-14 09:47] VITALS: TEMP 98.2
[2022-05-14 11:55] VITALS: BP 96/58; PULSE 75; RESP 18
--- NOTE | 2022-05-14 14:19 | P.DS ---
Providers Date of admission: 05/11/22 15:55 Expected date of discharge: 05/14/22 Attending physician: Ramu Archibald Consults: 05/10/22 20:19 Consult Physician Routine Consulting Provider: Teo Cortez Consult Reason/Comments: Alcohol withdrawal. Mood disorder. Do you want consulting provider notified?: Yes Primary care physician: Physician Nonstaff Hospital Course: Final Diagnosis -Alcohol withdrawal syndrome manifesting as tremors and anxiety. -GERD -Acute on chronic gastritis from alcohol intake -Chronic nicotine dependence, cigarette smoker -Major depressive disorder without psychotic features. -Alcohol use disorder -Suicidal ideation. Discharge disposition Patient is being transferred in a stable condition with guarded prognosis to [facility] psych unit. Patient will follow-up with his pcp in the outpatient setting upon discharge. Patient is to continue with short librium taper. Total time taken is greater than 35 minutes. Hospital course This is an 51-year-old male who was recently admitted with acute alcohol withdrawal along with suicidal ideation and was being closely monitored. Psychiatry evaluated the patient and meets criteria for the inpatient psychiatric unit for further evaluation. Patient was continued on CIWA and has started librium taper. Patient is medically stable for transfer to [facility] today. Currently no reports of chest pain, shortness of breath, or palpitations. Patient is afebrile. No reports of nausea or vomiting and patient is tolerating diet. Patient will be transferred today. Guarded prognosis. On exam vital signs are stable. Cardio S1, S2 are muffled. Respiratory system shows diminished breath sounds at the bases with no wheezing or rhonchi noted. Abdomen is soft and nontender. Nervous system shows no focal deficits. Please refer to medication reconciliation sheet for a list of medications. The impression and plan of care has been dictated as a scribe by Azra Haney, Nurse Practitioner as directed. Dr. Luciano MD I have performed a history and examination and MDM of this patient, discussed the same with the dictator, and will be documented as a scribe. Based on total visit time, I have performed more than 50% of the visit. Patient Condition at Discharge: Fair Plan - Discharge Summary Discharge Rx Participant: No New Discharge Prescriptions: New chlordiazePOXIDE HCl [Librium] 10 mg PO TID cap Metoprolol Tartrate [Lopressor] 12.5 mg PO TID tab Famotidine [Pepcid] 20 mg PO BID tab Pantoprazole [Protonix] 40 mg PO AC-BID tab LORazepam [Ativan] 1 mg PO Q8HR PRN tab PRN Reason: Anxiety Lactulose [Cephulac] 20 gm PO DAILY PRN ml PRN Reason: Constipation Nicotine 21Mg/24Hr Patch [Habitrol] 1 patch TRANSDERM DAILY patch Acetaminophen Tab [Tylenol] 650 mg PO Q6HR PRN tab PRN Reason: Mild Pain Or Fever > 100.5 Continue Folic Acid 1 mg PO DAILY 30 Days #30 tab Acamprosate Calcium [Campral] 666 mg PO TID 30 Days tab Ibuprofen [Motrin] 600 mg PO Q8H PRN 30 Days tab PRN Reason: Moderate To Severe Pain Multivitamins, Thera [Multivitamin (formulary)] 1 tab PO DAILY 30 Days tab Thiamine [Vitamin B-1] 100 mg PO DAILY 30 Days #30 tab busPIRone HCl [Buspar] 20 mg PO BID 30 Days tab traZODone HCL [Desyrel] 200 mg PO HS 30 Days tab Sertraline [Zoloft] 200 mg PO DAILY 30 Days tab Discontinued Nicotine 14Mg/24Hr Patch [Habitrol] 1 patch TRANSDERM DAILY 14 Days patch Naltrexone HCl [Revia] 50 mg PO DAILY 30 Days tab Discharge Medication List Ibuprofen [Motrin] 600 mg PO Q8H PRN 30 Days tab 02/16/22 [Rx] Folic Acid 1 mg PO DAILY 30 Days #30 tab 03/30/22 [Rx] Multivitamins, Thera [Multivitamin (formulary)] 1 tab PO DAILY 30 Days tab 03/30/22 [Rx] Thiamine [Vitamin B-1] 100 mg PO DAILY 30 Days #30 tab 03/30/22 [Rx] Acamprosate Calcium [Campral] 666 mg PO TID 30 Days tab 05/02/22 [Rx] Sertraline [Zoloft] 200 mg PO DAILY 30 Days tab 05/02/22 [Rx] busPIRone HCl [Buspar] 20 mg PO BID 30 Days tab 05/02/22 [Rx] traZODone HCL [Desyrel] 200 mg PO HS 30 Days tab 05/02/22 [Rx] Acetaminophen Tab [Tylenol] 650 mg PO Q6HR PRN tab 05/14/22 [Rx] Famotidine [Pepcid] 20 mg PO BID tab 05/14/22 [Rx] LORazepam [Ativan] 1 mg PO Q8HR PRN tab 05/14/22 [Rx] Lactulose [Cephulac] 20 gm PO DAILY PRN ml 05/14/22 [Rx] Metoprolol Tartrate [Lopressor] 12.5 mg PO TID tab 05/14/22 [Rx] Nicotine 21Mg/24Hr Patch [Habitrol] 1 patch TRANSDERM DAILY patch 05/14/22 [Rx] Pantoprazole [Protonix] 40 mg PO AC-BID tab 05/14/22 [Rx] chlordiazePOXIDE HCl [Librium] 10 mg PO TID cap 05/14/22 [Rx] Follow up Appointment(s)/Referral(s): Nonstaff,Physician [Primary Care Provider] - 1-2 days Activity/Diet/Wound Care/Special Instructions: Ok to transfer to [address] [place] [address] when a bed is available activity as tolerated continue current diet continue meds as prescribed Continue librium taper Discharge Disposition: TRANSFER TO PSYCH HOSP/UNIT
== END 2022-05-14 15:48 | DRG 897 ==
LOC: EC 09:37 → 3SCARD 20:19 → OBSVTOIN 05-11 15:55
PROVIDERS: ADMIT Hospitalist; ATTEND Hospitalist
PROC: HZ2ZZZZ Detoxification Services for Substance Abuse Treatment (ICD-10-PCS; principal; 2022-05-11)
DX: F10.231 Alcohol dependence with withdrawal delirium (principal); R45.851 Suicidal ideations; F10.239 Alcohol dependence with withdrawal, unspecified; Z20.822 Contact with and (suspected) exposure to COVID-19; F32.A Depression, unspecified; K29.00 Acute gastritis without bleeding; G62.9 Polyneuropathy, unspecified; M19.90 Unspecified osteoarthritis, unspecified site; K21.9 Gastro-esophageal reflux disease without esophagitis; K59.00 Constipation, unspecified; G89.29 Other chronic pain; K29.50 Unspecified chronic gastritis without bleeding; M54.50 Low back pain, unspecified; F41.9 Anxiety disorder, unspecified; F17.210 Nicotine dependence, cigarettes, uncomplicated; Z79.899 Other long term (current) drug therapy; Z86.16 Personal history of COVID-19; Z81.8 Family history of other mental and behavioral disorders; Z80.9 Family history of malignant neoplasm, unspecified
CPT/HCPCS: 80053; 80306; 82075; 85025; 87635; 96374; 99285

== ENCOUNTER 2022-05-14 14:51 | Inpatient (IN) | payer MEDICAID, OTHER ==
[2022-05-14] MEDS ORDERED: MAG HYDROX/AL HYDROX/SIMETH 30 ML CUP PO PRN (15:07)
[2022-05-14] MEDS ORDERED: MAGNESIUM HYDROXIDE 2,400 MG/10 ML CUP PO PRN (15:07)
[2022-05-14] MEDS ORDERED: ACETAMINOPHEN TAB 325 MG TAB PO PRN (15:07)
[2022-05-14] MEDS ORDERED: IBUPROFEN 600 MG TAB PO PRN (15:10)
[2022-05-14] MEDS ORDERED: LACTULOSE 20 GM/30 ML CUP PO PRN (15:10)
[2022-05-14] MEDS ORDERED: haloperidoL 5 MG TAB PO PRN (15:29)
[2022-05-14] MEDS ORDERED: HALOPERIDOL LACTATE 5 MG/ML 1 ML VIAL IM PRN (15:29)
[2022-05-14] MEDS ORDERED: LORazepam 1 MG/0.5 ML VIAL IM PRN (15:29)
[2022-05-14] MEDS: METOPROLOL TARTRATE 12.5 MG TAB PO SCH ×2 (15:39→21:35)
[2022-05-14] MEDS: PANTOPRAZOLE 40 MG TABLET PO SCH (17:16)
[2022-05-14] MEDS: ACAMPROSATE CALCIUM 333 MG TABLET.DR PO SCH ×2 (17:16→21:35)
[2022-05-14] MEDS: busPIRone HCl 10 MG TAB PO SCH (20:21)
[2022-05-14] MEDS: FAMOTIDINE 20 MG TAB PO SCH (20:21)
[2022-05-14] MEDS: LORazepam 1 MG TAB PO PRN (20:46)
[2022-05-14] MEDS ORDERED: traZODone HCL 100 MG TAB PO SCH (21:00)
[2022-05-15] MEDS: ACAMPROSATE CALCIUM 333 MG TABLET.DR PO SCH ×3 (08:48→21:23)
[2022-05-15] MEDS: FOLIC ACID 1 MG TAB PO SCH (08:48)
[2022-05-15] MEDS: MULTIVITAMINS, THERA 1 EACH TAB PO SCH (08:49)
[2022-05-15] MEDS: METOPROLOL TARTRATE 12.5 MG TAB PO SCH ×3 (08:49→21:23)
[2022-05-15] MEDS: busPIRone HCl 10 MG TAB PO SCH ×2 (08:49→21:22)
[2022-05-15] MEDS: THIAMINE 100 MG TAB PO SCH (08:50)
[2022-05-15] MEDS: PANTOPRAZOLE 40 MG TABLET PO SCH ×2 (08:50→17:53)
[2022-05-15] MEDS: NICOTINE 14MG/24HR PATCH TRANSDERM SCH (08:52)
[2022-05-15] MEDS ORDERED: SERTRALINE 100 MG TAB PO SCH (09:00)
[2022-05-15 10:46] LABS: ALT 17 U/L (4-49); AST 24 U/L (17-59); Albumin 3.8 g/dL (3.5-5.0); Alkaline Phosphatase 80 U/L (38-126); Bilirubin, Delta 0.3 mg/dL (0.0-0.2); Bilirubin,Unconjugated 0.3 mg/dL (0.0-1.1); Total Bilirubin 0.6 mg/dL (0.2-1.3); Total Protein 6.5 g/dL (6.3-8.2)
[2022-05-15] MEDS: FAMOTIDINE 20 MG TAB PO SCH (13:05)
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
[2022-05-15] MEDS: CEPHALEXIN 500 MG CAP PO SCH ×3 (14:57→21:22)
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
[2022-05-15 16:11] LABS: LDL Cholesterol,Calculated 98.4 mg/dL (0.0-131.0)
[2022-05-15] MEDS: LORazepam 1 MG TAB PO PRN (20:46)
[2022-05-15] MEDS: MIRTAZAPINE 15 MG TAB PO SCH (21:22)
--- NOTE | 2022-05-16 08:49 | HP ---
HISTORY AND PHYSICAL HISTORY OF PRESENT ILLNESS: This 30-year-old gentleman with past medical history of no significant medical issues, apparently had issues with girlfriend, and then the patient apparently had significant alcohol intake and was complaining of hallucinations and paranoid behavior and was taken to [facility] and admitted for further evaluation and treatment. The patient had multiple other previous episodes of alcoholic hepatitis. The ETOH level is not available. There is no history of any fever, rigors, or chills at this time. PAST MEDICAL HISTORY: . HOME MEDICATIONS: None. ALLERGIES: None. FAMILY HISTORY: SOCIAL HISTORY: no history of smoking. REVIEW OF SYSTEMS: A 14-point review of systems is negative except as mentioned earlier. PHYSICAL EXAMINATION: VITAL SIGNS: Pulse 78, blood pressure , respirations 16. CHEST: Clear to auscultation. CARDIOVASCULAR: S1, S2 JOINTS: No active deforming arthropathy. LYMPHATICS: HEENT: Normal. LABORATORY DATA: . The rest of the labs noted. ASSESSMENT: 1. Possible acute alcohol withdrawl syndrome, early delirium tremens. 2. Alcoholic hepatitis. 3. Mild thrombocytopenia secondary to alcoholism. RECOMMENDATIONS AND DISCUSSION: This is a 30-year-old gentleman, who presented with multiple medical problems. We will monitor the patient closely. Continue with CIWA protocol. Psychiatric consultation. Increase ambulation. Supplement vitamins. Prognosis guarded because of multiple complex medical issues. Further recommendations to follow. Discussed with the patient. See orders for further details. MMODL / IJN: [id number] /
[2022-05-16] MEDS ORDERED: SERTRALINE 50 MG TAB PO SCH (09:00)
[2022-05-16] MEDS: NICOTINE 14MG/24HR PATCH TRANSDERM SCH (09:02)
[2022-05-16] MEDS: PANTOPRAZOLE 40 MG TABLET PO SCH ×2 (09:02→17:38)
[2022-05-16] MEDS: busPIRone HCl 10 MG TAB PO SCH ×2 (09:02→20:36)
[2022-05-16] MEDS: THIAMINE 100 MG TAB PO SCH (09:02)
[2022-05-16] MEDS: FOLIC ACID 1 MG TAB PO SCH (09:02)
[2022-05-16] MEDS: CEPHALEXIN 500 MG CAP PO SCH ×4 (09:02→20:37)
[2022-05-16] MEDS: ACAMPROSATE CALCIUM 333 MG TABLET.DR PO SCH ×3 (09:03→21:15)
[2022-05-16] MEDS: VENLAFAXINE HCL ER 75 MG CAP PO SCH (09:03)
[2022-05-16] MEDS: METOPROLOL TARTRATE 12.5 MG TAB PO SCH ×3 (09:03→21:15)
[2022-05-16] MEDS: MULTIVITAMINS, THERA 1 EACH TAB PO SCH (09:03)
--- NOTE | 2022-05-16 11:34 | P.PN ---
Progress Note - Text Progress Note Date: 05/16/22 Interval History: Patient was seen wandering the hallways and was directable and agreeable to arcenio aceves with sba underwriter in the office. Patient claims that he has some moderate levels of anxiety during the day. He claims that he feels embarrassed being back on the unit due to his relapse on alcohol and also his depression and anxiety. He states that he does not know what he wants to do once he leaves. He claims that he wants to get connected with the [facility] for other treatment options. We spoke about options for rehab which she is still unsure about. He states that he is been having intractable hiccups for the past 2-1/2 days and was requesting treatment for her. We spoke about using Thorazine which she is okay with. He claims that he was able to sleep much better last night on the Remeron and states that he wasn't sleeping well with the trazodone. He claims that he has been going to groups and trying to participate. Continue to be fairly polite and cooperative. At this time patient denies any suicidal or homical ideations, intent or plan. Patient denies any auditory, visual hallucinations and denies any paranoia or delusions. Patient denies any side effects from the medications and has been compliant with meds. Mental Status Exam: General Appearance: Patient appears to be slender, shaven adult male, with fair hygiene and grooming, dressed in casual attire. Behavior: Patient is seated without any agitated behavior. Cooperative Speech: Patient's speech is fluent and non-pressured. Hesitant. Mood/Affect: Patient reports their mood is "a bit better but still anxious", affect is congruent and constricted. Suicidality/Homicidality: Patient denies having any homicidal ideation intent or plan. Denies any suicidal ideation, intent or plan currently. Perceptions: Patient denies any visual hallucinations and denies any auditory hallucinations. Though content/process: There is no evidence of any delusional thought content and thought process is ruminative. Memory and concentration: AOX3, grossly intact for the purposes of this session Judgment and insight: Poor, improving mildly IMPRESSIONS: Major depressive disorder, recurrent, severe without psychotic features Unspecified anxiety disorder Alcohol use disorder, severe, dependence intractable hiccups Nicotine dependence Plan: -Patient continues to meet criteria for inpatient psychiatric admission for symptom stabilization and safety. Patient has signed adult voluntary form and medication consent and was placed in patient's chart. -Medications: Effexor XR 75 mg QAM for depression/anxiety, Remeron 15 mg QHS tonight for depression/sleep. Continue Buspar 20 mg BID for anxiety. Campral 666 mg TID for alcoholism. added thorazine 25 mg po tid for intractable hiccups. -When necessary Ativan and Haldol for agitation/aggression. -NRT - nicotine patch -SW on board for discharge planning. Encouraged the patient to participate in milieu. patient is currently on an CRIS. will look into other etoh use treamtent otpions and potentially [facility].
[2022-05-16] MEDS: chlorproMAZINE 25 MG TAB PO SCH ×3 (12:10→20:38)
[2022-05-16] MEDS: MIRTAZAPINE 15 MG TAB PO SCH (20:36)
[2022-05-17] MEDS: PANTOPRAZOLE 40 MG TABLET PO SCH ×2 (08:55→18:04)
[2022-05-17] MEDS: THIAMINE 100 MG TAB PO SCH (08:55)
[2022-05-17] MEDS: MULTIVITAMINS, THERA 1 EACH TAB PO SCH (08:55)
[2022-05-17] MEDS: NICOTINE 14MG/24HR PATCH TRANSDERM SCH (08:55)
[2022-05-17] MEDS: busPIRone HCl 10 MG TAB PO SCH ×2 (08:55→20:38)
[2022-05-17] MEDS: FOLIC ACID 1 MG TAB PO SCH (08:55)
[2022-05-17] MEDS: CEPHALEXIN 500 MG CAP PO SCH ×4 (08:55→20:38)
[2022-05-17] MEDS: VENLAFAXINE HCL ER 75 MG CAP PO SCH (08:55)
[2022-05-17] MEDS: chlorproMAZINE 25 MG TAB PO SCH ×3 (08:55→20:37)
[2022-05-17] MEDS: METOPROLOL TARTRATE 12.5 MG TAB PO SCH ×3 (08:56→20:37)
[2022-05-17] MEDS: ACAMPROSATE CALCIUM 333 MG TABLET.DR PO SCH ×3 (08:57→20:37)
--- NOTE | 2022-05-17 10:20 | P.PN ---
Progress Note - Text Progress Note Date: 05/17/22 Interval History: Patient was seen in taking part in groups today and was directable and agreeable to speak with pattern chart writer in the office. The patient claims that he is feeling a bit better today. He claimed that the hiccups are "almost gone". He states that the medications have been making him feel "more evened out". He states that his anxiety is still moderate and depression has been improving. He continues to be fairly polite and directable during interview. He states that he was able to sleep without better last night. Claims that he has been going to groups. He states that he would be interested in going to [facility] for rehab. At this time patient denies any suicidal or homical ideations, intent or plan. Patient denies any auditory, visual hallucinations and denies any paranoia or delusions. Patient denies any side effects from the medications and has been compliant with meds. Mental Status Exam: General Appearance: Patient appears to be slender, shaven adult male, with fair hygiene and grooming, dressed in casual attire. Behavior: Patient is seated without any agitated behavior. Cooperative Speech: Patient's speech is fluent and non-pressured. Hesitant. Mood/Affect: Patient reports their mood is "better but kind of anxious", affect is congruent and constricted. Suicidality/Homicidality: Patient denies having any homicidal ideation intent or plan. Denies any suicidal ideation, intent or plan currently. Perceptions: Patient denies any visual hallucinations and denies any auditory hallucinations. Though content/process: There is no evidence of any delusional thought content and thought process is ruminative. Memory and concentration: AOX3, grossly intact for the purposes of this session Judgment and insight: Poor, improving mildly IMPRESSIONS: Major depressive disorder, recurrent, severe without psychotic features Unspecified anxiety disorder Alcohol use disorder, severe, dependence intractable hiccups Nicotine dependence Plan: -Patient continues to meet criteria for inpatient psychiatric admission for symptom stabilization and safety. Patient has signed adult voluntary form and medication consent and was placed in patient's chart. -Medications: increase Effexor XR 150 mg QAM for depression/anxiety, Remeron 15 mg QHS tonight for depression/sleep. increase Buspar 30 mg BID for anxiety, Campral 666 mg TID for alcoholism, continue thorazine 25 mg po tid for intractable hiccups for one more day then decrease. -When necessary Ativan and Haldol for agitation/aggression. -NRT - nicotine patch -SW on board for discharge planning. Encouraged the patient to participate in milieu. patient is currently on an CRIS. will look into sending pt to [facility] for rehab.
[2022-05-17 10:57] LABS: Anisocytosis Slight; Basophils % (A) 1 %; Eosinophils # (A) 0.2 k/uL (0-0.7); Eosinophils % (A) 2 %; HCT 42.5 % (39.0-53.0); HGB 13.7 gm/dL (13.0-17.5); Hypochromasia Slight; Lymphocytes # (A) 1.5 k/uL (1.0-4.8); Lymphocytes % (A) 20 %; MCH 29.6 pg (25.0-35.0); MCHC 32.2 g/dL (31.0-37.0); MCV 91.9 fL (80.0-100.0); Mean Platelet Volume 8.3; Monocytes # (A) 0.8 k/uL (0-1.0); Monocytes % (A) 10 %; Neutrophils % (A) 66 %; Platelet Count 184 k/uL (150-450); RBC 4.62 m/uL (4.30-5.90); RDW 16.2 % (11.5-15.5); WBC 7.6 k/uL (3.8-10.6)
[2022-05-17 11:16] LABS: ALT 19 U/L (4-49); AST 26 U/L (17-59); African American GFR (CKD) >90 (>60 ml/min/1.73 sqM); Alkaline Phosphatase 80 U/L (38-126); Anion Gap 12 mmol/L; Blood Urea Nitrogen 21 mg/dL (9-20); Calcium 9.3 mg/dL (8.4-10.2); Carbon Dioxide 27 mmol/L (22-30); Chloride 99 mmol/L (98-107); Glucose 76 mg/dL (74-99); Non-African American GFR(CKD) >90 (>60 ml/min/1.73 sqM); Potassium 4.5 mmol/L (3.5-5.1); Sodium 138 mmol/L (137-145); Total Bilirubin 0.4 mg/dL (0.2-1.3); Total Protein 6.8 g/dL (6.3-8.2)
[2022-05-17] MEDS: LORazepam 1 MG TAB PO PRN (12:38)
[2022-05-17] MEDS: MIRTAZAPINE 15 MG TAB PO SCH (20:38)
[2022-05-18] MEDS: NICOTINE 14MG/24HR PATCH TRANSDERM SCH (08:44)
[2022-05-18] MEDS: METOPROLOL TARTRATE 12.5 MG TAB PO SCH ×3 (08:45→20:36)
[2022-05-18] MEDS: PANTOPRAZOLE 40 MG TABLET PO SCH ×2 (08:45→17:19)
[2022-05-18] MEDS: busPIRone HCl 10 MG TAB PO SCH ×2 (08:45→20:35)
[2022-05-18] MEDS: ACAMPROSATE CALCIUM 333 MG TABLET.DR PO SCH ×3 (08:45→20:38)
[2022-05-18] MEDS: chlorproMAZINE 25 MG TAB PO SCH ×2 (08:45→20:36)
[2022-05-18] MEDS: THIAMINE 100 MG TAB PO SCH (08:46)
[2022-05-18] MEDS: FOLIC ACID 1 MG TAB PO SCH (08:46)
[2022-05-18] MEDS: VENLAFAXINE HCL ER 150 MG CAP PO SCH (08:46)
[2022-05-18] MEDS: MULTIVITAMINS, THERA 1 EACH TAB PO SCH (08:46)
[2022-05-18] MEDS: CEPHALEXIN 500 MG CAP PO SCH ×4 (08:46→20:35)
[2022-05-18 10:07] LABS: Anisocytosis Slight; Basophils # (A) 0.1 k/uL (0-0.2); Basophils % (A) 1 %; Eosinophils # (A) 0.2 k/uL (0-0.7); Eosinophils % (A) 3 %; HCT 43.8 % (39.0-53.0); HGB 13.7 gm/dL (13.0-17.5); Hypochromasia Moderate; Lymphocytes # (A) 1.6 k/uL (1.0-4.8); Lymphocytes % (A) 19 %; MCH 29.1 pg (25.0-35.0); MCHC 31.4 g/dL (31.0-37.0); MCV 92.7 fL (80.0-100.0); Mean Platelet Volume 8.5; Monocytes # (A) 0.7 k/uL (0-1.0); Monocytes % (A) 8 %; Neutrophils # (A) 5.8 k/uL (1.3-7.7); Neutrophils % (A) 68 %; Platelet Count 215 k/uL (150-450); RBC 4.72 m/uL (4.30-5.90); RDW 16.3 % (11.5-15.5); WBC 8.5 k/uL (3.8-10.6)
[2022-05-18] MEDS: LORazepam 1 MG TAB PO PRN (10:44)
--- NOTE | 2022-05-18 13:04 | P.PN ---
Progress Note - Text Progress Note Date: 05/18/22 Interval History: Patient was seen in taking part in groups today earlier and was seen later on wandering the hallways and was directable and agreeable to speak with residential mortgage underwriter in the office. The patient claims that he is feeling a bit better today. He states that the hiccups are pretty much gone at this point. He claims that he feels "a lot more evened out". He states that his anxiety has been improving as well and his mood. He claims that he is worried that if he'll get discharged to a hotel or the longterm he will start drinking again. He claims that he is looking forward to go to [place] however does not know when he will get in. He states that he is trying to go to groups and participated us as he can. He states that he is sleeping fairly well however was okay to start melatonin as well to help with his sleep cycle. At this time patient denies any suicidal or homical ideations, intent or plan. Patient denies any auditory, visual hallucinations and denies any paranoia or delusions. Patient denies any side effects from the medications and has been compliant with meds. Mental Status Exam: General Appearance: Patient appears to be slender, shaven adult male, with fair hygiene and grooming, dressed in casual attire. Behavior: Patient is seated without any agitated behavior. Cooperative Speech: Patient's speech is fluent and non-pressured. Mood/Affect: Patient reports their mood is "less anxious", affect is congruent Suicidality/Homicidality: Patient denies having any homicidal ideation intent or plan. Denies any suicidal ideation, intent or plan currently. Perceptions: Patient denies any visual hallucinations and denies any auditory hallucinations. Though content/process: There is no evidence of any delusional thought content. More logical and goal oriented. Memory and concentration: AOX3, grossly intact for the purposes of this session Judgment and insight: improving mildly IMPRESSIONS: Major depressive disorder, recurrent, severe without psychotic features Unspecified anxiety disorder Alcohol use disorder, severe, dependence intractable hiccups Nicotine dependence Plan: -Patient continues to meet criteria for inpatient psychiatric admission for symptom stabilization and safety. Patient has signed adult voluntary form and medication consent and was placed in patient's chart. -Medications: Effexor XR 150 mg QAM for depression/anxiety, Remeron 15 mg QHS tonight for depression/sleep. Buspar 30 mg BID for anxiety, Campral 666 mg TID for alcoholism, decrease thorazine 25 mg po Bid for intractable hiccups, continue decreasing. added melatonin 5 mg qhs for sleep. -When necessary Ativan and Haldol for agitation/aggression. -NRT - nicotine patch -SW on board for discharge planning. Encouraged the patient to participate in milieu. patient is currently on an CRIS. currently awaiting intake date for [facility]. Patient will need to go straight to rehab as he is very high risk to relapse on etoh and be non compliant with treatment
[2022-05-18] MEDS: MIRTAZAPINE 15 MG TAB PO SCH (20:35)
[2022-05-18] MEDS ORDERED: MELATONIN 5 MG TABLET PO SCH (21:00)
[2022-05-19] MEDS: PANTOPRAZOLE 40 MG TABLET PO SCH ×2 (08:04→17:35)
[2022-05-19] MEDS: MULTIVITAMINS, THERA 1 EACH TAB PO SCH (08:04)
[2022-05-19] MEDS: THIAMINE 100 MG TAB PO SCH (08:04)
[2022-05-19] MEDS: CEPHALEXIN 500 MG CAP PO SCH ×4 (08:05→20:33)
[2022-05-19] MEDS: FOLIC ACID 1 MG TAB PO SCH (08:05)
[2022-05-19] MEDS: busPIRone HCl 10 MG TAB PO SCH ×2 (08:05→20:33)
[2022-05-19] MEDS: chlorproMAZINE 25 MG TAB PO SCH (08:05)
[2022-05-19] MEDS: ACAMPROSATE CALCIUM 333 MG TABLET.DR PO SCH ×3 (08:06→20:33)
[2022-05-19] MEDS: VENLAFAXINE HCL ER 150 MG CAP PO SCH (08:07)
[2022-05-19] MEDS: NICOTINE 14MG/24HR PATCH TRANSDERM SCH (08:07)
[2022-05-19] MEDS: METOPROLOL TARTRATE 12.5 MG TAB PO SCH ×3 (08:07→20:34)
--- NOTE | 2022-05-19 10:24 | P.PN ---
Progress Note - Text Progress Note Date: 05/19/22 Interval History: Patient was seen hanging in bed this morning and was directable and agreeable to speak with field underwriter in the office. Patient claims that he is doing somewhat better however states that his sleep is still poor. He claims that he was moved to another room last night. He claims that since coming down on the Thorazine he feels more anxious and was asking about alternatives. We spoke about replacing most of his medications with Seroquel for nighttime use which she was agreeable to try. He states that he is trying to go to some groups however skipped this morning. Has a fair appetite. He remains interested in going to rehab. Claims that his mood and anxiety have gradually been improving. At this time patient denies any suicidal or homical ideations, intent or plan. Patient denies any auditory, visual hallucinations and denies any paranoia or delusions. Patient denies any side effects from the medications and has been compliant with meds. Mental Status Exam: General Appearance: Patient appears to be slender, shaven adult male, with fair hygiene and grooming, dressed in casual attire. Behavior: Patient is seated without any agitated behavior. Cooperative Speech: Patient's speech is fluent and non-pressured. Mood/Affect: Patient reports their mood is "anxious", affect is congruent Suicidality/Homicidality: Patient denies having any homicidal ideation intent or plan. Denies any suicidal ideation, intent or plan currently. Perceptions: Patient denies any visual hallucinations and denies any auditory hallucinations. Though content/process: There is no evidence of any delusional thought content. More logical and goal oriented. Memory and concentration: AOX3, grossly intact for the purposes of this session Judgment and insight: improving mildly IMPRESSIONS: Major depressive disorder, recurrent, severe without psychotic features Unspecified anxiety disorder Alcohol use disorder, severe, dependence intractable hiccups Nicotine dependence Plan: -Patient continues to meet criteria for inpatient psychiatric admission for symptom stabilization and safety. Patient has signed adult voluntary form and medication consent and was placed in patient's chart. -Medications: Effexor XR 150 mg QAM for depression/anxiety, Buspar 30 mg BID for anxiety, Campral 666 mg TID for alcoholism, added seroquel 50 mg qhs for sleep/mood adjunct, can increase over the weekend if needed. -When necessary Ativan and Haldol for agitation/aggression. -NRT - nicotine patch -SW on board for discharge planning. Encouraged the patient to participate in milieu. patient is currently on an CRIS. currently awaiting intake date for [facility]. Patient will need to go straight to rehab as he is very high risk to relapse on etoh and be non compliant with treatment
[2022-05-19] MEDS: LORazepam 1 MG TAB PO PRN ×2 (12:12→20:33)
[2022-05-19] MEDS ORDERED: QUEtiapine 50 MG TAB PO SCH (21:00)
[2022-05-20] MEDS: PANTOPRAZOLE 40 MG TABLET PO SCH ×2 (08:35→17:06)
[2022-05-20] MEDS: ACAMPROSATE CALCIUM 333 MG TABLET.DR PO SCH ×3 (08:35→20:48)
[2022-05-20] MEDS: NICOTINE 14MG/24HR PATCH TRANSDERM SCH (08:35)
[2022-05-20] MEDS: FOLIC ACID 1 MG TAB PO SCH (08:36)
[2022-05-20] MEDS: VENLAFAXINE HCL ER 150 MG CAP PO SCH (08:36)
[2022-05-20] MEDS: CEPHALEXIN 500 MG CAP PO SCH ×4 (08:36→20:48)
[2022-05-20] MEDS: MULTIVITAMINS, THERA 1 EACH TAB PO SCH (08:36)
[2022-05-20] MEDS: THIAMINE 100 MG TAB PO SCH (08:36)
[2022-05-20] MEDS: busPIRone HCl 10 MG TAB PO SCH ×2 (08:36→20:48)
[2022-05-20] MEDS: METOPROLOL TARTRATE 12.5 MG TAB PO SCH ×3 (08:37→20:48)
[2022-05-20] MEDS: LORazepam 1 MG TAB PO PRN ×2 (09:07→15:52)
--- NOTE | 2022-05-20 09:44 | P.PN ---
Subjective Progress Note Date: 05/20/22 Principal diagnosis: Alcohol abuse disorder Major depression recurrent Subjective: The patient says that his emotions over well minimum any circles endlessly on negative thoughts and that he welcomes the possibility of venlafaxine and BuSpar helping that. However he complained of significant dry mouth and he says he is well and put up with that if he can get benefit no problems with constipation dizziness or blurred vision. However he was unable to get to sleep for a while and woke up frequently here he says he so tired during the day it's hard for him to cooperate in the program which she wants to do. He admits that in the past he had good intentions to go get and talk to a sponsor in AA and go to meetings and then he does not follow through and needs to figure out why and overcome that if there is going to be any hope. Objective he is alert oriented 3 cooperative and appreciative understands abstract ideas good eye contact gait and station are normal no signs of psychosis Assessment patient has a long and chronic history of relapses and needs to get his emotions under better control to is going to be any help. I think that the venlafaxine and BuSpar Idea think he should stick with it although that is probably what is causing the dry mouth. The 50th Seroquel prior to low work. Land: Increase Seroquel tonight to 200 if he still doesn't sleep try 300 tomorrow. I did a lot of teaching about alcohol and what it does to the brain and what it takes to overcome and how the medications help Objective - Vital Signs Vital signs: Vital Signs Temp 97.4 F L 05/20/22 06:17 Pulse 71 05/20/22 06:17 Resp 16 05/20/22 06:17 BP 93/51 05/20/22 06:17 Pulse Ox 97 05/20/22 06:17 FiO2 - Labs CBC & Chem 7: 05/18/22 09:13 05/17/22 10:07
[2022-05-20] MEDS ORDERED: QUEtiapine 200 MG TAB PO SCH (21:00)
[2022-05-21] MEDS: ACAMPROSATE CALCIUM 333 MG TABLET.DR PO SCH ×3 (08:43→19:41)
[2022-05-21] MEDS: NICOTINE 14MG/24HR PATCH TRANSDERM SCH (08:43)
[2022-05-21] MEDS: busPIRone HCl 10 MG TAB PO SCH ×2 (08:43→19:40)
[2022-05-21] MEDS: THIAMINE 100 MG TAB PO SCH (08:43)
[2022-05-21] MEDS: METOPROLOL TARTRATE 12.5 MG TAB PO SCH ×3 (08:43→19:41)
[2022-05-21] MEDS: VENLAFAXINE HCL ER 150 MG CAP PO SCH (08:43)
[2022-05-21] MEDS: PANTOPRAZOLE 40 MG TABLET PO SCH ×2 (08:43→17:43)
[2022-05-21] MEDS: FOLIC ACID 1 MG TAB PO SCH (08:43)
[2022-05-21] MEDS: MULTIVITAMINS, THERA 1 EACH TAB PO SCH (08:43)
[2022-05-21] MEDS: CEPHALEXIN 500 MG CAP PO SCH ×4 (08:43→19:40)
[2022-05-21] MEDS ORDERED: GABAPENTIN 300 MG CAP PO STA (12:05)
--- NOTE | 2022-05-21 12:13 | P.PN ---
Subjective Progress Note Date: 05/21/22 Principal diagnosis: Alcohol abuse disorder Major depression recurrent Subjective: The patient says that his emotions overwhelm and he circles endlessly on negative thoughts and that he welcomes the possibility of venlafaxine and BuSpar helping that. However he complained of significant dry mouth and he says he is willing to put up with that if he can get benefit. He has no problems with constipation dizziness or blurred vision. However he was stilo unable to get to sleep till 2 am, and woke up frequently He says he so tired during the day it's hard for him to cooperate in the program, which he wants to do. He is also complaining of jumpy nerves and is bothered by being in a room where several people are talking at the same time. Objective he is alert oriented 3 cooperative and appreciative understands abstract ideas good eye contact gait and station are normal no signs of psychosis good self-care gait and station are normal Assessment patient has a long and chronic history of relapses and needs to get his emotions under better control to is going to be any help. I think that the venlafaxine and BuSpar Idea think he should stick with it although that is probably what is causing the dry mouth. . Plan: Increase Seroquel tonight to 400 . Add 300 3 times a day and gabapentin for jumpy nerves I did a lot of teaching about alcohol and what it does to the brain and what it takes to overcome and how the medications help Diagnosis: Major depression recurrent major/alcohol abuse Objective - Vital Signs Vital signs: Vital Signs Temp 97.1 F L 05/21/22 07:02 Pulse 64 05/21/22 07:02 Resp 16 05/21/22 07:02 BP 114/53 05/21/22 07:02 Pulse Ox 97 05/20/22 06:17 FiO2 - Labs CBC & Chem 7: 05/18/22 09:13 05/17/22 10:07
[2022-05-21] MEDS: GABAPENTIN 300 MG CAP PO SCH ×2 (15:50→19:41)
[2022-05-21] MEDS: QUEtiapine 400 MG TAB PO SCH (19:41)
[2022-05-21] MEDS: LORazepam 1 MG TAB PO PRN (20:55)
[2022-05-22] MEDS: ACAMPROSATE CALCIUM 333 MG TABLET.DR PO SCH ×3 (07:56→20:48)
[2022-05-22] MEDS: busPIRone HCl 10 MG TAB PO SCH ×2 (07:57→20:47)
[2022-05-22] MEDS: METOPROLOL TARTRATE 12.5 MG TAB PO SCH ×3 (07:57→20:48)
[2022-05-22] MEDS: CEPHALEXIN 500 MG CAP PO SCH (07:57)
[2022-05-22] MEDS: THIAMINE 100 MG TAB PO SCH ×2 (07:57→08:00)
[2022-05-22] MEDS: MULTIVITAMINS, THERA 1 EACH TAB PO SCH (07:58)
[2022-05-22] MEDS: FOLIC ACID 1 MG TAB PO SCH (07:58)
[2022-05-22] MEDS: VENLAFAXINE HCL ER 150 MG CAP PO SCH ×2 (07:58→07:59)
[2022-05-22] MEDS: GABAPENTIN 300 MG CAP PO SCH (07:58)
[2022-05-22] MEDS: PANTOPRAZOLE 40 MG TABLET PO SCH ×2 (07:58→17:53)
[2022-05-22] MEDS: LORazepam 1 MG TAB PO PRN ×3 (09:09→20:52)
[2022-05-22] MEDS: NICOTINE 14MG/24HR PATCH TRANSDERM SCH (09:11)
--- NOTE | 2022-05-22 11:35 | P.PN ---
Progress Note - Text Progress Note Date: 05/22/22 Interval History: Patient was seen up near the nurse's desk this morning and was directable and agreeable to speak with rfp writer in the office. Patient claims that he is doing somewhat better today. He states that the Seroquel has been helping him "stay even keeled". He claims that he is sleeping much better at nighttime at this time. He claims that his anxiety has been improving as well. We spoke about other medication options. [facility] he just needs to have a ride arranged. Vision has been going to groups during the day. Has a fair appetite. Claims that his mood and anxiety have gradually been improving. At this time patient denies any suicidal or homical ideations, intent or plan. Patient denies any auditory, visual hallucinations and denies any paranoia or delusions. Patient denies any side effects from the medications and has been compliant with meds. Mental Status Exam: General Appearance: Patient appears to be slender, shaven adult male, with fair hygiene and grooming, dressed in casual attire. Behavior: Patient is seated without any agitated behavior. Cooperative Speech: Patient's speech is fluent and non-pressured. Mood/Affect: Patient reports their mood is "better", affect is congruent Suicidality/Homicidality: Patient denies having any homicidal ideation intent or plan. Denies any suicidal ideation, intent or plan currently. Perceptions: Patient denies any visual hallucinations and denies any auditory hallucinations. Though content/process: There is no evidence of any delusional thought content. More logical and goal oriented. Memory and concentration: AOX3, grossly intact for the purposes of this session Judgment and insight: improving mildly IMPRESSIONS: Major depressive disorder, recurrent, severe without psychotic features Unspecified anxiety disorder Alcohol use disorder, severe, dependence intractable hiccups Nicotine dependence Plan: -Patient continues to meet criteria for inpatient psychiatric admission for symptom stabilization and safety. Patient has signed adult voluntary form and medication consent and was placed in patient's chart. -Medications: increase Effexor XR 225 mg QAM for depression/anxiety, Buspar 30 mg BID for anxiety, Campral 666 mg TID for alcoholism, continue with seroquel 400 mg qhs for sleep/mood adjunct. -When necessary Ativan and Haldol for agitation/aggression. -NRT - nicotine patch -SW on board for discharge planning. Encouraged the patient to participate in milieu. patient is currently on an CRIS. currently awaiting intake date for [facility], patient will likely be discharged tomorrow there and will have ride arranged by [facility]. Patient will need to go straight to rehab as he is very high risk to relapse on etoh and be non compliant with treatment
[2022-05-22] MEDS ORDERED: GABAPENTIN 100 MG CAP PO SCH (16:00)
[2022-05-22] MEDS: QUEtiapine 400 MG TAB PO SCH (20:48)
[2022-05-22] MEDS: GABAPENTIN 100 MG CAP PO SCH (20:50)
[2022-05-23] MEDS: ACAMPROSATE CALCIUM 333 MG TABLET.DR PO SCH ×3 (07:38→20:46)
[2022-05-23] MEDS: GABAPENTIN 100 MG CAP PO SCH ×2 (07:38→20:46)
[2022-05-23] MEDS: FOLIC ACID 1 MG TAB PO SCH (07:39)
[2022-05-23] MEDS: THIAMINE 100 MG TAB PO SCH (07:39)
[2022-05-23] MEDS: PANTOPRAZOLE 40 MG TABLET PO SCH ×2 (07:39→16:10)
[2022-05-23] MEDS: busPIRone HCl 10 MG TAB PO SCH ×2 (07:39→20:46)
[2022-05-23] MEDS: VENLAFAXINE HCL ER 75 MG CAP PO SCH (07:39)
[2022-05-23] MEDS: MULTIVITAMINS, THERA 1 EACH TAB PO SCH (07:39)
[2022-05-23] MEDS: NICOTINE 14MG/24HR PATCH TRANSDERM SCH (07:41)
[2022-05-23] MEDS: METOPROLOL TARTRATE 12.5 MG TAB PO SCH ×3 (09:11→20:47)
[2022-05-23] MEDS: LORazepam 1 MG TAB PO PRN ×2 (09:12→20:47)
[2022-05-23] MEDS ORDERED: hydrOXYzine pamoate 25 MG CAP PO PRN (11:18)
--- NOTE | 2022-05-23 11:40 | P.PN ---
Progress Note - Text Progress Note Date: 05/23/22 Interval History: Patient was seen up near the nurse's desk this morning and was directable and agreeable to speak with blog writer in the office. He states that he feels more positive today. He claims that he did not sleep well last night due to the decrease in his gabapentin. He claims that he would like to be restarted back on his Remeron as that did help him for sleep. He claims that he has been going to groups and trying to participate. He remains focused on going to rehab and will be able to get a ride from the bus at [facility] tomorrow to [place]. He claims that his anxiety has been improving as well however was asking for other options to help control his anxiety and was agreeable to try Vistaril. Has a fair appetite. Claims that his mood and anxiety have gradually been improving. At this time patient denies any suicidal or homical ideations, intent or plan. Patient denies any auditory, visual hallucinations and denies any paranoia or delusions. Patient denies any side effects from the medications and has been compliant with meds. Mental Status Exam: General Appearance: Patient appears to be slender, shaven adult male, with fair hygiene and grooming, dressed in casual attire. Behavior: Patient is seated without any agitated behavior. Cooperative Speech: Patient's speech is fluent and non-pressured. Mood/Affect: Patient reports their mood is "ok", affect is congruent Suicidality/Homicidality: Patient denies having any homicidal ideation intent or plan. Denies any suicidal ideation, intent or plan currently. Perceptions: Patient denies any visual hallucinations and denies any auditory hallucinations. Though content/process: There is no evidence of any delusional thought content. More logical and goal oriented. Memory and concentration: AOX3, grossly intact for the purposes of this session Judgment and insight: Chronically poor improving mildly IMPRESSIONS: Major depressive disorder, recurrent, severe without psychotic features Unspecified anxiety disorder Alcohol use disorder, severe, dependence intractable hiccups Nicotine dependence Plan: -Patient continues to meet criteria for inpatient psychiatric admission for symptom stabilization and safety. Patient has signed adult voluntary form and medication consent and was placed in patient's chart. -Medications: Effexor XR 225 mg QAM for depression/anxiety, Buspar 30 mg BID for anxiety, Campral 666 mg TID for alcoholism, continue with seroquel 400 mg qhs for sleep/mood adjunct. added remeron 15 mg qhs for insomnia/mood. vistaril prn for anxiety. -When necessary Ativan and Haldol for agitation/aggression. -NRT - nicotine patch - on board for discharge planning. Encouraged the patient to participate in milieu. patient is currently on an CRIS. patient will likely be discharged tomorrow and will be getting a ride from [facility] to [place]. Patient will need to go straight to rehab as he is very high risk to relapse on etoh and be non compliant with treatment
[2022-05-23] MEDS: QUEtiapine 400 MG TAB PO SCH (20:46)
[2022-05-23] MEDS ORDERED: MIRTAZAPINE 15 MG TAB PO SCH (21:00)
[2022-05-24] MEDS: NICOTINE 14MG/24HR PATCH TRANSDERM SCH (06:16)
[2022-05-24 06:36] VITALS: TEMP 96.8
[2022-05-24 07:49] VITALS: BP 108/63; PULSE 86; RESP 16
[2022-05-24] MEDS: VENLAFAXINE HCL ER 75 MG CAP PO SCH (07:49)
[2022-05-24] MEDS: THIAMINE 100 MG TAB PO SCH (07:49)
[2022-05-24] MEDS: busPIRone HCl 10 MG TAB PO SCH (07:50)
[2022-05-24] MEDS: METOPROLOL TARTRATE 12.5 MG TAB PO SCH (07:50)
[2022-05-24] MEDS: PANTOPRAZOLE 40 MG TABLET PO SCH (07:50)
[2022-05-24] MEDS: FOLIC ACID 1 MG TAB PO SCH (07:50)
[2022-05-24] MEDS: GABAPENTIN 100 MG CAP PO SCH (07:50)
[2022-05-24] MEDS: ACAMPROSATE CALCIUM 333 MG TABLET.DR PO SCH (07:50)
[2022-05-24] MEDS: MULTIVITAMINS, THERA 1 EACH TAB PO SCH (07:50)
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
== END 2022-05-24 08:10 | disposition home or self-care (01) | DRG 885 ==
LOC: 3MHU 16:35
PROVIDERS: ADMIT Psychiatry & Neurology Psychiatry; ATTEND Psychiatry & Neurology Psychiatry
DX: F33.2 Major depressive disorder, recurrent severe without psychotic features (principal); R45.851 Suicidal ideations; F10.20 Alcohol dependence, uncomplicated; F17.210 Nicotine dependence, cigarettes, uncomplicated; F41.9 Anxiety disorder, unspecified; G47.00 Insomnia, unspecified; Z59.01 Sheltered homelessness; Z65.3 Problems related to other legal circumstances; Z79.899 Other long term (current) drug therapy; Z86.16 Personal history of COVID-19; Z91.14 Patient's other noncompliance with medication regimen; Z91.410 Personal history of adult physical and sexual abuse; Z91.411 Personal history of adult psychological abuse; Z91.51 Personal history of suicidal behavior
CPT/HCPCS: 80053; 80061; 80076; 83036; 84443; 85025

== ENCOUNTER → 2022-11-28 | Outpatient (CLI) | payer OTHER ==
--- NOTE | 2022-11-28 11:29 | XR ---
EXAM TYPE: LUMBAR SPINE X RAY SERIES COMPARISON: NONE HISTORY: Pain TECHNIQUE: 4 views are submitted. FINDINGS: Alignment is anatomic. The pedicles are intact. The transverse processes are intact. There is no s pondylolysis or spondylolisthesis. Hypertrophic and degenerative changes of the spine with moderate degenerative disc disease L4-5 and mild changes at L5-S1. Facet arthropathy noted. Moderate to severe compression fractures T12. IMPRESSION: 1. Age-indeterminate moderate compression fracture T12 and superior follow-up MRI or CT scan. 2. Multilevel degenerative disc disease and facet arthropathy most marked at L4-5 and L5-S1..
--- NOTE | 2022-11-28 11:30 | XR ---
EXAMINATION TYPE: XR shoulder complete BILAT DATE OF EXAM: 11/28/2022 COMPARISON: NONE HISTORY: Pain TECHNIQUE: Three views of each shoulder are submitted. FINDINGS: The osseous structures are intact. There is no acute fracture or dislocation. Bilateral AC joint art hropathy. There is sclerosis of the left humeral. High riding right humeral head.. IMPRESSION: 1. Bilateral AC joint arthropathy greater on the right correlate for rotator cuff disease. 2. Sclerotic change involving the left knee associated with prior bone infarction or impaction type f racture. Correlate for history of previous trauma or dislocation.
--- NOTE | 2022-11-28 11:31 | XR ---
EXAMINATION TYPE: XR thoracic spine complete DATE OF EXAM: 11/28/2022 COMPARISON: NONE HISTORY: Pain TECHNIQUE: 3 views submitted FINDINGS: Alignment is anatomic. There is no compression deformities. Multilevel moderate degenerative disc di sease involving the mid and lower thoracic spine approximately 50-60% compression fracture T12 with i ndeterminate age. IMPRESSION: 1. Indeterminate age impression fracture with approximately 50-60% loss of height T12. Recommend foll ow-up CAT scan or MRI. 2. Multilevel moderate degenerative disc disease.
--- NOTE | 2022-11-28 11:35 | XR ---
EXAMINATION TYPE: XR cervical spine comp DATE OF EXAM: 11/28/2022 COMPARISON: NONE HISTORY: Pain TECHNIQUE: Four views are submitted. FINDINGS: The odontoid is intact. There are no compression deformities. The prevertebral soft tissue structur es are within normal limits. There is reversal of normal cervical lordosis with a kyphosis seen. Calcification soft tissues left n lauren likely related to carotid artery atherosclerotic changes. Severe degenerative disc disease C3-C7. Slight anterior listhesis of C2 relative to C3. Multilevel bilateral foraminal encroachment. Multile fina facet arthropathy. IMPRESSION: 1. Severe multilevel degenerative disc disease with reversal of normal cervical lordosis and multilev el foraminal encroachment. Recommend follow-up MRI..
== END | disposition home or self-care (01) ==
LOC: RADXRMAIN 09:31
PROVIDERS: ATTEND Internal Medicine
DX: M51.36 Other intervertebral disc degeneration, lumbar region (principal); M47.817 Spondylosis without myelopathy or radiculopathy, lumbosacral region; M51.37 Other intervertebral disc degeneration, lumbosacral region; M19.011 Primary osteoarthritis, right shoulder; M19.012 Primary osteoarthritis, left shoulder
CPT/HCPCS: 72050; 72072; 72100

== ENCOUNTER → 2022-12-22 | Outpatient (CLI) | payer OTHER | END | disposition home or self-care (01) | LOC: LABWHC1 10:21 | PROVIDERS: ATTEND Psychiatry & Neurology Psychiatry | DX: F33.1 Major depressive disorder, recurrent, moderate (principal); F42.9 Obsessive-compulsive disorder, unspecified; I45.4 Nonspecific intraventricular block; I44.4 Left anterior fascicular block; R94.31 Abnormal electrocardiogram [ECG] [EKG] | CPT/HCPCS: 36415; 93005 ==

== ENCOUNTER → 2023-01-17 | Outpatient (CLI) | payer OTHER | END | disposition home or self-care (01) | LOC: LABWHC1 08:50 | PROVIDERS: ATTEND Psychiatry & Neurology Psychiatry | DX: I45.4 Nonspecific intraventricular block (principal); I44.4 Left anterior fascicular block; R94.31 Abnormal electrocardiogram [ECG] [EKG]; Z79.899 Other long term (current) drug therapy | CPT/HCPCS: 36415; 93005 ==

== ENCOUNTER 2023-07-30 10:12 | Observation (INO) | payer OTHER ==
[2023-07-30] MEDS ORDERED: LORazepam 2 MG/ML INJ IV STA (10:20)
[2023-07-30] MEDS ORDERED: SODIUM CHLORIDE 0.9% 1,000 ML IV STA (10:20)
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
[2023-07-30 10:50] LABS: Basophils % (A) 0 %; Eosinophils # (A) 0.1 k/uL (0-0.7); Eosinophils % (A) 1 %; HGB 14.1 gm/dL (13.0-17.5); Lymphocytes # (A) 2.3 k/uL (1.0-4.8); Lymphocytes % (A) 39 %; MCH 30.1 pg (25.0-35.0); MCHC 34.4 g/dL (31.0-37.0); MCV 87.5 fL (80.0-100.0); Mean Platelet Volume 7.3; Monocytes # (A) 0.3 k/uL (0-1.0); Monocytes % (A) 5 %; Neutrophils # (A) 3.1 k/uL (1.3-7.7); Neutrophils % (A) 53 %; Platelet Count 136 k/uL (150-450); RBC 4.69 m/uL (4.30-5.90); RDW 14.4 % (11.5-15.5); WBC 5.9 k/uL (3.8-10.6)
[2023-07-30 12:00] LABS: ALT 30 U/L (4-49); AST 66 U/L (17-59); African American GFR (CKD) >90 (>60 ml/min/1.73 sqM); Alkaline Phosphatase 94 U/L (38-126); Anion Gap 19 mmol/L; Blood Urea Nitrogen 21 mg/dL (9-20); Calcium 8.4 mg/dL (8.4-10.2); Carbon Dioxide 16 mmol/L (22-30); Chloride 104 mmol/L (98-107); Glucose 137 mg/dL (74-99); Magnesium 1.6 mg/dL (1.6-2.3); Non-African American GFR(CKD) >90 (>60 ml/min/1.73 sqM); Potassium 3.9 mmol/L (3.5-5.1); Sodium 139 mmol/L (137-145); Total Bilirubin 0.5 mg/dL (0.2-1.3); Total Protein 7.2 g/dL (6.3-8.2)
[2023-07-30 12:05] LABS: Alcohol 194 mg/dL
[2023-07-30] MEDS ORDERED: THIAMINE 100 MG/ML 2 ML VIAL IM STA (13:19)
[2023-07-30] MEDS ORDERED: LORazepam 2 MG/ML INJ IV PRN ×2 (13:19)
[2023-07-30] MEDS: LORazepam 2 MG/ML INJ IV PRN ×5 (13:54→22:41)
[2023-07-30] MEDS ORDERED: ONDANSETRON 4 MG/2 ML VIAL IVP PRN (19:01)
[2023-07-30] MEDS ORDERED: ACETAMINOPHEN TAB 325 MG TAB PO PRN (19:01)
[2023-07-30] MEDS ORDERED: NALOXONE 0.4 MG/ML 1 ML VIAL IV PRN (19:01)
[2023-07-30] MEDS ORDERED: KETOROLAC 15 MG/ML 1 ML VIAL IVP PRN (19:01)
[2023-07-30] MEDS ORDERED: PRAZOSIN 1 MG CAP PO PRN (19:43)
[2023-07-30] MEDS ORDERED: ALBUTEROL NEBULIZED 2.5 MG/3 ML INHALATION PRN (19:43)
[2023-07-30] MEDS ORDERED: HYDROcodone/APAP 5-325MG 1 EACH TAB PO PRN (19:43)
[2023-07-30] MEDS ORDERED: NICOTINE 14MG/24HR PATCH TRANSDERM STA (19:46)
[2023-07-30] MEDS: DULoxetine HCL 60 MG CAPSULE.DR PO SCH (20:23)
[2023-07-30] MEDS: ATORVASTATIN 20 MG TAB PO SCH (20:23)
[2023-07-30] MEDS: SODIUM CHLORIDE 0.9% 1,000 ML IV SCH (20:25)
[2023-07-30 21:24] LABS: Amphetamine Screen,Urine Not Detected (NotDetected); Barbiturate Screen,Urine Not Detected (NotDetected); Benzodiazepines Screen,Urine Detected (NotDetected); Cocaine Screen,Urine Not Detected (NotDetected); Methadone Screen, Urine Not Detected (NotDetected); Opiate Screen,Urine Not Detected (NotDetected); Oxycodone Screen, Urine Not Detected (NotDetected); Phencyclidine Screen,Urine Not Detected (NotDetected); Tricyclic Antidepressant,Urine Detected (NotDetected); Urn Cannabinoid Scrn Not Detected (NotDetected)
[2023-07-31] MEDS: LORazepam 2 MG/ML INJ IV PRN ×4 (00:34→20:27)
[2023-07-31] MEDS: SODIUM CHLORIDE 0.9% 1,000 ML IV SCH ×2 (09:42→17:28)
[2023-07-31] MEDS: THIAMINE 100 MG TAB PO SCH (09:43)
[2023-07-31] MEDS: MULTIVITAMINS, THERA 1 EACH TAB PO SCH (09:43)
--- NOTE | 2023-07-31 11:14 | XR ---
EXAMINATION TYPE: XR chest 1V portable DATE OF EXAM: 07/31/2023 COMPARISON: 02/27/2022 INDICATION: CHF TECHNIQUE: Single frontal view of the chest is obtained. FINDINGS: The heart size is normal. The pulmonary vasculature is normal. The lungs are clear. IMPRESSION: 1. No acute pulmonary process.
--- NOTE | 2023-07-31 11:17 | HP ---
HISTORY AND PHYSICAL CHIEF COMPLAINT: Alcohol intoxication and delirium tremens. HISTORY OF PRESENT ILLNESS: This is a 53-year-old gentleman with a past medical history of EtOH and multiple other medical issues, who was admitted with ETOH withdrawal and acute alcohol intoxication. The patient also apparently had a fall and ecchymosis around the right eyelid also. There is no history of fevers, rigors, or chills. PAST MEDICAL HISTORY: Reviewed include EtOH abuse. Rest of the history and rest of the chart is also reviewed. HOME MEDICATIONS: Hydrocodone. Dose and rest of medications noted. ALLERGIES: None known. FAMILY HISTORY: History of dementia. SOCIAL HISTORY: Alcohol and smoking. REVIEW OF SYSTEMS: Fourteen-point review of systems negative except as mentioned earlier. PHYSICAL EXAMINATION: VITAL SIGNS: Pulse is 108, blood pressure 128/78, and respirations 17. HEENT: Conjunctivae normal, otherwise ecchymosis of the right eyelid present. CARDIOVASCULAR: S1, S2. RESPIRATIONS: Clear to auscultation. ABDOMEN: Soft, nontender. NERVOUS SYSTEM: Tremors present. LABORATORY DATA: Reviewed. ASSESSMENT: 1. Acute alcohol intoxication, acute delirium tremens. 2. History of degenerative joint disease. 3. Ecchymosis of the right eye. 4. Anxiety, depression. RECOMMENDATIONS AND DISCUSSION: This 53-year-old gentleman presented with multiple medical problems. We will recommend CINY protocol. Also recommend Librium and CT scan of the brain and baseline chest x- ray. Prognosis is guarded. Further recommendations to follow. We will recommend alcohol cessation and rehab also. MMODL / IJN: [id number] /
--- NOTE | 2023-07-31 12:11 | CT ---
EXAMINATION TYPE: CT brain wo con CT DLP: 1612 mGycm, Automated exposure control for dose reduction was used. DATE OF EXAM: 07/31/2023 11:40 AM COMPARISON: CT 06/24/2021. CLINICAL INDICATION:Male, 53 years old with history of trauma, substance abuse withdrawal TECHNIQUE: Brain: Axial CT images of the brain were obtained with coronal and sagittal reformats created and rev iewed. Contrast used: None. Oral contrast used: None. FINDINGS: Extra-axial spaces: No abnormal extra-axial fluid collections. Ventricular system: Appear dilated in proportion to the degree of cerebral atrophy. Cerebral parenchyma: No increased attenuation to suggest acute intraparenchymal hemorrhage. The gra y-white matter interface appears maintained. Mild/moderate generalized brain atrophy. White matter unremarkable by CT. Cerebellum: No acute abnormality. Mass effect: No evidence of mass effect or midline shift. Intracranial vasculature: Atherosclerotic calcifications of the larger arteries near the skull base. Soft tissues: Normal. Visualized orbits: Orbital contents appear grossly intact. Calvarium/osseous structures: No evidence of calvarial fracture. Paranasal sinuses and mastoid air cells: Mild scattered paranasal sinus disease. Mild nasal septal d eviation towards the left. MRI is more sensitive for detecting acute processes such as infarct, and may be considered if clinica lly warranted. IMPRESSION: No acute intracranial CT abnormality.
[2023-07-31] MEDS: chlordiazePOXIDE 25 MG CAP PO SCH ×3 (13:02→23:09)
[2023-07-31] MEDS: NICOTINE 14MG/24HR PATCH TRANSDERM SCH (13:02)
[2023-07-31] MEDS: ATORVASTATIN 20 MG TAB PO SCH (20:27)
[2023-07-31] MEDS: DULoxetine HCL 60 MG CAPSULE.DR PO SCH (20:27)
[2023-08-01] MEDS: LORazepam 2 MG/ML INJ IV PRN (01:49)
[2023-08-01 02:57] VITALS: RESP 16
[2023-08-01 07:52] VITALS: BP 121/71; PULSE 95; TEMP 97.5
[2023-08-01] MEDS: NICOTINE 14MG/24HR PATCH TRANSDERM SCH (08:43)
[2023-08-01] MEDS: chlordiazePOXIDE 25 MG CAP PO SCH (08:43)
[2023-08-01] MEDS: MULTIVITAMINS, THERA 1 EACH TAB PO SCH (08:43)
[2023-08-01] MEDS: THIAMINE 100 MG TAB PO SCH (08:43)
[2023-08-01] MEDS ORDERED: LORazepam 1 MG TAB PO PRN (09:09)
[2023-08-01 10:48] LABS: Basophils # (A) 0.03 X 10*3/uL (0.00-0.10); Basophils % (A) 0.4 %; Eosinophils % (A) 2.7 %; HCT 42.3 % (39.6-50.0); HGB 14.2 g/dL (13.0-17.0); Lymphocytes # (A) 1.72 X 10*3/uL (0.90-5.00); Lymphocytes % (A) 22.9 %; MCH 29.1 pg (27.0-32.0); MCHC 33.6 g/dL (32.0-37.0); MCV 86.7 FL (80.0-97.0); Mean Platelet Volume 9.9 FL (9.5-12.2); Monocytes # (A) 0.61 X 10*3/uL (0.20-1.00); Monocytes % (A) 8.1 %; NRBC Per 100 WBC 0 X 10*3/uL (0.00-0.01); Neutrophils # (A) 4.92 X 10*3/uL (1.80-7.70); Neutrophils % (A) 65.6 %; Platelet Count 211 X 10*3/uL (140-440); RBC 4.88 X 10*6/uL (4.40-5.60); RDW 14.1 % (11.5-14.5)
[2023-08-01 11:00] LABS: ALT 29 U/L (10-49); AST 46 U/L (14-35); Albumin 3.8 g/dL (3.8-4.9); Albumin/Globulin Ratio 1.41 Ratio (1.60-3.17); Alkaline Phosphatase 101 U/L (41-126); BUN/Creat Ratio 13.88 Ratio (12.00-20.00); Blood Urea Nitrogen 11.1 mg/dL (9.0-27.0); Carbon Dioxide 20.8 mmol/L (21.6-31.8); Chloride 103 mmol/L (96-109); Globulin 2.7 g/dL (1.6-3.3); Glucose 91 mg/dL (70-110); Potassium 3.9 mmol/L (3.5-5.5); Sodium 135 mmol/L (135-145); Total Bilirubin 0.8 mg/dL (0.3-1.2); Total Protein 6.5 g/dL (6.2-8.2)
[2023-08-01] MEDS: SODIUM CHLORIDE 0.9% 1,000 ML IV SCH (13:04)
--- NOTE | 2023-08-03 10:01 | P.DS ---
Providers Date of admission: 07/30/23 19:01 Expected date of discharge: 08/02/23 Attending physician: Toni Wolf Primary care physician: Stated None Hospital Course: Final diagnosis Acute alcohol intoxication, acute delirium tremens history of degenerative joint disease Ecchymosis of the right eye status post fall, CT negative History of anxiety/depression GI prophylaxis DVT prophylaxis full code Discharge disposition Patient is being discharged in a stable condition with guarded prognosis to home. Patient will follow-up with Dr. Jose Wolf in the outpatient setting upon discharge. Patient is to continue with Librium taper and close outpatient follow-up with [facility] as well as strongly recommending inpatient alcohol rehab. Total time taken is greater than 35 minutes. Hospital course This is a 53-year-old male who was recently admitted acute alcohol intoxication with early delirium tremens. Patient also had a fall and CT brain was done which was negative for any acute process and does have some bruising noted around the right eye. Patient maintained on CIWA protocol and also started on Librium taper. Patient reports to feeling improved and would like to go home. Discussed with the patient about alcohol rehab in AA meetings and following up with [facility]. Patient to follow-up with primary care provider in the outpatient setting. Currently no reports of chest pain, shortness of breath, or palpitations. Patient is afebrile. No reports of nausea or vomiting and patient is tolerating diet. Patient will be discharged home today. Guarded prognosis and high risk for readmission given patient's continued ongoing alcohol dependence. Physical exam: Gen: This is a 53-year-old male who is awake, alert and oriented 3, well- developed, well-nourished, appears elderly HEENT: Head is atraumatic, normocephalic. Pupils equal, round. Sclerae is anicteric. NECK: Supple. No JVD. No lymphadenopathy. No thyromegaly. LUNGS: Clear to auscultation. No wheezes or rhonchi. No intercostal retractions. HEART: Regular rate and rhythm. No murmur. ABDOMEN: Soft. Bowel sounds are present. No masses. No tenderness. EXTREMITIES: No pedal edema. No calf tenderness. NEUROLOGICAL: Patient is awake, alert and oriented x3. Cranial nerves 2 through 12 are grossly intact. Please refer to medication reconciliation sheet for a list of medications. The impression and plan of care has been dictated by Azra Haney, Nurse Practitioner as directed. Dr. Luciano MD I have performed a history and examination and MDM of this patient, discussed the same with the dictator, and agree with the dictator's assessment and plan as written ,documented as a scribe. Based on total visit time, I have performed more than 50% of the visit. Patient Condition at Discharge: Fair Plan - Discharge Summary New Discharge Prescriptions: New Thiamine [Vitamin B-1] 100 mg PO DAILY #30 tab Folic Acid 1 mg PO DAILY #30 tablet chlordiazePOXIDE HCl [Librium] 25 mg PO TID #6 cap Continue Multivitamins, Thera [Multivitamin (formulary)] 1 tab PO DAILY 30 Days tab Prazosin [Minipress] 1 mg PO HS PRN PRN Reason: Insomnia DULoxetine HCL [Cymbalta] 60 mg PO HS Albuterol Sulfate [Albuterol Sulfate Hfa] 1 - 2 puff PO RT-QID PRN PRN Reason: Shortness Of Breath HYDROcodone/APAP 5-325MG [Triplett 5-325] 1 tab PO BID PRN PRN Reason: Pain Atorvastatin [Lipitor] 20 mg PO HS Discharge Medication List Multivitamins, Thera [Multivitamin (formulary)] 1 tab PO DAILY 30 Days tab 05/23/22 [Rx] Albuterol Sulfate [Albuterol Sulfate Hfa] 1 - 2 puff PO RT-QID PRN 07/30/23 [History] Atorvastatin [Lipitor] 20 mg PO HS 07/30/23 [History] DULoxetine HCL [Cymbalta] 60 mg PO HS 07/30/23 [History] HYDROcodone/APAP 5-325MG [Triplett 5-325] 1 tab PO BID PRN 07/30/23 [History] Prazosin [Minipress] 1 mg PO HS PRN 07/30/23 [History] Folic Acid 1 mg PO DAILY #30 tablet 08/01/23 [Rx] Thiamine [Vitamin B-1] 100 mg PO DAILY #30 tab 08/01/23 [Rx] chlordiazePOXIDE HCl [Librium] 25 mg PO TID #6 cap 08/01/23 [Rx] Follow up Appointment(s)/Referral(s): Deandra Rendon MD [STAFF PHYSICIAN] - 1 Week Patient Instructions/Handouts: Chlordiazepoxide (By mouth), Thiamine (By mouth), Folic Acid (By mouth), How to Stop Smoking (DC), Abuse of Alcohol (DC) Activity/Diet/Wound Care/Special Instructions: Activity Limited until follow-up Highly recommend inpatient alcohol rehab Complete alcohol cessation Continue Librium taper and do not drink alcohol with this medication Follow-up and establish with primary care provider on discharge [place] Discharge/Stand Alone Forms: AA Meetings [address] - [facility], Outpatient Counseling, Inp Substance Abuse Facilities Discharge Disposition: HOME SELF-CARE
== END 2023-08-01 14:47 | disposition home or self-care (01) ==
LOC: EC 10:12 → 5NMEDONC 19:01
PROVIDERS: ADMIT Hospitalist; ATTEND Hospitalist
DX: F10.231 Alcohol dependence with withdrawal delirium (principal); Y90.6 Blood alcohol level of 120-199 mg/100 ml; G89.29 Other chronic pain; M54.50 Low back pain, unspecified; S05.11XA Contusion of eyeball and orbital tissues, right eye, initial encounter; W19.XXXA Unspecified fall, initial encounter; F32.A Depression, unspecified; F41.9 Anxiety disorder, unspecified; M19.90 Unspecified osteoarthritis, unspecified site; F17.200 Nicotine dependence, unspecified, uncomplicated; Z86.16 Personal history of COVID-19; Z79.899 Other long term (current) drug therapy
CPT/HCPCS: 96376 ×4; 96361 ×3; 96372; 96374; 99285; 51798; 36415; 93005; 80053 ×2; 83735; 85025 ×2; 80306; 80320; 71045; 70450; G0378 ×3; S4990 ×3; J2060 ×3; J3411

== ENCOUNTER 2023-08-05 11:32 | Emergency (ER) | payer OTHER ==
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
[2023-08-05] MEDS ORDERED: LORazepam 2 MG/ML INJ IM STA (12:45)
[2023-08-05 14:56] LABS: Amphetamine Screen,Urine Not Detected (NotDetected); Barbiturate Screen,Urine Not Detected (NotDetected); Benzodiazepines Screen,Urine Detected (NotDetected); Cocaine Screen,Urine Not Detected (NotDetected); Methadone Screen, Urine Not Detected (NotDetected); Opiate Screen,Urine Not Detected (NotDetected); Oxycodone Screen, Urine Not Detected (NotDetected); Phencyclidine Screen,Urine Not Detected (NotDetected); Tricyclic Antidepressant,Urine Detected (NotDetected); Urn Cannabinoid Scrn Not Detected (NotDetected)
[2023-08-05] MEDS ORDERED: LORazepam 1 MG TAB PO ONE (19:55)
[2023-08-05] MEDS ORDERED: LORazepam 1 MG TAB PO STA (23:24)
[2023-08-06] MEDS ORDERED: chlordiazePOXIDE 25 MG CAP PO STA (00:21)
[2023-08-06] MEDS ORDERED: MAG HYDROX/AL HYDROX/SIMETH 30 ML, HYOSCYAMINE ELIXIR 10 ML, LIDOCAINE VISCOUS 10 ML PO ONE ×3 (00:21)
[2023-08-06] MEDS ORDERED: MAG HYDROX/AL HYDROX/SIMETH 30 ML, HYOSCYAMINE ELIXIR 10 ML, LIDOCAINE 2% GLYDO JELLY 1... PO ONE ×3 (00:30)
[2023-08-06 02:21] LABS: Basophils # (A) 0.1 k/uL (0-0.2); Basophils % (A) 1 %; Eosinophils # (A) 0.2 k/uL (0-0.7); Eosinophils % (A) 3 %; HCT 41.4 % (39.0-53.0); HGB 14.3 gm/dL (13.0-17.5); Lymphocytes # (A) 2.2 k/uL (1.0-4.8); Lymphocytes % (A) 37 %; MCH 30.1 pg (25.0-35.0); MCHC 34.5 g/dL (31.0-37.0); MCV 87.3 fL (80.0-100.0); Mean Platelet Volume 7.2; Monocytes # (A) 0.4 k/uL (0-1.0); Monocytes % (A) 6 %; Neutrophils # (A) 3.1 k/uL (1.3-7.7); Neutrophils % (A) 51 %; Platelet Count 248 k/uL (150-450); RBC 4.74 m/uL (4.30-5.90)
[2023-08-06 03:12] LABS: ALT 37 U/L (4-49); AST 64 U/L (17-59); African American GFR (CKD) >90 (>60 ml/min/1.73 sqM); Albumin 3.6 g/dL (3.5-5.0); Alkaline Phosphatase 101 U/L (38-126); Anion Gap 15 mmol/L; Blood Urea Nitrogen 14 mg/dL (9-20); Calcium 8.7 mg/dL (8.4-10.2); Carbon Dioxide 19 mmol/L (22-30); Chloride 109 mmol/L (98-107); Glucose 81 mg/dL (74-99); Non-African American GFR(CKD) >90 (>60 ml/min/1.73 sqM); Potassium 3.9 mmol/L (3.5-5.1); Sodium 143 mmol/L (137-145); Total Bilirubin 0.5 mg/dL (0.2-1.3); Total Protein 6.5 g/dL (6.3-8.2)
[2023-08-06 03:17] LABS: Appearance,Urine Clear (Clear); Bilirubin,Urine Negative (Negative); Blood,Urine Negative (Negative); Color,Urine Colorless; Glucose,Urine (UA) Negative (Negative); Ketones,Urine Negative (Negative); Leukocyte Esterase,Urine Negative (Negative); Nitrite,Urine Negative (Negative); PH, Urine 5.5 (5.0-8.0); Protein,Urine Negative (Negative); Specific Gravity,Urine 1.007 (1.001-1.035); Urobilinogen,Urine <2.0 mg/dL (<2.0)
[2023-08-06 08:50] VITALS: BP 141/84; PULSE 98; RESP 16; TEMP 98.7
[2023-08-06] MEDS ORDERED: LORazepam 1 MG TAB PO STA (17:17)
== END 2023-08-06 19:43 ==
LOC: EC 11:32
DX: F32.A Depression, unspecified (principal); R45.851 Suicidal ideations; M19.90 Unspecified osteoarthritis, unspecified site; F17.200 Nicotine dependence, unspecified, uncomplicated; Z79.1 Long term (current) use of non-steroidal anti-inflammatories (NSAID); Z86.59 Personal history of other mental and behavioral disorders; Z20.822 Contact with and (suspected) exposure to COVID-19
CPT/HCPCS: 96372 ×2; 99285 ×2; 82075; 36415; 80053; 85025; 81003; 80306; 87635; J2060

== ENCOUNTER 2023-08-28 00:04 | Emergency (ER) | payer OTHER ==
[2023-08-28 00:34] VITALS: TEMP 98
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
[2023-08-28 01:00] LABS: Basophils % (A) 1 %; Eosinophils # (A) 0.3 k/uL (0-0.7); Eosinophils % (A) 4 %; HCT 46.7 % (39.0-53.0); HGB 15.8 gm/dL (13.0-17.5); Lymphocytes # (A) 2.1 k/uL (1.0-4.8); Lymphocytes % (A) 28 %; MCH 29.5 pg (25.0-35.0); MCHC 33.8 g/dL (31.0-37.0); MCV 87.5 fL (80.0-100.0); Mean Platelet Volume 7.5; Monocytes # (A) 0.5 k/uL (0-1.0); Monocytes % (A) 6 %; Neutrophils # (A) 4.7 k/uL (1.3-7.7); Neutrophils % (A) 60 %; Platelet Count 261 k/uL (150-450); RBC 5.34 m/uL (4.30-5.90); RDW 15.3 % (11.5-15.5); WBC 7.8 k/uL (3.8-10.6)
[2023-08-28 01:12] LABS: ALT 24 U/L (4-49); AST 36 U/L (17-59); Acetaminophen <10.0 ug/mL; African American GFR (CKD) >90 (>60 ml/min/1.73 sqM); Albumin 4.5 g/dL (3.5-5.0); Alkaline Phosphatase 80 U/L (38-126); Anion Gap 17 mmol/L; Blood Urea Nitrogen 6 mg/dL (9-20); Carbon Dioxide 18 mmol/L (22-30); Chloride 106 mmol/L (98-107); Glucose 98 mg/dL (74-99); Non-African American GFR(CKD) >90 (>60 ml/min/1.73 sqM); Potassium 3.6 mmol/L (3.5-5.1); Salicylate <1.0 mg/dL; Sodium 141 mmol/L (137-145); Total Bilirubin 0.4 mg/dL (0.2-1.3); Total Protein 7.7 g/dL (6.3-8.2)
[2023-08-28 01:14] LABS: Alcohol 265 mg/dL
[2023-08-28] MEDS: LORazepam 2 MG/ML INJ IM STA (03:28)
[2023-08-28] MEDS: SODIUM CHLORIDE 0.9% 1,000 ML IV ONE (03:28)
[2023-08-28 04:50] LABS: Glucose,Whole Blood 108 mg/dL (70-110)
[2023-08-28] MEDS: LORazepam 2 MG/ML INJ IV STA (13:04)
[2023-08-28 14:04] VITALS: RESP 16
[2023-08-28 17:23] VITALS: BP 133/92; PULSE 91
== END 2023-08-28 17:19 | disposition home or self-care (01) ==
LOC: EC 00:04
DX: F32.A Depression, unspecified (principal); R00.0 Tachycardia, unspecified; F41.9 Anxiety disorder, unspecified; F17.200 Nicotine dependence, unspecified, uncomplicated; Z79.899 Other long term (current) drug therapy
CPT/HCPCS: 82075; 36415; 93005; 80053; 83605; 85025; 80143; 80179; 99285; 96374; 96361; 96372; G0480; J2060; 80320

== ENCOUNTER 2023-09-01 19:33 | Inpatient (IN) | payer OTHER ==
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
[2023-09-01 20:02] LABS: Basophils # (A) 0.1 k/uL (0-0.2); Basophils % (A) 1 %; Eosinophils # (A) 0.2 k/uL (0-0.7); Eosinophils % (A) 2 %; HCT 43.4 % (39.0-53.0); HGB 14.6 gm/dL (13.0-17.5); Lymphocytes # (A) 2.5 k/uL (1.0-4.8); Lymphocytes % (A) 24 %; MCH 29.3 pg (25.0-35.0); MCHC 33.7 g/dL (31.0-37.0); MCV 86.9 fL (80.0-100.0); Mean Platelet Volume 7.2; Monocytes # (A) 0.4 k/uL (0-1.0); Monocytes % (A) 4 %; Neutrophils # (A) 7.1 k/uL (1.3-7.7); Neutrophils % (A) 68 %; Platelet Count 284 k/uL (150-450); RDW 15.6 % (11.5-15.5); WBC 10.5 k/uL (3.8-10.6)
[2023-09-01 20:11] LABS: ALT 23 U/L (4-49); AST 39 U/L (17-59); Acetaminophen <10.0 ug/mL; African American GFR (CKD) >90 (>60 ml/min/1.73 sqM); Albumin 3.9 g/dL (3.5-5.0); Alkaline Phosphatase 118 U/L (38-126); Anion Gap 13 mmol/L; Blood Urea Nitrogen 10 mg/dL (9-20); Calcium 8.5 mg/dL (8.4-10.2); Carbon Dioxide 18 mmol/L (22-30); Chloride 108 mmol/L (98-107); Glucose 111 mg/dL (74-99); Magnesium 1.9 mg/dL (1.6-2.3); Non-African American GFR(CKD) >90 (>60 ml/min/1.73 sqM); Potassium 3.7 mmol/L (3.5-5.1); Salicylate <1.0 mg/dL; Sodium 139 mmol/L (137-145); Total Bilirubin 0.5 mg/dL (0.2-1.3); Total Protein 7.1 g/dL (6.3-8.2)
[2023-09-01 20:25] LABS: Alcohol 187 mg/dL
[2023-09-01] MEDS: LORazepam 2 MG/ML INJ IV STA (20:25)
[2023-09-01] MEDS: SODIUM CHLORIDE 0.9% 1,000 ML IV STA (20:25)
[2023-09-01] MEDS: chlordiazePOXIDE 25 MG CAP PO STA (21:46)
[2023-09-02 10:43] LABS: Appearance,Urine Clear (Clear); Bilirubin,Urine Negative (Negative); Blood,Urine Negative (Negative); Color,Urine Yellow; Glucose,Urine (UA) Negative (Negative); Ketones,Urine Negative (Negative); Leukocyte Esterase,Urine Negative (Negative); Nitrite,Urine Negative (Negative); Protein,Urine Trace (Negative); Specific Gravity,Urine 1.023 (1.001-1.035)
[2023-09-02 11:00] LABS: Amphetamine Screen,Urine Not Detected (NotDetected); Barbiturate Screen,Urine Detected (NotDetected); Benzodiazepines Screen,Urine Detected (NotDetected); Cocaine Screen,Urine Not Detected (NotDetected); Methadone Screen, Urine Not Detected (NotDetected); Opiate Screen,Urine Not Detected (NotDetected); Oxycodone Screen, Urine Not Detected (NotDetected); Phencyclidine Screen,Urine Not Detected (NotDetected); Tricyclic Antidepressant,Urine Not Detected (NotDetected); Urn Cannabinoid Scrn Not Detected (NotDetected)
[2023-09-02] MEDS ORDERED: LORazepam 1 MG TAB PO PRN (11:18)
[2023-09-02] MEDS ORDERED: LORazepam 0.5 MG TAB PO PRN (11:18)
[2023-09-02] MEDS: LORazepam 1 MG TAB PO PRN (11:23)
[2023-09-02 22:45] LABS: T4, Free (Free Thyroxine) 0.99 ng/dL (0.78-2.19)
[2023-09-03] MEDS: LORazepam 1 MG TAB PO PRN ×2 (01:18→16:49)
[2023-09-03] MEDS: NICOTINE 14MG/24HR PATCH TRANSDERM STA (01:41)
[2023-09-03] MEDS: THIAMINE 100 MG TAB PO SCH ×2 (09:23→16:50)
[2023-09-03] MEDS ORDERED: MAGNESIUM HYDROXIDE 2,400 MG/30 ML CUP PO PRN (15:00)
[2023-09-03] MEDS ORDERED: IBUPROFEN 600 MG TAB PO PRN (15:00)
[2023-09-03] MEDS ORDERED: LORazepam 2 MG/ML INJ IM PRN (15:00)
[2023-09-03] MEDS ORDERED: LORazepam 1 MG TAB PO PRN ×2 (15:00)
[2023-09-03] MEDS ORDERED: HALOPERIDOL LACTATE 5 MG/ML 1 ML VIAL IM PRN (15:00)
[2023-09-03] MEDS ORDERED: ALBUTEROL INHALER 60 PUFF/8 GM INHALER (MHU) INHALATION PRN (15:12)
[2023-09-03] MEDS ORDERED: PRAZOSIN 1 MG CAP PO PRN (15:12)
[2023-09-03] MEDS: FOLIC ACID 1 MG TAB PO SCH (16:50)
[2023-09-03] MEDS: ATORVASTATIN 20 MG TAB PO SCH (20:33)
[2023-09-03] MEDS: DULoxetine HCL 60 MG CAPSULE.DR PO SCH (20:33)
[2023-09-03] MEDS: haloperidoL 5 MG TAB PO PRN (20:34)
[2023-09-04] MEDS: MAG HYDROX/AL HYDROX/SIMETH 30 ML CUP PO PRN (00:01)
[2023-09-04] MEDS: LORazepam 0.5 MG TAB PO PRN (00:03)
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
[2023-09-04] MEDS: NICOTINE 14MG/24HR PATCH TRANSDERM SCH (08:49)
[2023-09-04] MEDS: MULTIVITAMINS, THERA 1 EACH TAB PO SCH (08:49)
[2023-09-04 09:32] LABS: Anisocytosis Slight; Basophils % (A) 1 %; Eosinophils # (A) 0.4 k/uL (0-0.7); Eosinophils % (A) 4 %; HCT 46.5 % (39.0-53.0); HGB 15.6 gm/dL (13.0-17.5); Lymphocytes # (A) 2.4 k/uL (1.0-4.8); Lymphocytes % (A) 27 %; MCH 29.9 pg (25.0-35.0); MCHC 33.6 g/dL (31.0-37.0); MCV 88.9 fL (80.0-100.0); Mean Platelet Volume 7.7; Monocytes # (A) 0.3 k/uL (0-1.0); Monocytes % (A) 3 %; Neutrophils # (A) 5.5 k/uL (1.3-7.7); Neutrophils % (A) 63 %; Platelet Count 227 k/uL (150-450); RBC 5.23 m/uL (4.30-5.90); RDW 16.2 % (11.5-15.5); WBC 8.7 k/uL (3.8-10.6)
[2023-09-04 09:54] LABS: ALT 20 U/L (4-49); AST 36 U/L (17-59); African American GFR (CKD) >90 (>60 ml/min/1.73 sqM); Albumin 3.8 g/dL (3.5-5.0); Alkaline Phosphatase 116 U/L (38-126); Anion Gap 7 mmol/L; Blood Urea Nitrogen 12 mg/dL (9-20); Carbon Dioxide 25 mmol/L (22-30); Chloride 106 mmol/L (98-107); Glucose 102 mg/dL (74-99); Non-African American GFR(CKD) >90 (>60 ml/min/1.73 sqM); Potassium 4.2 mmol/L (3.5-5.1); Sodium 138 mmol/L (137-145); Total Bilirubin 0.7 mg/dL (0.2-1.3); Total Protein 7.1 g/dL (6.3-8.2)
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
[2023-09-04] MEDS: chlordiazePOXIDE 25 MG CAP PO SCH (13:00)
[2023-09-04] MEDS: SERTRALINE 50 MG TAB PO SCH (13:00)
[2023-09-04] MEDS: NALTREXONE HCL 50 MG TAB PO SCH (13:00)
[2023-09-04 15:39] LABS: Chol/HDL Ratio 4.23 Ratio; LDL Cholesterol,Calculated 103.6 mg/dL (0.0-131.0)
[2023-09-04] MEDS: MIRTAZAPINE 15 MG TAB PO SCH (20:54)
--- NOTE | 2023-09-05 12:01 | P.PN ---
Progress Note - Text Progress Note Date: 09/05/23 Interval History: Patient was seen wandering the hallways and was directable and agreeable to sp yola with television writer in the office. Today, patient states that he is feeling shaky, because of some phone calls. Patient currently in withdraw. Ocean Freight Agent told patient that his medication will be adjusted to help with these symptoms, patient agreeable. States his anxiety is high, and his mood is "ok". He states that he does good until he has to do anything. States his appetite is getting better, and his sleep is ok. Continues to speak of withdrawal symptoms including shakiness and high anxiety. He had to take a Ativan and Haldol last night due to it. At this time patient denies any suicidal or homical ideations, intent or plan. Patient denies any auditory, visual hallucinations and denies any paranoia or delusions. Patient denies any side effects from the medications and has been compliant with meds. MENTAL STATUS EXAM: General Appearance: Patient appears to be slender, unshaven adult male, with fair hygiene and grooming, dressed in casual attire. Behavior: Patient is seated without any agitated behavior. Patient continues to be emotional during interview Speech: Patient's speech is fluent and non-pressured. Emotional Mood/Affect: Patient reports their mood is "depressed and anxious" mildly improving, affect is congruent and anxious, appears sad, mildly improving Suicidality/Homicidality: Patient denies having any homicidal ideation intent or plan. Denies any suicidal ideation, intent or plan currently. Perceptions: Patient denies any visual hallucinations and denies any auditory hallucinations. Though content/process: There is no evidence of any delusional thought content. focused on treatment Memory and concentration: AOX3, grossly intact for the purposes of this session. Judgment and insight: chronically Poor, mildly improving IMPRESSIONS: Major depressive disorder, recurrent, severe without psychotic features Unspecified anxiety disorder Alcohol use disorder, severe, dependence, currently in withdrawal Nicotine dependence PLAN: -Patient is admitted under voluntary status to MHU for stabilization of psychiatric symptoms and safety. Patient has signed adult voluntary form and medication consent and is placed in patient's chart. -Medications : increase Zoloft 100mg daily for mood/anxiety Remeron 15mg qhs for sleep/mood, increase Librium 50mg tid for alcohol withdraw, will continue to taper. Naltrexone 50mg qd for alcohol cravings -Ativan and Haldol PRN for agitation/aggression -Thiamine, MVM for etoh use -CIWA protocol with Ativan PRN for ETOH withdrawal -NRT - nicotine patch -SW on board for discharge planning. Encourage patient to participate in groups to work on coping skills. At this time patient is not willing to do long-term substance use treatment due to it being out of [facility], he wants to stay in the [facility] close to his family. He will call access line today to get back into [facility]. Will continue to treat for psychiatric symptoms and withdrawal likely discharge next week
[2023-09-05] MEDS: chlordiazePOXIDE 25 MG CAP PO SCH (12:24)
[2023-09-06] MEDS: SERTRALINE 100 MG TAB PO SCH (08:43)
--- NOTE | 2023-09-06 11:44 | P.PN ---
Progress Note - Text Progress Note Date: 09/06/23 Interval History: Patient was seen in group, and was directable and agreeable to speak with scientific technical writer in the office. Today, patient states that his cognitive skills are still off, that he was trying to do a puzzle, and it was not working well for him. Patient appears a little brighter today, not as emotional as previous days. Continues to endorse withdrawal symptoms including shakiness and high anxiety, claims that it is worse at night time, claims that he is also having tremors in his hands. She continues to be tachycardic since yesterday. States he did not sleep well last night. Patient says that his mood is "sad". Glass Vial Filler spoke with patient at length about treatment options. At this time patient denies any suicidal or homical ideations, intent or plan. Patient denies any auditory, visual hallucinations and denies any paranoia or delusions. Patient denies any side effects from the m edications and has been compliant with meds. MENTAL STATUS EXAM: General Appearance: Patient appears to be slender, unshaven adult male, with fair hygiene and grooming, dressed in casual attire. Behavior: Patient is seated without any agitated behavior. Attempts to cooperate. Speech: Patient's speech is fluent and non-pressured. Emotional mildly improving Mood/Affect: Patient reports their mood is "sad" mildly improving, affect is congruent and anxious, appears sad, mildly improving Suicidality/Homicidality: Patient denies having any homicidal ideation intent or plan. Denies any suicidal ideation, intent or plan currently. Perceptions: Patient denies any visual hallucinations and denies any auditory hallucinations. Though content/process: There is no evidence of any delusional thought content. focused on treatment Memory and concentration: AOX3, grossly intact for the purposes of this session. Judgment and insight: chronically Poor, mildly improving IMPRESSIONS: Major depressive disorder, recurrent, severe without psychotic features Unspecified anxiety disorder Alcohol use disorder, severe, dependence, currently in withdrawal Nicotine dependence PLAN: -Patient is admitted under voluntary status to MHU for stabilization of psychiatric symptoms and safety. Patient has signed adult voluntary form and medication consent and is placed in patient's chart. -Medications :Zoloft 100mg daily for mood/anxiety, discontinue Remeron add seroquel 50mg qhs for sleep/mood, Librium 50mg tid for alcohol withdraw, will continue to taper. Naltrexone 50mg qd for alcohol cravings -Ativan and Haldol PRN for agitation/aggression -Thiamine, MVM for etoh use -CIWA protocol with Ativan PRN for ETOH withdrawal -NRT - nicotine patch - on board for discharge planning. Encourage patient to participate in groups to work on coping skills. At this time patient is not willing to do long-term substance use treatment due to it being out of [facility], he wants to stay in the [facility] close to his family. waiting on rehab at this time. Will continue to treat for psychiatric symptoms and withdrawal likely discharge next week.
[2023-09-06] MEDS: PANTOPRAZOLE 40 MG TABLET PO SCH (16:57)
[2023-09-06] MEDS: QUEtiapine 50 MG TAB PO SCH (20:15)
[2023-09-07] MEDS ORDERED: PANTOPRAZOLE 40 MG TABLET PO SCH (07:30)
--- NOTE | 2023-09-07 14:51 | P.PN ---
Progress Note - Text Progress Note Date: 09/07/23 Interval History: Patient was seen today wandering the hallways and was directable and agreeable to speak with technical report writer in the office. he states that he was tryign to call his to help him gather some of his expesnive belongings fromthe hotel he was previously at. Today continues to state that he feels anxious. Continues to endorse withdrawal symptoms including shakiness and high anxiety however claims that it is a bit better compared to yesterday. We spoke about gradually tapering down his Librium which she is okay with over the weekend. States that he is continuing to have difficulties with sleep overnight, spoke about increasing Seroquel. Patient says that his mood is "sad". At this time patient denies any suicidal or homical ideations, intent or plan. Patient denies any auditory, visual hallucinations and denies any paranoia or delusions. Patient denies any side effects from the medications and has been compliant with meds. MENTAL STATUS EXAM: General Appearance: Patient appears to be slender, unshaven adult male, with fair hygiene and grooming, dressed in casual attire. Behavior: Patient is seated without any agitated behavior. Attempts to cooperate. Improving mildly Speech: Patient's speech is fluent and non-pressured. Emotional mildly improving Mood/Affect: Patient reports their mood is "same" mildly improving, affect is congruent and less anxious, appears sad, mildly improving Suicidality/Homicidality: Patient denies having any homicidal ideation intent or plan. Denies any suicidal ideation, intent or plan currently. Perceptions: Patient denies any visual hallucinations and denies any auditory hallucinations. Though content/process: There is no evidence of any delusional thought content. focused on treatment Memory and concentration: AOX3, grossly intact for the purposes of this session. Judgment and insight: chronically Poor, mildly improving IMPRESSIONS: Major depressive disorder, recurrent, severe without psychotic features Unspecified anxiety disorder Alcohol use disorder, severe, dependence, currently in withdrawal Nicotine dependence PLAN: -Patient is admitted under voluntary status to MHU for stabilization of psychiatric symptoms and safety. Patient has signed adult voluntary form and medication consent and is placed in patient's chart. -Medications : Zoloft 100mg daily for mood/anxiety, increased seroquel 100mg qhs for sleep/mood, decrease Librium tid for alcohol withdraw over the weekend. Naltrexone 50mg qd for alcohol cravings -Ativan and Haldol PRN for agitation/aggression -Thiamine, MVM for etoh use -CIWA protocol with Ativan PRN for ETOH withdrawal -NRT - nicotine patch -SW on board for discharge planning. Encourage patient to participate in groups to work on coping skills. At this time patient is not willing to do long-term substance use treatment due to it being out of [facility], [place]. waiting on rehab at this time. Will continue to treat for psychiatric symptoms and withdrawal likely discharge next week.
[2023-09-07] MEDS: chlordiazePOXIDE 25 MG CAP PO SCH (17:50)
[2023-09-07] MEDS ORDERED: chlordiazePOXIDE 25 MG CAP PO SCH (18:00)
[2023-09-07] MEDS: QUEtiapine 100 MG TAB PO SCH (21:03)
[2023-09-08 06:58] VITALS: RESP 16
[2023-09-08] MEDS: QUEtiapine 200 MG TAB PO SCH (21:46)
--- NOTE | 2023-09-08 22:57 | P.PN ---
Progress Note - Text Progress Note Date: 09/08/23 Interval History: Interval History: The patient was seen today as coverage for Dr. Cortez. Their chart was reviewed, and the case was discussed with the nursing staff. The patient reports "horrible" sleep with difficulties falling asleep, and reported decreased appetite. The patient has been participating in groups and other unit activities. The patient has been taking their psychiatric medications and denies side effects. The patient reports feeling increased anxiety during the day and having feeling sad and depressed because couldn't stop thinking about "bad things I had done to myself". There are no reports of delusions, manic symptoms, or auditory hallucinations. The patient reports Zoloft never helped him during previous trial while he was living in [place] 18 years ago. He reports still sometimes having visual hallucinations "see little lines" the patient continues to report withdrawal symptoms including shakiness. MENTAL STATUS EXAM: General Appearance: Patient appears stated age, fair hygiene and grooming, dressed in casual attire. Behavior: Patient is seated without any agitated behavior. Attempts to cooperate. Speech: Patient's speech is fluent and non-pressured. Mood/Affect: Patient reports their mood is "anxious, depressed", affect is congruent and less anxious, appears sad, Suicidal /Homicidal risk: Patient denies having any homicidal ideation intent or plan. Denies any suicidal ideation, intent or plan currently. Perceptions: Patient denies any auditory hallucinations. Reports sometimes sees lines that are not existing Though content/process: There is no evidence of any delusional thought content. Memory and concentration: AOX3, grossly intact for the purposes of this session. Judgment and insight: chronically Poor, IMPRESSIONS: Major depressive disorder, recurrent, severe without psychotic features Unspecified anxiety disorder Alcohol use disorder, severe, dependence, currently in withdrawal Nicotine dependence PLAN: -Patient is admitted under voluntary status to MHU for stabilization of psychiatric symptoms and safety. Patient has signed adult voluntary form and medication consent and is placed in patient's chart. Continue inpatient psychiatric hospitalization. Implement the following precautions as recommended by the admitting psychiatrist: elopement and suicide Consult the medical team immediately if any medical concerns arise. Educate the patient on the benefits of participating in groups and other unit activities and encourage active participation. Medications: Continue Zoloft 100mg daily for mood/anxiety Increase Seroquel 200mg QHS for sleep/mood stabilization. Continue tapering down Librium tid for alcohol withdraw over the weekend as per Dr. Cortez plan. Continue Naltrexone 50mg qd for alcohol cravings Continue Thiamine, MVM for etoh use CIWA protocol with Ativan PRN for ETOH withdrawal NRT - nicotine patch Continue PRN psychiatric Medications including Ativan and Haldol PRN for agitation/aggression Discharge planning is currently in progress.
[2023-09-09] MEDS: PANTOPRAZOLE 40 MG TABLET PO SCH (20:40)
--- NOTE | 2023-09-10 11:47 | P.PN ---
Progress Note - Text Progress Note Date: 09/09/23 Interval History: The patient was seen today as coverage for Dr. Cortez. Their chart was reviewed, and the case was discussed with the nursing staff. The patient indicated Seroquel caused him to feel tired but did talk him long time to fall asleep. He reported some improvement in his sleep without interruption. The patient reported that he used to take trazodone with Seroquel to help falling asleep. The patient indicated high anxiety related to discharge and fearful back to drink alcohol after discharge. He reported to still feeling depressed and sad but denied suicidal or homicidal ideation. No reports of hallucinations, paranoid ideation, delusions, or manic symptoms. He indicated missing his family especially his grandson, and would like to stay away from alcohol and not to drink again. The patient indicated to still having decreased appetite. He denied was or symptoms. MENTAL STATUS EXAM: General Appearance: Patient appears stated age, fair hygiene and grooming, dressed in casual attire. Behavior: Patient is seated without any agitated behavior. Attempts to coop erate. Speech: Patient's speech is fluent and non-pressured. Mood/Affect: Patient reports their mood is "anxious, depressed", affect is congruent and less anxious, appears sad, Suicidal /Homicidal risk: Patient denies having any homicidal ideation intent or plan. Denies any suicidal ideation, intent or plan currently. Perceptions: Patient denies any auditory hallucinations. Reports sometimes sees lines that are not existing Though content/process: There is no evidence of any delusional thought content. Memory and concentration: AOX3, grossly intact for the purposes of this session. Judgment and insight: chronically Poor, IMPRESSIONS: Major depressive disorder, recurrent, severe without psychotic features Unspecified anxiety disorder Alcohol use disorder, severe, dependence, currently in withdrawal Nicotine dependence PLAN: -Patient is admitted under voluntary status to [facility] for stabilization of psychiatric symptoms and safety. Patient has signed adult voluntary form and m edication consent and is placed in patient's chart. Continue inpatient psychiatric hospitalization. Implement the following precautions as recommended by the admitting psychiatrist: elopement and suicide Consult the medical team immediately if any medical concerns arise. Educate the patient on the benefits of participating in groups and other unit activities and encourage active participation. Medications: Continue Zoloft 100mg daily for mood/anxiety Continue Seroquel 200mg QHS for sleep/mood stabilization. (The dose was increased from 150 to 200 yesterday) Continue tapering down Librium tid for alcohol withdraw over the weekend as per Dr. Cortez plan. Continue Naltrexone 50mg qd for alcohol cravings Continue Thiamine, MVM for etoh use CIWA protocol with Ativan PRN for ETOH withdrawal NRT - nicotine patch Continue PRN psychiatric Medications including Ativan and Haldol PRN for agitation/aggression Started trazodone 50 mg at bedtime for insomnia Discharge planning is currently in progress.
--- NOTE | 2023-09-10 12:23 | P.PN ---
Progress Note - Text Progress Note Date: 09/10/23 Interval History: Patient was seen today resting in his room and was directable and agreeable to speak with keno writer at the bedside. Patient claims that he is doing a bit better today, however, he had a stressful call home yesterday, and really misses the kids. States that he is continuing to have difficulties with sleep overnight, spoke about adding Remeron, patient agreeable. Patient says that his mood is "ok". He states that he is feeling a bit tired today, mainly keeping to himself in his room. Continues to be fairly pleasant. Denies any active withdrawals at this time. At this time patient denies any suicidal or homical ideations, intent or plan. Patient denies any auditory, visual hallucinations and denies any paranoia or delusions. Patient denies any side effects from the medications and has been compliant with meds. MENTAL STATUS EXAM: General Appearance: Patient appears to be slender, unshaven adult male, with fair hygiene and grooming, dressed in casual attire. Behavior: Patient is seated without any agitated behavior. Attempts to cooperate. Improving mildly Speech: Patient's speech is fluent and non-pressured. Emotional mildly improving Mood/Affect: Patient reports their mood is "ok" mildly improving, affect is congruent and less anxious, appears sad, mildly improving Suicidality/Homicidality: Patient denies having any homicidal ideation intent or plan. Denies any suicidal ideation, intent or plan currently. Perceptions: Patient denies any visual hallucinations and denies any auditory hallucinations. Though content/process: There is no evidence of any delusional thought content. Memory and concentration: AOX3, grossly intact for the purposes of this session. Judgment and insight: chronically Poor, improving IMPRESSIONS: Major depressive disorder, recurrent, severe without psychotic features Unspecified anxiety disorder Alcohol use disorder, severe, dependence, currently in withdrawal Nicotine dependence PLAN: -Patient is admitted under voluntary status to [facility] for stabilization of psychiatric symptoms and safety. Patient has signed adult voluntary form and medication consent and is placed in patient's chart. -Medications : Zoloft 100mg daily for mood/anxiety, seroquel 200mg qhs for sleep/mood, add Remeron 15mg qhs for sleep. decrease Librium 10mg tid with plan to taper off within the next couple of days. Naltrexone 50mg qd for alcohol cravings -Ativan and Haldol PRN for agitation/aggression -Thiamine, MVM for etoh use -d/c CIWA -NRT - nicotine patch - on board for discharge planning. Encourage patient to participate in groups to work on coping skills. At this time patient is not willing to do long-term substance use treatment due to it being out of [facility], [facility] [place]. waiting on rehab at this time. Will continue to treat for psychiatric symptoms and withdrawal hopeful for discharge in the next 2 to 3 days.
[2023-09-10] MEDS: LORazepam 1 MG TAB PO PRN (12:38)
[2023-09-10] MEDS: MIRTAZAPINE 15 MG TAB PO SCH (20:50)
--- NOTE | 2023-09-11 12:02 | P.PN ---
Progress Note - Text Progress Note Date: 09/11/23 Interval History: Patient was seen today resting in his room and was directable and agreeable to speak with creative writer at the bedside. Patient claims he is doing great, and his energy is improving. States that he slept well overnight. He is attending groups. Continues to be fairly pleasant. Denies any active withdrawals at this time. Patient was fairly focused on a issue yesterday where he was given a electric razor to shave however was noted to be in the common area using it on himself and also helped a another patient shaves a bit of her hair. Patient was very apologetic about this incident and was asking to have his razor back to shave before he goes to rehab. At this time patient denies any suicidal or homicidal ideations, intent or plan. Patient denies any auditory, visual hallucinations and denies any paranoia or delusions. Patient denies any side effects from the medications and has been compliant with meds. MENTAL STATUS EXAM: General Appearance: Patient appears to be slender, unshaven adult male, with fair hygiene and grooming, dressed in casual attire. Behavior: Patient is seated without any agitated behavior. Attempts to cooperate. Improving mildly Speech: Patient's speech is fluent and non-pressured. Emotional mildly improving Mood/Affect: Patient reports their mood is "ok" mildly improving, affect is congruent and less anxious, appears sad, mildly improving Suicidality/Homicidality: Patient denies having any homicidal ideation intent or plan. Denies any suicidal ideation, intent or plan currently. Perceptions: Patient denies any visual hallucinations and denies any auditory hallucinations. Though content/process: There is no evidence of any delusional thought content Memory and concentration: AOX3, grossly intact for the purposes of this session Judgment and insight: chronically Poor, improving IMPRESSIONS: Major depressive disorder, recurrent, severe without psychotic features Unspecified anxiety disorder Alcohol use disorder, severe, dependence, currently in withdrawal Nicotine dependence PLAN: -Patient is admitted under voluntary status to [facility] for stabilization of psychiatric symptoms and safety. Patient has signed adult voluntary form and medication consent and is placed in patient's chart. -Medications : Zoloft 100mg daily for mood/anxiety, seroquel 200mg qhs for sleep/mood, Remeron 15mg qhs for sleep. Change Librium 10mg to BID, then d/c tomorrow. Naltrexone 50mg qd for alcohol cravings -Ativan and Haldol PRN for agitation/aggression -Thiamine, MVM for etoh use -NRT - nicotine patch -SW on board for discharge planning. Encourage patient to participate in groups to work on coping skills. Patient accepted at [facility], and will be discharged there tomorrow with a ride. medications were sent downstairs in preparation.
[2023-09-12 07:19] VITALS: BP 125/75; PULSE 77; TEMP 97
--- NOTE | 2023-09-12 09:07 | P.DS ---
Providers Date of admission: 09/03/23 14:30 Attending physician: Teo Cortez MD Consults: 09/03/23 15:00 Consult Physician Routine Consulting Provider: Leonela Physician Consult Reason/Comments: H & P and medical care Do you want consulting provider notified?: Yes Primary care physician: Stated None - Discharge Diagnosis(es) (1) Major depressive disorder with single episode, in full remission Current Visit: Yes Status: Resolved Priority: Low (2) Major depressive disorder Current Visit: Yes Status: Acute (3) Alcohol use disorder, severe, dependence Current Visit: No Status: Acute Priority: High Patient Condition at Discharge: Fair Plan - Discharge Summary New Discharge Prescriptions: New Pantoprazole [Protonix] 40 mg PO AC-BID 30 Days #60 tab Nicotine 14Mg/24Hr Patch [Habitrol] 1 patch TRANSDERM DAILY 14 Days #14 patch Ibuprofen [Motrin] 600 mg PO Q6HR PRN tab PRN Reason: Moderate Pain (Scale 4 To 6) Mirtazapine [Remeron] 15 mg PO HS 30 Days #30 tab Naltrexone HCl [Revia] 50 mg PO DAILY 30 Days #30 tab QUEtiapine [SEROquel] 200 mg PO HS 30 Days #30 tab Sertraline [Zoloft] 100 mg PO DAILY 30 Days #30 tab Continue Albuterol Sulfate [Albuterol Sulfate Hfa] 1 - 2 puff PO RT-QID PRN PRN Reason: Shortness Of Breath Atorvastatin [Lipitor] 20 mg PO HS 30 Days #30 tab Multivitamins, Thera [Multivitamin (formulary)] 1 tab PO DAILY 30 Days #30 tab Thiamine [Vitamin B-1] 100 mg PO DIRECTED 30 Days #30 tab Folic Acid 1 mg PO DIRECTED 30 Days #30 tab Discontinued Prazosin [Minipress] 1 mg PO HS PRN PRN Reason: Insomnia DULoxetine HCL [Cymbalta] 60 mg PO HS chlordiazePOXIDE HCl [Librium] See Taper PO DIRECTED HYDROcodone/APAP 5-325MG [[place] 5-325] 1 tab PO BID PRN PRN Reason: Pain Discharge Medication List Albuterol Sulfate [Albuterol Sulfate Hfa] 1 - 2 puff PO RT-QID PRN 07/30/23 [History] Atorvastatin [Lipitor] 20 mg PO HS 30 Days #30 tab 09/11/23 [Rx] Folic Acid 1 mg PO DIRECTED 30 Days #30 tab 09/11/23 [Rx] Ibuprofen [Motrin] 600 mg PO Q6HR PRN tab 09/11/23 [Rx] Mirtazapine [Remeron] 15 mg PO HS 30 Days #30 tab 09/11/23 [Rx] Multivitamins, Thera [Multivitamin (formulary)] 1 tab PO DAILY 30 Days #30 tab 09/11/23 [Rx] Naltrexone HCl [Revia] 50 mg PO DAILY 30 Days #30 tab 09/11/23 [Rx] Nicotine 14Mg/24Hr Patch [Habitrol] 1 patch TRANSDERM DAILY 14 Days #14 patch 09/11/23 [Rx] Pantoprazole [Protonix] 40 mg PO AC-BID 30 Days #60 tab 09/11/23 [Rx] QUEtiapine [SEROquel] 200 mg PO HS 30 Days #30 tab 09/11/23 [Rx] Sertraline [Zoloft] 100 mg PO DAILY 30 Days #30 tab 09/11/23 [Rx] Thiamine [Vitamin B-1] 100 mg PO DIRECTED 30 Days #30 tab 09/11/23 [Rx] Follow up Appointment(s)/Referral(s): [facility] [[facility] [place] [facility] - 09/12/23 10:30 am None,Stated [Primary Care Provider] - 1-2 days Patient Instructions/Handouts: How to Stop Smoking (DC), Depression (DC), Anxiety (GEN) Activity/Diet/Wound Care/Special Instructions: Avoid the use of street drugs and alcohol. Take all medications as prescribed. When you are in need of refills on your medications, please contact your medical provider and/or outpatient psychiatrist/provider to have this done. Please go to your scheduled outpatient appointment for aftercare treatment. If symptoms return or become worse, call the crisis line at and/or go to the nearest emergency room for evaluation. National Suicide Hotline 234. Discharge/Stand Alone Forms: AA Meetings [facility]
== END 2023-09-12 10:07 | DRG 885 ==
LOC: EC 19:33 → 3MHU 09-03 14:30
PROVIDERS: ADMIT Psychiatry & Neurology Psychiatry; ATTEND Psychiatry & Neurology Psychiatry
DX: F33.2 Major depressive disorder, recurrent severe without psychotic features (principal); E78.5 Hyperlipidemia, unspecified; F10.229 Alcohol dependence with intoxication, unspecified; J44.9 Chronic obstructive pulmonary disease, unspecified; Z11.52 Encounter for screening for COVID-19; Z28.310 Unvaccinated for COVID-19; F41.9 Anxiety disorder, unspecified; T43.212A Poisoning by selective serotonin and norepinephrine reuptake inhibitors, intentional self-harm, initial encounter; Y90.6 Blood alcohol level of 120-199 mg/100 ml; F43.10 Post-traumatic stress disorder, unspecified; G56.91 Unspecified mononeuropathy of right upper limb; I44.4 Left anterior fascicular block; G89.29 Other chronic pain; M54.50 Low back pain, unspecified; M25.512 Pain in left shoulder; M25.511 Pain in right shoulder; M19.90 Unspecified osteoarthritis, unspecified site; G47.00 Insomnia, unspecified; F17.210 Nicotine dependence, cigarettes, uncomplicated; Z71.6 Tobacco abuse counseling; Z79.899 Other long term (current) drug therapy; Z56.0 Unemployment, unspecified; Z62.811 Personal history of psychological abuse in childhood; Z62.810 Personal history of physical and sexual abuse in childhood; Z91.51 Personal history of suicidal behavior; Z86.16 Personal history of COVID-19; Z71.41 Alcohol abuse counseling and surveillance of alcoholic; Z71.51 Drug abuse counseling and surveillance of drug abuser
CPT/HCPCS: 36415; 80053; 80061; 80143; 80179; 80306; 80320; 81003; 82075; 83036; 83605; 83735; 84439; 84443; 85025; 85610; 87635; 93005; 96374; 99285

== ENCOUNTER 2023-10-10 07:02 | Inpatient (IN) | payer OTHER ==
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
[2023-10-10 07:39] LABS: Anisocytosis Slight; Basophils # (A) 0.1 k/uL (0-0.2); Basophils % (A) 1 %; Eosinophils # (A) 0.1 k/uL (0-0.7); Eosinophils % (A) 1 %; HGB 14.9 gm/dL (13.0-17.5); Lymphocytes # (A) 2.7 k/uL (1.0-4.8); Lymphocytes % (A) 33 %; MCH 27.8 pg (25.0-35.0); MCHC 31.8 g/dL (31.0-37.0); MCV 87.5 fL (80.0-100.0); Mean Platelet Volume 7.1; Monocytes # (A) 0.3 k/uL (0-1.0); Monocytes % (A) 4 %; Neutrophils # (A) 4.8 k/uL (1.3-7.7); Neutrophils % (A) 59 %; Platelet Count 306 k/uL (150-450); RBC 5.37 m/uL (4.30-5.90); RDW 16.3 % (11.5-15.5); WBC 8.1 k/uL (3.8-10.6)
[2023-10-10] MEDS: SODIUM CHLORIDE 0.9% 2,000 ML IV STA (07:42)
[2023-10-10 07:49] LABS: ALT 42 U/L (4-49); AST 75 U/L (17-59); Acetaminophen <10.0 ug/mL; African American GFR (CKD) >90 (>60 ml/min/1.73 sqM); Albumin 4.2 g/dL (3.5-5.0); Alkaline Phosphatase 113 U/L (38-126); Anion Gap 19 mmol/L; Blood Urea Nitrogen 16 mg/dL (9-20); Calcium 8.8 mg/dL (8.4-10.2); Carbon Dioxide 15 mmol/L (22-30); Chloride 107 mmol/L (98-107); Glucose 151 mg/dL (74-99); Lipase 49 U/L (23-300); Non-African American GFR(CKD) >90 (>60 ml/min/1.73 sqM); Potassium 3.7 mmol/L (3.5-5.1); Salicylate <1.0 mg/dL; Sodium 141 mmol/L (137-145); Total Bilirubin 0.5 mg/dL (0.2-1.3); Total Protein 7.6 g/dL (6.3-8.2)
[2023-10-10 07:52] LABS: Alcohol 106 mg/dL
[2023-10-10] MEDS: LORazepam 2 MG/ML INJ IV STA ×2 (09:03→11:25)
[2023-10-10 10:23] LABS: Amphetamine Screen,Urine Not Detected (NotDetected); Barbiturate Screen,Urine Not Detected (NotDetected); Benzodiazepines Screen,Urine Detected (NotDetected); Cocaine Screen,Urine Not Detected (NotDetected); Methadone Screen, Urine Not Detected (NotDetected); Opiate Screen,Urine Not Detected (NotDetected); Oxycodone Screen, Urine Not Detected (NotDetected); Phencyclidine Screen,Urine Not Detected (NotDetected); Tricyclic Antidepressant,Urine Detected (NotDetected); Urn Cannabinoid Scrn Not Detected (NotDetected)
[2023-10-10] MEDS ORDERED: ONDANSETRON 4 MG/2 ML VIAL IVP PRN (10:58)
[2023-10-10] MEDS ORDERED: NALOXONE 0.4 MG/ML 1 ML VIAL IV PRN (10:58)
[2023-10-10] MEDS ORDERED: LORazepam 2 MG/ML INJ IV PRN (11:00)
[2023-10-10] MEDS ORDERED: LORazepam 0.5 MG TAB PO PRN (11:00)
[2023-10-10] MEDS: SODIUM CHLORIDE 0.9% 1,000 ML IV SCH (11:25)
[2023-10-10] MEDS ORDERED: ACETAMINOPHEN TAB 325 MG TAB PO PRN (11:25)
[2023-10-10] MEDS: THIAMINE 100 MG/ML 2 ML VIAL IM STA (11:26)
[2023-10-10 11:33] LABS: ALT 36 U/L (4-49); AST 64 U/L (17-59); African American GFR (CKD) >90 (>60 ml/min/1.73 sqM); Albumin 3.6 g/dL (3.5-5.0); Alkaline Phosphatase 106 U/L (38-126); Anion Gap 11 mmol/L; Blood Urea Nitrogen 14 mg/dL (9-20); Calcium 8.4 mg/dL (8.4-10.2); Carbon Dioxide 18 mmol/L (22-30); Chloride 110 mmol/L (98-107); Glucose 79 mg/dL (74-99); Magnesium 1.7 mg/dL (1.6-2.3); Non-African American GFR(CKD) >90 (>60 ml/min/1.73 sqM); Potassium 4.4 mmol/L (3.5-5.1); Sodium 139 mmol/L (137-145); Total Bilirubin 0.4 mg/dL (0.2-1.3); Total Protein 6.7 g/dL (6.3-8.2)
[2023-10-10] MEDS: NICOTINE 21MG/24HR PATCH TRANSDERM SCH (13:05)
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
[2023-10-10] MEDS: chlordiazePOXIDE 25 MG CAP PO STA (15:11)
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
[2023-10-10] MEDS: chlordiazePOXIDE 25 MG CAP PO SCH (17:25)
[2023-10-10] MEDS: MULTIVITAMINS, THERA 1 EACH TAB PO SCH (17:25)
[2023-10-10] MEDS: LORazepam 1 MG TAB PO PRN (18:15)
[2023-10-10] MEDS: FOLIC ACID 1 MG TAB PO SCH (18:49)
[2023-10-10] MEDS: MELATONIN 3 MG TABLET PO PRN (22:44)
[2023-10-10] MEDS: LORazepam 2 MG/ML INJ IV PRN (22:44)
[2023-10-11] MEDS: LORazepam 2 MG/ML INJ IV PRN (05:29)
[2023-10-11 07:56] LABS: African American GFR (CKD) >90 (>60 ml/min/1.73 sqM); Anion Gap 5 mmol/L; Blood Urea Nitrogen 17 mg/dL (9-20); Calcium 8.5 mg/dL (8.4-10.2); Carbon Dioxide 24 mmol/L (22-30); Chloride 108 mmol/L (98-107); Glucose 87 mg/dL (74-99); Non-African American GFR(CKD) >90 (>60 ml/min/1.73 sqM); Potassium 4.3 mmol/L (3.5-5.1); Sodium 137 mmol/L (137-145)
[2023-10-11] MEDS: THIAMINE 100 MG TAB PO SCH (09:40)
--- NOTE | 2023-10-11 10:22 | P.PN ---
Progress Note - Text Progress Note Date: 10/11/23 Patient is medically optimized for discharge to the mental health unit.
[2023-10-11 15:09] VITALS: BMI 25.7
[2023-10-11] MEDS: hydrOXYzine HCL 25 MG TAB PO PRN (19:08)
[2023-10-11] MEDS: CALCIUM CARBONATE 500 MG CHEWABLE PO PRN (23:09)
--- NOTE | 2023-10-12 08:01 | P.PN ---
Subjective Progress Note Date: 10/11/23 (seen on 10/11/23 at 1010) Patient is a 53-year-old male with history of alcohol dependency, depression, and prior withdrawal seizures who presented to the emergency department via police due to suicidal ideation. He reported overdosing on Remeron and Seroquel. he was petitioned by police. On arrival to the emergency department he was noted to be tachycardic with a pulse of 142. The remainder of his vital signs were within normal limits. Initial laboratory analysis included CBC CMP, lactic acid, troponin, lipase and urine drug screen which were remarkable for carbon dioxide 15, anion gap 16, lactic acid 3.1, AST 75. Urine drug screen was positive for tricyclics and benzodiazepines. He was noted to have a CIWA of 16 in the emergency department and received a total of 4 mg of Ativan. Poison control was contacted. Arrangements were made for admission for lactic acidosis and overdose. He continued to do well overnight after receiving minimal doses of Ativan. His lactic acid normalized. Patient seen and examined at bedside. He complains of feeling anxious and having alcohol withdrawal. He is asking for Ativan. However when I entered the room he was sleeping soundly. His largest complaint is feeling anxious. Vital signs reviewed General: Nontoxic, no distress, appears at stated age Cardiovascular: S1S2 reg, no murmur Lungs: CTA bilateral, no rhonchi, no rales, no accessory muscle use Abdominal: Soft, nontender to palpation, no guarding Ext: No gross muscle atrophy, no edema b/l lower extremities, no contractures Neuro: CN II-XI grossly intact, no focal neuro deficits Psych: Alert, oriented, pressured speech Assessment/Plan: Intentional overdose with suicidal ideation with Seroquel and Remeron Alcohol intoxication in active alcoholic Impending alcohol withdrawal Lactic acidosis - librium 50 mg PO QID -Thiamine 100 mg daily, folic acid 1 mg daily, multivitamin daily - Adjust CIWA to only for greater than 12 because patient keeps scoring for anxiety and start atarax 25 mg PO TID as needed for anxiety. -One-to-one food safety coordinator - stop IV fluids - follow CMP Sinus tachycardia, resolved Imaging: none Data Review: Labs reviewed from today include basic metabolic profile and lactic acid which are unremarkable. This dictation was prepared using [employer] voice recognition software. Though every attempt is made to correct errors during dictation some may still exist. Objective - Vital Signs Vital signs: Vital Signs Temp 97.9 F 10/12/23 02:00 Pulse 55 L 10/12/23 02:00 Resp 16 10/12/23 02:00 BP 103/63 10/12/23 02:00 Pulse Ox 94 L 10/12/23 02:00 FiO2 Intake & Output 10/11/23 10/12/23 10/12/23 18:59 06:59 18:59 Intake Total 240 Balance 240 Weight 83.915 kg Intake: Oral 240 Other: # Voids 1 2 - Labs CBC & Chem 7: 10/10/23 07:27 10/11/23 06:30
--- NOTE | 2023-10-12 10:58 | P.DS ---
Providers Date of admission: 10/10/23 10:04 Expected date of discharge: 10/12/23 Attending physician: Ivonne Bruce DO Consults: 10/10/23 10:57 Consult Physician Routine Consulting Provider: Psychiatry - [facility] Psychiatry Consult Reason/Comments: Overdose, depression, suicidal ideation Do you want consulting provider notified?: Yes Primary care physician: Stated None Hospital Course: Discharge Diagnosis: Intentional overdose with suicidal ideation with Seroquel and Remeron Alcohol intoxication in active alcoholic Impending alcohol withdrawal Lactic acidosis Sinus tachycardia, resolved Hospital Course: Patient is a 53-year-old male with history of alcohol dependency, depression, and prior withdrawal seizures who presented to the emergency department via police due to suicidal ideation. He reported overdosing on Remeron and Seroquel. he was petitioned by police. On arrival to the emergency department he was noted to be tachycardic with a pulse of 142. The remainder of his vital signs were within normal limits. Initial laboratory analysis included CBC CMP, lactic acid, troponin, lipase and urine drug screen which were remarkable for carbon dioxide 15, anion gap 16, lactic acid 3.1, AST 75. Urine drug screen was positive for tricyclics and benzodiazepines. He was noted to have a CIWA of 16 in the emergency department and received a total of 4 mg of Ativan. Poison control was contacted. Arrangements were made for admission for lactic acidosis and overdose. He continued to do well overnight after receiving minimal doses of Ativan. His lactic acid normalized. He had minimal withdrawal symptoms which were mostly related to anxiety. He was subsequently started on Atarax and required 1 additional dose of Ativan. His vital signs remained stable and even had a pulse down to 55 overnight. He was determined stable for discharge to mental health. Patient seen and examined at bedside. Feeling slightly anxious wanting to go to the mental health unit. Feels as though his withdrawal is doing okay other than his nervousness and anxiousness. Vital signs reviewed and stable. General: Nontoxic, no distress, appears at stated age Cardiovascular: S1S2 reg, no murmur, positive posterior tibial pulse bilateral, Lungs: CTA bilateral, no rhonchi, no rales, no accessory muscle use Abdominal: Soft, nontender to palpation, no guarding, no appreciable organomegaly Ext: No gross muscle atrophy, no edema b/l lower extremities, no contractures Neuro: CN II-XI grossly intact, no focal neuro deficits Psych: Alert, oriented, appears anxious A total of 32 minutes of time were spent preparing this complex discharge summary. Patient was discharged on 10/12/2023. This dictation was prepared using [employer] voice recognition software. Though every attempt is made to correct errors during dictation some may still exist. Patient Condition at Discharge: Fair Plan - Discharge Summary Discharge Rx Participant: No New Discharge Prescriptions: New Folic Acid 1 mg PO DAILY tab Nicotine 21Mg/24Hr Patch [Habitrol] 1 patch TRANSDERM DAILY patch Multivitamins, Thera [Multivitamin (formulary)] 1 each PO DAILY tab chlordiazePOXIDE HCl [Librium] 50 mg PO QID cap Thiamine [Vitamin B-1] 100 mg PO DAILY tab Continue Albuterol Sulfate [Albuterol Sulfate Hfa] 1 - 2 puff PO RT-QID PRN PRN Reason: Shortness Of Breath Atorvastatin [Lipitor] 20 mg PO HS 30 Days #30 tab Naltrexone HCl [Revia] 50 mg PO DAILY 30 Days #30 tab Sertraline [Zoloft] 100 mg PO DAILY 30 Days #30 tab Discontinued Mirtazapine [Remeron] 15 mg PO HS 30 Days #30 tab QUEtiapine [SEROquel] 200 mg PO HS 30 Days #30 tab Discharge Medication List Albuterol Sulfate [Albuterol Sulfate Hfa] 1 - 2 puff PO RT-QID PRN 07/30/23 [History] Atorvastatin [Lipitor] 20 mg PO HS 30 Days #30 tab 09/11/23 [Rx] Naltrexone HCl [Revia] 50 mg PO DAILY 30 Days #30 tab 09/11/23 [Rx] Sertraline [Zoloft] 100 mg PO DAILY 30 Days #30 tab 09/11/23 [Rx] Folic Acid 1 mg PO DAILY tab 10/11/23 [Rx] Multivitamins, Thera [Multivitamin (formulary)] 1 each PO DAILY tab 10/11/23 [Rx] Nicotine 21Mg/24Hr Patch [Habitrol] 1 patch TRANSDERM DAILY patch 10/11/23 [Rx] Thiamine [Vitamin B-1] 100 mg PO DAILY tab 10/11/23 [Rx] chlordiazePOXIDE HCl [Librium] 50 mg PO QID cap 10/11/23 [Rx] Follow up Appointment(s)/Referral(s): None,Stated [Primary Care Provider] - 1-2 days (Please call a primary care provider for follow-up appointment.) Discharge Disposition: TRANSFER TO PSYCH HOSP/UNIT
[2023-10-12 14:55] VITALS: BP 96/64; PULSE 90; RESP 18; TEMP 98.4
== END 2023-10-12 16:15 | DRG 817 ==
LOC: EC 07:02 → 5NMEDONC 10:04 → 4SSUR 10-11 05:54
PROVIDERS: ADMIT Internal Medicine; ATTEND Internal Medicine
DX: T43.592A Poisoning by other antipsychotics and neuroleptics, intentional self-harm, initial encounter (principal); M25.512 Pain in left shoulder; T43.022A Poisoning by tetracyclic antidepressants, intentional self-harm, initial encounter; E87.20 Acidosis, unspecified; F33.2 Major depressive disorder, recurrent severe without psychotic features; G62.9 Polyneuropathy, unspecified; G89.29 Other chronic pain; E86.0 Dehydration; F10.239 Alcohol dependence with withdrawal, unspecified; Y90.5 Blood alcohol level of 100-119 mg/100 ml; F17.200 Nicotine dependence, unspecified, uncomplicated; M47.9 Spondylosis, unspecified; F43.10 Post-traumatic stress disorder, unspecified; M25.511 Pain in right shoulder; F43.21 Adjustment disorder with depressed mood; F60.3 Borderline personality disorder; Z79.899 Other long term (current) drug therapy; H53.9 Unspecified visual disturbance; Z59.01 Sheltered homelessness; F10.229 Alcohol dependence with intoxication, unspecified; R00.0 Tachycardia, unspecified; Z28.310 Unvaccinated for COVID-19; Z11.52 Encounter for screening for COVID-19; Z28.21 Immunization not carried out because of patient refusal; S41.031S Puncture wound without foreign body of right shoulder, sequela
CPT/HCPCS: 36415; 80048; 80053; 80143; 80179; 80306; 80320; 82075; 83605; 83690; 83735; 84484; 85025; 87635; 93005; 96361; 96372; 96374; 96376; 99285

== ENCOUNTER 2023-10-12 13:43 | Inpatient (IN) | payer MEDICAID, OTHER ==
[2023-10-12] MEDS ORDERED: MAGNESIUM HYDROXIDE 2,400 MG/30 ML CUP PO PRN (14:07)
[2023-10-12] MEDS ORDERED: IBUPROFEN 600 MG TAB PO PRN (14:07)
[2023-10-12] MEDS ORDERED: OLANZapine 10 MG VIAL IM PRN (14:07)
[2023-10-12] MEDS ORDERED: OLANZapine 7.5 MG TAB PO PRN (14:07)
[2023-10-12] MEDS ORDERED: ALBUTEROL HFA INHALER INHALATION PRN (14:15)
[2023-10-12] MEDS: chlordiazePOXIDE 25 MG CAP PO SCH (17:54)
[2023-10-12] MEDS: ATORVASTATIN 20 MG TAB PO SCH (21:55)
[2023-10-12] MEDS: MAG HYDROX/AL HYDROX/SIMETH 355 ML BOTTLE PO PRN (21:56)
[2023-10-13] MEDS: MULTIVITAMINS, THERA 1 EACH TAB PO SCH (08:37)
[2023-10-13] MEDS: FOLIC ACID 1 MG TAB PO SCH (08:37)
[2023-10-13] MEDS: NICOTINE 21MG/24HR PATCH TRANSDERM SCH (08:37)
[2023-10-13] MEDS: SERTRALINE 100 MG TAB PO SCH (12:21)
[2023-10-13] MEDS: NALTREXONE HCL 50 MG TAB PO SCH (12:21)
[2023-10-13] MEDS: chlordiazePOXIDE 25 MG CAP PO SCH (12:21)
[2023-10-13] MEDS: THIAMINE 100 MG TAB PO SCH (12:21)
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
[2023-10-13] MEDS ORDERED: QUEtiapine 200 MG TAB PO SCH (21:00)
[2023-10-13] MEDS: MIRTAZAPINE 15 MG TAB PO SCH (21:30)
[2023-10-13] MEDS: QUEtiapine 100 MG TAB PO SCH (21:30)
--- NOTE | 2023-10-14 10:41 | P.PN ---
Progress Note - Text Progress Note Date: 10/14/23 Interval history: Patient was seen laying in bed today and was directable and agreeable to speak with va underwriter. Patient continues to be mildly tachycardic. He claims that the withdrawal symptoms have been improving, denies any tremors. He states that he is still feeling fairly anxious mainly about where he will be going. He claims that he cannot work due to his disability. States that he continues to want to stay sober. Claims that he is still feeling depressed. Has been mainly sleepin g for most of the day, we spoke about decreasing Librium which she is okay with, states that he slept fairly last night and appetite is mildly improving. At this time patient denies any suicidal or homicidal ideations intent or plan. Denies any Auditory or visual hallucinations. Patient denies any side effects from the medications and has been compliant with meds. Mental status exam: General Appearance: Patient appears to be mildly disheveled, stated age is alert, directable, and cooperative. Behavior: No agitated behavior. Patient is calm and directable, more cooperative today Speech: Patient's speech is fluent and nonpressured. Hesitant at times Mood/Affect: Mood is improving mildly, affect is congruent and constricted. Suicidality/Homicidality: Patient denies having any suicidal or homicidal ideation intent or plan. Perceptions: Patient denies any auditory or visual hallucinations. Though content/process: There is no evidence of any delusional thought content and thought process is linear and goal-directed. Memory and concentration: AOX3, grossly intact for the purposes of this session Judgment and insight: improving mildly Assessment/Plan: Continue with current diagnosis. Patient continues to meet criteria for inpatient psychiatric admission for symptom stabilization and safety. Patient will be maintained on current psychotropic medication regimen, with the exception of continuing to decrease Librium with a plan to taper off. Monitor for medication compliance and for any psychotropic medication side effects. Will continue to monitor ongoing response to treatment. Encouraged participation in milieu.
[2023-10-14] MEDS: PANTOPRAZOLE 40 MG TABLET PO SCH (10:53)
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
--- NOTE | 2023-10-15 12:07 | P.PN ---
Progress Note - Text Progress Note Date: 10/15/23 Interval History: Patient was seen wandering the hallways and was directable and agreeable to arcenio aceves with typewriter assembler in the office. Patient states that he's down, depressed and anxious. States he slept ok. Patient states that the consequences of his actions are catching up with him. Patient claims that he is barely eating, just nibbling on his food. Swimming Pool Service Technician spoke with patient about social work looking into terminal [facility] for the patient, patient agreeable. Patient is attending groups. At this time patient denies any suicidal or homicidal ideations, intent or plan. Patient denies any auditory, visual hallucinations and denies any paranoia or delusions. Patient denies any side effects from the medications and has been compliant with meds. MENTAL STATUS EXAM: General Appearance: Patient appears to be slender, adult male, with fair hygiene and grooming, dressed in street clothes. Appearance is improving Behavior: Patient is seated without any agitated behavior. Speech: Patient's speech is fluent and non-pressured. Mood/Affect: Patient reports their mood is "depressed and anxious", affect is congruent and anxious, appears sad Suicidality/Homicidality: Patient denies having any homicidal ideation intent or plan. Denies any suicidal ideations, no plan. Perceptions: Patient denies any auditory hallucinations. He is denying any visual hallucinations. Though content/process: There is no evidence of any delusional thought content. Hopeless Memory and concentration: AOX3, grossly intact for the purposes of this session. Judgment and insight: chronically Poor/impulsive IMPRESSIONS: Major depressive disorder, recurrent, severe without psychotic features Alcohol use disorder, severe, dependence, currently in withdrawal, impending delirium tremens Nicotine dependence PLAN: -Patient is admitted under voluntary status to [facility] for stabilization of psychiatric symptoms and safety. Patient has signed adult voluntary form and medication consent and is placed in patient's chart. -Medications : Seroquel 100mg qhs for mood stabilization/insomnia, increase Zoloft 150 mg daily for mood/anxiety, Remeron 15 mg nightly for insomnia/mood. Decrease Librium 25 mg 3 times daily scheduled for alcohol withdrawal, plan to taper down and discontinue. Naltrexone 50 mg p.o. daily for alcohol cravings. -Ativan and Haldol PRN for agitation/aggression -thiamine, MVM for etoh use -CIWA protocol with Ativan PRN for ETOH withdrawal. -NRT -nicotine patch -SW on board for discharge planning. Encourage patient to participate in groups to work on coping skills. Patient is interested in going to a long-term sobriety program out of town for his substance use disorder, social work is working on this. Likely discharge toward the end of the week.
[2023-10-15] MEDS: LORazepam 1 MG TAB PO PRN (13:24)
[2023-10-15] MEDS: chlordiazePOXIDE 25 MG CAP PO SCH (16:25)
[2023-10-15 17:26] VITALS: BMI 26.3
[2023-10-16] MEDS: SERTRALINE 50 MG TAB PO SCH (09:06)
--- NOTE | 2023-10-16 11:11 | P.PN ---
Progress Note - Text Progress Note Date: 10/16/23 Interval History: Patient was seen wandering the hallways and was directable and agreeable to arcenio aceves with chief writer in the office. Patient states that his mood and anxiety varies. States he had trouble initiating sleep last night. Patient states he is no longer having withdraw symptoms. Patient claims that his appetite is increasing. Cereal Supervisor spoke with patient about naltrexone, asking patient if he is interested in the long acting injection, Vivitrol, patient agreeable. Patient is attending groups. At this time patient denies any suicidal or homicidal ideations, intent or plan. Patient denies any auditory, visual hallucinations and denies any paranoia or delusions. Patient denies any side effects from the medications and has been compliant with meds. MENTAL STATUS EXAM: General Appearance: Patient appears to be slender, adult male, with fair hygiene and grooming, dressed in street clothes. Appearance is improving Behavior: Patient is seated without any agitated behavior. Speech: Patient's speech is fluent and non-pressured. Mood/Affect: Patient reports their mood is "depressed and anxious", affect is congruent and anxious, appears sad Suicidality/Homicidality: Patient denies having any homicidal ideation intent or plan. Denies any suicidal ideations, no plan. Perceptions: Patient denies any auditory hallucinations. He is denying any visual hallucinations. Though content/process: There is no evidence of any delusional thought content. Hopeless Memory and concentration: AOX3, grossly intact for the purposes of this session. Judgment and insight: chronically Poor/impulsive, improving mildly IMPRESSIONS: Major depressive disorder, recurrent, severe without psychotic features Alcohol use disorder, severe, dependence, currently in withdrawal, impending delirium tremens Nicotine dependence PLAN: -Patient is admitted under voluntary status to [facility] for stabilization of psychiatric symptoms and safety. Patient has signed adult voluntary form and medication consent and is placed in patient's chart. -Medications : increase Seroquel 150mg qhs for mood stabilization/insomnia, Zoloft 150 mg daily for mood/anxiety, Remeron 15 mg nightly for insomnia/mood. decrease Librium 10 mg 4 times daily scheduled for alcohol withdrawal, plan to taper down and discontinue. discontinue Naltrexone add Vivitrol 380mg IM every month for alcohol cravings. -Ativan and Haldol PRN for agitation/aggression -thiamine, MVM for etoh use -CIWA protocol with Ativan PRN for ETOH withdrawal. will discontinue tomorrow. -NRT -nicotine patch -SW on board for discharge planning. Encourage patient to participate in groups to work on coping skills. Patient is interested in going to a long-term sobriety program out of town for his substance use disorder, social work is working on this. Likely discharge toward the end of the week.
[2023-10-16] MEDS: NALTREXONE MICROSPHERES 380 MG VIAL (NO COST - VIVITROL) IM SCH (14:17)
[2023-10-16] MEDS: QUEtiapine 100 MG TAB PO SCH (21:39)
--- NOTE | 2023-10-17 09:01 | P.PN ---
Progress Note - Text Progress Note Date: 10/17/23 Interval History: Patient was seen in his room and was directable and agreeable to speak with wr iter at his bedside. Patient states that his anxiety is pretty high, due to worrying about where he is going. Graves Registration Specialist told the patient I will speak with social work at team meeting to see if they have found a industrial rehabilitation consultant rehab facility for him as of yet. States he slept well last night. fairly withdrawn today. conrete. Patient states he is no longer having withdraw symptoms. Patient claims that his appetite is increasing. Patient is attending some groups. At this time patient denies any suicidal or homicidal ideations, intent or plan. Patient denies any auditory, visual hallucinations and denies any paranoia or delusions. Patient denies any side effects from the medications and has been compliant with meds. MENTAL STATUS EXAM: General Appearance: Patient appears to be slender, adult male, with fair hygiene and grooming, dressed in street clothes. Appearance is improving Behavior: Patient is seated without any agitated behavior. Speech: Patient's speech is fluent and non-pressured. Mood/Affect: Patient reports their mood is "anxious", affect is congruent and anxious mildly improving Suicidality/Homicidality: Patient denies having any homicidal ideation intent or plan. Denies any suicidal ideations, no plan. Perceptions: Patient denies any auditory hallucinations. He is denying any visual hallucinations. Though content/process: There is no evidence of any delusional thought content. mildly improving Memory and concentration: AOX3, grossly intact for the purposes of this session. Judgment and insight: chronically Poor/impulsive, improving mildly IMPRESSIONS: Major depressive disorder, recurrent, severe without psychotic features Alcohol use disorder, severe, dependence, currently in withdrawal, impending delirium tremens Nicotine dependence PLAN: -Patient is admitted under voluntary status to [facility] for stabilization of psychiatric symptoms and safety. Patient has signed adult voluntary form and medication consent and is placed in patient's chart. -Medications :Seroquel 150mg qhs for mood stabilization/insomnia, Zoloft 150 mg daily for mood/anxiety, Remeron 15 mg nightly for insomnia/mood. decrease Librium 10 mg tid scheduled for alcohol withdrawal, plan to discontinue tomorrow am. Vivitrol 380mg IM every month for alcohol cravings. -Ativan and Haldol PRN for agitation/aggression -thiamine, MVM for etoh use -d/c CIWA -NRT -nicotine patch -SW on board for discharge planning. Encourage patient to participate in groups to work on coping skills. Patient is interested in going to a long-term sobriety program out of town for his substance use disorder, social work is working on this.
[2023-10-18] MEDS: LORazepam 1 MG TAB PO PRN (13:12)
--- NOTE | 2023-10-18 20:13 | P.PN ---
Subjective Progress Note Date: 10/18/23 Patient Name: Hal Alexander Date of : 1970 Patient Status: Inpatient Attending Provider: Teo Cortez Date: 10/18/23 07:03 Initialization Date: 10/17/23 07:03 Progress Note - Text Progress Note Date: 10/18/23 Interval History: The patient was seen chart was reviewed in case discussed with the nursing staff Patient reports that he was hospitalized due to chronic problems with alcoholism he states that he ended up taking an overdose of his pills that included Seroquel and Remeron he said that he was an impulsive thing you say that he feels a lot better now he says that the plan is to return back to stay with his ex- temporally and that she is allowing him to come there with that he could then want to the rehab facility she said that she has talked to the doctor and that they were talking about possible discharge tomorrow morning he says that he is feeling much more positive about his life in general . At this time patient denies any suicidal or homicidal ideations, intent or plan. Patient denies any auditory, visual hallucinations and denies any paranoia or delusions. Patient denies any side effects from the medications and has been compliant with meds. MENTAL STATUS EXAM: General Appearance: Patient appears to be slender, adult male, with fair hygiene and grooming, dressed in street clothes. Appearance is improving Behavior: Patient is seated without any agitated behavior. Speech: Patient's speech is fluent and non-pressured. Mood/Affect: Patient reports their mood is fair affect is congruent and anxious mildly improving Suicidality/Homicidality: Patient denies having any homicidal ideation intent or plan. Denies any suicidal ideations, no plan. Perceptions: Patient denies any auditory hallucinations. He is denying any visual hallucinations. Though content/process: There is no evidence of any delusional thought content. mildly improving Memory and concentration: AOX3, grossly intact for the purposes of this session. Judgment and insight: chronically Poor/impulsive, improving mildly IMPRESSIONS: Major depressive disorder, recurrent, severe without psychotic features Alcohol use disorder, severe, dependence, currently in withdrawal, impending delirium tremens Nicotine dependence PLAN: -Patient is admitted under voluntary status to [facility]HU for stabilization of psychiatric symptoms and safety. Patient has signed adult voluntary form and medication consent and is placed in patient's chart. -Medications :Seroquel 150mg qhs for mood stabilization/insomnia, Zoloft 150 mg daily for mood/anxiety, Remeron 15 mg nightly for insomnia/mood. decrease Librium 10 mg tid scheduled for alcohol withdrawal, plan to discontinue tomorrow am. Vivitrol 380mg IM every month for alcohol cravings. -Ativan and Haldol PRN for agitation/aggression -thiamine, MVM for etoh use -d/c CIWA -NRT -nicotine patch -SW on board for discharge planning. Encourage patient to participate in groups to work on coping skills. Patient is interested in going to a long-term sobriety program out of town for his substance use disorder, social work is working on this. divya cruz MD Objective - Vital Signs Vital signs: Vital Signs Temp 98.1 F 10/18/23 06:00 Pulse 99 10/18/23 06:00 Resp 16 10/18/23 06:00 BP 126/63 10/18/23 06:00 Pulse Ox 98 10/18/23 06:00 FiO2 Intake & Output 10/18/23 10/18/23 10/19/23 06:59 18:59 06:59 Weight 85.729 kg
[2023-10-19 09:05] VITALS: BP 109/70; PULSE 93; RESP 18; TEMP 96.8
--- NOTE | 2023-10-19 11:26 | P.DS ---
Providers Date of admission: 10/12/23 17:13 Expected date of discharge: 10/19/23 Attending physician: Teo Cortez MD Consults: 10/12/23 14:07 Consult Physician Routine Consulting Provider: Leonela Miller Consult Reason/Comments: Medical/Medication management continued Do you want consulting provider notified?: Yes Primary care physician: Stated None - Discharge Diagnosis(es) (1) Major depressive disorder, recurrent severe without psychotic features Current Visit: No Status: Acute Priority: High (2) Alcohol use disorder, severe, dependence Current Visit: No Status: Acute Priority: High (3) Nicotine dependence Current Visit: No Status: Acute Priority: Low Hospital Course: Admission HPI: Admission note was completed by software writer "Patient was seen by software writer for psychiatric consultation on 10/09 and as per note "patient presented to the hospital on 10/09 for multiple complaints including alcohol withdrawal, depression and suicidal ideations. Patient also had endorsed that he overdosed on 69 Remeron tablets and also several Seroquel's. Patient's urine drug screen is positive for TCAs, benzodiazepines. Patient has a chronic history of depression and had a serious suicide attempt in the past. Patient also has a history of severe alcohol use disorder/dependence and history of DTs. Patient was seen today at the bedside, he was trembling, states that he feels very anxious and going through severe withdrawals. He states that he relapsed back on alcohol a few days ago. States that he was sober for about 5 to 6 weeks states that he was going to meetings and had good support group. He states that "I just stopped" and states that he began not taking his medications properly. States that he is "done with the drinking" and states that it has been "repetitive". He was endorsing severe depression and anxiety, hopelessness helplessness. States that he did overdose in a suicide attempt. States that he was feeling nauseous vomiting and called the ambulance to come to the hospital. Claims that he feels his heart is racing. States that he is still having suicidal thoughts however no specific plan. He claims that if he were to leave today he would go out back to the store and start drinking again. He states that he is also seeing "squiggly's" lines which happens when he is withdrawing. Denies any auditory hallucinations. Patient denies any homicidal ideations intent or plan. Patient denies any flight of ideas racing thoughts and increased in goal directed behavior. Patient admits to using alcohol and also cigarettes" patient was seen today for psychiatric assessment. He claims that his mood and anxiety been mildly improving. Continues to endorse minor withdrawal symptoms including anxiety and mild shaking. States that he is doing better overall. He was fairly apologetic and claims that he went to rehab and finished the program. He states that he had his belongings taken from him when he was at the [facility] afterwards and states that he went to [facility] shortly after and began drinking in the motel afterwards. States that he drank for couple of days and then called the ambulance to take him to the hospital. States that he was feeling more depressed and having suicidal thoughts again. States that he was d rinking about 2/5 to 1 pint of liquor a day. Claims that his suicidal thoughts were having a plan to overdose on pills." Hospital course: Upon admission to the unit patient was directable and agreeable to commence treatment and signed adult voluntary form. Patient got along well with other patients on the unit and followed unit protocol. Patient was compliant with the medications and denied any side effects throughout hospital course. Patient was started on Seroquel and increased to dose of 200 mg nightly for mood stabilization/insomnia, Zoloft increased to dose of 200 mg daily for mood/an xiety, Remeron 15 mg nightly for insomnia/mood, patient was on scheduled Librium and titrated off for alcohol withdrawal. He was on CIWA protocol with as needed Ativan. Patient was initially on p.o. naltrexone for alcohol cravings then agreeable to take Vivitrol IM 380 mg, given on 10/15, next dose will be due on 11/12 q. monthly.. Patient spoke of his stressors and engaged in therapy both group and individual. Patient was also seen by medical team for history and physical exam. Throughout the course of the hospitalization patient gradually improved with regards to mood, anxiety, suicidal thoughts, sleep and became more future oriented with improved insight and judgment. On the day of discharge patient denied any suicidal or homicidal ideations intent or plan denied any auditory or visual hallucinations. Patient endorsed wanting to live for his health and family and his sobriety. The patient denied any access to guns or weapons. Patient denied any paranoia and did not endorse any delusions. Patient does have a significant history of substance abuse and was counseled on abstaining from all substances including alcohol and marijuana. Patient was able to get into [facility] however the intake date will be next Sunday. Patient's claims that she is able to have him in the house, assured 7th grade social studies teacher that there are no guns and weapons in the house and that there is no alcohol. Patient was also counseled on the medications and need for regular compliance and was encouraged to follow-up with their outpatient appointment for mental health and also for primary care. Prior to discharge a family meeting will be arranged by 7th grade social studies teacher to answer any questions and ensure safety upon discharge. Mental status exam: General Appearance: Patient appears to be stated age is alert, pleasant, and cooperative. Patient is in no acute distress and has improved hygiene and grooming Behavior: Patient is calmly seated without any agitated behavior. Speech: Patient's speech is fluent and nonpressured. Mood/Affect: Patient reports their mood is "good", affect is congruent and euthymic. Suicidality/Homicidality: Patient denies having any suicidal or homicidal ideation intent or plan. Perceptions: Patient denies any auditory or visual hallucinations. Though content/process: There is no evidence of any delusional thought content and thought process is linear and goal-directed. More future oriented Memory and concentration: AOX3, grossly intact for the purposes of this session. Can spell "WORLD" backwards correctly. Judgment and insight: Chronically poor, however has improved with guarded prognosis Impression: Major depressive disorder, recurrent, severe without psychotic features Alcohol use disorder, severe, dependence, currently in withdrawal, impending delirium tremens Nicotine dependence Plan: -Continue with discharge today as patient has improved and stabilized psychiatrically and is not currently an imminent threat to himself and/or others. Patient will remain at chronically elevated risk for harm to self and/or others due to his impulsivity and alcohol abuse. -Continue medications: Seroquel 200 mg nightly for mood stabilization/insomnia, Zoloft 200 mg daily for mood/anxiety, Remeron 15 mg nightly for insomnia/mood, Librium and Ativan were discontinued. Vivitrol 380 mg IM q. monthly, last dose given on 10/15, next dose will be due on 11/12. -Patient was counseled on the need for medication compliance and appropriate follow-up at mental health and also primary care for medical issues. Patient verbalized understanding and agreed. -Social work to arrange for and conduct family meeting to ensure safety upon discharge and answer any questions/concerns. Social work also to arrange for patients follow up appointments with [facility] for psychiatric care along with follow up with primary care provider. -Patient counseled on abstaining from recreational drugs and marijuana and alcohol. Was informed/educated on the adverse effects on their physical and mental health. Patient verbally agreed and understood. Patient has an intake date at [facility] on next Sunday. -Patient was instructed to return to the hospital or seek immediate medical care if their psychiatric or medical symptoms do worsen or reoccur. Allergies Allergy/AdvReac Type Severity Reaction Status Date / Time No Known Allergies Allergy Verified 10/12/23 14:07 Vital Signs Temp 96.8 F L 10/19/23 08:52 Pulse 93 10/19/23 08:52 Resp 18 10/19/23 08:52 BP 109/70 10/19/23 08:52 Pulse Ox 96 10/19/23 08:52 FiO2 Intake & Output 10/18/23 10/19/23 10/19/23 18:59 06:59 18:59 Intake Total 240 Balance 240 Weight 85.729 kg Intake: Oral 240 Plan - Discharge Summary Discharge Rx Participant: No New Discharge Prescriptions: New Mirtazapine [Remeron] 15 mg PO HS 30 Days #30 tab Naltrexone Microspheres [Vivitrol] 380 mg IM QMONTHLY #1 each Sertraline [Zoloft] 200 mg PO DAILY 30 Days #60 tab Nicotine 21Mg/24Hr Patch [Habitrol] 1 patch TRANSDERM DAILY 14 Days #14 patch Ibuprofen [Motrin] 600 mg PO Q6HR PRN tab PRN Reason: Moderate Pain (Scale 4 To 6) Pantoprazole [Protonix] 40 mg PO AC-BRKFST 30 Days #30 tab QUEtiapine [SEROquel] 200 mg PO HS 30 Days #60 tab Continue Albuterol Sulfate [Albuterol Sulfate Hfa] 1 - 2 puff PO RT-QID PRN PRN Reason: Shortness Of Breath Multivitamins, Thera [Multivitamin (formulary)] 1 each PO DAILY 30 Days #30 tab Folic Acid 1 mg PO DAILY 30 Days #30 tab Atorvastatin [Lipitor] 20 mg PO HS 30 Days #30 tab Thiamine [Vitamin B-1] 100 mg PO DAILY 30 Days #30 tab Discontinued Nicotine 21Mg/24Hr Patch [Habitrol] 1 patch TRANSDERM DAILY patch Naltrexone HCl [Revia] 50 mg PO DAILY 30 Days #30 tab Sertraline [Zoloft] 100 mg PO DAILY 30 Days #30 tab chlordiazePOXIDE HCl [Librium] 50 mg PO QID cap Discharge Medication List Albuterol Sulfate [Albuterol Sulfate Hfa] 1 - 2 puff PO RT-QID PRN 07/30/23 [History] Atorvastatin [Lipitor] 20 mg PO HS 30 Days #30 tab 10/19/23 [Rx] Folic Acid 1 mg PO DAILY 30 Days #30 tab 10/19/23 [Rx] Ibuprofen [Motrin] 600 mg PO Q6HR PRN tab 10/19/23 [Rx] Mirtazapine [Remeron] 15 mg PO HS 30 Days #30 tab 10/19/23 [Rx] Multivitamins, Thera [Multivitamin (formulary)] 1 each PO DAILY 30 Days #30 tab 10/19/23 [Rx] Naltrexone Microspheres [Vivitrol] 380 mg IM QMONTHLY #1 each 10/19/23 [Rx] Nicotine 21Mg/24Hr Patch [Habitrol] 1 patch TRANSDERM DAILY 14 Days #14 patch 10/19/23 [Rx] Pantoprazole [Protonix] 40 mg PO AC-BRKFST 30 Days #30 tab 10/19/23 [Rx] QUEtiapine [SEROquel] 200 mg PO HS 30 Days #60 tab 10/19/23 [Rx] Sertraline [Zoloft] 200 mg PO DAILY 30 Days #60 tab 10/19/23 [Rx] Thiamine [Vitamin B-1] 100 mg PO DAILY 30 Days #30 tab 10/19/23 [Rx] Follow up Appointment(s)/Referral(s): [facility] [Outside] - 10/26/23 Activity/Diet/Wound Care/Special Instructions: Avoid the use of street drugs and alcohol. Take all medications as prescribed. When you are in need of refills on your medications, please contact your medical provider and/or outpatient psychiatrist/provider to have this done. Please go to your scheduled outpatient appointment for aftercare treatment. If symptoms return or become worse, call the crisis line at and/or go to the nearest emergency room for evaluation. National Suicide Hotline 988. Discharge Disposition: HOME SELF-CARE
[2023-10-19] MEDS ORDERED: QUEtiapine 200 MG TAB PO SCH (21:00)
[2023-10-20] MEDS ORDERED: SERTRALINE 100 MG TAB PO SCH (09:00)
== END 2023-10-19 15:35 | disposition home or self-care (01) | DRG 751 ==
LOC: 3MHU 17:13
PROVIDERS: ADMIT Psychiatry & Neurology Psychiatry; ATTEND Psychiatry & Neurology Psychiatry
DX: F33.2 Major depressive disorder, recurrent severe without psychotic features (principal); R45.851 Suicidal ideations; F10.239 Alcohol dependence with withdrawal, unspecified; F43.10 Post-traumatic stress disorder, unspecified; Z28.310 Unvaccinated for COVID-19; M54.50 Low back pain, unspecified; G47.00 Insomnia, unspecified; G56.91 Unspecified mononeuropathy of right upper limb; G89.29 Other chronic pain; M19.90 Unspecified osteoarthritis, unspecified site; T43.592D Poisoning by other antipsychotics and neuroleptics, intentional self-harm, subsequent encounter; F17.210 Nicotine dependence, cigarettes, uncomplicated; Z71.6 Tobacco abuse counseling; Z79.899 Other long term (current) drug therapy; Z59.82 Transportation insecurity; Z56.0 Unemployment, unspecified; Z59.01 Sheltered homelessness; Z91.51 Personal history of suicidal behavior; Z91.410 Personal history of adult physical and sexual abuse; Z62.811 Personal history of psychological abuse in childhood; Z71.41 Alcohol abuse counseling and surveillance of alcoholic

== ENCOUNTER 2023-10-21 13:03 | Observation (INO) | payer SELFPAY ==
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
[2023-10-21 13:55] LABS: Basophils # (A) 0.1 k/uL (0-0.2); Basophils % (A) 1 %; Eosinophils # (A) 0.2 k/uL (0-0.7); Eosinophils % (A) 2 %; HCT 40.3 % (39.0-53.0); HGB 12.8 gm/dL (13.0-17.5); Lymphocytes # (A) 2.1 k/uL (1.0-4.8); Lymphocytes % (A) 25 %; MCH 27.4 pg (25.0-35.0); MCHC 31.7 g/dL (31.0-37.0); MCV 86.5 fL (80.0-100.0); Mean Platelet Volume 7.3; Monocytes # (A) 0.5 k/uL (0-1.0); Monocytes % (A) 6 %; Neutrophils # (A) 5.3 k/uL (1.3-7.7); Neutrophils % (A) 64 %; Platelet Count 477 k/uL (150-450); RBC 4.66 m/uL (4.30-5.90); RDW 15.8 % (11.5-15.5); WBC 8.3 k/uL (3.8-10.6)
[2023-10-21 14:26] LABS: ALT 15 U/L (4-49); AST 27 U/L (17-59); Acetaminophen <10.0 ug/mL; African American GFR (CKD) >90 (>60 ml/min/1.73 sqM); Albumin 3.8 g/dL (3.5-5.0); Alkaline Phosphatase 104 U/L (38-126); Anion Gap 15 mmol/L; Blood Urea Nitrogen 11 mg/dL (9-20); Calcium 8.8 mg/dL (8.4-10.2); Carbon Dioxide 21 mmol/L (22-30); Chloride 106 mmol/L (98-107); Glucose 96 mg/dL (74-99); Non-African American GFR(CKD) >90 (>60 ml/min/1.73 sqM); Potassium 3.7 mmol/L (3.5-5.1); Salicylate <1.0 mg/dL; Sodium 142 mmol/L (137-145); Total Bilirubin 0.3 mg/dL (0.2-1.3); Total Protein 7.4 g/dL (6.3-8.2)
[2023-10-21 15:19] LABS: Alcohol 271 mg/dL
[2023-10-21] MEDS ORDERED: NALOXONE 0.4 MG/ML 1 ML VIAL IV PRN (15:55)
[2023-10-21] MEDS ORDERED: LORazepam 1 MG TAB PO PRN (15:58)
[2023-10-21 16:33] LABS: Amphetamine Screen,Urine Not Detected (NotDetected); Barbiturate Screen,Urine Not Detected (NotDetected); Benzodiazepines Screen,Urine Detected (NotDetected); Cocaine Screen,Urine Not Detected (NotDetected); Methadone Screen, Urine Not Detected (NotDetected); Opiate Screen,Urine Not Detected (NotDetected); Oxycodone Screen, Urine Not Detected (NotDetected); Phencyclidine Screen,Urine Not Detected (NotDetected); Tricyclic Antidepressant,Urine Not Detected (NotDetected); Urn Cannabinoid Scrn Not Detected (NotDetected)
[2023-10-21] MEDS: THIAMINE 100 MG/ML 2 ML VIAL IM STA (18:35)
[2023-10-21] MEDS: SODIUM CHLORIDE 0.9% 1,000 ML IV SCH (18:35)
[2023-10-21] MEDS: LORazepam 1 MG TAB PO PRN (22:29)
[2023-10-22] MEDS: MULTIVITAMINS, THERA 1 EACH TAB PO SCH (08:50)
[2023-10-22] MEDS: LORazepam 1 MG TAB PO PRN (08:50)
[2023-10-22] MEDS: THIAMINE 100 MG TAB PO SCH ×2 (08:50→09:33)
[2023-10-22] MEDS ORDERED: ALBUTEROL HFA INHALER INHALATION PRN (09:19)
[2023-10-22] MEDS: NICOTINE 21MG/24HR PATCH TRANSDERM SCH (09:57)
[2023-10-22] MEDS: SERTRALINE 100 MG TAB PO SCH (09:57)
[2023-10-22] MEDS: IBUPROFEN 600 MG TAB PO PRN (09:58)
[2023-10-22] MEDS: FOLIC ACID 1 MG TAB PO SCH (09:58)
[2023-10-22] MEDS: PANTOPRAZOLE 40 MG TABLET PO SCH (10:02)
[2023-10-22 11:57] LABS: Basophils # (A) 0.05 X 10*3/uL (0.00-0.10); Basophils % (A) 0.6 %; Eosinophils # (A) 0.21 X 10*3/uL (0.04-0.35); Eosinophils % (A) 2.6 %; HCT 40.4 % (39.6-50.0); HGB 12.6 g/dL (13.0-17.0); Lymphocytes # (A) 2.13 X 10*3/uL (0.90-5.00); Lymphocytes % (A) 26.6 %; MCH 27.2 pg (27.0-32.0); MCHC 31.2 g/dL (32.0-37.0); MCV 87.1 FL (80.0-97.0); Mean Platelet Volume 9.4 FL (9.5-12.2); Monocytes # (A) 0.87 X 10*3/uL (0.20-1.00); Monocytes % (A) 10.8 %; NRBC Per 100 WBC 0 X 10*3/uL (0.00-0.01); Neutrophils # (A) 4.73 X 10*3/uL (1.80-7.70); Platelet Count 403 X 10*3/uL (140-440); RBC 4.64 X 10*6/uL (4.40-5.60); WBC 8.02 X 10*3/uL (4.50-10.00)
[2023-10-22 12:07] LABS: ALT 12 U/L (10-49); AST 21 U/L (14-35); Albumin 3.7 g/dL (3.8-4.9); Albumin/Globulin Ratio 1.16 Ratio (1.60-3.17); Alkaline Phosphatase 115 U/L (41-126); BUN/Creat Ratio 17.38 Ratio (12.00-20.00); Blood Urea Nitrogen 13.9 mg/dL (9.0-27.0); Calcium 9.2 mg/dL (8.7-10.3); Carbon Dioxide 23.9 mmol/L (21.6-31.8); Chloride 104 mmol/L (96-109); Globulin 3.2 g/dL (1.6-3.3); Glucose 72 mg/dL (70-110); Potassium 4.8 mmol/L (3.5-5.5); Sodium 140 mmol/L (135-145); Total Bilirubin 0.4 mg/dL (0.3-1.2); Total Protein 6.9 g/dL (6.2-8.2)
[2023-10-22 12:32] LABS: INR 1.09 sec (0.93-1.11); Prothrombin Time 11.7 sec (9.9-11.9)
--- NOTE | 2023-10-22 13:44 | HP ---
HISTORY AND PHYSICAL CHIEF COMPLAINT: Alcohol intoxication. HISTORY OF PRESENT ILLNESS: This is a 53-year-old gentleman with a past medical history of multiple medical problems including DJD, history of EtOH abuse, was admitted with alcohol intoxication and withdrawals. The patient is also severely depressed according to him. The patient's alcohol was found to be 271. There is no history of any fever, rigors, or chills at this time. PAST MEDICAL HISTORY: Reviewed include DJD, EtOH. Rest of the history and rest of the chart is also reviewed. HOME MEDICATIONS: Reviewed include vitamin B1, dose and rest of medications reviewed. ALLERGIES: None. FAMILY HISTORY: History of dementia in the family. SOCIAL HISTORY: Heavy alcohol abuse more than a pint. REVIEW OF SYSTEMS: 14-point review is negative except as mentioned earlier. PHYSICAL EXAMINATION: VITAL SIGNS: Pulse is 91, blood pressure 112/82, respirations 16. CHEST: Clear to auscultation. CARDIOVASCULAR: S1, S2. ABDOMEN: Soft. NERVOUS SYSTEM: Diffuse tremors and ataxia also present. LABORATORY DATA: Reviewed. ASSESSMENT: 1. Acute alcohol intoxication. 2. Acute delirium tremens. 3. History of degenerative joint disease. 4. Depression, severe. 5. Anxiety, posttraumatic stress disorder. RECOMMENDATIONS AND DISCUSSION: This is a 53-year-old gentleman, who presented with multiple complex medical issues, we will monitor the patient closely. I would recommend CIRI protocol, otherwise symptomatic treatment. Resume the home medications. Psychiatry has been consulted for severe depression. Prognosis guarded. Further recommendations to follow. Repeat labs will be ordered. See orders for further details. MMODL / IJN: [id number] /
--- NOTE | 2023-10-22 13:53 | XR ---
EXAMINATION TYPE: XR chest 1V portable DATE OF EXAM: 10/22/2023 1:50 PM CLINICAL INDICATION:Male, 53 years old with history of chf; COMPARISON: Chest radiographs from 07/31/2023 TECHNIQUE: XR chest 1V portable Frontal view of the chest. FINDINGS: Lungs/Pleura: There is no evidence of pleural effusion, focal consolidation, or pneumothorax. Pulmonary vascularity: Unremarkable. Heart/mediastinum: Cardiomediastinal silhouette is unremarkable. Musculoskeletal: No acute osseous pathology. IMPRESSION: No acute cardiopulmonary disease/process.
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
[2023-10-22] MEDS: HEPARIN SODIUM,PORCINE 5,000 UNIT/ML 1 ML VIAL SQ SCH (15:31)
[2023-10-22] MEDS: ACAMPROSATE CALCIUM 333 MG TABLET.DR PO SCH (15:31)
[2023-10-22] MEDS: chlordiazePOXIDE 25 MG CAP PO SCH (15:31)
[2023-10-22] MEDS ORDERED: chlordiazePOXIDE 25 MG CAP PO SCH (16:00)
[2023-10-22] MEDS: ATORVASTATIN 20 MG TAB PO SCH (20:04)
[2023-10-22] MEDS: QUEtiapine 200 MG TAB PO SCH (20:04)
[2023-10-22] MEDS: MIRTAZAPINE 15 MG TAB PO SCH (20:12)
[2023-10-23] MEDS: LORazepam 0.5 MG TAB PO PRN (06:31)
[2023-10-23] MEDS: ACAMPROSATE CALCIUM 333 MG TABLET.DR PO SCH (08:41)
[2023-10-23 11:05] LABS: HCT 39.4 % (39.6-50.0); HGB 12.3 g/dL (13.0-17.0); MCH 27.1 pg (27.0-32.0); MCHC 31.2 g/dL (32.0-37.0); MCV 86.8 FL (80.0-97.0); Mean Platelet Volume 9.4 FL (9.5-12.2); NRBC Per 100 WBC 0 X 10*3/uL (0.00-0.01); Platelet Count 378 X 10*3/uL (140-440); RBC 4.54 X 10*6/uL (4.40-5.60); RDW 16.1 % (11.5-14.5); WBC 6.79 X 10*3/uL (4.50-10.00)
[2023-10-23 11:06] LABS: Basophils # (A) 0.04 X 10*3/uL (0.00-0.10); Basophils % (A) 0.6 %; Eosinophils # (A) 0.25 X 10*3/uL (0.04-0.35); Eosinophils % (A) 3.7 %; Lymphocytes # (A) 2.15 X 10*3/uL (0.90-5.00); Lymphocytes % (A) 31.7 %; Monocytes # (A) 0.49 X 10*3/uL (0.20-1.00); Monocytes % (A) 7.2 %; Neutrophils # (A) 3.85 X 10*3/uL (1.80-7.70); Neutrophils % (A) 56.7 %
[2023-10-23 11:22] LABS: BUN/Creat Ratio 23.88 Ratio (12.00-20.00); Blood Urea Nitrogen 19.1 mg/dL (9.0-27.0); Carbon Dioxide 23.1 mmol/L (21.6-31.8); Chloride 105 mmol/L (96-109); Glucose 72 mg/dL (70-110); Potassium 4.3 mmol/L (3.5-5.5); Sodium 142 mmol/L (135-145)
[2023-10-23 11:23] LABS: ALT 9 U/L (10-49); AST 16 U/L (14-35); Albumin 3.4 g/dL (3.8-4.9); Albumin/Globulin Ratio 1.13 Ratio (1.60-3.17); Alkaline Phosphatase 107 U/L (41-126); Calcium 9.4 mg/dL (8.7-10.3); Total Bilirubin 0.3 mg/dL (0.3-1.2); Total Protein 6.4 g/dL (6.2-8.2)
--- NOTE | 2023-10-23 13:31 | P.PN ---
Progress Note - Text Progress Note Date: 10/23/23 Interval History: Patient was seen today for psychiatric follow-up regarding patient's alcohol use disorder and depression. Patient's vital signs appear to be stabilizing, he continues to be on scheduled Librium. He continues to receive Ativan as needed for withdrawals. Patient was seen today in the room, watching television. He states that he is doing better today with regards to his mood and anxiety and withdrawal symptoms. He was apologetic for coming back to the hospital and we spoke more in depth about his cravings and alcohol relapse. We spoke about changing the environment and different plans. T Rail Turner offered to patient to go back to [facility] for a few weeks of recovery before going to [facility] again however patient refused this option. He states that he would prefer to reach out to his brother and sister who lives in his hometown in [place] to go down there. He also states that his daughter moved up north in [place] and in a more secluded area which she would be able to stay away from alcohol. He claims that he was able to sleep fairly last night claims that his mood and anxiety have been improving. States that he is not having any suicidal homicidal ideations intent or plan, he was fairly future oriented, denies any access to guns or weapons. Denies any auditory or visual hallucinations. Claims that his appetite is improving. MENTAL STATUS EXAM: General Appearance: Patient appears to be slender,adult male, with fair hygiene and grooming, dressed in hospital gown. Improving appearance Behavior: Patient is seated without any agitated behavior. Less emotional today, more cooperative and apologetic Speech: Patient's speech is fluent and non-pressured. Apologetic. Mood/Affect: Patient reports their mood is "better", affect is congruent Suicidality/Homicidality: Patient denies having any homicidal ideation intent or plan. Denies any suicidal ideations, no plan. Perceptions: Patient denies any auditory hallucinations. He is denying any visual hallucinations. Though content/process: There is no evidence of any delusional thought content. Apologetic, more future oriented Memory and concentration: AOX3, grossly intact for the purposes of this session. Can spell "WORLD" backwards Judgment and insight: chronically Poor, improving mildly IMPRESSIONS: Depressive disorder unspecified Alcohol use disorder, severe, dependence, currently in withdrawal Nicotine dependence PLAN: -At this time patient does not meet criteria for inpatient psychiatric admission as patient is denying any suicidal or homicidal ideations intent or plan and denying any psychotic symptoms. Patient is mainly being treated for alcohol withdrawal. -Medications : Continue with Seroquel 200 mg nightly for mood stabilization/insomnia, Zoloft 200 mg daily for mood/anxiety, Remeron 15 mg nightly for insomnia/mood. Librium will be decreased and should not be discharged with the patient. Patient was given Vivitrol injection for alcohol cravings on previous psychiatric admission, will be due for next dose of 380 mg IM on 11/12, acamprosate 666 mg 3 times daily for alcohol cravings -CIWA protocol with Ativan PRN for ETOH withdrawal. -Spoke with nurse about the plan/recommendations -T Rail Turner spoke with mental health team this morning about different options. It was decided that patient would benefit most from going to [facility] however patient adamantly declines wanting to go to [facility] and would prefer to go to a different hotel at this time and reach out to his brother and sister in [place] and also his daughter up [place] to see if he is able to move away from the area and stay with them. He will be given the [facility] contact information and also substance use rehab access number along with crisis line phone number.
[2023-10-23 16:29] VITALS: BP 108/72; PULSE 65; RESP 18; TEMP 98.9
--- NOTE | 2023-10-26 06:04 | P.DS ---
Providers Date of admission: 10/21/23 15:57 Expected date of discharge: 10/23/23 Attending physician: Jose Hurst MD Consults: 10/21/23 15:55 Consult Physician Urgent Consulting Provider: Teo Cortez Consult Reason/Comments: Depression Do you want consulting provider notified?: Yes Primary care physician: Stated None Hospital Course: Final diagnosis Acute alcohol intoxication Acute delirium tremens History of degenerative joint disease History of severe depression Anxiety, posttraumatic stress disorder GI prophylaxis DVT prophylaxis Full code Discharge disposition Patient is being discharged in a stable condition with guarded prognosis to home. Patient will follow-up with Dr. Jose Wolf to establish in the outpatient setting upon discharge. Patient is to continue with Librium taper and close outpatient follow-up with [facility]. Patient to follow-up with [facility] and/or [place] [facility] as scheduled. Total time taken is greater than 35 minutes. Hospital course This is a 53-year-old male who was recently admitted with acute alcohol withdrawal with acute delirium tremens being closely monitored. Patient maintained on CIWA protocol also started on Librium taper reports to feeling improved. Patient was evaluated by psychiatry recommending going to [facility] for inpatient alcohol rehab and patient is agreeable although not able to go to [place] until 415 for intake. Patient was given resources for [facility] and has been instructed to follow-up with [facility]. Currently no reports of chest pain, shortness of breath, or palpitations. Patient is afebrile. No reports of nausea or vomiting and patient is tolerating diet. Patient will be discharged home today. High risk for readmissions given patient's continued alcohol abuse Physical exam: Gen: This is a 53-year-old male who is awake, alert and oriented x 3, well- developed, well-nourished HEENT: Head is atraumatic, normocephalic. Pupils equal, round. Sclerae is anicteric. NECK: Supple. No JVD. No lymphadenopathy. No thyromegaly. LUNGS: Clear to auscultation. No wheezes or rhonchi. No intercostal retractions. HEART: Regular rate and rhythm. No murmur. ABDOMEN: Soft. Bowel sounds are present. No masses. No tenderness. EXTREMITIES: No pedal edema. No calf tenderness. Upper extremities mildly shaking when lifting, gait steady NEUROLOGICAL: Patient is awake, alert and oriented x3. Cranial nerves 2 through 12 are grossly intact. Please refer to medication reconciliation sheet for a list of medications. The impression and plan of care has been dictated by Azra Haney, Nurse Practitioner as directed. Dr. Mandie MD I have performed a history and examination and MDM of this patient, discussed the same with the dictator, and agree with the dictator's assessment and plan as written ,documented as a scribe. Based on total visit time, I have performed more than 50% of the visit. Patient Condition at Discharge: Fair Plan - Discharge Summary Discharge Rx Participant: No New Discharge Prescriptions: New Acamprosate Calcium [Campral] 666 mg PO TID 30 Days #180 tab chlordiazePOXIDE HCl [Librium] 25 mg PO QID #17 cap Continue Albuterol Sulfate [Albuterol Sulfate Hfa] 1 - 2 puff PO RT-QID PRN PRN Reason: Shortness Of Breath Mirtazapine [Remeron] 15 mg PO HS 30 Days #30 tab Naltrexone Microspheres [Vivitrol] 380 mg IM QMONTHLY #1 each Sertraline [Zoloft] 200 mg PO DAILY 30 Days #60 tab Multivitamins, Thera [Multivitamin (formulary)] 1 tab PO DAILY Nicotine 21Mg/24Hr Patch [Habitrol] 1 patch TRANSDERM DAILY 14 Days #14 patch Ibuprofen [Motrin] 600 mg PO Q6HR PRN tab PRN Reason: Moderate Pain (Scale 4 To 6) Pantoprazole [Protonix] 40 mg PO AC-BRKFST 30 Days #30 tab QUEtiapine [SEROquel] 200 mg PO HS 30 Days #60 tab Folic Acid 1 mg PO DAILY 30 Days #30 tab Atorvastatin [Lipitor] 20 mg PO HS 30 Days #30 tab Thiamine [Vitamin B-1] 100 mg PO DAILY 30 Days #30 tab Discharge Medication List Albuterol Sulfate [Albuterol Sulfate Hfa] 1 - 2 puff PO RT-QID PRN 07/30/23 [History] Atorvastatin [Lipitor] 20 mg PO HS 30 Days #30 tab 10/19/23 [Rx] Folic Acid 1 mg PO DAILY 30 Days #30 tab 10/19/23 [Rx] Ibuprofen [Motrin] 600 mg PO Q6HR PRN tab 10/19/23 [Rx] Mirtazapine [Remeron] 15 mg PO HS 30 Days #30 tab 10/19/23 [Rx] Naltrexone Microspheres [Vivitrol] 380 mg IM QMONTHLY #1 each 10/19/23 [Rx] Nicotine 21Mg/24Hr Patch [Habitrol] 1 patch TRANSDERM DAILY 14 Days #14 patch 10/19/23 [Rx] Pantoprazole [Protonix] 40 mg PO AC-BRKFST 30 Days #30 tab 10/19/23 [Rx] QUEtiapine [SEROquel] 200 mg PO HS 30 Days #60 tab 10/19/23 [Rx] Sertraline [Zoloft] 200 mg PO DAILY 30 Days #60 tab 10/19/23 [Rx] Thiamine [Vitamin B-1] 100 mg PO DAILY 30 Days #30 tab 10/19/23 [Rx] Multivitamins, Thera [Multivitamin (formulary)] 1 tab PO DAILY 10/21/23 [History] Acamprosate Calcium [Campral] 666 mg PO TID 30 Days #180 tab 10/23/23 [Rx] chlordiazePOXIDE HCl [Librium] 25 mg PO QID #17 cap 10/23/23 [Rx] Follow up Appointment(s)/Referral(s): None,Stated [Primary Care Provider] - 1-2 days Patient Instructions/Handouts: Alcohol Intoxication (DC) Activity/Diet/Wound Care/Special Instructions: [facility] Address: [address] [place] [address] Discharge/Stand Alone Forms: AA Meetings [place], [facility] Shelters, Who Do I Call?, Community Resources, Outpatient Counseling, Inp Substance Abuse Facilities, Area PCPs Discharge Disposition: HOME SELF-CARE
[2023-11-13] MEDS ORDERED: NALTREXONE MICROSPHERES 380 MG VIAL (NO COST - VIVITROL) IM SCH (09:00)
== END 2023-10-23 17:46 | disposition home or self-care (01) ==
LOC: EC 13:03 → 6NMEDSUR 15:57
PROVIDERS: ADMIT Internal Medicine; ATTEND Internal Medicine
DX: F10.231 Alcohol dependence with withdrawal delirium (principal); F10.229 Alcohol dependence with intoxication, unspecified; F32.A Depression, unspecified; M19.90 Unspecified osteoarthritis, unspecified site; Y90.8 Blood alcohol level of 240 mg/100 ml or more; F43.10 Post-traumatic stress disorder, unspecified; F41.9 Anxiety disorder, unspecified; F17.200 Nicotine dependence, unspecified, uncomplicated; Z79.899 Other long term (current) drug therapy
CPT/HCPCS: 96361 ×2; 96372 ×3; 82075; 96360; 99285; 36415; 93005; 80053 ×3; 85025 ×3; 85610; 80306; 80143; 80179; 71045; G0378 ×3; G0480; S4990 ×2; J1644 ×2; J3411; 80320

== ENCOUNTER 2023-10-28 00:11 | Emergency (ER) | payer OTHER ==
[2023-10-28] MEDS: LORazepam 2 MG/ML INJ IV STA ×3 (04:10→23:37)
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
[2023-10-28 23:31] LABS: Amphetamine Screen,Urine Not Detected (NotDetected); Barbiturate Screen,Urine Not Detected (NotDetected); Benzodiazepines Screen,Urine Detected (NotDetected); Cocaine Screen,Urine Not Detected (NotDetected); Methadone Screen, Urine Not Detected (NotDetected); Opiate Screen,Urine Not Detected (NotDetected); Oxycodone Screen, Urine Not Detected (NotDetected); Phencyclidine Screen,Urine Not Detected (NotDetected); Tricyclic Antidepressant,Urine Not Detected (NotDetected); Urn Cannabinoid Scrn Not Detected (NotDetected)
[2023-10-28] MEDS: LORazepam 1 MG TAB PO STA (23:39)
[2023-10-28] MEDS: chlordiazePOXIDE 25 MG CAP PO STA (23:39)
[2023-10-29 07:22] VITALS: BP 130/88; PULSE 79; RESP 16; TEMP 97.8
== END 2023-10-29 07:23 | disposition home or self-care (01) ==
LOC: EC 00:11
DX: F10.939 Alcohol use, unspecified with withdrawal, unspecified (principal); F17.200 Nicotine dependence, unspecified, uncomplicated
CPT/HCPCS: 82075; 80306; 99285; 96374; 96376; J2060

== ENCOUNTER 2023-10-29 14:23 | Observation (INO) | payer OTHER ==
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
[2023-10-29] MEDS: THIAMINE 100 MG/ML 2 ML VIAL IM STA (14:57)
[2023-10-29 15:27] LABS: African American GFR (CKD) >90 (>60 ml/min/1.73 sqM); Anion Gap 18 mmol/L; Blood Urea Nitrogen 17 mg/dL (9-20); Carbon Dioxide 16 mmol/L (22-30); Chloride 107 mmol/L (98-107); Glucose 147 mg/dL (74-99); Magnesium 1.6 mg/dL (1.6-2.3); Non-African American GFR(CKD) >90 (>60 ml/min/1.73 sqM); Potassium 3.3 mmol/L (3.5-5.1); Sodium 141 mmol/L (137-145)
[2023-10-29 15:58] LABS: Alcohol 349 mg/dL
[2023-10-29] MEDS ORDERED: NALOXONE 0.4 MG/ML 1 ML VIAL IV PRN (16:19)
[2023-10-29] MEDS ORDERED: LORazepam 2 MG/ML INJ IV PRN (16:20)
[2023-10-29] MEDS ORDERED: LORazepam 0.5 MG TAB PO PRN (16:20)
[2023-10-29 16:27] LABS: Anisocytosis Slight; Basophils % (A) 0 %; Eosinophils # (A) 0.2 k/uL (0-0.7); Eosinophils % (A) 2 %; HCT 44.2 % (39.0-53.0); HGB 13.9 gm/dL (13.0-17.5); Lymphocytes # (A) 1.6 k/uL (1.0-4.8); Lymphocytes % (A) 20 %; MCH 27.3 pg (25.0-35.0); MCHC 31.5 g/dL (31.0-37.0); MCV 86.9 fL (80.0-100.0); Mean Platelet Volume 7.2; Monocytes # (A) 0.4 k/uL (0-1.0); Monocytes % (A) 5 %; Neutrophils # (A) 5.8 k/uL (1.3-7.7); Neutrophils % (A) 72 %; Platelet Count 332 k/uL (150-450); RBC 5.09 m/uL (4.30-5.90); RDW 16.8 % (11.5-15.5); WBC 8.1 k/uL (3.8-10.6)
[2023-10-29] MEDS: SODIUM CHLORIDE 0.9% 1,000 ML IV SCH (16:30)
[2023-10-29 21:20] LABS: Amphetamine Screen,Urine Not Detected (NotDetected); Barbiturate Screen,Urine Not Detected (NotDetected); Benzodiazepines Screen,Urine Detected (NotDetected); Cocaine Screen,Urine Not Detected (NotDetected); Methadone Screen, Urine Not Detected (NotDetected); Opiate Screen,Urine Not Detected (NotDetected); Oxycodone Screen, Urine Not Detected (NotDetected); Phencyclidine Screen,Urine Not Detected (NotDetected); Tricyclic Antidepressant,Urine Not Detected (NotDetected); Urn Cannabinoid Scrn Not Detected (NotDetected)
[2023-10-29] MEDS: LORazepam 2 MG/ML INJ IV PRN (21:20)
[2023-10-29] MEDS: POTASSIUM CHLORIDE 20 MEQ in WATER FOR INJECTION 1 100ML.BAG IVPB ONE (22:39)
[2023-10-29] MEDS: HEPARIN SODIUM,PORCINE 5,000 UNIT/ML 1 ML VIAL SQ SCH (23:03)
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
[2023-10-30] MEDS: LORazepam 1 MG TAB PO PRN ×2 (00:48→15:42)
[2023-10-30] MEDS: LORazepam 2 MG/ML INJ IV PRN (08:28)
[2023-10-30] MEDS: THIAMINE 100 MG TAB PO SCH (09:11)
[2023-10-30] MEDS: MULTIVITAMINS, THERA 1 EACH TAB PO SCH (09:11)
[2023-10-30 10:47] LABS: Basophils # (A) 0.04 X 10*3/uL (0.00-0.10); Basophils % (A) 0.7 %; Eosinophils # (A) 0.19 X 10*3/uL (0.04-0.35); Eosinophils % (A) 3.4 %; HCT 40.4 % (39.6-50.0); HGB 12.7 g/dL (13.0-17.0); Immature Grans, Automated 0 %; Lymphocytes # (A) 2.06 X 10*3/uL (0.90-5.00); Lymphocytes % (A) 36.4 %; MCH 27.3 pg (27.0-32.0); MCHC 31.4 g/dL (32.0-37.0); MCV 86.9 FL (80.0-97.0); Mean Platelet Volume 9.8 FL (9.5-12.2); Monocytes # (A) 0.45 X 10*3/uL (0.20-1.00); NRBC Per 100 WBC 0 X 10*3/uL (0.00-0.01); Neutrophils # (A) 2.92 X 10*3/uL (1.80-7.70); Neutrophils % (A) 51.5 %; Platelet Count 308 X 10*3/uL (140-440); RBC 4.65 X 10*6/uL (4.40-5.60); RDW 17.3 % (11.5-14.5); WBC 5.66 X 10*3/uL (4.50-10.00)
[2023-10-30 11:05] LABS: BUN/Creat Ratio 20.17 Ratio (12.00-20.00); Blood Urea Nitrogen 12.1 mg/dL (9.0-27.0); Carbon Dioxide 23.1 mmol/L (21.6-31.8); Chloride 104 mmol/L (96-109); Glucose 93 mg/dL (70-110); Potassium 3.7 mmol/L (3.5-5.5); Sodium 139 mmol/L (135-145)
[2023-10-30 11:06] LABS: ALT 13 U/L (10-49); AST 30 U/L (14-35); Albumin 3.5 g/dL (3.8-4.9); Albumin/Globulin Ratio 1.25 Ratio (1.60-3.17); Alkaline Phosphatase 103 U/L (41-126); Calcium 8.8 mg/dL (8.7-10.3); Globulin 2.8 g/dL (1.6-3.3); Total Bilirubin 0.3 mg/dL (0.3-1.2); Total Protein 6.3 g/dL (6.2-8.2)
[2023-10-31] MEDS: LORazepam 1 MG TAB PO PRN (00:18)
[2023-10-31 04:09] VITALS: RESP 18
[2023-10-31 08:44] VITALS: BP 128/77; PULSE 64; TEMP 97.5
--- NOTE | 2023-10-31 10:55 | P.CN ---
Psychiatric Consult - . Consult date: 10/31/23 Consult:: 10/31/23 10:53 Patients case was discussed with Garrett LAZO over the phone, please see further details and recommendations in the documentation in social work note. Patient's primary diagnosis is alcohol use disorder severe dependence, we have attempted several times to offer patient rehab information however patient continues to decline this and only sporadically takes anticraving medications. Patient is currently on Vivitrol injection.
== END 2023-10-31 14:15 | disposition home or self-care (01) ==
LOC: EC 14:23 → 6NMEDSUR 16:21
PROVIDERS: ADMIT Internal Medicine; ATTEND Internal Medicine
DX: F10.229 Alcohol dependence with intoxication, unspecified (principal); R45.851 Suicidal ideations; F41.9 Anxiety disorder, unspecified; F32.A Depression, unspecified; F43.10 Post-traumatic stress disorder, unspecified; E87.6 Hypokalemia; G89.29 Other chronic pain; M54.50 Low back pain, unspecified; M25.511 Pain in right shoulder; M25.512 Pain in left shoulder; F17.200 Nicotine dependence, unspecified, uncomplicated; Y90.8 Blood alcohol level of 240 mg/100 ml or more
CPT/HCPCS: 96376 ×2; 96361 ×2; 96365; 96366 ×2; 96372 ×3; 99285; 36415; 80053; 80048; 83735; 85025 ×2; 80306; G0378 ×3; G0480; J2060 ×3; J1644 ×2; J3411; J3480; 80320

== ENCOUNTER 2023-11-04 10:32 | Emergency (ER) | payer OTHER ==
[2023-11-04 10:45] VITALS: BP 130/83; PULSE 114; RESP 20; TEMP 97.6
[2023-11-04 10:50] LABS: Glucose,Whole Blood 93 mg/dL (70-110)
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
[2023-11-04 12:11] LABS: Anisocytosis Slight; Basophils % (A) 0 %; Eosinophils # (A) 0.2 k/uL (0-0.7); Eosinophils % (A) 3 %; HCT 39.6 % (39.0-53.0); HGB 12.8 gm/dL (13.0-17.5); Hypochromasia Slight; Lymphocytes # (A) 1.2 k/uL (1.0-4.8); Lymphocytes % (A) 17 %; MCH 28.2 pg (25.0-35.0); MCHC 32.4 g/dL (31.0-37.0); MCV 87.1 fL (80.0-100.0); Mean Platelet Volume 8.9; Monocytes # (A) 0.3 k/uL (0-1.0); Monocytes % (A) 4 %; Neutrophils # (A) 5.1 k/uL (1.3-7.7); Neutrophils % (A) 75 %; Platelet Count 168 k/uL (150-450); RBC 4.55 m/uL (4.30-5.90); RDW 17.8 % (11.5-15.5); WBC 6.9 k/uL (3.8-10.6)
[2023-11-04 12:34] LABS: ALT 16 U/L (4-49); AST 35 U/L (17-59); African American GFR (CKD) >90 (>60 ml/min/1.73 sqM); Albumin 3.3 g/dL (3.5-5.0); Alcohol <10 mg/dL; Alkaline Phosphatase 94 U/L (38-126); Anion Gap 10 mmol/L; Blood Urea Nitrogen 8 mg/dL (9-20); Calcium 8.4 mg/dL (8.4-10.2); Carbon Dioxide 18 mmol/L (22-30); Chloride 109 mmol/L (98-107); Glucose 91 mg/dL (74-99); Non-African American GFR(CKD) >90 (>60 ml/min/1.73 sqM); Potassium 3.2 mmol/L (3.5-5.1); Sodium 137 mmol/L (137-145); Total Protein 6.4 g/dL (6.3-8.2)
== END 2023-11-04 12:17 | disposition home or self-care (01) ==
LOC: EC 10:32
DX: F10.229 Alcohol dependence with intoxication, unspecified (principal); F17.200 Nicotine dependence, unspecified, uncomplicated
CPT/HCPCS: 82075; 36415; 80053; 83735; 85025; 99284; G0480; 80320

== ENCOUNTER 2023-11-10 14:20 | Observation (INO) | payer SELFPAY ==
[2023-11-10] MEDS: SODIUM CHLORIDE 0.9% 1,000 ML IV STA (14:42)
[2023-11-10 15:09] LABS: Anisocytosis Slight; Basophils # (A) 0.1 k/uL (0-0.2); Basophils % (A) 1 %; Eosinophils # (A) 0.1 k/uL (0-0.7); Eosinophils % (A) 3 %; HCT 48.9 % (39.0-53.0); HGB 15.5 gm/dL (13.0-17.5); Lymphocytes # (A) 1.7 k/uL (1.0-4.8); Lymphocytes % (A) 34 %; MCHC 31.6 g/dL (31.0-37.0); MCV 88.5 fL (80.0-100.0); Mean Platelet Volume 8.4; Monocytes # (A) 0.4 k/uL (0-1.0); Monocytes % (A) 7 %; Neutrophils # (A) 2.6 k/uL (1.3-7.7); Neutrophils % (A) 53 %; Platelet Count 204 k/uL (150-450); RBC 5.53 m/uL (4.30-5.90)
[2023-11-10 15:25] LABS: ALT 19 U/L (4-49); AST 50 U/L (17-59); African American GFR (CKD) >90 (>60 ml/min/1.73 sqM); Alkaline Phosphatase 109 U/L (38-126); Anion Gap 15 mmol/L; Blood Urea Nitrogen 9 mg/dL (9-20); Calcium 8.9 mg/dL (8.4-10.2); Carbon Dioxide 22 mmol/L (22-30); Chloride 110 mmol/L (98-107); Glucose 87 mg/dL (74-99); Non-African American GFR(CKD) >90 (>60 ml/min/1.73 sqM); Sodium 147 mmol/L (137-145); Total Bilirubin 0.6 mg/dL (0.2-1.3); Total Protein 7.6 g/dL (6.3-8.2)
[2023-11-10 16:15] LABS: Alcohol 252 mg/dL; Potassium 4.2 mmol/L (3.5-5.1)
[2023-11-10] MEDS: LORazepam 2 MG/ML INJ IV STA (16:16)
[2023-11-10] MEDS ORDERED: NALOXONE 0.4 MG/ML 1 ML VIAL IV PRN (17:10)
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
[2023-11-10] MEDS ORDERED: LORazepam 2 MG/ML INJ IV PRN (17:12)
[2023-11-10 17:30] LABS: Appearance,Urine Clear (Clear); Bilirubin,Urine Negative (Negative); Blood,Urine Negative (Negative); Color,Urine Yellow; Glucose,Urine (UA) Negative (Negative); Ketones,Urine Negative (Negative); Leukocyte Esterase,Urine Negative (Negative); Nitrite,Urine Negative (Negative); PH, Urine 5.5 (5.0-8.0); Protein,Urine Trace (Negative); Specific Gravity,Urine 1.018 (1.001-1.035); Urobilinogen,Urine <2.0 mg/dL (<2.0)
[2023-11-10] MEDS: SODIUM CHLORIDE 0.9% 1,000 ML IV SCH (17:56)
[2023-11-10 18:00] LABS: Amphetamine Screen,Urine Not Detected (NotDetected); Barbiturate Screen,Urine Detected (NotDetected); Benzodiazepines Screen,Urine Detected (NotDetected); Cocaine Screen,Urine Not Detected (NotDetected); Methadone Screen, Urine Not Detected (NotDetected); Opiate Screen,Urine Not Detected (NotDetected); Oxycodone Screen, Urine Not Detected (NotDetected); Phencyclidine Screen,Urine Not Detected (NotDetected); Tricyclic Antidepressant,Urine Not Detected (NotDetected); Urn Cannabinoid Scrn Not Detected (NotDetected)
[2023-11-10] MEDS: THIAMINE 100 MG/ML 2 ML VIAL IM STA (19:44)
[2023-11-10] MEDS: LORazepam 2 MG/ML INJ IV PRN (20:16)
[2023-11-10] MEDS: NICOTINE 21MG/24HR PATCH TRANSDERM SCH (23:04)
[2023-11-11] MEDS: LORazepam 2 MG/ML INJ IV PRN (01:45)
[2023-11-11 05:14] LABS: Anisocytosis Slight; Basophils % (A) 1 %; Eosinophils # (A) 0.2 k/uL (0-0.7); Eosinophils % (A) 3 %; HCT 43.9 % (39.0-53.0); HGB 13.8 gm/dL (13.0-17.5); Lymphocytes # (A) 1.7 k/uL (1.0-4.8); Lymphocytes % (A) 29 %; MCHC 31.4 g/dL (31.0-37.0); MCV 89.2 fL (80.0-100.0); Mean Platelet Volume 7.9; Monocytes # (A) 0.5 k/uL (0-1.0); Monocytes % (A) 8 %; Neutrophils # (A) 3.3 k/uL (1.3-7.7); Neutrophils % (A) 58 %; Platelet Count 211 k/uL (150-450); RBC 4.93 m/uL (4.30-5.90); RDW 18.8 % (11.5-15.5); WBC 5.8 k/uL (3.8-10.6)
[2023-11-11 05:17] LABS: African American GFR (CKD) >90 (>60 ml/min/1.73 sqM); Anion Gap 12 mmol/L; Blood Urea Nitrogen 12 mg/dL (9-20); Calcium 8.3 mg/dL (8.4-10.2); Carbon Dioxide 21 mmol/L (22-30); Chloride 106 mmol/L (98-107); Glucose 66 mg/dL (74-99); Non-African American GFR(CKD) >90 (>60 ml/min/1.73 sqM); Potassium 3.7 mmol/L (3.5-5.1); Sodium 139 mmol/L (137-145)
[2023-11-11] MEDS: THIAMINE 100 MG TAB PO SCH (07:55)
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
[2023-11-11 15:41] VITALS: BP 150/85; PULSE 87; RESP 16; TEMP 98
== END 2023-11-11 16:01 | disposition home or self-care (01) ==
LOC: EC 14:20 → 4SSUR 17:10
PROVIDERS: ADMIT Hospitalist; ATTEND Hospitalist
DX: F10.129 Alcohol abuse with intoxication, unspecified (principal); F10.139 Alcohol abuse with withdrawal, unspecified; F32.9 Major depressive disorder, single episode, unspecified; R45.851 Suicidal ideations; E87.0 Hyperosmolality and hypernatremia; F17.210 Nicotine dependence, cigarettes, uncomplicated; Y90.8 Blood alcohol level of 240 mg/100 ml or more
CPT/HCPCS: 96376 ×2; 82075; 96361; 96374; 99285; 36415; 80053; 80048; 85025 ×2; 81003; 80306; G0378 ×2; G0480; S4990 ×2; J2060 ×2; 80320

== ENCOUNTER 2023-11-11 22:36 | Emergency (ER) | payer OTHER ==
[2023-11-11 23:40] VITALS: TEMP 98.2
[2023-11-12] MEDS: LORazepam 2 MG/ML INJ IM STA (00:54)
[2023-11-12] MEDS ORDERED: LORazepam 2 MG/ML INJ IV PRN ×2 (01:04)
[2023-11-12] MEDS: THIAMINE 100 MG/ML 2 ML VIAL IM STA (01:09)
--- NOTE | 2023-11-12 01:32 | XR ---
EXAM: XR Chest, 2 Views CLINICAL HISTORY: ITS.REASON XR Reason: cough TECHNIQUE: Frontal and lateral views of the chest. COMPARISON: No relevant prior studies available. FINDINGS: Lungs: No consolidation or mass. Pleural space: No effusion. Heart: No cardiomegaly. Bones/joints: No acute findings. IMPRESSION: No acute cardiopulmonary process.
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
[2023-11-12] MEDS: LORazepam 2 MG/ML INJ IV PRN (03:15)
[2023-11-12] MEDS: MAG HYDROX/AL HYDROX/SIMETH 30 ML CUP PO PRN (03:15)
[2023-11-12 03:30] LABS: Amphetamine Screen,Urine Not Detected (NotDetected); Barbiturate Screen,Urine Detected (NotDetected); Benzodiazepines Screen,Urine Detected (NotDetected); Cocaine Screen,Urine Not Detected (NotDetected); Methadone Screen, Urine Not Detected (NotDetected); Opiate Screen,Urine Not Detected (NotDetected); Oxycodone Screen, Urine Not Detected (NotDetected); Phencyclidine Screen,Urine Not Detected (NotDetected); Tricyclic Antidepressant,Urine Not Detected (NotDetected); Urn Cannabinoid Scrn Not Detected (NotDetected)
[2023-11-12 11:22] VITALS: BP 147/98; PULSE 100; RESP 18
[2023-11-13] MEDS ORDERED: THIAMINE 100 MG TAB PO SCH (09:00)
== END 2023-11-12 10:43 | disposition home or self-care (01) ==
LOC: EC 22:36
DX: F32.A Depression, unspecified (principal); F10.129 Alcohol abuse with intoxication, unspecified; F17.200 Nicotine dependence, unspecified, uncomplicated; Z11.52 Encounter for screening for COVID-19
CPT/HCPCS: 82075; 93005; 80306; 87636; 71046; 99285; 96372 ×2; 96374; J2060; J3411

== ENCOUNTER 2023-11-29 15:38 | Inpatient (IN) | payer MEDICAID, OTHER ==
[2023-11-29] MEDS ORDERED: LORazepam 2 MG/ML INJ IV PRN ×2 (16:29)
[2023-11-29] MEDS: LORazepam 1 MG TAB PO STA (16:49)
[2023-11-29] MEDS: THIAMINE 100 MG/ML 2 ML VIAL IM STA (16:49)
[2023-11-29] MEDS: SODIUM CHLORIDE 0.9% 1,000 ML IV STA (16:49)
[2023-11-29 16:55] LABS: Anisocytosis Slight; Basophils # (A) 0.1 k/uL (0-0.2); Basophils % (A) 1 %; Eosinophils # (A) 0.3 k/uL (0-0.7); Eosinophils % (A) 3 %; HCT 50.5 % (39.0-53.0); Lymphocytes # (A) 1.8 k/uL (1.0-4.8); Lymphocytes % (A) 18 %; MCH 27.5 pg (25.0-35.0); MCHC 31.7 g/dL (31.0-37.0); MCV 86.7 fL (80.0-100.0); Mean Platelet Volume 7.2; Monocytes # (A) 0.4 k/uL (0-1.0); Monocytes % (A) 4 %; Neutrophils # (A) 7.5 k/uL (1.3-7.7); Neutrophils % (A) 74 %; Platelet Count 325 k/uL (150-450); RBC 5.82 m/uL (4.30-5.90); RDW 18.1 % (11.5-15.5); WBC 10.2 k/uL (3.8-10.6)
[2023-11-29 17:04] LABS: African American GFR (CKD) >90 (>60 ml/min/1.73 sqM); Anion Gap 15 mmol/L; Blood Urea Nitrogen 13 mg/dL (9-20); Calcium 8.9 mg/dL (8.4-10.2); Carbon Dioxide 21 mmol/L (22-30); Chloride 104 mmol/L (98-107); Glucose 93 mg/dL (74-99); Non-African American GFR(CKD) >90 (>60 ml/min/1.73 sqM); Potassium 4.1 mmol/L (3.5-5.1); Sodium 140 mmol/L (137-145)
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
[2023-11-29 23:07] LABS: Amphetamine Screen,Urine Not Detected (NotDetected); Barbiturate Screen,Urine Not Detected (NotDetected); Benzodiazepines Screen,Urine Detected (NotDetected); Cocaine Screen,Urine Not Detected (NotDetected); Methadone Screen, Urine Not Detected (NotDetected); Opiate Screen,Urine Not Detected (NotDetected); Oxycodone Screen, Urine Not Detected (NotDetected); Phencyclidine Screen,Urine Not Detected (NotDetected); Tricyclic Antidepressant,Urine Detected (NotDetected); Urn Cannabinoid Scrn Not Detected (NotDetected)
[2023-11-30] MEDS: LORazepam 2 MG/ML INJ IV PRN (01:40)
[2023-11-30] MEDS ORDERED: OLANZapine 10 MG VIAL IM PRN (01:43)
[2023-11-30] MEDS ORDERED: MAGNESIUM HYDROXIDE 2,400 MG/30 ML CUP PO PRN (01:43)
[2023-11-30] MEDS: chlordiazePOXIDE 25 MG CAP PO STA ×2 (02:18→13:15)
[2023-11-30] MEDS: LORazepam 1 MG TAB PO PRN (05:22)
[2023-11-30 07:33] LABS: Appearance,Urine Clear (Clear); Bilirubin,Urine Negative (Negative); Blood,Urine Negative (Negative); Color,Urine Light Yellow; Glucose,Urine (UA) Negative (Negative); Ketones,Urine Negative (Negative); Leukocyte Esterase,Urine Negative (Negative); Nitrite,Urine Negative (Negative); PH, Urine 6.5 (5.0-8.0); Protein,Urine Negative (Negative); Specific Gravity,Urine 1.012 (1.001-1.035); Urobilinogen,Urine <2.0 mg/dL (<2.0)
[2023-11-30] MEDS: MULTIVITAMINS, THERA 1 EACH TAB PO SCH (08:26)
[2023-11-30] MEDS: NICOTINE 14MG/24HR PATCH TRANSDERM SCH (08:26)
[2023-11-30] MEDS: FOLIC ACID 1 MG TAB PO SCH (08:26)
[2023-11-30] MEDS: chlordiazePOXIDE 25 MG CAP PO SCH (08:27)
[2023-11-30] MEDS: THIAMINE 100 MG TAB PO SCH (08:27)
[2023-11-30] MEDS ORDERED: THIAMINE 100 MG TAB PO SCH (09:00)
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
[2023-11-30] MEDS: SERTRALINE 50 MG TAB PO SCH (13:15)
[2023-11-30] MEDS: NALTREXONE HCL 50 MG TAB PO SCH (13:15)
[2023-11-30] MEDS: QUEtiapine 50 MG TAB PO SCH (20:21)
[2023-12-01] MEDS: CALCIUM CARBONATE 500 MG CHEWABLE PO PRN (00:25)
[2023-12-01] MEDS: OLANZapine 5 MG TAB PO PRN (00:26)
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
[2023-12-01] MEDS: MAG HYDROX/AL HYDROX/SIMETH 355 ML BOTTLE PO PRN (02:52)
[2023-12-01] MEDS: LORazepam 1 MG TAB PO PRN (10:52)
--- NOTE | 2023-12-01 13:42 | P.PN ---
Subjective Progress Note Date: 12/01/23 Patient Name: Hal Alexander Date of : 1970 Patient Status: Inpatient Attending Provider: Teo Cortez Date: 12/01/23 Initialization Date: 11/30/23 08:56 Subjective data: Patient was seen chart was reviewed and case discussed with nursing staff Patient reports that he drinks about half a gallon of alcohol a day for years He admits that he continues to have problems with insomnia He also reports neuropathy in his peripheral parts of his extremities He admits that he was having some suicidal thoughts when he came in He states that he currently lives alone Patient is denying auditory hallucinations, endorsing visual hallucinations. At this time, he is denying HI/SI. MENTAL STATUS EXAM: General Appearance: Patient appears to be slender, unshaven adult male, Disheveled appearance. Behavior: Patient is laying in bed without any agitated behavior. Speech: Patient's speech is fluent and non-pressured. Mood/Affect: Patient reports their mood is "depressed and anxious" affect is congruent and anxious, appears sad Suicidality/Homicidality: Patient denies having any homicidal ideation intent or plan. Denies any suicidal ideations, no plan. Perceptions: Patient denies any auditory hallucinations. He is denying any visual hallucinations. Though content/process: There is no evidence of any delusional thought content. Memory and concentration: AOX3, grossly intact for the purposes of this session. Can spell "WORLD" backwards Judgment and insight: chronically Poor IMPRESSIONS: Major depressive disorder, recurrent, severe without psychotic features Alcohol use disorder, severe, dependence, currently in withdrawal, impending delirium tremens Nicotine dependence STRENGTHS/WEAKNESSES: strength is that patient is resilient. Weakness is that patient has poor judgment and is impulsive and has a chronic history of alcohol abuse INTELLECT: Average PLAN: Agree with the current treatment plan -Patient is admitted under voluntary status to MHU for stabilization of psychiatric symptoms and safety. Patient has signed adult voluntary form and medication consent and is placed in patient's chart. -Medications : 50 mg nightly of Seroquel for mood stabilization/insomnia, Zoloft 50 mg daily for mood/anxiety. Librium 50 mg 3 times daily scheduled for alcohol withdrawal, set up for taper down and discontinuation Naltrexone 50 mg p.o. daily for alcohol cravings. -Ativan and Haldol PRN for agitation/aggression thiamine, MVM for etoh use -CIWA protocol with Ativan PRN for ETOH withdrawal. -Patient was counselled on substance abuse and desired to cut back on use -Patient was informed of the risks, benefits and side effects of the medication and patient verbally consented to taking the medications. Patient signed med consent form and was placed in chart. -Internal Medicine consult to perform medical evaluation and physical. -NRT -nicotine patch -SW on board for discharge planning. Encourage patient to participate in groups to work on coping skills. Trey Munoz MD Objective - Vital Signs Vital signs: Vital Signs Temp 98.0 F 12/01/23 06:59 Pulse 120 H 12/01/23 08:25 Resp 20 12/01/23 08:25 BP 122/82 12/01/23 08:25 Pulse Ox 98 12/01/23 06:59 FiO2 - Labs CBC & Chem 7: 11/29/23 16:45 11/29/23 16:45
[2023-12-01] MEDS: traZODone HCL 50 MG TAB PO SCH (19:55)
[2023-12-02] MEDS: ACETAMINOPHEN TAB 325 MG TAB PO PRN (04:57)
--- NOTE | 2023-12-02 12:24 | P.PN ---
Subjective Progress Note Date: 12/02/23 Patient Name: Hal Alexander Date of : 1970 Patient Status: Inpatient Attending Provider: Teo Cortez Date: 12/02/23 Initialization Date: 11/30/23 08:56 Subjective data: Patient was seen chart was reviewed and case discussed with nursing staff Patient reports that he drinks about half a gallon of alcohol a day for years He admits that he continues to have problems with insomnia He also reports neuropathy in his peripheral parts of his extremities he states that this is the fourth nights in a row that he has not slept well He states that he would like to go back on his Seroquel on dose will used to take about 200-400 mg at nighttime patient has not required the Zyprexa which is written for when necessary use only MENTAL STATUS EXAM: General Appearance: Patient appears to be slender, unshaven adult male, Disheveled appearance. Behavior: Patient is laying in bed without any agitated behavior. Speech: Patient's speech is fluent and non-pressured. Mood/Affect: Patient reports their mood is "depressed and anxious" affect is congruent and anxious, appears sad Suicidality/Homicidality: Patient denies having any homicidal ideation intent or plan. Denies any suicidal ideations, no plan. Perceptions: Patient denies any auditory hallucinations. He is denying any visual hallucinations. Though content/process: There is no evidence of any delusional thought content. Memory and concentration: AOX3, grossly intact for the purposes of this session. Can spell "WORLD" backwards Judgment and insight: chronically Poor IMPRESSIONS: Major depressive disorder, recurrent, severe without psychotic features Alcohol use disorder, severe, dependence, currently in withdrawal, impending delirium tremens Nicotine dependence STRENGTHS/WEAKNESSES: strength is that patient is resilient. Weakness is that patient has poor judgment and is impulsive and has a chronic history of alcohol abuse INTELLECT: Average PLAN: Agree with the current treatment plan -Patient is admitted under voluntary status to MHU for stabilization of psychiatric symptoms and safety. Patient has signed adult voluntary form and medication consent and is placed in patient's chart. -Medications :200 mg nightly of Seroquel for mood stabilization/insomnia, Zoloft 50 mg daily for mood/anxiety. Librium 50 mg 3 times daily scheduled for alcohol withdrawal, set up for taper down and discontinuation Naltrexone 50 mg p.o. daily for alcohol cravings. -Ativan and Haldol PRN for agitation/aggression thiamine, MVM for etoh use -CIWA protocol with Ativan PRN for ETOH withdrawal. -Patient was counselled on substance abuse and desired to cut back on use -Patient was informed of the risks, benefits and side effects of the medication and patient verbally consented to taking the medications. Patient signed med consent form and was placed in chart. -Internal Medicine consult to perform medical evaluation and physical. -NRT -nicotine patch -SW on board for discharge planning. Encourage patient to participate in groups to work on coping skills. Trey Munoz MD Active Medications Generic Name Dose Route Start Last Admin Trade Name Freq PRN Reason Stop Dose Admin Acetaminophen 650 mg 11/30/23 01:43 12/02/23 04:57 Acetaminophen Tab 325 Mg Tab PO 650 mg Q4HR PRN Administration Mild Pain (Scale 1 to 3) Al Hydroxide/Mg Hydroxide 30 ml 11/30/23 01:43 12/01/23 02:52 Mag Hydrox/Al Hydrox/Simeth 355 Ml Bottle PO 30 ml Q4HR PRN Administration GI Upset Calcium Carbonate/Glycine 1,000 mg 11/30/23 21:36 12/02/23 10:46 Calcium Carbonate 500 Mg Chewable PO 1,000 mg QID PRN Administration Heartburn Chlordiazepoxide HCl 50 mg 11/30/23 09:00 12/02/23 09:24 Chlordiazepoxide 25 Mg Cap PO 50 mg TID LADI Administration Folic Acid 1 mg 11/30/23 09:00 12/02/23 09:25 Folic Acid 1 Mg Tab PO 1 mg DAILY LADI Administration Ibuprofen 600 mg 11/30/23 01:43 Ibuprofen 600 Mg Tab PO Q6HR PRN Moderate Pain (Scale 4 to 6) Lorazepam 1 mg 11/30/23 01:43 12/02/23 10:46 Lorazepam 1 Mg Tab PO 1 mg Q4HR PRN Administration CIWA 8 or 9 Lorazepam 2 mg 11/30/23 01:43 12/02/23 04:56 Lorazepam 1 Mg Tab PO 2 mg Q4HR PRN Administration Ciwa greater than 10 Magnesium Hydroxide 2,400 mg 11/30/23 01:43 Magnesium Hydroxide 2,400 Mg/30 Ml Cup PO DAILY PRN Constipation Multivitamins 1 each 11/30/23 09:00 12/02/23 09:25 Multivitamins, Thera 1 Each Tab PO 1 each DAILY LADI Administration Naltrexone HCl 50 mg 11/30/23 11:45 12/02/23 09:25 Naltrexone Hcl 50 Mg Tab PO 50 mg DAILY LADI Administration Nicotine 1 patch 11/30/23 09:00 12/02/23 09:25 Nicotine 14mg/24hr Patch TRANSDERM 1 patch DAILY LADI Administration Olanzapine 5 mg 11/30/23 01:43 12/02/23 04:57 Olanzapine 5 Mg Tab PO 5 mg Q6HR PRN Administration Agitation Olanzapine 5 mg 11/30/23 01:43 Olanzapine 10 Mg Vial IM Q6HR PRN Severe Agitation Quetiapine Fumarate 200 mg 12/02/23 21:00 Quetiapine 200 Mg Tab PO HS LADI Sertraline HCl 50 mg 11/30/23 11:45 12/02/23 09:25 Sertraline 50 Mg Tab PO 50 mg DAILY LADI Administration Thiamine HCl 100 mg 11/30/23 09:00 12/02/23 09:25 Thiamine 100 Mg Tab PO 100 mg DAILY LADI Administration Trazodone HCl 50 mg 12/01/23 21:00 12/01/23 19:55 Trazodone Hcl 50 Mg Tab PO 50 mg HS LADI Administration Objective - Vital Signs Vital signs: Vital Signs Temp 98.0 F 12/02/23 05:00 Pulse 119 H 12/02/23 09:27 Resp 18 12/02/23 05:00 BP 126/85 12/02/23 09:27 Pulse Ox 98 12/02/23 05:00 FiO2 - Labs CBC & Chem 7: 11/29/23 16:45 11/29/23 16:45
[2023-12-02] MEDS: QUEtiapine 200 MG TAB PO SCH (20:12)
[2023-12-02] MEDS: IBUPROFEN 600 MG TAB PO PRN (22:18)
[2023-12-03 11:35] LABS: ALT 14 U/L (4-49); AST 28 U/L (17-59); African American GFR (CKD) 87 (>60 ml/min/1.73 sqM); Albumin 4.1 g/dL (3.5-5.0); Alkaline Phosphatase 148 U/L (38-126); Anion Gap 11 mmol/L; Blood Urea Nitrogen 14 mg/dL (9-20); Calcium 9.4 mg/dL (8.4-10.2); Carbon Dioxide 19 mmol/L (22-30); Chloride 104 mmol/L (98-107); Glucose 81 mg/dL (74-99); Non-African American GFR(CKD) 75 (>60 ml/min/1.73 sqM); Potassium 3.9 mmol/L (3.5-5.1); Sodium 134 mmol/L (137-145); Total Bilirubin 0.8 mg/dL (0.2-1.3); Total Protein 7.4 g/dL (6.3-8.2)
--- NOTE | 2023-12-03 11:56 | P.PN ---
Progress Note - Text Progress Note Date: 12/03/23 Interval History: Patient was seen wandering the hallways and was directable and agreeable to sp yola with creative services writer in the office. Patient states that he is learning to "take harder blows a lot better". Pertaining to his telling him to move on. Patient has been noted to make bizarre statements, like "can you please tell me where the nearest stairwell is, I need to take this out to my , I'm not a patient here". Other times patient is coherent. Patient lacks insight to his drinking problem. States he will probably go back to [place] upon discharge, because he does not want to be homeless on the streets of [place]. At this time patient denies any suicidal or homicidal ideations, intent or plan. Patient states he hears auditory hallucinations at night time, denies visual hallucinations and denies any paranoia or delusions. Patient denies any side effects from the medications and has been compliant with meds. MENTAL STATUS EXAM: General Appearance: Patient appears to be slender, unshaven adult male, with fair hygiene and grooming, dressed in his own clothes, improving hygiene. Behavior: Patient is laying in bed without any agitated behavior. Patient apologetic Speech: Patient's speech is fluent and non-pressured. Emotional and apologetic Mood/Affect: Patient reports their mood is "depressed and anxious", affect is congruent and anxious, appears sad Suicidality/Homicidality: Patient denies having any homicidal ideation intent or plan. Denies any suicidal ideations, no plan. Perceptions: Patient denies any auditory hallucinations. He is denying any visual hallucinations. Though content/process: There is no evidence of any delusional thought content. Apologetic, Hopeless Memory and concentration: AOX3, grossly intact for the purposes of this session. Judgment and insight: chronically Poor/impulsive IMPRESSIONS: Major depressive disorder, recurrent, severe without psychotic features Alcohol use disorder, severe, dependence, currently in withdrawal, impending delirium tremens Nicotine dependence PLAN: -Patient is admitted under voluntary status to [facility]HU for stabilization of psychiatric symptoms and safety. Patient has signed adult voluntary form and medication consent and is placed in patient's chart. -Medications : Seroquel 200 mg nightly for mood stabilization/insomnia, increase Zoloft 100mg daily for mood/anxiety. decrease Librium 25 mg 4 times daily scheduled for alcohol withdrawal, plan to taper down and discontinue. Naltrexone 50 mg p.o. daily for alcohol cravings. increase trazadone 100mg qhs for sleep -Ativan and Haldol PRN for agitation/aggression -thiamine, MVM for etoh use -CIWA protocol with Ativan PRN for ETOH withdrawal. -NRT -nicotine patch -SW on board for discharge planning. Encourage patient to participate in groups to work on coping skills.
[2023-12-03] MEDS: chlordiazePOXIDE 25 MG CAP PO SCH (13:16)
[2023-12-03] MEDS: traZODone HCL 100 MG TAB PO SCH (20:53)
[2023-12-04] MEDS: SERTRALINE 100 MG TAB PO SCH (08:47)
--- NOTE | 2023-12-04 11:11 | P.PN ---
Progress Note - Text Progress Note Date: 12/04/23 Interval History: Patient was seen today laying in bed, he was agreeable to speak to repairer typewriter today. He was very thankful for the treatment he has been getting, states that he is doing a bit better with regards to his mood and anxiety. Continues to state that he is having withdrawal symptoms despite displayed minor trembles. He states that he does not know where he will go when he is discharged. He appears to be more pleasant today, we discussed the plans for medication changes which she is okay with. He claims that he is up for meals, was able to sleep a bit better last night. at this time he is denying any AH or VH and denies any SI or HI today MENTAL STATUS EXAM: General Appearance: Patient appears to be slender, unshaven adult male, with fair hygiene and grooming, dressed in his own clothes, improving hygiene. Behavior: Patient is laying in bed without any agitated behavior. Patient apologetic Speech: Patient's speech is fluent and non-pressured. Emotional and apologetic, improving mildly Mood/Affect: Patient reports their mood is "a little better", affect is congruent and anxious, appears sad Suicidality/Homicidality: Patient denies having any homicidal ideation intent or plan. Denies any suicidal ideations, no plan. Perceptions: Patient denies any auditory hallucinations. He is denying any visual hallucinations. Though content/process: There is no evidence of any delusional thought content. Apologetic, Hopeless, improving mildly Memory and concentration: AOX3, grossly intact for the purposes of this session. Judgment and insight: chronically Poor/impulsive, improivng mildly IMPRESSIONS: Major depressive disorder, recurrent, severe without psychotic features Alcohol use disorder, severe, dependence, currently in withdrawal, impending delirium tremens Nicotine dependence PLAN: -Patient is admitted under voluntary status to MHU for stabilization of psychiatric symptoms and safety. Patient has signed adult voluntary form and medication consent and is placed in patient's chart. -Medications : Seroquel 200 mg nightly for mood stabilization/insomnia, increase Zoloft 150mg daily for mood/anxiety. decrease Librium 25 mg 3 times daily scheduled for alcohol withdrawal, plan to taper down and discontinue. Naltrexone 50 mg p.o. daily for alcohol cravings. trazadone 100mg qhs for sleep -Ativan and Haldol PRN for agitation/aggression -thiamine, MVM for etoh use -CIWA protocol with Ativan PRN for ETOH withdrawal. -NRT -nicotine patch -SW on board for discharge planning. Encourage patient to participate in groups to work on coping skills. patient is refusing rehab at this time.
[2023-12-04] MEDS: chlordiazePOXIDE 25 MG CAP PO SCH (15:56)
[2023-12-05 07:11] VITALS: RESP 16
[2023-12-05] MEDS: SERTRALINE 50 MG TAB PO SCH (08:36)
--- NOTE | 2023-12-05 12:58 | P.PN ---
Progress Note - Text Progress Note Date: 12/05/23 Interval History: Patient was seen today laying in bed, he was agreeable to speak to procedure writer today. He stated he is groggy today, likely due to the trazodone, procedure writer told patient we would cut the trazodone dose in half, patient agreeable. He states that he is feeling quite sad today, and that his situation has got him feeling down. He claims he had "the shakes" for about an hour yesterday, however, is not having them today. He states that he does not know where he will go when he is dischar ged. He stated he will either go to a nursing home or to rehab. We discussed the plans for medication changes which he is okay with. He claims that he is up for meals, was able to sleep a bit better last night. at this time he is denying any AH or VH and denies any SI or HI today MENTAL STATUS EXAM: General Appearance: Patient appears to be slender, unshaven adult male, with fair hygiene and grooming, dressed in his own clothes, improving hygiene. Behavior: Patient is laying in bed without any agitated behavior. Patient apologetic and thankful Speech: Patient's speech is fluent and non-pressured. Emotional and apologetic, improving mildly Mood/Affect: Patient reports their mood is "sad", affect is congruent and anxious, appears sad Suicidality/Homicidality: Patient denies having any homicidal ideation intent or plan. Denies any suicidal ideations, no plan. Perceptions: Patient denies any auditory hallucinations. He is denying any visual hallucinations. Though content/process: There is no evidence of any delusional thought content. Apologetic, Hopeless, improving mildly Memory and concentration: AOX3, grossly intact for the purposes of this session. Judgment and insight: chronically Poor/impulsive, improivng mildly IMPRESSIONS: Major depressive disorder, recurrent, severe without psychotic features Alcohol use disorder, severe, dependence, currently in withdrawal, impending delirium tremens Nicotine dependence PLAN: -Patient is admitted under voluntary status to MHU for stabilization of psychiatric symptoms and safety. Patient has signed adult voluntary form and medication consent and is placed in patient's chart. -Medications : increase Seroquel 250 mg nightly for mood stabilization/insomnia, Zoloft 150mg daily for mood/anxiety. decrease Librium 20 mg 3 times daily scheduled for alcohol withdrawal, plan to taper down and discontinue. Naltrexone 50 mg p.o. daily for alcohol cravings. decrease trazadone 50mg qhs for sleep -Ativan and Haldol PRN for agitation/aggression -thiamine, MVM for etoh use -CIWA protocol with Ativan PRN for ETOH withdrawal. -NRT -nicotine patch -SW on board for discharge planning. Encourage patient to participate in groups to work on coping skills. patient is considering rehab vs a nursing home upon discharge.
[2023-12-05] MEDS: traZODone HCL 50 MG TAB PO SCH (20:36)
[2023-12-05] MEDS: QUEtiapine 100 MG TAB PO SCH (20:36)
--- NOTE | 2023-12-06 10:29 | P.PN ---
Progress Note - Text Progress Note Date: 12/06/23 Interval History: Patient was seen today laying in bed, he was agreeable to speak to poem writer today. He stated he is feeling quite sad today, however, he is feeling a bit calmer. He claims he had "the shakes" last night, however, is not having them today. He states that he does not know where he will go when he is discharged. He stated he will either go to a custodial or to rehab. He has not called the access line as of yet. He claims that he is up for meals, was able to sleep a bit better last night. at this time he is denying any AH or VH and denies any SI or HI today MENTAL STATUS EXAM: General Appearance: Patient appears to be slender, unshaven adult male, with fair hygiene and grooming, dressed in his own clothes, improving hygiene. Behavior: Patient is laying in bed without any agitated behavior. Speech: Patient's speech is fluent and non-pressured, improving mildly Mood/Affect: Patient reports their mood is "sad", affect is congruent and anxious, appears sad, improving mildly Suicidality/Homicidality: Patient denies having any homicidal ideation intent or plan. Denies any suicidal ideations, no plan. Perceptions: Patient denies any auditory hallucinations. He is denying any visual hallucinations. Though content/process: There is no evidence of any delusional thought content. Apologetic, improving mildly Memory and concentration: AOX3, grossly intact for the purposes of this session. Judgment and insight: chronically Poor/impulsive, improivng mildly IMPRESSIONS: Major depressive disorder, recurrent, severe without psychotic features Alcohol use disorder, severe, dependence, currently in withdrawal, impending delirium tremens Nicotine dependence PLAN: -Patient is admitted under voluntary status to MHU for stabilization of psychiatric symptoms and safety. Patient has signed adult voluntary form and medication consent and is placed in patient's chart. -Medications : increase Seroquel 300 mg nightly for mood stabilization/insomnia, increase Zoloft 200 mg daily for mood/anxiety. decrease Librium 10 mg 4 times daily scheduled for alcohol withdrawal, plan to taper down and discontinue. d/c Naltrexone po, add Vivitrol 380mg IM q monthly, for alcohol cravings first dose 12/05, next dose due 01/02. d/c trazodone -Ativan and Haldol PRN for agitation/aggression -thiamine, MVM for etoh use -d/c [facility] protocol -NRT -nicotine patch -SW on board for discharge planning. Encourage patient to participate in groups to work on coping skills. patient is considering rehab vs a custodial upon discharge. likely discharge in 2-3 days if patient is improving.
[2023-12-06] MEDS: NALTREXONE MICROSPHERES 380 MG VIAL (NO COST - VIVITROL) IM SCH (12:33)
[2023-12-06] MEDS: QUEtiapine 100 MG TAB PO SCH (22:04)
[2023-12-07] MEDS: SERTRALINE 100 MG TAB PO SCH (09:12)
--- NOTE | 2023-12-07 11:24 | P.PN ---
Progress Note - Text Progress Note Date: 12/07/23 Interval History: Patient was seen today laying in bed, he was agreeable to speak to scientific writer today. He stated he is feeling hopeless. He is now refusing rehab, stating it does not work for him. Comber Operator explained to the patient that he should attempt to try, patient still refusing. He states that he does not know where he will go when he is discharged. he is demonstrating poor insight into his drinking, claims that he will want to go back to the [facility] upon discharge and go to [facility] for help and follow up. He is generally secluding himself to his room, not going to many groups. He claims that he is up for meals, and that he is sleeping well at night. at this time he is denying any AH or VH and denies any SI or HI today MENTAL STATUS EXAM: General Appearance: Patient appears to be slender, unshaven adult male, with fair hygiene and grooming, dressed in his own clothes, improving hygiene. Behavior: Patient is laying in bed without any agitated behavior. Speech: Patient's speech is fluent and non-pressured, improving mildly Mood/Affect: Patient reports their mood is "depressed still and anxious", affect is congruent improving mildly Suicidality/Homicidality: Patient denies having any homicidal ideation intent or plan. Denies any suicidal ideations, no plan. Perceptions: Patient denies any auditory hallucinations. He is denying any visual hallucinations. Though content/process: There is no evidence of any delusional thought content, improving mildly Memory and concentration: AOX3, grossly intact for the purposes of this session. Judgment and insight: chronically Poor/impulsive, improivng mildly IMPRESSIONS: Major depressive disorder, recurrent, severe without psychotic features Alcohol use disorder, severe, dependence Nicotine dependence PLAN: -Patient is admitted under voluntary status to MHU for stabilization of psychiatric symptoms and safety. Patient has signed adult voluntary form and medication consent and is placed in patient's chart. -Medications : Seroquel 300 mg nightly for mood stabilization/insomnia, Zoloft 200 mg daily for mood/anxiety. decrease Librium 10 mg 3 times daily scheduled for alcohol withdrawal, plan to taper down and discontinue tomorrow afternoon. Vivitrol 380mg IM q monthly, for alcohol cravings first dose 12/05, next dose due 01/02 -Ativan and Haldol PRN for agitation/aggression -thiamine, MVM for etoh use - d/c [facility] protocol -NRT -nicotine patch -SW on board for discharge planning. Encourage patient to participate in groups to work on coping skills. patient is refusing rehab. likely discharge Sunday if patient is improving. patient is refusing rehab at this time
[2023-12-07] MEDS: LORazepam 1 MG TAB PO PRN (22:12)
[2023-12-08 07:09] VITALS: BP 103/69; PULSE 81; TEMP 97.8
--- NOTE | 2023-12-08 11:37 | P.PN ---
Subjective Progress Note Date: 12/08/23 Principal diagnosis: IMPRESSIONS: Major depressive disorder, recurrent, severe without psychotic features Alcohol use disorder, severe, dependence Nicotine dependence Patient Name: Hal Alexander Date of : 1970 Patient Status: Inpatient Attending Provider: Teo Cortez Date: 12/08/23 Initialization Date: 12/07/23 08:48 Active Medications Generic Name Dose Route Start Last Admin Trade Name Freq PRN Reason Stop Dose Admin Acetaminophen 650 mg 11/30/23 01:43 12/02/23 22:18 Acetaminophen Tab 325 Mg Tab PO 650 mg Q4HR PRN Administration Mild Pain (Scale 1 to 3) Al Hydroxide/Mg Hydroxide 30 ml 11/30/23 01:43 12/08/23 09:11 Mag Hydrox/Al Hydrox/Simeth 355 Ml Bottle PO 30 ml Q4HR PRN Administration GI Upset Calcium Carbonate/Glycine 1,000 mg 11/30/23 21:36 12/06/23 06:21 Calcium Carbonate 500 Mg Chewable PO 1,000 mg QID PRN Administration Heartburn Folic Acid 1 mg 11/30/23 09:00 12/08/23 09:09 Folic Acid 1 Mg Tab PO 1 mg DAILY LADI Administration Ibuprofen 600 mg 11/30/23 01:43 12/02/23 22:18 Ibuprofen 600 Mg Tab PO 600 mg Q6HR PRN Administration Moderate Pain (Scale 4 to 6) Lorazepam 1 mg 12/06/23 10:08 12/07/23 22:12 Lorazepam 1 Mg Tab PO 1 mg TID PRN Administration Anxiety Magnesium Hydroxide 2,400 mg 11/30/23 01:43 Magnesium Hydroxide 2,400 Mg/30 Ml Cup PO DAILY PRN Constipation Multivitamins 1 each 11/30/23 09:00 12/08/23 09:09 Multivitamins, Thera 1 Each Tab PO 1 each DAILY LADI Administration Naltrexone Microspheres 380 mg 12/06/23 11:00 12/06/23 12:33 Naltrexone Microspheres 380 Mg Vial (No Cost - Vivitrol) IM 380 mg QMONTHLY LADI Administration Nicotine 1 patch 11/30/23 09:00 12/08/23 09:10 Nicotine 14mg/24hr Patch TRANSDERM 1 patch DAILY LADI Administration Olanzapine 5 mg 11/30/23 01:43 12/02/23 22:18 Olanzapine 5 Mg Tab PO 5 mg Q6HR PRN Administration Agitation Olanzapine 5 mg 11/30/23 01:43 Olanzapine 10 Mg Vial IM Q6HR PRN Severe Agitation Quetiapine Fumarate 300 mg 12/06/23 21:00 12/07/23 21:30 Quetiapine 100 Mg Tab PO 300 mg HS LADI Administration Sertraline HCl 200 mg 12/07/23 09:00 12/08/23 09:09 Sertraline 100 Mg Tab PO 200 mg DAILY LADI Administration Thiamine HCl 100 mg 11/30/23 09:00 12/08/23 09:09 Thiamine 100 Mg Tab PO 100 mg DAILY LADI Administration Interval History: Patient was seen today laying in bed, he was agreeable to speak to expert medical writer today. he reports that he was discharged after had seen him last time and that he came right back with his relapse with alcohol He admits that his self-esteem and confidence have been very shaken He stated he is feeling hopeless. He is now refusing rehab, stating it does not work for him. Field Captain explained to the patient that he should attempt to try, . he admits that he feels quite demoralizedDenies any suicidal ideations or plans . He is generally secluding himself to his room, not going to many groups. He claims that he is up for meals, and that he is sleeping well at night. at this time he is denying any AH or VH and denies any SI or HI today MENTAL STATUS EXAM: General Appearance: Patient appears to be slender, unshaven adult male, with fair hygiene and grooming, dressed in his own clothes, Behavior: Patient is laying in bed without any agitated behavior. Speech: Patient's speech is fluent and non-pressured, improving mildly Mood/Affect: Patient reports their mood is "depressed still and anxious", affect is congruent improving mildly Suicidality/Homicidality: Patient denies having any homicidal ideation intent or plan. Denies any suicidal ideations, no plan. Perceptions: Patient denies any auditory hallucinations. He is denying any visual hallucinations. Though content/process: There is no evidence of any delusional thought content, improving mildly Memory and concentration: AOX3, grossly intact for the purposes of this session. Judgment and insight: impaired IMPRESSIONS: Major depressive disorder, recurrent, severe without psychotic features Alcohol use disorder, severe, dependence Nicotine dependence PLAN: -Patient is admitted under voluntary status to MHU for stabilization of psychiatric symptoms and safety. Patient has signed adult voluntary form and medication consent and is placed in patient's chart. -Medications : Seroquel 300 mg nightly for mood stabilization/insomnia, Zoloft 200 mg daily for mood/anxiety. patient is now off the Librium Vivitrol 380mg IM q monthly, for alcohol cravings first dose 12/05, next dose due 01/02 -Ativan and Haldol PRN for agitation/aggression -thiamine, MVM for etoh use - d/c [facility] protocol -NRT -nicotine patch - on board for discharge planning. Encourage patient to participate in groups to work on coping skills. patient is refusing rehab. likely discharge Sunday if patient is improving. patient is refusing rehab at this time maintain positive reinforcement and discussed ongoing work on his sobriety and that the covering for relapses is part of the recovery Trey Munoz M.D. Objective - Vital Signs Vital signs: Vital Signs Temp 97.8 F 12/08/23 06:00 Pulse 81 12/08/23 06:00 Resp 16 12/08/23 06:00 BP 103/69 12/08/23 06:00 Pulse Ox 97 12/08/23 06:00 FiO2 - Labs CBC & Chem 7: 11/29/23 16:45 12/03/23 10:16
--- NOTE | 2023-12-09 10:55 | P.PN ---
Subjective Progress Note Date: 12/09/23 Principal diagnosis: IMPRESSIONS: Major depressive disorder, recurrent, severe without psychotic features Alcohol use disorder, severe, dependence Nicotine dependence Patient Name: Hal Alexander Date of : 1970 Patient Status: Inpatient Attending Provider: Teo Cortez Date: 12/09/23 Initialization Date: 12/07/23 08:48 Active Medications Generic Name Dose Route Start Last Admin Trade Name Freq PRN Reason Stop Dose Admin Acetaminophen 650 mg 11/30/23 01:43 12/02/23 22:18 Acetaminophen Tab 325 Mg Tab PO 650 mg Q4HR PRN Administration Mild Pain (Scale 1 to 3) Al Hydroxide/Mg Hydroxide 30 ml 11/30/23 01:43 12/08/23 09:11 Mag Hydrox/Al Hydrox/Simeth 355 Ml Bottle PO 30 ml Q4HR PRN Administration GI Upset Calcium Carbonate/Glycine 1,000 mg 11/30/23 21:36 12/06/23 06:21 Calcium Carbonate 500 Mg Chewable PO 1,000 mg QID PRN Administration Heartburn Folic Acid 1 mg 11/30/23 09:00 12/08/23 09:09 Folic Acid 1 Mg Tab PO 1 mg DAILY LADI Administration Ibuprofen 600 mg 11/30/23 01:43 12/02/23 22:18 Ibuprofen 600 Mg Tab PO 600 mg Q6HR PRN Administration Moderate Pain (Scale 4 to 6) Lorazepam 1 mg 12/06/23 10:08 12/07/23 22:12 Lorazepam 1 Mg Tab PO 1 mg TID PRN Administration Anxiety Magnesium Hydroxide 2,400 mg 11/30/23 01:43 Magnesium Hydroxide 2,400 Mg/30 Ml Cup PO DAILY PRN Constipation Multivitamins 1 each 11/30/23 09:00 12/08/23 09:09 Multivitamins, Thera 1 Each Tab PO 1 each DAILY LADI Administration Naltrexone Microspheres 380 mg 12/06/23 11:00 12/06/23 12:33 Naltrexone Microspheres 380 Mg Vial (No Cost - Vivitrol) IM 380 mg QMONTHLY LADI Administration Nicotine 1 patch 11/30/23 09:00 12/08/23 09:10 Nicotine 14mg/24hr Patch TRANSDERM 1 patch DAILY LADI Administration Olanzapine 5 mg 11/30/23 01:43 12/02/23 22:18 Olanzapine 5 Mg Tab PO 5 mg Q6HR PRN Administration Agitation Olanzapine 5 mg 11/30/23 01:43 Olanzapine 10 Mg Vial IM Q6HR PRN Severe Agitation Quetiapine Fumarate 300 mg 12/06/23 21:00 12/07/23 21:30 Quetiapine 100 Mg Tab PO 300 mg HS LADI Administration Sertraline HCl 200 mg 12/07/23 09:00 12/08/23 09:09 Sertraline 100 Mg Tab PO 200 mg DAILY LADI Administration Thiamine HCl 100 mg 11/30/23 09:00 12/08/23 09:09 Thiamine 100 Mg Tab PO 100 mg DAILY LADI Administration Interval History: Patient was seen today laying in bed, he was agreeable to speak to advertising copy writer today. patient reports that he agrees that he is not having any luck with this relapses and that he needs a different approach like going to supportive community service work We further discussed the relapse with alcohol with an infant trying to walk and that the relapse is part of the recovery process and that give up rationalize with most likely lead to no recovery or poor recovery Patient however seemed to immediately asked if could stay further longer and that if he can make calls to the rehab facility and that if he can continue to stay here until that materializes Self-esteem and confidence remains low No agitation or aggression noted MENTAL STATUS EXAM: General Appearance: Patient appears to be slender, unshaven adult male, with fair hygiene and grooming, dressed in his own clothes, Behavior: Patient is laying in bed without any agitated behavior. Speech: Patient's speech is fluent and non-pressured, improving mildly Mood/Affect: Patient reports their mood is "depressed still and anxious", affect is congruent improving mildly Suicidality/Homicidality: Patient denies having any homicidal ideation intent or plan. Denies any suicidal ideations, no plan. Perceptions: Patient denies any auditory hallucinations. He is denying any visual hallucinations. Though content/process: There is no evidence of any delusional thought content, improving mildly Memory and concentration: AOX3, grossly intact for the purposes of this session. Judgment and insight: impaired IMPRESSIONS: Major depressive disorder, recurrent, severe without psychotic features Alcohol use disorder, severe, dependence Nicotine dependence PLAN: -Patient is admitted under voluntary status to [facility] for stabilization of psychiatric symptoms and safety. Patient has signed adult voluntary form and medication consent and is placed in patient's chart. -Medications : Seroquel 300 mg nightly for mood stabilization/insomnia, Zoloft 200 mg daily for mood/anxiety. patient is now off the Librium Vivitrol 380mg IM q monthly, for alcohol cravings first dose 12/05, next dose due 01/02 -Ativan and Haldol PRN for agitation/aggression -thiamine, MVM for etoh use - d/c [facility] protocol -NRT -nicotine patch - on board for discharge planning. Encourage patient to participate in groups to work on coping skills. patient is is now willing to consider rehab and states that he will be calling them tomorrow maintain positive reinforcement and discussed ongoing work on his sobriety and that the covering for relapses is part of the recovery Trey Munoz M.D. Objective - Vital Signs Vital signs: Vital Signs Temp 97.8 F 12/08/23 06:00 Pulse 81 12/08/23 06:00 Resp 16 12/08/23 06:00 BP 103/69 12/08/23 06:00 Pulse Ox 97 12/08/23 06:00 FiO2 Intake & Output 12/08/23 12/09/23 12/09/23 18:59 06:59 18:59 Weight 78.018 kg - Labs CBC & Chem 7: 11/29/23 16:45 12/03/23 10:16
--- NOTE | 2023-12-10 12:54 | P.PN ---
Progress Note - Text Progress Note Date: 12/10/23 Clinical Problems: Alcohol induced depressive disorder, alcohol use disorder severe, alcohol withdrawal mild, rule out major depressive disorder recurrent, tobacco use Interim history: Chart reviewed and patient interviewed. He has a long history of alcohol use disorder with multiple psychiatric hospitalizations for complaints of depression and uncontrolled alcohol use. According to the medical record this is a 7th hospitalization on this unit since 2013. The last was in September 2023. All admissions for depression, alcohol intoxication and suicidal ideation. He is alcohol withdrawal symptoms have subsided (the records suggest that he may have experienced delirium). However he complains of continued depression, hopelessness and helplessness. He repeatedly stated that if he were to be discharged back to a motel that he would resume drinking again. He knows that whenever he is severely intoxicated he begins to have suicidal ideation. We talked about aftercare plans. He is uninterested and rehabilitation. He stated he has been in [place] 6 times, knows the skills that they teach but still continues to drink. The only time that he was abstinent when he was in a structured program for example during that time he was [facility]. He is interested and a half leg or three-quarter house if 1 were available otherwise she knows he would have to be discharged to a snf. Discussed treatment of depression. Current combination of Zoloft and Seroquel not fully effective. Alleged Remeron in addition to Seroquel was beneficial in the past. Mental status exam: He presented as a disheveled appearing middle-aged male who is depressed, anxious and tremulous. He made eye contact and appeared to attend to the interview. He had a sad facial expression and cried during the interview. His speech was spontaneous with normal rate and rhythm. His affect was depressed and not reactive. Passive suicidal ideation without intent or plan. No homicidal ideation. Feelings of helplessness, hopelessness and worthlessness. No psychotic symptoms. Thinking was concrete but organized, and goal directed. No hallucinations. Assessment: Continue to have moderate to severe symptoms of depression, high risk for relapse to alcohol, unstable living environment Plan: Continue Seroquel 300 mg at bedtime and Zoloft 20 mg daily, Habitrol for nicotine withdrawal. Vivitrol 380 mg IM monthly-next injection due 01/03/2024. Trial of Remeron 15 mg at bedtime for augmentation of depression treatment- titrate according clinical response. Discussed discharge plans with social service technician. Follow-up on daily basis. Participated in multimodal therapy.
[2023-12-10] MEDS: MIRTAZAPINE 15 MG TAB PO SCH (21:08)
--- NOTE | 2023-12-11 14:41 | P.PN ---
Progress Note - Text Progress Note Date: 12/11/23 Clinical Problems: Alcohol induced depressive disorder, alcohol use disorder severe, alcohol withdrawal mild, rule out major depressive disorder recurrent, tobacco use Interim history: I reviewed the medical record, interviewed the patient and discussed the treatment and treatment plan with the treatment team. He stated he slept well after receiving the Remeron. He denied side effects. He again declined a referral for residential substance abuse treatment stating that he has been in treatment multiple times and has not been effective in stopping his alcohol use. The manage interested and a three-quarter house if it were available otherwise she plans to stay at a hotel until he obtains section 8 housing. We discussed the risk for relapse. He agreed to follow-up with community mental health including their substance abuse services. He is not participating therapy groups and activities. He spends his time in his bed coming out for meals. Mental status exam: Presented as casually groomed middle-aged male was pleasant on approach. He made eye contact and attends the interview. He had a blunted provide facial expression. He is alert and oriented to person, place and time. He showed no abnormality of psychomotor activity. Speech was spontaneous normal rate, rhythm and volume. Affect was blunted but stable appropriate. No suicidal ideation, wishes or homicidal ideation. No depressive cognitions. He ruminated about living circumstances. No ideas of reference,. Ideation or delusions. Thinking was concrete but organized and goal-directed. No hallucinations. Assessment: Depression is improved and he has no signs and symptoms of alcohol withdrawal. He remains reluctant to engage send residential care but is interested him outpatient treatment. Plan: Continue Remeron 15 mg at bedtime, Vivitrol 380 mg IM monthly, Seroquel 3 mg at bedtime Zoloft 200 mg at bedtime. Plan for discharge on 12/12/2023.
--- NOTE | 2023-12-12 08:01 | P.DS ---
Providers Date of admission: 11/30/23 01:37 Attending physician: Teo Cortez MD Consults: 11/30/23 01:43 Consult Physician Routine Consulting Provider: Abigail Styles Consult Reason/Comments: medical management Do you want consulting provider notified?: Yes Primary care physician: Stated None - Discharge Diagnosis(es) (1) Alcoholic intoxication Current Visit: Yes Status: Acute Priority: Low (2) Suicidal ideation Current Visit: Yes Status: Acute Priority: Medium (3) Alcohol use disorder, severe, dependence Current Visit: Yes Status: Chronic Priority: High (4) Depression Current Visit: Yes Status: Chronic Priority: Medium Hospital Course: HISTORY: He has a long history of alcohol use disorder with multiple psychiatric hospitalizations for complaints of depression and uncontrolled alcohol use. According to the medical record this is a 7th hospitalization on this unit since 2013. The last was in September 2023. All admissions for depression, alcohol intoxication and suicidal ideation. HOSPITAL COURSE: We admitted him to the psychiatric unit under the care of Dr. Cortez. The implementation consultant laboratory chemical assistant completed initial physical exam and diagnosed alcohol withdrawal and recommended CIWA protocol, Librium 50 mg 3 times daily, thiamine and folic acid and nicotine patch for topical use. His alcohol symptoms were mild although at one point he appeared confused. We gradually tapered Librium and eventually discontinued the CIWA protocol. As his alcohol withdrawal subsided his depression improved. He repeatedly stated that if he were to be discharged back to a [facility] that he would resume drinking again. He knows that whenever he is severely intoxicated he begins to have suicidal ideation. He refused a recommendation for residential substance abuse treatment. MENTAL STATUS ON DISCHARGE: He presented as a casually groomed elderly male who was pleasant on approach. He made eye contact and attempts to interview. He had a blunted provide facial expression. He was slightly rest less but no abnormal movements. Speech was spontaneous with slight decrease in volume but normal rhythm. He was anxious about discharge. No suicidal ideation, wish and homicidal ideations expressed. No depressive cognitions. Continues to ruminate about his alcohol use and risk for relapse. No psychotic symptoms. Thinking was concrete but associations were coherent. No hallucinations. DISPOSITION: Discharge medications are listed below. He has an appointment with psych at [facility] on 12/19/2023 and [facility] on her for ongoing medical care. He has no options for housing except to return to [facility]. Patient Condition at Discharge: Fair Plan - Discharge Summary Discharge Rx Participant: No New Discharge Prescriptions: New Folic Acid 1 mg PO DAILY tab Nicotine 14Mg/24Hr Patch [Habitrol] 1 patch TRANSDERM DAILY patch Multivitamins, Thera [Multivitamin (formulary)] 1 each PO DAILY tab Mirtazapine [Remeron] 15 mg PO HS #30 tab Acetaminophen Tab [Tylenol] 650 mg PO Q4HR PRN tab PRN Reason: Mild Pain (Scale 1 To 3) Sertraline [Zoloft] 200 mg PO DAILY #60 tab Calcium Carbonate [Tums] 1,000 mg PO QID PRN tab PRN Reason: Heartburn Thiamine [Vitamin B-1] 100 mg PO DAILY tab Naltrexone Microspheres [Vivitrol] 380 mg IM QMONTHLY 30 Days #1 each Continue QUEtiapine FUMARATE [SEROquel] 300 mg PO DIRECTED #30 tab Discontinued buPROPion XL [Wellbutrin XL] 150 mg PO DIRECTED Discharge Medication List Acetaminophen Tab [Tylenol] 650 mg PO Q4HR PRN tab 12/12/23 [Rx] Calcium Carbonate [Tums] 1,000 mg PO QID PRN tab 12/12/23 [Rx] Folic Acid 1 mg PO DAILY tab 12/12/23 [Rx] Mirtazapine [Remeron] 15 mg PO HS #30 tab 12/12/23 [Rx] Multivitamins, Thera [Multivitamin (formulary)] 1 each PO DAILY tab 12/12/23 [R x] Naltrexone Microspheres [Vivitrol] 380 mg IM QMONTHLY 30 Days #1 each 12/12/23 [Rx] Nicotine 14Mg/24Hr Patch [Habitrol] 1 patch TRANSDERM DAILY patch 12/12/23 [Rx] QUEtiapine FUMARATE [SEROquel] 300 mg PO DIRECTED #30 tab 12/12/23 [Rx] Sertraline [Zoloft] 200 mg PO DAILY #60 tab 12/12/23 [Rx] Thiamine [Vitamin B-1] 100 mg PO DAILY tab 12/12/23 [Rx] Follow up Appointment(s)/Referral(s): [facility] [Outside] - 12/19/23 11:30 am () [facility] [NON-STAFF] - 1 Week Patient Instructions/Handouts: How to Stop Smoking (DC), Depression (DC), Alcohol Use Disorder (DC) Activity/Diet/Wound Care/Special Instructions: Avoid the use of street drugs and alcohol. Take all medications as prescribed. When you are in need of refills on your medications, please contact your medical provider and/or outpatient psychiatrist/provider to have this done. Please go to your scheduled outpatient appointment for aftercare treatment. If symptoms return or become worse, call the crisis line at and/or go to the nearest emergency room for evaluation. National Suicide Hotline 988 Discharge Disposition: HOME SELF-CARE
== END 2023-12-12 15:30 | disposition home or self-care (01) | DRG 754 ==
LOC: EC 15:38 → 3MHU 11-30 01:37
PROVIDERS: ADMIT Psychiatry & Neurology Psychiatry; ATTEND Psychiatry & Neurology Psychiatry
DX: F32.A Depression, unspecified (principal); F10.229 Alcohol dependence with intoxication, unspecified; F10.239 Alcohol dependence with withdrawal, unspecified; F10.24 Alcohol dependence with alcohol-induced mood disorder; F17.200 Nicotine dependence, unspecified, uncomplicated; F43.10 Post-traumatic stress disorder, unspecified; G40.909 Epilepsy, unspecified, not intractable, without status epilepticus; G47.00 Insomnia, unspecified; K59.00 Constipation, unspecified; R45.851 Suicidal ideations; Z56.0 Unemployment, unspecified; Z59.01 Sheltered homelessness; Z91.410 Personal history of adult physical and sexual abuse; Z91.51 Personal history of suicidal behavior; Z11.52 Encounter for screening for COVID-19; G62.9 Polyneuropathy, unspecified
CPT/HCPCS: 36415; 80048; 80053; 80306; 81003; 82075; 85025; 87635; 93005; 96361; 96372; 96374; 99285

== ENCOUNTER 2024-01-03 15:37 | Inpatient (IN) | payer OTHER ==
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
[2024-01-03] MEDS: SODIUM CHLORIDE 0.9% 1,000 ML IV STA ×2 (16:13)
[2024-01-03 17:16] LABS: Anisocytosis Slight; Basophils # (A) 0.1 k/uL (0-0.2); Basophils % (A) 1 %; Eosinophils # (A) 0.2 k/uL (0-0.7); Eosinophils % (A) 3 %; HCT 44.7 % (39.0-53.0); Lymphocytes # (A) 1.7 k/uL (1.0-4.8); Lymphocytes % (A) 33 %; MCH 27.6 pg (25.0-35.0); MCHC 31.2 g/dL (31.0-37.0); MCV 88.6 fL (80.0-100.0); Mean Platelet Volume 7.3; Monocytes # (A) 0.3 k/uL (0-1.0); Monocytes % (A) 7 %; Neutrophils # (A) 2.8 k/uL (1.3-7.7); Neutrophils % (A) 55 %; Platelet Count 244 k/uL (150-450); RBC 5.05 m/uL (4.30-5.90); WBC 5.1 k/uL (3.8-10.6)
[2024-01-03 17:28] LABS: ALT 13 U/L (4-49); AST 30 U/L (17-59); African American GFR (CKD) >90 (>60 ml/min/1.73 sqM); Albumin 3.4 g/dL (3.5-5.0); Alkaline Phosphatase 121 U/L (38-126); Anion Gap 8 mmol/L; Blood Urea Nitrogen 6 mg/dL (9-20); Calcium 7.9 mg/dL (8.4-10.2); Carbon Dioxide 22 mmol/L (22-30); Chloride 116 mmol/L (98-107); Glucose 87 mg/dL (74-99); Lipase 64 U/L (23-300); Magnesium 1.5 mg/dL (1.6-2.3); Non-African American GFR(CKD) >90 (>60 ml/min/1.73 sqM); Phosphorus 3.5 mg/dL (2.5-4.5); Potassium 3.9 mmol/L (3.5-5.1); Sodium 146 mmol/L (137-145); Total Bilirubin 0.3 mg/dL (0.2-1.3); Total Protein 6.1 g/dL (6.3-8.2)
[2024-01-03 17:38] LABS: Alcohol 266 mg/dL
[2024-01-03] MEDS ORDERED: NALOXONE 0.4 MG/ML 1 ML VIAL IV PRN (17:50)
[2024-01-03] MEDS ORDERED: MORPHINE SULFATE 4 MG/ML SYRINGE IV PRN (17:50)
[2024-01-03] MEDS ORDERED: LORazepam 2 MG/ML INJ IV PRN ×2 (17:50)
[2024-01-03] MEDS ORDERED: ONDANSETRON 4 MG/2 ML VIAL IVP PRN (17:50)
[2024-01-03] MEDS ORDERED: LORazepam 1 MG TAB PO PRN (17:50)
[2024-01-03] MEDS: SODIUM CHLORIDE 0.9% 1,000 ML IV SCH (17:54)
[2024-01-03] MEDS: LORazepam 1 MG TAB PO PRN (19:55)
[2024-01-03] MEDS: MELATONIN 5 MG TABLET PO PRN (23:24)
[2024-01-04] MEDS: LORazepam 0.5 MG TAB PO PRN (04:07)
[2024-01-04 08:39] LABS: Basophils # (A) 0.05 X 10*3/uL (0.00-0.10); Eosinophils # (A) 0.12 X 10*3/uL (0.04-0.35); Eosinophils % (A) 2.3 %; HCT 41.2 % (39.6-50.0); HGB 13.3 g/dL (13.0-17.0); Lymphocytes # (A) 1.28 X 10*3/uL (0.90-5.00); Lymphocytes % (A) 24.3 %; MCH 27.7 pg (27.0-32.0); MCHC 32.3 g/dL (32.0-37.0); MCV 85.7 FL (80.0-97.0); Monocytes # (A) 0.53 X 10*3/uL (0.20-1.00); Monocytes % (A) 10.1 %; NRBC Per 100 WBC 0 X 10*3/uL (0.00-0.01); Neutrophils # (A) 3.25 X 10*3/uL (1.80-7.70); Neutrophils % (A) 61.7 %; Platelet Count 203 X 10*3/uL (140-440); RBC 4.81 X 10*6/uL (4.40-5.60); RDW 18.3 % (11.5-14.5); WBC 5.26 X 10*3/uL (4.50-10.00)
[2024-01-04 08:45] LABS: Glucose 77 mg/dL (70-110)
[2024-01-04 08:46] LABS: ALT 13 U/L (10-49); AST 28 U/L (14-35); Albumin 3.4 g/dL (3.8-4.9); Albumin/Globulin Ratio 1.31 Ratio (1.60-3.17); Alkaline Phosphatase 145 U/L (41-126); Carbon Dioxide 20.1 mmol/L (21.6-31.8); Chloride 109 mmol/L (96-109); Globulin 2.6 g/dL (1.6-3.3); Magnesium 1.4 mg/dL (1.5-2.4); Phosphorus 3.2 mg/dL (2.4-5.1); Sodium 145 mmol/L (135-145); Total Bilirubin 0.3 mg/dL (0.3-1.2)
[2024-01-04] MEDS: LORazepam 2 MG/ML INJ IV PRN (10:15)
[2024-01-04] MEDS: MAGNESIUM SULFATE-D5W PMX 1 GM in DEXTROSE/WATER 1 100ML.BAG IVPB SCH (11:47)
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
[2024-01-04] MEDS: SERTRALINE 50 MG TAB PO SCH (14:25)
[2024-01-04] MEDS: QUEtiapine 200 MG TAB PO SCH (21:17)
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
[2024-01-05 08:00] LABS: African American GFR (CKD) >90 (>60 ml/min/1.73 sqM); Anion Gap 8 mmol/L; Blood Urea Nitrogen 4 mg/dL (9-20); Calcium 8.4 mg/dL (8.4-10.2); Carbon Dioxide 22 mmol/L (22-30); Chloride 111 mmol/L (98-107); Glucose 85 mg/dL (74-99); Non-African American GFR(CKD) >90 (>60 ml/min/1.73 sqM); Potassium 3.4 mmol/L (3.5-5.1); Sodium 141 mmol/L (137-145)
[2024-01-05 08:09] LABS: Anisocytosis Slight; Basophils % (A) 1 %; Eosinophils # (A) 0.2 k/uL (0-0.7); Eosinophils % (A) 2 %; HCT 48.1 % (39.0-53.0); HGB 15.1 gm/dL (13.0-17.5); Lymphocytes % (A) 15 %; MCH 28.1 pg (25.0-35.0); MCHC 31.4 g/dL (31.0-37.0); MCV 89.4 fL (80.0-100.0); Mean Platelet Volume 7.3; Monocytes # (A) 0.3 k/uL (0-1.0); Monocytes % (A) 4 %; Neutrophils # (A) 5.4 k/uL (1.3-7.7); Neutrophils % (A) 78 %; Platelet Count 193 k/uL (150-450); RBC 5.38 m/uL (4.30-5.90); RDW 18.1 % (11.5-15.5)
[2024-01-05] MEDS: LORazepam 1 MG TAB PO PRN (08:31)
[2024-01-05] MEDS: POTASSIUM CHLORIDE ER 20 MEQ TAB.ER PO STA (13:32)
[2024-01-06 05:22] LABS: ALT 11 U/L (4-49); African American GFR (CKD) >90 (>60 ml/min/1.73 sqM); Anion Gap 8 mmol/L; Blood Urea Nitrogen 3 mg/dL (9-20); Calcium 8.3 mg/dL (8.4-10.2); Carbon Dioxide 18 mmol/L (22-30); Chloride 112 mmol/L (98-107); Globulin 3.2 g/dL; Glucose 75 mg/dL (74-99); Non-African American GFR(CKD) >90 (>60 ml/min/1.73 sqM); Sodium 138 mmol/L (137-145)
[2024-01-06 05:23] LABS: AST 43 U/L (17-59); Albumin 3.3 g/dL (3.5-5.0); Alkaline Phosphatase 142 U/L (38-126); Magnesium 1.8 mg/dL (1.6-2.3); Potassium 5.2 mmol/L (3.5-5.1); Total Protein 6.5 g/dL (6.3-8.2)
[2024-01-06 07:26] VITALS: BP 134/82; PULSE 73; RESP 17; TEMP 97.6
[2024-01-06] MEDS: HEPARIN SODIUM,PORCINE 5,000 UNIT/ML 1 ML VIAL SQ SCH (08:26)
[2024-01-06] MEDS: THIAMINE 100 MG TAB PO SCH (08:26)
== END 2024-01-06 14:40 | disposition home or self-care (01) | DRG 897 ==
LOC: EC 15:37 → 6NMEDSUR 17:52 → OBSVTOIN 17:53 → 6NMEDSUR 20:12
PROVIDERS: ADMIT Hospitalist; ATTEND Hospitalist
DX: F10.229 Alcohol dependence with intoxication, unspecified (principal); R45.851 Suicidal ideations; Z59.01 Sheltered homelessness; E87.29 Other acidosis; F43.10 Post-traumatic stress disorder, unspecified; F17.200 Nicotine dependence, unspecified, uncomplicated; F32.A Depression, unspecified; F41.9 Anxiety disorder, unspecified; F10.239 Alcohol dependence with withdrawal, unspecified; Y90.8 Blood alcohol level of 240 mg/100 ml or more; K21.9 Gastro-esophageal reflux disease without esophagitis; M19.90 Unspecified osteoarthritis, unspecified site; G40.909 Epilepsy, unspecified, not intractable, without status epilepticus; E83.42 Hypomagnesemia; M25.512 Pain in left shoulder; M25.511 Pain in right shoulder; G62.9 Polyneuropathy, unspecified; G47.00 Insomnia, unspecified; G89.29 Other chronic pain; Z63.5 Disruption of family by separation and divorce; Z56.0 Unemployment, unspecified; Z91.410 Personal history of adult physical and sexual abuse; Z28.310 Unvaccinated for COVID-19; Z91.51 Personal history of suicidal behavior; Z28.21 Immunization not carried out because of patient refusal; Z91.411 Personal history of adult psychological abuse
CPT/HCPCS: 36415; 80048; 80053; 80320; 83690; 83735; 84100; 85025; 96360; 96361; 99285

== ENCOUNTER 2024-01-30 01:25 | Observation (INO) | payer OTHER ==
[2024-01-30 02:01] LABS: Anisocytosis Slight; Basophils # (A) 0.1 k/uL (0-0.2); Basophils % (A) 1 %; Eosinophils # (A) 0.1 k/uL (0-0.7); Eosinophils % (A) 2 %; HCT 51.3 % (39.0-53.0); Hypochromasia Slight; Lymphocytes # (A) 2.2 k/uL (1.0-4.8); Lymphocytes % (A) 31 %; MCH 27.5 pg (25.0-35.0); MCHC 31.2 g/dL (31.0-37.0); MCV 88.1 fL (80.0-100.0); Mean Platelet Volume 7.3; Monocytes # (A) 0.4 k/uL (0-1.0); Monocytes % (A) 6 %; Neutrophils # (A) 4.2 k/uL (1.3-7.7); Neutrophils % (A) 59 %; Platelet Count 298 k/uL (150-450); RBC 5.83 m/uL (4.30-5.90); RDW 16.5 % (11.5-15.5); WBC 7.1 k/uL (3.8-10.6)
[2024-01-30 02:13] LABS: ALT 35 U/L (4-49); AST 79 U/L (17-59); African American GFR (CKD) >90 (>60 ml/min/1.73 sqM); Albumin 3.6 g/dL (3.5-5.0); Alkaline Phosphatase 190 U/L (38-126); Anion Gap 12 mmol/L; Blood Urea Nitrogen 7 mg/dL (9-20); Calcium 8.1 mg/dL (8.4-10.2); Carbon Dioxide 20 mmol/L (22-30); Chloride 112 mmol/L (98-107); Glucose 110 mg/dL (74-99); INR 1.1 (<1.2); Magnesium 1.9 mg/dL (1.6-2.3); Non-African American GFR(CKD) >90 (>60 ml/min/1.73 sqM); Partial Thromboplastin Time 22.5 sec (22.0-30.0); Potassium 3.8 mmol/L (3.5-5.1); Prothrombin Time 11.9 sec (10.0-12.5); Sodium 144 mmol/L (137-145); Total Bilirubin 0.5 mg/dL (0.2-1.3); Total Protein 6.9 g/dL (6.3-8.2)
[2024-01-30 02:31] LABS: Alcohol 324 mg/dL
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
[2024-01-30] MEDS ORDERED: NALOXONE 0.4 MG/ML 1 ML VIAL IV PRN (03:06)
[2024-01-30] MEDS: SODIUM CHLORIDE 0.9% 1,000 ML IV SCH (03:34)
[2024-01-30] MEDS ORDERED: LORazepam 1 MG TAB PO PRN (03:37)
[2024-01-30 04:40] LABS: T4, Free (Free Thyroxine) 1.12 ng/dL (0.78-2.19)
--- NOTE | 2024-01-30 04:52 | XR ---
EXAM: XR Chest, 2 Views CLINICAL HISTORY: ITS.REASON XR Reason: dysrhythmia TECHNIQUE: Frontal and lateral views of the chest. COMPARISON: 10/22/2023. FINDINGS: Lungs: No consolidation or mass. Slightly prominent interstitial markings. Pleural space: No effusion. Heart: No cardiomegaly. Bones/joints: No acute findings. IMPRESSION: Slightly prominent interstitial markings.
[2024-01-30] MEDS: LORazepam 1 MG TAB PO PRN ×3 (07:42→17:48)
[2024-01-30] MEDS: ONDANSETRON 4 MG/2 ML VIAL IVP PRN (12:02)
[2024-01-30] MEDS: PANTOPRAZOLE 40 MG/10 ML VIAL IVP SCH (12:02)
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
[2024-01-30] MEDS: SODIUM CHLORIDE 0.45% 1,000 ML IV SCH (14:46)
[2024-01-30] MEDS: THIAMINE 100 MG TAB PO SCH (18:14)
[2024-01-30] MEDS: MIRTAZAPINE 15 MG TAB PO SCH (21:28)
[2024-01-30] MEDS: QUEtiapine 100 MG TAB PO SCH (21:28)
[2024-01-31 07:47] VITALS: BP 137/86; PULSE 99; RESP 20; TEMP 97.6
[2024-01-31] MEDS: ENOXAPARIN 40 MG/0.4 ML SYRINGE SQ SCH (08:22)
[2024-01-31 08:59] LABS: Basophils # (A) 0.03 X 10*3/uL (0.00-0.10); Basophils % (A) 0.5 %; Eosinophils # (A) 0.09 X 10*3/uL (0.04-0.35); Eosinophils % (A) 1.5 %; HCT 43.8 % (39.6-50.0); Lymphocytes # (A) 1.59 X 10*3/uL (0.90-5.00); Lymphocytes % (A) 26.9 %; MCH 27.2 pg (27.0-32.0); MCV 85.2 FL (80.0-97.0); Mean Platelet Volume 9.8 FL (9.5-12.2); Monocytes % (A) 6.8 %; NRBC Per 100 WBC 0 X 10*3/uL (0.00-0.01); Neutrophils # (A) 3.77 X 10*3/uL (1.80-7.70); Platelet Count 164 X 10*3/uL (140-440); RBC 5.14 X 10*6/uL (4.40-5.60); RDW 15.9 % (11.5-14.5)
[2024-01-31 10:46] LABS: BUN/Creat Ratio 7.83 Ratio (12.00-20.00); Blood Urea Nitrogen 4.7 mg/dL (9.0-27.0); Calcium 7.5 mg/dL (8.7-10.3); Carbon Dioxide 21.4 mmol/L (21.6-31.8); Chloride 108 mmol/L (96-109); Glucose 82 mg/dL (70-110); Potassium 3.4 mmol/L (3.5-5.5); Sodium 142 mmol/L (135-145)
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
[2024-01-31] MEDS: LORazepam 0.5 MG TAB PO PRN (13:04)
[2024-01-31] MEDS: POTASSIUM CHLORIDE ER 20 MEQ TAB.ER PO STA (14:16)
[2024-01-31 14:22] VITALS: BMI 25.8
--- NOTE | 2024-01-31 15:12 | P.PN ---
Subjective January 31, 2024 Patient is admitted for alcohol withdrawal withdrawal significantly improved patient to frequency of Ativan requirements are less more than every 4 hours patient will be discharged on weaning dose of Librium social work evaluated the patient patient is willing to go to [facility] which she will call. Patient potassium is low at 3.4 which is being replaced. Psychiatry evaluated the patient did not recommend any psychiatric hospital admission. REVIEW OF SYSTEMS: All other systems are negative except those mentioned in the HPI PHYSICAL EXAMINATION: GENERAL: The patient is alert and oriented x3, not in any acute distress. Well developed, well nourished. Patient is significant shaking secondary to alcohol withdrawal HEENT: Pupils are round and equally reacting to light. EOMI. No scleral icterus. No conjunctival pallor. Normocephalic, atraumatic. No pharyngeal erythema. No thyromegaly. CARDIOVASCULAR: S1 and S2 present. No murmurs, rubs, or gallops. PULMONARY: Chest is clear to auscultation, no wheezing or crackles. ABDOMEN: Soft, nontender, nondistended, normoactive bowel sounds. No palpable organomegaly. MUSCULOSKELETAL: No joint swelling or deformity. EXTREMITIES: No cyanosis, clubbing, or pedal edema. NEUROLOGICAL: Gross neurological examination did not reveal any focal deficits. SKIN: No rashes. Assessment and plan -Alcohol withdrawal: -Physical and psychological dependence on alcohol: Alcoholic gastritis: Protonix -Hyperchloremic metabolic acidosis resolved after discontinuation of normal saline Objective - Vital Signs Vital signs: Vital Signs Temp 97.6 F 01/31/24 07:00 Pulse 99 01/31/24 07:00 Resp 20 01/31/24 07:00 BP 137/86 01/31/24 07:00 Pulse Ox 98 01/31/24 07:00 FiO2 Intake & Output 01/30/24 01/31/24 01/31/24 18:59 06:59 18:59 Intake Total 0 118 Output Total 600 Balance 0 -600 118 Weight 81.647 kg 81.647 kg Intake: Oral 0 118 Output: Urine 600 Other: # Voids 2 - Labs CBC & Chem 7: 01/31/24 05:59 01/31/24 05:59 Labs: Abnormal Lab Results - Last 24 Hours (Table) 01/31/24 01/31/24 Range/Units 05:59 05:59 RDW 15.9 H (11.5-14.5) % Potassium 3.4 L (3.5-5.5) mmol/L Carbon Dioxide 21.4 L (21.6-31.8) mmol/L Anion Gap 12.60 H (4.00-12.00) mmol/L BUN 4.7 L (9.0-27.0) mg/dL BUN/Creatinine Ratio 7.83 L (12.00-20.00) Ratio Calcium 7.5 L (8.7-10.3) mg/dL
[2024-02-01] MEDS ORDERED: PANTOPRAZOLE 40 MG TABLET PO SCH (07:30)
== END 2024-01-31 14:43 | disposition home or self-care (01) ==
LOC: EC 01:25 → 6NMEDSUR 03:09
PROVIDERS: ADMIT Hospitalist; ATTEND Hospitalist
DX: F10.239 Alcohol dependence with withdrawal, unspecified (principal); F10.229 Alcohol dependence with intoxication, unspecified; E87.29 Other acidosis; E87.6 Hypokalemia; E87.8 Other disorders of electrolyte and fluid balance, not elsewhere classified; K29.20 Alcoholic gastritis without bleeding; F32.A Depression, unspecified; F41.0 Panic disorder [episodic paroxysmal anxiety]; Y90.8 Blood alcohol level of 240 mg/100 ml or more; F17.200 Nicotine dependence, unspecified, uncomplicated; Z63.5 Disruption of family by separation and divorce; Z59.01 Sheltered homelessness; Z79.899 Other long term (current) drug therapy
CPT/HCPCS: 96376; 96372; 96361; 96374; 96375; 99285; 36415; 93005; 84439; 80053; 80048; 84443; 83735; 84484; 85025 ×2; 85610; 85730; 80320; 71046; G0378 ×2; J2405 ×2; J1650; J2470 ×2

== ENCOUNTER 2024-02-08 06:04 | Inpatient (IN) | payer OTHER ==
[2024-02-08] MEDS: SODIUM CHLORIDE 0.9% 1,000 ML IV STA (06:59)
[2024-02-08] MEDS: LORazepam 2 MG/ML INJ IV STA (07:01)
[2024-02-08 07:05] LABS: Anisocytosis Slight; Basophils % (A) 1 %; Eosinophils # (A) 0.2 k/uL (0-0.7); Eosinophils % (A) 5 %; HCT 43.7 % (39.0-53.0); HGB 13.7 gm/dL (13.0-17.5); Hypochromasia Moderate; Lymphocytes # (A) 2.2 k/uL (1.0-4.8); Lymphocytes % (A) 44 %; MCH 27.8 pg (25.0-35.0); MCHC 31.4 g/dL (31.0-37.0); MCV 88.7 fL (80.0-100.0); Monocytes # (A) 0.4 k/uL (0-1.0); Monocytes % (A) 7 %; Neutrophils # (A) 2.1 k/uL (1.3-7.7); Neutrophils % (A) 42 %; Platelet Count 166 k/uL (150-450); RBC 4.93 m/uL (4.30-5.90); RDW 17.2 % (11.5-15.5); WBC 4.9 k/uL (3.8-10.6)
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
[2024-02-08 07:19] LABS: ALT 13 U/L (4-49); AST 36 U/L (17-59); African American GFR (CKD) >90 (>60 ml/min/1.73 sqM); Albumin 3.1 g/dL (3.5-5.0); Alkaline Phosphatase 142 U/L (38-126); Anion Gap 10 mmol/L; Blood Urea Nitrogen 7 mg/dL (9-20); Calcium 7.9 mg/dL (8.4-10.2); Carbon Dioxide 25 mmol/L (22-30); Chloride 113 mmol/L (98-107); Glucose 101 mg/dL (74-99); Magnesium 1.8 mg/dL (1.6-2.3); Non-African American GFR(CKD) >90 (>60 ml/min/1.73 sqM); Potassium 3.3 mmol/L (3.5-5.1); Sodium 148 mmol/L (137-145); Total Bilirubin 0.4 mg/dL (0.2-1.3); Total Protein 6.2 g/dL (6.3-8.2)
[2024-02-08 07:37] LABS: Alcohol 455 mg/dL
[2024-02-08 07:38] LABS: INR 1.2 (<1.2); Partial Thromboplastin Time 22.6 sec (22.0-30.0)
--- NOTE | 2024-02-08 07:41 | XR ---
EXAMINATION TYPE: XR chest 2V DATE OF EXAM: 02/08/2024 COMPARISON: 01/30/2024 HISTORY: 53-year-old male with chest pain TECHNIQUE: AP and lateral views FINDINGS: Low lung volumes with crowded vascular markings and interstitial prominence. Heart is mildly enlarged . No julián consolidation or pleural effusion. IMPRESSION: Limited by hypoventilatory changes. There appears to be mild cardiomegaly and interstitial density. C onsider mild CHF with early pulmonary vascular congestion.
[2024-02-08] MEDS: 0.9% NACL WITH KCL 20 MEQ/L 1,000 ML with MVI, ADULT NO.4 WITH VIT K 10 ML, THIAMINE 10... IV SCH (09:25)
[2024-02-08] MEDS: POTASSIUM CHLORIDE ER 20 MEQ TAB.ER PO STA (09:28)
[2024-02-08] MEDS ORDERED: ONDANSETRON 4 MG/2 ML VIAL IVP PRN (10:21)
[2024-02-08] MEDS ORDERED: IBUPROFEN 400 MG TAB PO PRN (10:21)
[2024-02-08] MEDS ORDERED: ACETAMINOPHEN TAB 325 MG TAB PO PRN (10:21)
[2024-02-08] MEDS ORDERED: NALOXONE 0.4 MG/ML 1 ML VIAL IV PRN (10:21)
[2024-02-08] MEDS ORDERED: KETOROLAC 15 MG/ML 1 ML VIAL IVP PRN (10:21)
[2024-02-08] MEDS ORDERED: LORazepam 2 MG/ML INJ IV PRN (10:22)
[2024-02-08] MEDS: THIAMINE 100 MG/ML 2 ML VIAL IM STA (11:07)
[2024-02-08] MEDS: LORazepam 2 MG/ML INJ IV PRN ×3 (16:30→23:18)
[2024-02-08] MEDS: LORazepam 1 MG TAB PO PRN (19:24)
[2024-02-09] MEDS: chlordiazePOXIDE 25 MG CAP PO SCH (00:40)
[2024-02-09 00:41] LABS: Glucose,Whole Blood 77 mg/dL (70-110)
[2024-02-09 01:11] LABS: Glucose,Whole Blood 73 mg/dL (70-110)
[2024-02-09] MEDS: DEXMEDETOMIDINE/0.9% NACL(PMX) 400 MCG in EMPTY BAG 1 BAG IV SCH (02:08)
[2024-02-09] MEDS ORDERED: NALOXONE 0.4 MG/ML 1 ML VIAL IV PRN (02:16)
[2024-02-09 03:16] LABS: Glucose,Whole Blood 84 mg/dL (70-110)
[2024-02-09 05:59] LABS: Anisocytosis Slight; Basophils % (A) 1 %; Eosinophils # (A) 0.2 k/uL (0-0.7); Eosinophils % (A) 4 %; HCT 44.1 % (39.0-53.0); HGB 13.5 gm/dL (13.0-17.5); Hypochromasia Marked; Lymphocytes # (A) 1.2 k/uL (1.0-4.8); Lymphocytes % (A) 29 %; MCH 27.3 pg (25.0-35.0); MCHC 30.6 g/dL (31.0-37.0); MCV 89.3 fL (80.0-100.0); Mean Platelet Volume 7.7; Monocytes # (A) 0.2 k/uL (0-1.0); Monocytes % (A) 5 %; Neutrophils # (A) 2.5 k/uL (1.3-7.7); Neutrophils % (A) 60 %; Platelet Count 151 k/uL (150-450); RBC 4.94 m/uL (4.30-5.90); RDW 16.7 % (11.5-15.5); WBC 4.2 k/uL (3.8-10.6)
[2024-02-09 06:09] LABS: African American GFR (CKD) >90 (>60 ml/min/1.73 sqM); Anion Gap 6 mmol/L; Blood Urea Nitrogen 5 mg/dL (9-20); Calcium 7.4 mg/dL (8.4-10.2); Carbon Dioxide 20 mmol/L (22-30); Chloride 112 mmol/L (98-107); Glucose 92 mg/dL (74-99); Non-African American GFR(CKD) >90 (>60 ml/min/1.73 sqM); Potassium 3.6 mmol/L (3.5-5.1); Sodium 138 mmol/L (137-145)
[2024-02-09] MEDS ORDERED: Potassium Replacement Protocol 1 EACH MISC MISCELLANE PRN (06:41)
[2024-02-09] MEDS: POTASSIUM CHLORIDE ER 20 MEQ TAB.ER PO SCH (07:16)
[2024-02-09] MEDS: FOLIC ACID 1 MG TAB PO SCH (08:06)
[2024-02-09] MEDS: MULTIVITAMINS, THERA 1 EACH TAB PO SCH (08:06)
[2024-02-09] MEDS: THIAMINE 100 MG TAB PO SCH (08:06)
[2024-02-09] MEDS: PANTOPRAZOLE 40 MG/10 ML VIAL IV SCH (08:06)
[2024-02-09] MEDS ORDERED: HALOPERIDOL LACTATE 5 MG/ML 1 ML VIAL IVP PRN (09:00)
[2024-02-09] MEDS: QUEtiapine 50 MG TAB PO SCH (10:02)
[2024-02-09] MEDS: HEPARIN SODIUM,PORCINE 5,000 UNIT/ML 1 ML VIAL SQ SCH (10:02)
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
[2024-02-09] MEDS: LACTATED RINGERS 1,000 ML IV SCH (13:32)
[2024-02-09] MEDS: LORazepam 2 MG/ML INJ IV PRN (13:53)
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
--- NOTE | 2024-02-09 18:54 | P.PN ---
Subjective Progress Note Date: 02/09/24 53 year old male who presents to the emergency department for alcohol intoxication. Patient is living at the [facility] and called EMS for chest pain. When EMS arrived they noticed several empty bottles of vodka and the patient clearly appeared intoxicated. He refused care and became very combative and uncooperative when they arrived. On initial evaluation in the emergency department, he continued to be uncooperative and was initially refusing any kind of intervention and requests to leave. He then began to settle down and allowed nursing staff to obtain an EKG and lab work. Labs today show WBC 4.2, hemoglobin 13.5, platelets 151, sodium 138, potassium 3.6, BUN 5 and creatinine 1.52. Alcohol level on admission was 155. EKG shows right bundle branch block. Chest x-ray shows mild cardiomegaly and interstitial density, mild CHF with early pulmonary vascular congestion. Patient is admitted for alcohol withdrawal Objective - Vital Signs Vital signs: Vital Signs Temp 97.6 F 02/09/24 08:00 Pulse 67 02/09/24 09:00 Resp 25 H 02/09/24 09:00 BP 113/80 02/09/24 09:00 Pulse Ox 94 L 02/09/24 09:00 FiO2 Intake & Output 02/08/24 02/09/24 02/09/24 18:59 06:59 18:59 Intake Total 305.500 232.221 Output Total 300 0 Balance 5.500 232.221 Weight 68.039 kg 81.8 kg Intake: IV 30 .9 KVO 30 Intake, IV Titration 305.500 202.221 Amount 0.9% NaCl with KCl 20 Meq 300 150 /l 1,000 ml @ 50 mls/hr IV .[id number] LADI with Mvi, Adult No.4 with Vit K 10 ml with Thiamine 100 mg with Folic Acid 1 mg Rx#: [id number] Dexmedetomidine/0.9% NaCl 5.500 52.221 (Pmx) 400 mcg In Empty Bag 1 bag @ 0.2 MCG/KG/HR 3.402 mls/hr IV .Q24H LADI Rx#:[id number] Output: Urine 300 0 Other: Voiding Method Toilet Urinal Urinal # Voids 1 6 - Exam HEAD: Normocephalic and atraumatic EYES: Normal reaction of pupils, equal size. NOSE: Clear with pink turbinates. THROAT: No erythema or exudates. NECK: No masses, no JVD. CHEST: No chest wall deformity. LUNGS: Equal air entry with no crackles, wheeze, rhonchi or dullness. CVS: S1 and S2 normal with no audible murmur, regular rhythm. No extra heart sounds ABDOMEN: No masses or tenderness SPINE: No scoliosis or deformity SKIN: No rashes CENTRAL NERVOUS SYSTEM: Alert and technically oriented x 3. No focal deficits, tone is normal in all 4 extremities. EXTREMITIES: No clubbing, or cyanosis. - Labs CBC & Chem 7: 02/09/24 05:27 02/09/24 05:27 Labs: Abnormal Lab Results - Last 24 Hours (Table) 02/09/24 02/09/24 Range/Units 05:27 05:27 MCHC 30.6 L (31.0-37.0) g/dL RDW 16.7 H (11.5-15.5) % Chloride 112 H (98-107) mmol/L Carbon Dioxide 20 L (22-30) mmol/L BUN 5 L (9-20) mg/dL Creatinine 0.52 L (0.66-1.25) mg/dL Calcium 7.4 L (8.4-10.2) mg/dL Assessment and Plan Assessment: 1. Alcohol intoxication/withdrawal -Blood alcohol level is at 455; patient has been placed on CIWA protocol with Ativan; IV fluids; thiamine and folic acid -- Will add Librium 25 mg 4 times daily as needed 2. Hyponatremia/dehydration; IV fluids half-normal saline at a rate of 125 cc an hour; monitor electrolytes closely; adjust fluids as needed 3. Hypokalemia; supplemented in ED; will monitor electrolytes and make further recommendations as needed DVT prophylaxis; SCDs CODE STATUS; full code
[2024-02-09] MEDS: HALOPERIDOL LACTATE 5 MG/ML 1 ML VIAL IVP PRN (20:01)
[2024-02-10 06:32] LABS: Anisocytosis Slight; Basophils % (A) 1 %; Eosinophils # (A) 0.4 k/uL (0-0.7); Eosinophils % (A) 10 %; HCT 44.2 % (39.0-53.0); HGB 13.6 gm/dL (13.0-17.5); Hypochromasia Marked; Lymphocytes # (A) 1.5 k/uL (1.0-4.8); Lymphocytes % (A) 40 %; MCH 27.4 pg (25.0-35.0); MCHC 30.8 g/dL (31.0-37.0); MCV 88.9 fL (80.0-100.0); Monocytes # (A) 0.1 k/uL (0-1.0); Monocytes % (A) 3 %; Neutrophils # (A) 1.7 k/uL (1.3-7.7); Neutrophils % (A) 44 %; Platelet Count 127 k/uL (150-450); RBC 4.97 m/uL (4.30-5.90); RDW 16.4 % (11.5-15.5); WBC 3.9 k/uL (3.8-10.6)
[2024-02-10 06:41] LABS: African American GFR (CKD) >90 (>60 ml/min/1.73 sqM); Anion Gap 6 mmol/L; Blood Urea Nitrogen 5 mg/dL (9-20); Calcium 7.9 mg/dL (8.4-10.2); Carbon Dioxide 17 mmol/L (22-30); Chloride 114 mmol/L (98-107); Glucose 76 mg/dL (74-99); Non-African American GFR(CKD) >90 (>60 ml/min/1.73 sqM); Potassium 3.9 mmol/L (3.5-5.1); Sodium 137 mmol/L (137-145)
[2024-02-10] MEDS ORDERED: Potassium Replacement Protocol 1 EACH MISC MISCELLANE PRN (07:07)
[2024-02-10] MEDS: POTASSIUM CHLORIDE ER 20 MEQ TAB.ER PO SCH (07:18)
--- NOTE | 2024-02-10 10:03 | P.PN ---
Subjective Progress Note Date: 02/10/24 Principal diagnosis: Alcohol withdrawal. 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 Who presents presented to the emergency department for alcohol intoxication. Regarding EMS for chest pain. When EMS arrived to [facility] and the patient appeared intoxicated. In the ED he became combative and uncooperative, but later began to settle down. Then he was transferred to general medical floor where he became agitated again and was transferred to ICU. Was put on Precedex 0.2mcg/kg/hr with 0.9% normal saline at 10ml/hr and chlordiazepoxide 20 mg. He was seen today in the ICU. He is stable on on room air with O2 sat 94 and is not agitated. He complains of mild pain in the back. Labs today show WBC 4.2, hemoglobin 13.5, platelets 151, sodium 138, potassium 3.6, BUN 5 and creatinine 1.52. Alcohol level on admission was 155. EKG shows right bundle branch block. Chest x-ray shows mild cardiomegaly and interstitial density, mild CHF with early pulmonary vascular congestion. He has been put on folic acid, thiamine 100 mg, KCL 20 meq and multivitamin 50ml/hr. We will discontinue Precedex and add Haldol 48mg IM or IV, Seroquel 50, 3 times a day. He seemed hypovolemic so will start LR at 50 ml/hr. Will continue to monitor. Progress note dated February 10, 2024. The patient is seen today in room 261. He is much improved. He came into the hospital with alcohol withdrawal and alcohol intoxication. His alcohol level was 455. He is currently on room air. He is getting no IV fluids at the current time. He previously was on lactated Ringer's, as well as a banana bag. The patient is awake and alert. He is not agitated. In addition to Ativan, he has orders for Seroquel, Haldol, Librium. He is no longer on dexmedetomidine. Current labs include a white count 3.9, hemoglobin 13.6, hematocrit 44.2, and a platelet count of 127,000. Sodium 137, potassium 3.9, chlorides 114, CO2 17, BUN 5, creatinine 0.57. Calcium is 7.9. Objective - Vital Signs Vital signs: Vital Signs Temp 97.6 F 02/10/24 08:00 Pulse 77 02/10/24 09:00 Resp 30 H 02/10/24 09:00 BP 102/85 02/10/24 09:00 Pulse Ox 97 02/10/24 09:00 FiO2 Intake & Output 02/09/24 02/10/24 02/10/24 18:59 06:59 18:59 Intake Total 6497.840 7378.625 100 Output Total 1400 1551 400 Balance -340.028 -388.375 -300 Weight 82 kg Intake: IV 60 .9 KVO 60 Intake, IV Titration 132.523 2575.625 100 Amount 0.9% NaCl with KCl 20 Meq 550 250 /l 1,000 ml @ 50 mls/hr IV .[id number] LADI with Mvi, Adult No.4 with Vit K 10 ml with Thiamine 100 mg with Folic Acid 1 mg Rx#: [id number] Dexmedetomidine/0.9% NaCl 149.972 62.625 (Pmx) 400 mcg In Empty Bag 1 bag @ 0.2 MCG/KG/HR 3.402 mls/hr IV .Q24H LADI Rx#:[id number] Lactated Ringers 1,000 ml 300 850 100 @ 50 mls/hr IV .Q20H LADI Rx#:[id number] Output: Urine 1400 1550 400 Stool 1 Other: Voiding Method Urinal Urinal Toilet Urinal - Exam No acute distress, oriented 3. Still a bit shaky. HEENT examination is grossly unremarkable. Mucous membranes are moist. No oral lesions. Neck supple. Full range of motion. No adenopathy thyromegaly or neck vein distention. Cardiovascular examination reveals regular rhythm rate. S1-S2 normal. No S3 or S4. No discernible murmur noted. Lungs reveal clear breath sounds. Breath sounds are equal bilaterally. No adventitious lung sounds including wheezes rhonchi or crackles. Abdomen soft bowel sounds are heard. No masses or tenderness. Extremities are intact. No cyanosis clubbing or edema. Skin is without rash or lesion. Neurologic examination is brief but nonfocal. - Labs CBC & Chem 7: 02/10/24 05:32 02/10/24 05:32 Labs: Abnormal Lab Results - Last 24 Hours (Table) 02/10/24 02/10/24 Range/Units 05:32 05:32 MCHC 30.8 L (31.0-37.0) g/dL RDW 16.4 H (11.5-15.5) % Plt Count 127 L (150-450) k/uL Chloride 114 H (98-107) mmol/L Carbon Dioxide 17 L (22-30) mmol/L BUN 5 L (9-20) mg/dL Creatinine 0.57 L (0.66-1.25) mg/dL Calcium 7.9 L (8.4-10.2) mg/dL Assessment and Plan Assessment: Acute alcohol intoxication. History of gastroesophageal reflux disease. History of osteoarthritis. History of seizure disorder, rule out rum fits. Neuropathy of the right forearm. Plan: Plan dated February 10, 2024. The patient is doing much better. He is awake and alert. Is not agitated or confused. He is not disoriented. His vital signs are stable. He is off dexmedetomidine. There are orders for Ativan, Librium, Seroquel, and Haldol if necessary. We will continue to follow. We discussed the importance of alcohol cessation once and for all. The patient has had multiple admissions for alcohol intoxication, and alcohol withdrawal syndrome. Time with Patient: Less than 30
--- NOTE | 2024-02-10 15:35 | P.PN ---
Subjective Progress Note Date: 02/10/24 53 year old male who presents to the emergency department for alcohol intoxication. Patient is living at the [facility] and called EMS for chest pain. When EMS arrived they noticed several empty bottles of vodka and the patient clearly appeared intoxicated. He refused care and became very combative and uncooperative when they arrived. On initial evaluation in the emergency department, he continued to be uncooperative and was initially refusing any kind of intervention and requests to leave. He then began to settle down and allowed nursing staff to obtain an EKG and lab work. Labs today show WBC 4.2, hemoglobin 13.5, platelets 151, sodium 138, potassium 3.6, BUN 5 and creatinine 1.52. Alcohol level on admission was 155. EKG shows right bundle branch block. Chest x-ray shows mild cardiomegaly and interstitial density, mild CHF with early pulmonary vascular congestion. Patient is admitted for alcohol withdrawal 24-hour interval change 02/10/2024 Patient is seen and evaluated in room at bedside; more awake and alert this morning Admitted to the hospital with alcohol intoxication with his alcohol level was 455. He is currently on room air. He is getting no IV fluids at the current time. He previously was on lactated Ringer's, as well as a banana bag. The patient is awake and alert. He is not agitated. In addition to Ativan, he has orders for Seroquel, Haldol, Librium. He is no longer on dexmedetomidine. --Current labs include a white count 3.9, hemoglobin 13.6, hematocrit 44.2, and a platelet count of 127,000. Sodium 137, potassium 3.9, chlorides 114, CO2 17, BUN 5, creatinine 0.57. Calcium is 7.9. -Patient remains on CIWA protocol with Ativan along with Librium, Seroquel and Haldol as needed nutritional services host consulted for discharge planning given multiple admissions for alcohol intoxication and withdrawal Patient is to be admitted to general medical floor Objective - Vital Signs Vital signs: Vital Signs Temp 97.6 F 02/10/24 08:00 Pulse 77 02/10/24 09:00 Resp 30 H 02/10/24 09:00 BP 102/85 02/10/24 09:00 Pulse Ox 97 02/10/24 09:00 FiO2 Intake & Output 02/09/24 02/10/24 02/10/24 18:59 06:59 18:59 Intake Total 2927.009 2307.625 100 Output Total 1400 1551 400 Balance -340.028 -388.375 -300 Weight 82 kg Intake: IV 60 .9 KVO 60 Intake, IV Titration 986.010 2410.625 100 Amount 0.9% NaCl with KCl 20 Meq 550 250 /l 1,000 ml @ 50 mls/hr IV .[id number] LADI with Mvi, Adult No.4 with Vit K 10 ml with Thiamine 100 mg with Folic Acid 1 mg Rx#: [id number] Dexmedetomidine/0.9% NaCl 149.972 62.625 (Pmx) 400 mcg In Empty Bag 1 bag @ 0.2 MCG/KG/HR 3.402 mls/hr IV .Q24H LADI Rx#:[id number] Lactated Ringers 1,000 ml 300 850 100 @ 50 mls/hr IV .Q20H LADI Rx#:[id number] Output: Urine 1400 1550 400 Stool 1 Other: Voiding Method Urinal Urinal Toilet Urinal - Exam HEAD: Normocephalic and atraumatic EYES: Normal reaction of pupils, equal size. NOSE: Clear with pink turbinates. THROAT: No erythema or exudates. NECK: No masses, no JVD. CHEST: No chest wall deformity. LUNGS: Equal air entry with no crackles, wheeze, rhonchi or dullness. CVS: S1 and S2 normal with no audible murmur, regular rhythm. No extra heart sounds ABDOMEN: No masses or tenderness SPINE: No scoliosis or deformity SKIN: No rashes CENTRAL NERVOUS SYSTEM: Alert and technically oriented x 3. No focal deficits, tone is normal in all 4 extremities. EXTREMITIES: No clubbing, or cyanosis. - Labs CBC & Chem 7: 02/10/24 05:32 02/10/24 05:32 Labs: Abnormal Lab Results - Last 24 Hours (Table) 02/10/24 02/10/24 Range/Units 05:32 05:32 MCHC 30.8 L (31.0-37.0) g/dL RDW 16.4 H (11.5-15.5) % Plt Count 127 L (150-450) k/uL Chloride 114 H (98-107) mmol/L Carbon Dioxide 17 L (22-30) mmol/L BUN 5 L (9-20) mg/dL Creatinine 0.57 L (0.66-1.25) mg/dL Calcium 7.9 L (8.4-10.2) mg/dL Assessment and Plan Assessment: 1. Alcohol intoxication/withdrawal -Blood alcohol level is at 455; patient has been placed on CIWA protocol with Ativan; IV fluids; thiamine and folic acid -- Will add Librium 25 mg 4 times daily as needed 2. Hyponatremia/dehydration; IV fluids half-normal saline at a rate of 125 cc an hour; monitor electrolytes closely; adjust fluids as needed 3. Hypokalemia; supplemented in ED; will monitor electrolytes and make further recommendations as needed DVT prophylaxis; SCDs CODE STATUS; full code
[2024-02-10] MEDS ORDERED: HALOPERIDOL LACTATE 5 MG/ML 1 ML VIAL IM PRN ×2 (16:42)
[2024-02-10] MEDS: SODIUM CHLORIDE 0.9% 1,000 ML IV SCH (22:00)
[2024-02-10] MEDS: METOPROLOL TARTRATE 25 MG TAB PO STA (22:33)
[2024-02-11 02:23] VITALS: RESP 18
[2024-02-11 08:29] VITALS: BP 140/92; PULSE 102; TEMP 97.5
[2024-02-11 10:18] LABS: Basophils # (A) 0.03 X 10*3/uL (0.00-0.10); Basophils % (A) 0.4 %; Eosinophils # (A) 0.19 X 10*3/uL (0.04-0.35); Eosinophils % (A) 2.6 %; HCT 49.2 % (39.6-50.0); HGB 15.5 g/dL (13.0-17.0); Lymphocytes # (A) 2.01 X 10*3/uL (0.90-5.00); MCH 27.3 pg (27.0-32.0); MCHC 31.5 g/dL (32.0-37.0); MCV 86.6 FL (80.0-97.0); Mean Platelet Volume 10.3 FL (9.5-12.2); Monocytes # (A) 0.56 X 10*3/uL (0.20-1.00); Monocytes % (A) 7.8 %; NRBC Per 100 WBC 0 X 10*3/uL (0.00-0.01); Neutrophils # (A) 4.36 X 10*3/uL (1.80-7.70); Neutrophils % (A) 60.9 %; Platelet Count 136 X 10*3/uL (140-440); RBC 5.68 X 10*6/uL (4.40-5.60); RDW 17.4 % (11.5-14.5); WBC 7.17 X 10*3/uL (4.50-10.00)
[2024-02-11 10:23] LABS: Magnesium 1.3 (1.5-2.4)
[2024-02-11 10:29] LABS: Blood Urea Nitrogen 8.1 mg/dL (9.0-27.0); Calcium 8.6 mg/dL (8.7-10.3); Carbon Dioxide 16.1 mmol/L (21.6-31.8); Chloride 108 mmol/L (96-109); Glucose 86 mg/dL (70-110); Potassium 3.6 mmol/L (3.5-5.5); Sodium 139 mmol/L (135-145)
--- NOTE | 2024-02-11 11:13 | P.PN ---
Subjective Progress Note Date: 02/11/24 Principal diagnosis: Alcohol withdrawal. 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 Who presents presented to the emergency department for alcohol intoxication. Regarding EMS for chest pain. When EMS arrived to [facility] and the patient appeared intoxicated. In the ED he became combative and uncooperative, but later began to settle down. Then he was transferred to general medical floor where he became agitated again and was transferred to ICU. Was put on Precedex 0.2mcg/kg/hr with 0.9% normal saline at 10ml/hr and chlordiazepoxide 20 mg. He was seen today in the ICU. He is stable on on room air with O2 sat 94 and is not agitated. He complains of mild pain in the back. Labs today show WBC 4.2, hemoglobin 13.5, platelets 151, sodium 138, potassium 3.6, BUN 5 and creatinine 1.52. Alcohol level on admission was 155. EKG shows right bundle branch block. Chest x-ray shows mild cardiomegaly and interstitial density, mild CHF with early pulmonary vascular congestion. He has been put on folic acid, thiamine 100 mg, KCL 20 meq and multivitamin 50ml/hr. We will discontinue Precedex and add Haldol 48mg IM or IV, Seroquel 50, 3 times a day. He seemed hypovolemic so will start LR at 50 ml/hr. Will continue to monitor. Progress note dated February 10, 2024. The patient is seen today in room 261. He is much improved. He came into the hospital with alcohol withdrawal and alcohol intoxication. His alcohol level was 455. He is currently on room air. He is getting no IV fluids at the current time. He previously was on lactated Ringer's, as well as a banana bag. The patient is awake and alert. He is not agitated. In addition to Ativan, he has orders for Seroquel, Haldol, Librium. He is no longer on dexmedetomidine. Current labs include a white count 3.9, hemoglobin 13.6, hematocrit 44.2, and a platelet count of 127,000. Sodium 137, potassium 3.9, chlorides 114, CO2 17, BUN 5, creatinine 0.57. Calcium is 7.9. Progress note dated February 11, 2024. The patient is 53-year-old male seen in room 485. He came to the hospital with alcohol withdrawal and intoxication with alcohol level of 455. He is not getting any IV fluids. The patient is awake and alert and not agitated. Current labs show WBC of 7.17, hemoglobin 15.5, platelets 136, sodium 139, potassium 3.6, chloride 108, BUN 8.1 and creatinine 0.9. Today he is on room air and is doing a lot better. He denies shortness of breath, cough, chest pain. He is at his baseline and is good to be discharged from the pulmonary standpoint. Objective - Vital Signs Vital signs: Vital Signs Temp 97.5 F L 02/11/24 07:23 Pulse 102 H 02/11/24 07:23 Resp 18 02/11/24 07:23 BP 140/92 02/11/24 07:23 Pulse Ox 97 02/11/24 07:23 FiO2 Intake & Output 02/10/24 02/11/24 02/11/24 18:59 06:59 18:59 Intake Total 100 Output Total 400 Balance -300 Intake: Intake, IV Titration 100 Amount Lactated Ringers 1,000 ml 100 @ 50 mls/hr IV .Q20H LADI Rx#:[id number] Output: Urine 400 Other: Voiding Method Toilet Urinal # Voids 1 2 - Exam No acute distress, oriented 3. Still a bit shaky. HEENT examination is grossly unremarkable. Mucous membranes are moist. No oral lesions. Neck supple. Full range of motion. No adenopathy thyromegaly or neck vein dis tention. Cardiovascular examination reveals regular rhythm rate. S1-S2 normal. No S3 or S4. No discernible murmur noted. Lungs reveal clear breath sounds. Breath sounds are equal bilaterally. No adventitious lung sounds including wheezes rhonchi or crackles. Abdomen soft bowel sounds are heard. No masses or tenderness. Extremities are intact. No cyanosis clubbing or edema. Skin is without rash or lesion. Neurologic examination is brief but nonfocal. - Labs CBC & Chem 7: 02/11/24 08:11 02/11/24 08:11 Labs: Abnormal Lab Results - Last 24 Hours (Table) 02/09/24 02/11/24 02/11/24 Range/Units 05:27 08:11 08:11 RBC 5.68 H (4.40-5.60) X 10*6/uL MCHC 31.5 L (32.0-37.0) g/dL RDW 17.4 H (11.5-14.5) % Plt Count 136 L (140-440) X 10*3/uL Carbon Dioxide 16.1 L (21.6-31.8) mmol/L Anion Gap 14.90 H (4.00-12.00) mmol/L BUN 8.1 L (9.0-27.0) mg/dL BUN/Creatinine Ratio 9.00 L (12.00-20.00) Ratio Calcium 8.6 L (8.7-10.3) mg/dL Magnesium 1.3 L (1.5-2.4) Assessment and Plan Assessment: Acute alcohol intoxication. History of gastroesophageal reflux disease. History of osteoarthritis. History of seizure disorder Neuropathy of the right forearm. Plan: Patient is awake, alert, not agitated or disoriented and is doing much better. Vital signs stable He is off the IV fluids Importance of alcohol cessation was discussed Patient is stable and good to be discharged from the pulmonary standpoint. Time spent with patient: 20 minutes Time with Patient: Less than 30
== END 2024-02-11 09:20 | disposition left against medical advice (07) | DRG 894 ==
LOC: EC 06:04 → 6NMEDSUR 10:12 → 2SICU 02-09 01:31 → OBSVTOIN 02-09 02:17 → 4SSUR 02-10 12:09
PROVIDERS: ADMIT Hospitalist; ATTEND Hospitalist
DX: F10.139 Alcohol abuse with withdrawal, unspecified (principal); E87.1 Hypo-osmolality and hyponatremia; F10.129 Alcohol abuse with intoxication, unspecified; Z53.29 Procedure and treatment not carried out because of patient's decision for other reasons; E86.0 Dehydration; E86.1 Hypovolemia; E87.6 Hypokalemia; I50.9 Heart failure, unspecified; G40.909 Epilepsy, unspecified, not intractable, without status epilepticus; F32.A Depression, unspecified; M54.50 Low back pain, unspecified; M25.512 Pain in left shoulder; M25.511 Pain in right shoulder; F41.9 Anxiety disorder, unspecified; F43.10 Post-traumatic stress disorder, unspecified; G62.9 Polyneuropathy, unspecified; I45.10 Unspecified right bundle-branch block; Y90.8 Blood alcohol level of 240 mg/100 ml or more
CPT/HCPCS: 36415; 71046; 80048; 80053; 80320; 83735; 83880; 84484; 85025; 85610; 85730; 93005; 96361; 96365; 96366; 96372; 99285

== ENCOUNTER 2024-03-29 22:18 | Emergency (ER) | payer OTHER ==
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
[2024-03-30] MEDS: LORazepam 2 MG/ML INJ IV STA ×2 (03:35→12:37)
[2024-03-30 03:38] LABS: Anisocytosis Slight; Basophils # (A) 0.1 k/uL (0-0.2); Basophils % (A) 1 %; Eosinophils # (A) 0.3 k/uL (0-0.7); Eosinophils % (A) 4 %; HCT 46.3 % (39.0-53.0); HGB 14.8 gm/dL (13.0-17.5); Hypochromasia Slight; Lymphocytes # (A) 3.1 k/uL (1.0-4.8); Lymphocytes % (A) 41 %; MCH 27.3 pg (25.0-35.0); MCHC 31.9 g/dL (31.0-37.0); MCV 85.6 fL (80.0-100.0); Monocytes # (A) 0.4 k/uL (0-1.0); Monocytes % (A) 5 %; Neutrophils # (A) 3.7 k/uL (1.3-7.7); Neutrophils % (A) 48 %; Platelet Count 243 k/uL (150-450); RBC 5.41 m/uL (4.30-5.90); WBC 7.6 k/uL (3.8-10.6)
[2024-03-30] MEDS: SODIUM CHLORIDE 0.9% 1,000 ML IV STA (03:49)
[2024-03-30 03:50] LABS: Amphetamine Screen,Urine Not Detected (NotDetected); Barbiturate Screen,Urine Not Detected (NotDetected); Benzodiazepines Screen,Urine Not Detected (NotDetected); Cocaine Screen,Urine Not Detected (NotDetected); Methadone Screen, Urine Not Detected (NotDetected); Opiate Screen,Urine Not Detected (NotDetected); Oxycodone Screen, Urine Not Detected (NotDetected); Phencyclidine Screen,Urine Not Detected (NotDetected); Tricyclic Antidepressant,Urine Not Detected (NotDetected); Urn Cannabinoid Scrn Not Detected (NotDetected)
[2024-03-30 03:58] LABS: African American GFR (CKD) >90 (>60 ml/min/1.73 sqM); Carbon Dioxide 21 mmol/L (22-30); Glucose 92 mg/dL (74-99); Lipase 53 U/L (23-300); Non-African American GFR(CKD) >90 (>60 ml/min/1.73 sqM)
[2024-03-30 04:47] LABS: Acetaminophen <10.0 ug/mL; Anion Gap 10 mmol/L; Blood Urea Nitrogen 6 mg/dL (9-20); Chloride 114 mmol/L (98-107); Salicylate <1.0 mg/dL; Sodium 145 mmol/L (137-145)
[2024-03-30 05:01] LABS: Alcohol 233 mg/dL
[2024-03-30 05:02] LABS: Magnesium 1.5 mg/dL (1.6-2.3); Phosphorus 5.4 mg/dL (2.5-4.5)
[2024-03-30] MEDS: MAGNESIUM OXIDE 400 MG TAB PO STA ×2 (09:01)
[2024-03-30 13:52] VITALS: BP 121/81; PULSE 79; RESP 18; TEMP 98.5
== END 2024-03-30 13:53 | disposition home or self-care (01) ==
LOC: EC 22:18
CPT/HCPCS: 36415; 80048; 80143; 80179; 80306; 80320; 83690; 83735; 84100; 85025; 96361; 96374; 96376; 99285

== ENCOUNTER → 2024-08-11 | Outpatient (CLI) | payer MEDICARE ==
--- NOTE | 2024-08-11 09:59 | US ---
EXAMINATION TYPE: US Aorta Screening DATE OF EXAM: 08/11/2024 COMPARISON: CT: 12/11/21 CLINICAL INDICATION: Male, 54 years old with history of F17.210 TOBACCO DEPENDENCE Z12.2 LUNG CA SCR; smoker TECHNIQUE: Multiple sonographic images of the abdominal aorta are obtained with grayscale and color D oppler imaging. FINDINGS: EXAM MEASUREMENTS: Abdominal Aorta: Proximal: 2.6 x 2.6cm Mid: 2.5 x 1.9cm Distal: 2.3 x 2.1cm Bifurcation: Right Iliac: 1.7 x 1.2cm Left Iliac: 1.7 x 1.2cm SPECIALTY MOLDER NOTES: plaque seen in plaque. Prox slightly limited due to bowel gas. No AAA seen on toda aiden's study IMPRESSION: No evidence for aortic aneurysm. [facility], , 08/11/2024 9:57 AM
== END | disposition home or self-care (01) ==
LOC: RADUSWWP 09:26
PROVIDERS: ATTEND Family Medicine
DX: Z12.2 Encounter for screening for malignant neoplasm of respiratory organs (principal); F17.210 Nicotine dependence, cigarettes, uncomplicated
CPT/HCPCS: 76706

== ENCOUNTER 2024-12-15 00:14 | Emergency (ER) | payer MEDICARE ==
[2024-12-15 00:20] VITALS: BP 144/86; PULSE 140; RESP 18; TEMP 98.6
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
== END 2024-12-15 01:42 | disposition left against medical advice (07) ==
LOC: EC 00:14
DX: F39 Unspecified mood [affective] disorder (principal); F17.200 Nicotine dependence, unspecified, uncomplicated; Z53.29 Procedure and treatment not carried out because of patient's decision for other reasons
CPT/HCPCS: 82075; 99283

== ENCOUNTER 2024-12-19 18:17 | Inpatient (IN) | payer MEDICARE, MEDICAID ==
[2024-12-19] MEDS ORDERED: IBUPROFEN 600 MG TAB PO PRN (19:17)
[2024-12-19] MEDS ORDERED: ACETAMINOPHEN TAB 325 MG TAB PO PRN (19:17)
[2024-12-19] MEDS ORDERED: MAGNESIUM HYDROXIDE 2,400 MG/30 ML CUP PO PRN (19:17)
[2024-12-19] MEDS ORDERED: HALOPERIDOL LACTATE 5 MG/ML 1 ML VIAL IM PRN (19:17)
[2024-12-19] MEDS ORDERED: LORazepam 2 MG/ML INJ IM PRN (19:17)
[2024-12-19] MEDS: chlordiazePOXIDE 25 MG CAP PO SCH (21:51)
[2024-12-19] MEDS: LORazepam 1 MG TAB PO PRN (21:51)
[2024-12-19] MEDS: QUEtiapine 200 MG TAB PO SCH (21:51)
[2024-12-19] MEDS: cloNIDine HCL 0.1 MG TAB PO SCH (21:51)
[2024-12-19] MEDS: MAG HYDROX/AL HYDROX/SIMETH 355 ML BOTTLE PO PRN (23:17)
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
[2024-12-20] MEDS: FOLIC ACID 1 MG TAB PO SCH (09:59)
[2024-12-20] MEDS: MULTIVITAMINS, THERA 1 EACH TAB PO SCH (09:59)
[2024-12-20] MEDS: THIAMINE 100 MG TAB PO SCH (10:00)
[2024-12-20] MEDS: NICOTINE 14MG/24HR PATCH TRANSDERM SCH (10:01)
[2024-12-20] MEDS: SERTRALINE 25 MG TAB PO SCH (10:08)
[2024-12-20] MEDS: haloperidoL 5 MG TAB PO PRN (18:37)
[2024-12-20] MEDS: QUEtiapine 200 MG TAB PO SCH (20:48)
[2024-12-21 02:18] LABS: Chol/HDL Ratio 7.08 Ratio; LDL Cholesterol,Calculated 158.2 mg/dL (0.0-131.0)
--- NOTE | 2024-12-21 09:23 | P.PN ---
Progress Note - Text Progress Note Date: 12/21/24 Dictation was produced using m[employer] dictation software. Please excuse any grammatical, word or spelling errors. Interval history: Patient was seen in his room and was directable and agreeable to speak with the lyric writer in the office for psychiatric follow-up. The patient states that he is feeling she is feeling better today, states that he slept well last night, it is reported that he slept 4 hours overnight. States that he his appetite is improving and he is eating better. States that depression and anxiety are better than yesterday, however is still at the moderate side, he rated depression at 7/10, and anxiety at 6/10. He denied any current SI/HI or self harm, denied any current AVH. States that he feels safe in the unit, and is getting along with peers in the unit. He has been taking his medications, denied any side effects. Denied any muscle stiffness, rigidity, abnormal movements or drooling. He reported that withdrawal symptoms are getting better. States that he would like to go to rehab after this hospitalization. He states that he has been seeing "court thought [facility] at the beginning of every month" he states that he does not want to miss his appointment, patient was reminded to talk to the secondary social studies teacher tomorrow so they can arrange for that. He states that he is stressed out about his wallet since he can't find it. MENTAL STATUS EXAM: General Appearance: Patient appears to be stated age is alert, directable, and attempts to cooperate. Patient appears to have poor hygiene and grooming. Behavior: Patient is seated without any agitated behavior. Speech: Patient's speech is fluent and nonpressured. Mood/Affect: Patient reports their mood is "a little better", affect is congruent and constricted. Suicidality/Homicidality: Patient denies having any homicidal ideation intent or plan. Denies any suicidal ideations intent or plan Perceptions: Patient denies any visual hallucinations and denies any auditory hallucinations Though content/process: There is no evidence of any delusional thought content and thought process is linear and goal-directed. Memory and concentration: AOX3, grossly intact for the purposes of this session. Judgment and insight: poor IMPRESSIONS: Depressive disorder unspecified, rule out due to alcohol use, rule out MDD Anxiety disorder, unspecified History of suicide attempt by overdose on psychotropic medications Alcohol use disorder, severe, dependence, currently in withdrawal Nicotine dependence PLAN: -Patient is admitted under voluntary status to MHU for stabilization of psychiatric symptoms and safety. Patient has signed adult voluntary form and medication consent and is placed in patient's chart. -Medications : Continue Zoloft 12.5 mg p.o. daily (may consider increasing the dose tomorrow to 25 mg) Continue clonidine 0.1 mg p.o. twice daily Continue Seroquel 100 mg p.o. at bedtime -Ativan and Haldol PRN for agitation/aggression -Continue thiamine, MVM for etoh use -CIWA protocol with Ativan PRN for ETOH withdrawal, scheduled Librium for alcohol withdrawal with plan to taper. - Psychoeducation was provided, risk, benefit and side effect discussed, brief psychotherapy was provided. Labs reviewed, lithium level <0.2 - Patient is future oriented and looking forward to join substance use rehab following this hospitalization, secondary social studies teacher to arrange for rehab placement.
[2024-12-21] MEDS: LORazepam 1 MG TAB PO PRN (20:22)
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
[2024-12-22] MEDS: LORazepam 1 MG TAB PO PRN (07:48)
--- NOTE | 2024-12-22 14:20 | P.PN ---
Progress Note - Text Progress Note Date: 12/22/24 Interval History: Patient was seen laying in bed today. He was directable and agreeable to speak with proposal manager writer in the office. He appears to be mildly disheveled today, was apologetic on what had occurred. He continues to have fairly superficial insight and judgment. He continues to state that he has been having "slip ups" and states that he wants to say [facility]. Claims that he is agreeable to continue on with the medications at this time. Claims that he has been sleeping fairly well with the Seroquel. Claims that he gave up taking alcohol several weeks ago. We discussed several different options for his substance use, claims that he got the most time of going to [facility] [place] and is willing to do the screening over the phone today. Claims that he has been eating well l. And his mood and anxiety been improving. Continues to have very minor withdrawal symptoms. At this time patient denies any suicidal or homical ideations, intent or plan. Patient denies any auditory, visual hallucinations and denies any paranoia or delusions. Patient denies any side effects from the medications and has been compliant with meds. Mental Status Exam: General Appearance: Patient appears to be has some tattoos on his arms, thinning hair, stated age is alert, directable, and cooperative. Behavior: Patient is calmly seated without any agitated behavior. Apologetic, superficial Speech: Patient's speech is fluent and nonpressured. Mood/Affect: Mood is improving mildly, affect is congruent Suicidality/Homicidality: Patient denies having any suicidal or homicidal ideation intent or plan. Perceptions: Patient denies any visual hallucinations and denies any auditory hallucinations Though content/process: There is no evidence of any delusional thought content and thought process is linear and goal-directed. Minimizing at times, superficial Memory and concentration: AOX3, grossly intact for the purposes of this session Judgment and insight: Chronically poor, improving mildly IMPRESSIONS: Major depressive disorder without psychotic features Anxiety disorder, unspecified suicide attempt by overdose on psychotropic medications Alcohol use disorder, severe, dependence, currently in withdrawal Nicotine dependence PLAN: -Patient is admitted under voluntary status to [facility] for stabilization of psychiatric symptoms and safety. Patient has signed adult voluntary form and medication consent and is placed in patient's chart. -Medications : Increase Zoloft 50 mg p.o. daily for mood/anxiety clonidine 0.1 mg p.o. twice daily Seroquel 100 mg p.o. at bedtime for mood stabilization/insomnia. Will add naltrexone 50 mg daily p.o. for alcohol cravings -Ativan and Haldol PRN for agitation/aggression -thiamine, MVM for etoh use -CIWA protocol with Ativan PRN for ETOH withdrawal, scheduled Librium for alcohol withdrawal with plan to taper. -NRT - nicotine patch -SW on board for discharge planning. Encourage patient to participate in groups to work on coping skills. Patient was given access line screening for [facility] he is interested in going there
[2024-12-22] MEDS: NALTREXONE HCL 50 MG TAB PO SCH (16:28)
[2024-12-23] MEDS: SERTRALINE 50 MG TAB PO SCH (08:55)
--- NOTE | 2024-12-23 11:01 | P.PN ---
Progress Note - Text Progress Note Date: 12/23/24 Interval History: Patient was seen laying in bed today. He was directable and agreeable to speak with teletypewriter operator in the office. Patient claims that he feels a bit calmer today, claims that his mood and anxiety primarily improving since yesterday. States that he is still waiting on a decision from [facility] continues to want to go to rehab. Claims that he has been feeling less of the withdrawal symptoms agreeable to continuing with the Librium taper. Claims that he slept fairly last night. He has been eating well. Not going to many groups. At this time patient denies any suicidal or homical ideations, intent or plan. Patient denies any auditory, visual hallucinations and denies any paranoia or delusions. Patient denies any side effects from the medications and has been compliant with meds. Mental Status Exam: General Appearance: Patient appears to be has some tattoos on his arms, thinning hair, stated age is alert, directable, and cooperative. Behavior: Patient is calmly seated without any agitated behavior. More cooperative today. Speech: Patient's speech is fluent and nonpressured. Mood/Affect: Mood is improving mildly, affect is congruent, improving mildly Suicidality/Homicidality: Patient denies having any suicidal or homicidal ideation intent or plan. Perceptions: Patient denies any visual hallucinations and denies any auditory hallucinations Though content/process: There is no evidence of any delusional thought content and thought process is linear and goal-directed. Memory and concentration: AOX3, grossly intact for the purposes of this session Judgment and insight: Chronically poor, improving mildly IMPRESSIONS: Major depressive disorder without psychotic features Anxiety disorder, unspecified suicide attempt by overdose on psychotropic medications Alcohol use disorder, severe, dependence, currently in withdrawal Nicotine dependence PLAN: -Patient is admitted under voluntary status to [facility] for stabilization of psychiatric symptoms and safety. Patient has signed adult voluntary form and medication consent and is placed in patient's chart. -Medications : Zoloft 50 mg p.o. daily for mood/anxiety, plan to increase to 100 mg starting am decrease librium to 10 mg QID for etoh withdrawal. clonidine 0.1 mg p.o. twice daily Seroquel 100 mg p.o. at bedtime for mood stabilization/insomnia. naltrexone 50 mg daily p.o. for alcohol cravings -Ativan and Haldol PRN for agitation/aggression -thiamine, MVM for etoh use -CIWA protocol with Ativan PRN for ETOH withdrawal, scheduled Librium for alcohol withdrawal with plan to taper. -NRT - nicotine patch -SW on board for discharge planning. Encourage patient to participate in groups to work on coping skills. Patient was given access line screening for [facility], they are currently reviewing his packet and awiaitng approval.
[2024-12-23] MEDS ORDERED: traZODone HCL 50 MG TAB PO PRN (22:05)
[2024-12-24] MEDS: SERTRALINE 50 MG TAB PO ONE (08:33)
--- NOTE | 2024-12-24 10:16 | P.PN ---
Progress Note - Text Progress Note Date: 12/24/24 Interval History: Patient was seen laying in bed today. He was directable and agreeable to speak with automotive service writer in the office. Patient claims that he is doing a bit better today. He claims that he took Haldol last night and also Ativan this morning because "I could" and did not specify a significant reason. Claims that he feels the withdrawal symptoms have been improving. Claims that his mood and anxiety have been also improving as well. Claims that he has not heard much from [facility] at this time and continues to wait. Has been mainly keeping himself in his room not going to many groups was encouraged to do so today. Claims that his appetite is improving. Not reporting any issues with the medications at this time. At this time patient denies any suicidal or homical ideations, intent or plan. Patient denies any auditory, visual hallucinations and denies any paranoia or delusions. Patient denies any side effects from the medications and has been compliant with meds. Mental Status Exam: General Appearance: Patient appears to be has some tattoos on his arms, thinning hair, stated age is alert, directable, and cooperative. Behavior: Patient is calmly seated without any agitated behavior. More cooperative today. Improving mildly Speech: Patient's speech is fluent and nonpressured. Mood/Affect: Mood is improving mildly, affect is congruent, improving mildly Suicidality/Homicidality: Patient denies having any suicidal or homicidal ideation intent or plan. Perceptions: Patient denies any visual hallucinations and denies any auditory hallucinations Though content/process: There is no evidence of any delusional thought content and thought process is linear and goal-directed. Memory and concentration: AOX3, grossly intact for the purposes of this session Judgment and insight: Chronically poor, improving mildly IMPRESSIONS: Major depressive disorder without psychotic features Anxiety disorder, unspecified suicide attempt by overdose on psychotropic medications Alcohol use disorder, severe, dependence, currently in withdrawal Nicotine dependence PLAN: -Patient is admitted under voluntary status to [facility] for stabilization of psychiatric symptoms and safety. Patient has signed adult voluntary form and medication consent and is placed in patient's chart. -Medications : Zoloft 100 mg for mood/anxiety decrease librium to 10 mg TID for etoh withdrawal. clonidine 0.1 mg p.o. twice daily Seroquel 100 mg p.o. at bedtime for mood stabilization/insomnia. Added Vistaril 50 mg scheduled nightly for insomnia/anxiety. naltrexone 50 mg daily p.o. for alcohol cravings -Ativan and Haldol PRN for agitation/aggression -thiamine, MVM for etoh use -CIWA protocol with Ativan PRN for ETOH withdrawal -NRT - nicotine patch -SW on board for discharge planning. Encourage patient to participate in groups to work on coping skills. Patient was given access line screening for [facility], they are currently reviewing his packet and awiaitng approval. Hopeful for discharge Sunday if patient is accepted to [facility].
[2024-12-24] MEDS: SERTRALINE 50 MG TAB PO STA (10:40)
[2024-12-24] MEDS: hydrOXYzine pamoate 25 MG CAP PO SCH (20:57)
[2024-12-25] MEDS: SERTRALINE 100 MG TAB PO SCH (07:56)
[2024-12-25 10:26] VITALS: RESP 16
--- NOTE | 2024-12-25 11:26 | P.PN ---
Progress Note - Text Progress Note Date: 12/25/24 Interval History: Patient was seen laying in bed today. He was directable and agreeable to speak with contract writer in the office. Patient claims that he is doing fairly well today, he did not offer any overnight complaints. States that he slept about 6 or 7 hours. Claims that he wants to stay on the current medications at this time. Claims that his anxiety is also improving as well as his mood. He claims that he is accepted to [facility] and is all set to go there tomorrow morning. He spoke about the medication compliance and working on his sobriety. Insight and judgment appear to be improving mildly. Has only been going to some groups, up for meals. At this time patient denies any suicidal or homical ideations, intent or plan. Patient denies any auditory, visual hallucinations and denies any paranoia or delusions. Patient denies any side effects from the medications and has been compliant with meds. Mental Status Exam: General Appearance: Patient appears to be has some tattoos on his arms, thinning hair, stated age is alert, directable, and cooperative. Behavior: Patient is calmly seated without any agitated behavior. More cooperative today. Improving mildly Speech: Patient's speech is fluent and nonpressured. Mood/Affect: Mood is improving mildly, affect is congruent, improving mildly more future oriented Suicidality/Homicidality: Patient denies having any suicidal or homicidal ideation intent or plan. Perceptions: Patient denies any visual hallucinations and denies any auditory hallucinations Though content/process: There is no evidence of any delusional thought content and thought process is linear and goal-directed. Memory and concentration: AOX3, grossly intact for the purposes of this session Judgment and insight: Chronically poor, improving mildly IMPRESSIONS: Major depressive disorder without psychotic features Anxiety disorder, unspecified suicide attempt by overdose on psychotropic medications Alcohol use disorder, severe, dependence, currently in withdrawal Nicotine dependence PLAN: -Patient is admitted under voluntary status to [facility] for stabilization of psychiatric symptoms and safety. Patient has signed adult voluntary form and medication consent and is placed in patient's chart. -Medications : Zoloft 100 mg for mood/anxiety taper off librium po today clonidine 0.1 mg p.o. twice daily Seroquel 100 mg p.o. at bedtime for mood stabilization/insomnia. Vistaril 50 mg scheduled nightly for insomnia/anxiety. naltrexone 50 mg daily p.o. for alcohol cravings -Ativan and Haldol PRN for agitation/aggression -thiamine, MVM for etoh use -CIWA protocol with Ativan PRN for ETOH withdrawal -NRT - nicotine patch -SW on board for discharge planning. Encourage patient to participate in groups to work on coping skills. Patient was accepted to [facility], will be driven there tomorrow morning at 9 AM for intake. Medications were sent downstairs to pharmacy for billing. Discharge tomorrow morning.
[2024-12-25 22:50] VITALS: BP 104/56; PULSE 87; TEMP 97.2
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
== END 2024-12-26 09:10 | DRG 881 ==
LOC: 3MHU 20:58
PROVIDERS: ADMIT Psychiatry & Neurology Psychiatry; ATTEND Psychiatry & Neurology Psychiatry
DX: F32.9 Major depressive disorder, single episode, unspecified (principal); Z59.01 Sheltered homelessness; F10.239 Alcohol dependence with withdrawal, unspecified; T43.591A Poisoning by other antipsychotics and neuroleptics, accidental (unintentional), initial encounter; F41.9 Anxiety disorder, unspecified; F17.200 Nicotine dependence, unspecified, uncomplicated; Z91.51 Personal history of suicidal behavior; Z91.411 Personal history of adult psychological abuse; Z91.410 Personal history of adult physical and sexual abuse; Y07.11 Biological father, perpetrator of maltreatment and neglect; Z63.5 Disruption of family by separation and divorce; Z71.6 Tobacco abuse counseling; Z79.899 Other long term (current) drug therapy
CPT/HCPCS: 80061; 80178; 83036; 84443